=== PATIENT | female | born 1965 | race Caucasian/White ===

== ENCOUNTER → 2019-12-25 09:02 | Outpatient (CLI) | payer BC, SELFPAY ==
--- NOTE | 2019-12-25 09:07 | RAD_ITS ---
STUDY: X-RAY CHEST REASON FOR EXAM: Female, 54 years old. Cough, trouble breathing, some right side chest pain for several weeks TECHNIQUE: PA and lateral views of the chest. COMPARISON: Comparison is made with prior study May 22, 2014. FINDINGS: The lungs are clear and expanded. Scattered calcified granulomas. There is no demonstrated pleural abnormality. Normal size heart. Normal mediastinum and bria. Normal visualized pulmonary arteries. Normal visualized aortic arch and descending thoracic aorta. There are diffuse degenerative changes of the visualized thoracic spine. Normal visualized ribs, clavicles, and shoulders. There is no demonstrated abnormality of the visualized soft tissue structures of the upper abdomen. RAD/Chest PA and Lateral IMPRESSION: Normal x-ray examination of the chest. Electronically Signed: Jesus Manuel Pandey, at 9:24 EDT , Service support ,
== END ==
LOC: MTRAD 09:06
PROVIDERS: PCP Family Medicine; Referring Provider Family Medicine; Visit Provider Family Medicine
DX: R05 Cough (principal)
CPT/HCPCS: 71046

== ENCOUNTER → 2020-01-06 07:22 | Outpatient (CLI) | payer BC, SELFPAY ==
[2020-01-06 10:10] LABS: Cholesterol 244 mg/dL (200); High Density Lipoprotein 49 mg/dL; Triglycerides 132 mg/dL; Very Low Density Lipoprotein 26 mg/dL (5-40)
[2020-01-06 10:11] LABS: Vitamin D,25 Hydroxy 19.9 ng/mL
== END ==
PROVIDERS: Family Medicine; PCP Family Medicine; Referring Provider Family Medicine; Visit Provider Family Medicine
DX: E55.9 Vitamin D deficiency, unspecified (principal); K58.9 Irritable bowel syndrome, unspecified; E78.00 Pure hypercholesterolemia, unspecified
CPT/HCPCS: 36415; 80061; 82306

== ENCOUNTER → 2020-02-09 15:53 | Outpatient (CLI) | payer BC, SELFPAY ==
--- NOTE | 2020-02-09 15:58 | CT_ITS ---
STUDY: CT ABDOMEN AND PELVIS WITH CONTRAST REASON FOR EXAM: Female, 54 years old. CROHN''S, UNABLE TO COMPLETE COLONSCOPY, LEFT SIDE ABD PAIN, WEIGHT LOSS RADIATION DOSAGE (If Supplied By Facility): CTDIvol = ( 20.32 ) mGy, DLP = ( 2444.88 ) mGycm TECHNIQUE: Transaxial images were obtained from the dome of the diaphragm to the symphysis pubis without oral contrast. Oral and amp; IV Breeza and amp; 100mL Isovue-370 was administered. Sagittal and coronal images were reconstructed. Individualized dose optimization techniques were used for this CT. COMPARISON: None. FINDINGS: The visualized lung bases are unremarkable. The visualized portions of the heart are within normal limits. Normal liver. Normal gallbladder and extrahepatic biliary system. Normal spleen. Normal pancreas. Normal bilateral adrenal glands. Normal right kidney. Normal left kidney. Normal visualized stomach. Normal small intestine. Normal colon. Normal abdominal aorta. Normal inferior vena cava. Normal retroperitoneum. Normal urinary bladder. Normal abdominal wall. Normal osseous structures. CT/Abdomen/Pelvis WITH Contrast IMPRESSION: Normal enhanced CT of the abdomen and pelvis. Electronically Signed: Karen Dodd, at 4:16 EDT Tel , Service support ,
== END ==
PROVIDERS: PCP Family Medicine; Referring Provider Internal Medicine Gastroenterology; Visit Provider Internal Medicine Gastroenterology
DX: K50.90 Crohn's disease, unspecified, without complications (principal)
CPT/HCPCS: 74177; Q9967; A4216

== ENCOUNTER → 2020-03-12 15:33 | Outpatient (CLI) | payer BC, SELFPAY | PROVIDERS: PCP Family Medicine; Referring Provider Internal Medicine Gastroenterology; Visit Provider Internal Medicine Gastroenterology | DX: K50.10 Crohn's disease of large intestine without complications (principal) ==

== ENCOUNTER → 2020-04-20 08:05 | Outpatient (CLI) | payer BC, SELFPAY ==
[2020-04-20 11:10] LABS: Hepatitis B Surface Antigen Non-Reactive (Nonreactive)
[2020-04-20 11:10] LABS: ALB/GLOB Ratio 0.9 RATIO (0.9-2.4); AST(SGOT) 15 U/L (15-37); Alanine Aminotransfer ALT/SGPT 22 U/L (13-56); Albumin, Serum 3.5 g/dL (3.2-5.0); Alkaline Phosphatase 89 U/L (45-117); Anion Gap 6 (5-15); BUN 13 mg/dL (7-18); BUN/Creat Ratio 16.2 RATIO (10-20); Calcium,Total 9.2 mg/dL (8.5-10.1); Chloride 104 mmol/L (98-107); Cholesterol 241 mg/dL (200); EST Glomerular Filtration Rate 79 mL/min (>60); Est Glom Filt Rate - Afr Amer 95 mL/min (>60); Glucose 93 mg/dL (74-106); High Density Lipoprotein 58 mg/dL; Potassium 3.5 mmol/L (3.5-5.1); Protein, Total 7.5 g/dL (6.4-8.2); Sodium Level 139 mmol/L (136-145); Triglycerides 134 mg/dL; Very Low Density Lipoprotein 27 mg/dL (5-40)
[2020-04-23 03:07] LABS: QNTFERON TB Mitogen Value > 10.00 IU/mL (.); QNTFERON TB Nil Value 0.02 IU/mL (.); QNTFERON TB1+ Ag Value 0.03 IU/mL (.); QNTFERON TB2+ Ag Value 0.03 IU/mL (.)
[2020-04-23 15:42] LABS: QNTIFERON TB Positive Criteria Negative (Negative)
== END ==
PROVIDERS: PCP Family Medicine; Referring Provider Internal Medicine Gastroenterology; Visit Provider Internal Medicine Gastroenterology
DX: K50.10 Crohn's disease of large intestine without complications (principal)
CPT/HCPCS: 36415; 80053; 80061; 86140; 86480; 87340

== ENCOUNTER → 2020-05-31 09:28 | Outpatient (CLI) | payer BC, SELFPAY ==
[2020-05-31 12:49] LABS: Thyroid Stim Hormone (TSH) 1.47 uIU/mL (0.358-3.74)
== END ==
PROVIDERS: PCP Family Medicine; Visit Provider Family Medicine
DX: R00.2 Palpitations (principal)
CPT/HCPCS: 36415; 84443

== ENCOUNTER → 2020-10-18 16:22 | Outpatient (CLI) | payer BC, SELFPAY ==
[2020-10-18 18:26] LABS: Hematocrit 37.5 % (37-47); Hemoglobin 12.6 g/dL (12.0-15.0); Mean Corp Hgb Conc 33.6 g/dL (32-36); Mean Corpuscular Hgb 29.6 pg (27.0-32.0); Mean Corpuscular Volume 88.2 fL (81-99); Mean Platelet Vol. 10.3 fl (6.2-12.0); Platelet Count 392 K/mm3 (150-450); RBC Distribution Width CV 12.8 % (11.6-14.6); RBC Distribution Width SD 41.5 fl (35.1-43.9); Red Blood Count 4.25 M/mm3 (4.2-5.4)
[2020-10-18 18:48] LABS: CRP 4.92 mg/L (0.0-3.0)
== END ==
PROVIDERS: PCP Family Medicine; Referring Provider Internal Medicine Gastroenterology; Visit Provider Internal Medicine Gastroenterology
DX: K50.90 Crohn's disease, unspecified, without complications (principal)
CPT/HCPCS: 36415; 85027; 86140

== ENCOUNTER → 2020-10-29 08:12 | Outpatient (CLI) | payer BC, SELFPAY ==
--- NOTE | 2020-10-29 08:13 | RAD_ITS ---
STUDY: BARIUM ENEMA. REASON FOR EXAM: Female, 55 years old. CROHN''S FLUOROSCOPY TIME (if supplied): ( 65 seconds ) minutes/seconds. 15 images were obtained. TECHNIQUE: A cisco certified network professional view was obtained. Following this, barium was introduced through the rectum. The entire colon was opacified. COMPARISON: None. FINDINGS: There is no evidence of retrograde or antegrade obstruction to the flow of contrast. There is evidence of a focal area of stricture in the proximal transverse colon adjacent to the hepatic flexure. There is lack of haustral markings throughout the colon worse in the transverse colon. RAD/Barium Enema No Air Cont IMPRESSION: Focal area of the stricture in the proximal transverse colon just distal to the hepatic flexure. Lack of haustral markings. Electronically Signed: Jessu Manuel Pandey MD at 14:53 EDT , Service support ,
== END ==
LOC: RAD 08:12
PROVIDERS: PCP Family Medicine; Referring Provider Internal Medicine Gastroenterology; Visit Provider Internal Medicine Gastroenterology
DX: K50.90 Crohn's disease, unspecified, without complications (principal)
CPT/HCPCS: 74270

== ENCOUNTER 2020-10-29 16:18 | Outpatient (RCR) | payer BC, SELFPAY ==
[2020-10-29] MEDS: COVID-19 VACC, MRNA(PFIZER)/PF 30 MCG/0.3 ML SYRINGE IM (14:48)
[2020-11-19] MEDS: COVID-19 VACC, MRNA(PFIZER)/PF 30 MCG/0.3 ML SYRINGE IM (14:40)
== END 2020-10-29 23:59 ==
LOC: IMMUN 16:18
PROVIDERS: PCP Family Medicine; Visit Provider Family Medicine
DX: Z23 Encounter for immunization (principal)
CPT/HCPCS: 0001A; 0002A; 91300

== ENCOUNTER → 2021-04-15 08:00 | Outpatient (CLI) | payer BC, SELFPAY ==
[2021-04-15 10:23] LABS: Absolute Lymphocyte Count 2.27 X10^3/uL (0.83-4.51); Absolute Neutrophil Count 4.3 X10^3/uL (2.0-7.7); Basophil# 0.07 X10^3/uL; Basophil% 0.9 % (0-1); Eosinophil# 0.12 X10^3/uL; Eosinophils% 1.6 % (0-5); Hematocrit 37.9 % (37-47); Lymphocyte # 2.27 X10^3/ul (0.83-4.51); Lymphocyte % 30.3 % (19-41); Mean Corp Hgb Conc 34.3 g/dL (32-36); Mean Corpuscular Volume 87.5 fL (81-99); Mean Platelet Vol. 9.8 fl (6.2-12.0); Monocyte% 9.4 % (0-10); NRBC Flagged by Analyzer 0 % (0-5); Neutrophil # 4.29 X10^3/uL (2.7-7.7); Neutrophil % 57.4 % (47-70); Platelet Count 338 K/mm3 (150-450); RBC Distribution Width CV 12.6 % (11.6-14.6); RBC Distribution Width SD 40.4 fl (35.1-43.9); Red Blood Count 4.33 M/mm3 (4.2-5.4); White Blood Count 7.5 K/mm3 (4.4-11.0)
[2021-04-15 10:42] LABS: ALB/GLOB Ratio 0.9 RATIO (0.9-2.4); AST(SGOT) 17 U/L (15-37); Alanine Aminotransfer ALT/SGPT 34 U/L (13-56); Albumin, Serum 3.6 g/dL (3.2-5.0); Alkaline Phosphatase 105 U/L (45-117); Anion Gap 6 (5-15); BUN 13 mg/dL (7-18); BUN/Creat Ratio 18.4 RATIO (10-20); Calcium,Total 8.9 mg/dL (8.5-10.1); Chloride 105 mmol/L (98-107); Cholesterol 264 mg/dL (200); EST Glomerular Filtration Rate 91 mL/min (>60); Est Glom Filt Rate - Afr Amer 110 mL/min (>60); Glucose 97 mg/dL (74-106); High Density Lipoprotein 51 mg/dL; Potassium 3.8 mmol/L (3.5-5.1); Protein, Total 7.6 g/dL (6.4-8.2); Sodium Level 139 mmol/L (136-145); Triglycerides 154 mg/dL; Very Low Density Lipoprotein 31 mg/dL (5-40)
[2021-04-15 11:03] LABS: Vitamin B12 915 pg/mL (211-911); Vitamin D,25 Hydroxy 31.5 ng/mL
== END ==
PROVIDERS: PCP Family Medicine; Referring Provider Internal Medicine Gastroenterology; Visit Provider Internal Medicine Gastroenterology
DX: K50.90 Crohn's disease, unspecified, without complications (principal); E55.9 Vitamin D deficiency, unspecified; R53.83 Other fatigue; I10 Essential (primary) hypertension
CPT/HCPCS: 36415; 80053; 80061; 82306; 82607; 85025

== ENCOUNTER → 2021-04-19 18:42 | Outpatient (CLI) | payer BC, SELFPAY ==
[2021-04-21 20:08] LABS: Covid Inpatient test code BILL Performed (.)
== END ==
PROVIDERS: Visit Provider Family Medicine
DX: U07.1 COVID-19 (principal)
CPT/HCPCS: 87635; U0005; U0003

== ENCOUNTER 2021-10-07 17:39 | Outpatient (CLI) | payer BC, SELFPAY ==
--- NOTE | 2021-10-07 17:47 | CT_ITS ---
STUDY: CT Abdomen And Pelvis W/ Contrast Injection 10/07/2021 8:53 PM REASON FOR EXAM: Female, 56 years old. CROHN''S WITH SURGERY SCHEDULED FOR STRICTURE,ULCERATIVE COLITIS AND DYSPLASIA OF COLON HX:HTN,HLD, ENTEROGRAPHY TECHNIQUE: Transaxial images were obtained without oral contrast, and Oral and IV BREEZA NEUTRAL ; 100mL Isovue-370 intravenous contrast. Individualized dose optimization techniques were used for this CT. COMPARISON: 6 ct and BE Oct 29 2020 8:21am FINDINGS: The visualized lung bases are unremarkable. The visualized portions of the heart are within normal limits. Normal liver. Normal gallbladder and extrahepatic biliary system. Normal spleen. Normal pancreas. Normal bilateral adrenal glands. There are hypodensities in the right kidney. These are consistent for cysts. No follow up required. No acute findings of the left kidney. Normal visualized stomach. Normal small intestine. There is diffuse narrowing of the colon from the hepatic flexure to the rectosigmoid colon. This has an ahaustral appearance. The prior findings on the BE appear to have progressed. There is non-visualization of the appendix. There are calcifications of the abdominal aorta. This is consistent for atherosclerotic disease. There is no abdominal aortic aneurysm. Normal inferior vena cava. Subcentimeter mesenteric lymph nodes. Normal urinary bladder. There is atrophy of the uterus. There is an umbilical hernia containing fat. There are diffuse degenerative changes of the visualized lumbar spine. IMPRESSION: (NOT LISTED IN ORDER OF SIGNIFICANCE) There is diffuse narrowing of the colon from the hepatic flexure to the rectosigmoid colon. This has an ahaustral appearance. The prior findings on the BE appear to have progressed. Other findings as above. Electronically Signed: Anjum Loco MD at 21:02 EST , CT/Abdomen/Pelvis WITH Contrast
[2021-10-07 18:01] LABS: CREATININE FINGERSTICK 0.7 mg/dL (0.55-1.02); EGFR FINGERSTICK > 60.0000 mL/min (>60)
== END 2021-10-07 23:59 | disposition home or self-care (01) ==
PROVIDERS: Referring Provider Internal Medicine Gastroenterology; Visit Provider Internal Medicine Gastroenterology
DX: K50.90 Crohn's disease, unspecified, without complications (principal)
CPT/HCPCS: 74177; Q9967

== ENCOUNTER → 2022-01-02 | Outpatient (CLI) | payer BC, SELFPAY ==
--- NOTE | 2022-01-02 14:18 | BI_ITS ---
MAMMOGRAPHY - BILATERAL SCREENING REASON FOR EXAM: Female, 56 years old. Routine annual screening examination. PERTINENT HISTORY: Aunt with breast cancer. No personal history of breast cancer. TECHNIQUE: Digital bilateral breast carlos eduardo (3D mammographic acquisition) in the CC and MLO projections. 2-D mediolateral oblique (MLO) and craniocaudad (CC) views of both breasts were obtained. CAD: Full Field Digital Mammography with Computer Added Detection was performed. COMPARISON: Diagnostic breast mammogram from 05/16/2016, 05/25/2015. Right breast diagnostic mammogram from 11/25/2015. Bilateral screening mammogram from 04/27/2015. FINDINGS: Breast Composition: The breasts are heterogeneously dense, which may obscure small masses. There are stable benign-appearing oval lesions in the right upper outer breast. There are stable asymmetries in the right breast. No suspicious calcifications. No other significant abnormalities are identified. BI/SCRN MAMM (CAD)W/CARLOS EDUARDO BILAT IMPRESSION: Negative screening mammogram. Yearly followup mammogram recommended. (A) ASSESSMENT CATEGORY: BIRADS Category 2: Benign. A letter regarding these results will be sent to the patient by the facility within 30 days. Approximately 10% of breast cancers are not detected by mammography. A normal mammogram should not delay biopsy of a clinically suspicious abnormality. [id number] Electronically Signed: Chi Klein, at 16:58 EDT ,
== END | disposition home or self-care (01) ==
LOC: OPBI 14:15
PROVIDERS: Visit Provider Family Medicine
DX: Z12.31 Encounter for screening mammogram for malignant neoplasm of breast (principal); Z80.3 Family history of malignant neoplasm of breast
CPT/HCPCS: 77063; 77067

== ENCOUNTER → 2023-05-01 | Outpatient (CLI) | payer SELFPAY ==
[2023-05-01 10:19] LABS: Absolute Lymphocyte Count 2.57 X10^3/uL (0.83-4.51); Basophil# 0.06 X10^3/uL; Basophil% 0.6 % (0-1); Eosinophil# 0.14 X10^3/uL; Eosinophils% 1.5 % (0-5); Hematocrit 36.5 % (37-47); Lymphocyte # 2.57 X10^3/ul (0.83-4.51); Lymphocyte % 27.7 % (19-41); Mean Corp Hgb Conc 32.9 g/dL (32-36); Mean Corpuscular Hgb 29.7 pg (27.0-32.0); Mean Corpuscular Volume 90.3 fL (81-99); Monocyte# 0.52 X10^3/uL; Monocyte% 5.6 % (0-10); NRBC Flagged by Analyzer 0 % (0-5); Neutrophil # 5.95 X10^3/uL (2.7-7.7); Neutrophil % 64.1 % (47-70); Platelet Count 372 K/mm3 (150-450); RBC Distribution Width CV 13.2 % (11.6-14.6); RBC Distribution Width SD 43.8 fl (35.1-43.9); Red Blood Count 4.04 M/mm3 (4.2-5.4); White Blood Count 9.3 K/mm3 (4.4-11.0)
[2023-05-01 10:51] LABS: Vitamin D,25 Hydroxy 39.4 ng/mL
[2023-05-01 11:00] LABS: Microalbumin,Random Urine < 5.0 mg/L (NO RANGE EST.)
[2023-05-01 11:38] LABS: ALB/GLOB Ratio 0.9 RATIO (0.9-2.4); AST(SGOT) 27 U/L (15-37); Alanine Aminotransfer ALT/SGPT 45 U/L (13-56); Albumin, Serum 3.4 g/dL (3.2-5.0); Alkaline Phosphatase 115 U/L (45-117); Anion Gap 5 (5-15); BUN 16 mg/dL (7-18); Calcium,Total 8.8 mg/dL (8.5-10.1); Chloride 106 mmol/L (98-107); Cholesterol 165 mg/dL (200); EST Glomerular Filtration Rate 92 mL/min (>60); Est Glom Filt Rate - Afr Amer 111 mL/min (>60); Ferritin 43 ng/mL (8-252); Globulin 3.7 g/dL (2.2-4.2); Glucose 108 mg/dL (74-106); Hemoglobin A1c 5.9 % (3.8-5.6); High Density Lipoprotein 48 mg/dL; Potassium 3.9 mmol/L (3.5-5.1); Protein, Total 7.1 g/dL (6.4-8.2); Sodium Level 138 mmol/L (136-145); Triglycerides 120 mg/dL; Very Low Density Lipoprotein 24 mg/dL (5-40)
== END | disposition home or self-care (01) ==
PROVIDERS: PCP Family Medicine; Visit Provider Family Medicine
DX: E78.00 Pure hypercholesterolemia, unspecified (principal); E55.9 Vitamin D deficiency, unspecified; D50.9 Iron deficiency anemia, unspecified; I10 Essential (primary) hypertension
CPT/HCPCS: 36415; 80053; 80061; 82043; 82306; 82570; 82728; 83036; 84443; 85025

== ENCOUNTER → 2023-12-26 | Outpatient (CLI) | payer BC, SELFPAY ==
[2023-12-26 17:58] LABS: Absolute Lymphocyte Count 2.23 X10^3/uL (0.83-4.51); Absolute Neutrophil Count 8.1 X10^3/uL (2.0-7.7); Basophil# 0.07 X10^3/uL; Basophil% 0.6 % (0-1); Eosinophil# 0.11 X10^3/uL; Hematocrit 38.2 % (37-47); Hemoglobin 12.9 g/dL (12.0-15.0); Lymphocyte # 2.23 X10^3/ul (0.83-4.51); Lymphocyte % 19.8 % (19-41); Mean Corp Hgb Conc 33.8 g/dL (32-36); Mean Corpuscular Hgb 29.4 pg (27.0-32.0); Mean Platelet Vol. 9.3 fl (6.2-12.0); Monocyte# 0.75 X10^3/uL; Monocyte% 6.7 % (0-10); NRBC Flagged by Analyzer 0 % (0-5); Neutrophil # 8.07 X10^3/uL (2.7-7.7); Neutrophil % 71.6 % (47-70); Platelet Count 379 K/mm3 (150-450); RBC Distribution Width CV 12.9 % (11.6-14.6); RBC Distribution Width SD 41.1 fl (35.1-43.9); Red Blood Count 4.39 M/mm3 (4.2-5.4); White Blood Count 11.3 K/mm3 (4.4-11.0)
[2023-12-26 18:25] LABS: D-Dimer Quantitative (DVT/PE) < 0.27 FEU/ug/m (0.27-0.49)
[2023-12-26 18:54] LABS: ALB/GLOB Ratio 0.9 RATIO (0.9-2.4); AST(SGOT) 20 U/L (15-37); Alanine Aminotransfer ALT/SGPT 34 U/L (13-56); Albumin, Serum 3.6 g/dL (3.2-5.0); Alkaline Phosphatase 96 U/L (45-117); Anion Gap 6 (5-15); BUN 16 mg/dL (7-18); BUN/Creat Ratio 22.6 RATIO (10-20); Calcium,Total 9.5 mg/dL (8.5-10.1); Chloride 105 mmol/L (98-107); Creatinine, Serum 0.71 mg/dL (0.55-1.02); EST Glomerular Filtration Rate 90 mL/min (>60); Est Glom Filt Rate - Afr Amer 109 mL/min (>60); Globulin 4.1 g/dL (2.2-4.2); Glucose 115 mg/dL (74-106); Magnesium 2.4 mg/dL (1.6-2.6); Potassium 4.3 mmol/L (3.5-5.1); Protein, Total 7.7 g/dL (6.4-8.2); Sodium Level 139 mmol/L (136-145); Thyroid Stim Hormone (TSH) 3.15 uIU/mL (0.358-3.74)
== END | disposition home or self-care (01) ==
PROVIDERS: PCP Family Medicine; Referring Provider Nurse Practitioner Family; Visit Provider Nurse Practitioner Family
DX: R00.2 Palpitations (principal); R60.0 Localized edema
CPT/HCPCS: 36415; 80053; 83735; 84443; 85025; 85379

== ENCOUNTER → 2024-01-25 | Outpatient (CLI) | payer BC, SELFPAY ==
--- NOTE | 2024-01-25 17:18 | STRESSREP ---
Stress Test Report Exercise myocardial perfusion stress test. 58-year-old lady with a history of chest pain Stress protocol: Resting EKG demonstrates normal sinus rhythm with a rate of 82 bpm resting blood pressure is 176/80 mmHg. The patient exercised according to the regular [facility] protocol for a total duration of 5 minutes and 30 seconds attaining a maximum heart rate of 162 bpm which was 100% of maximum predicted heart rate; the maximum workload was 7 metabolic equivalents. At rest there were no ST or T wave changes noted to suggest ischemia and at peak exercise upsloping ST changes only were noted which did not meet the criteria for ischemia. No clinical angina was noted the test was terminated due to the target heart rate being achieved/fatigue. The peak blood pressure was 210/80 mmHg. Rate-pressure product was 32,000. Myocardial perfusion protocol. 14.6 mCi of technetium 99m sestamibi was injected at rest. The patient exercised according to regular [facility]row protocol for total duration of 5 minutes and 30 seconds and at peak exercise 44.5 mCi of technetium 99m sestamibi was injected stress images were obtained stress and rest images were reconstructed in comparing the short axis vertical long and horizontal long axis. Gated images were also obtained. Perfusion SPECT analysis: Review of the stress images demonstrate normal uptake of tracer noted in all areas of the myocardium. The resting images similarly demonstrate normal uptake of tracer noted in all areas of the myocardium. No areas of reversibility are noted to suggest ischemia no previous infarct was noted. Gated SPECT analysis: The gated ejection fraction is 76%. Conclusion: Normal exercise myocardial perfusion stress test at a moderate workload Preserved ejection fraction.
== END | disposition home or self-care (01) ==
LOC: CVS 06:38
PROVIDERS: PCP Family Medicine; Referring Provider Nurse Practitioner Family; Visit Provider Nurse Practitioner Family
DX: R07.9 Chest pain, unspecified (principal)
CPT/HCPCS: 78452; 93017; A9500

== ENCOUNTER → 2024-11-14 | Outpatient (CLI) | payer BC, SELFPAY ==
--- NOTE | 2024-11-14 17:12 | RAD_ITS ---
PROCEDURE: ANKLE MIN 3 VIEWS 11/14/2024 REASON FOR EXAM: RIGHT ANKLE PAIN TECHNIQUE: 3 views of the right ankle COMPARISON: None available FINDINGS: No fracture or dislocation. The joint spaces appear within limits. Soft tissue swelling about the ankle. Small enthesophyte formation Achilles side of the calcaneus. RAD/Ankle min 3 Views IMPRESSION: No fracture or dislocation. Soft tissue swelling about the ankle. Reading Location: [id number]
--- NOTE | 2024-11-14 17:12 | RAD_ITS ---
EXAM: Foot minimum three views CLINICAL HISTORY: Pain COMPARISON: None available TECHNIQUE: Three views left foot FINDINGS: No fracture or dislocation. Joint spaces appear within limits. No osseous lesion identified. RAD/Foot min 3 Views IMPRESSION: Study appears within limits. Reading Location: [id number]
== END | disposition home or self-care (01) ==
LOC: MTRAD 17:10
PROVIDERS: PCP Family Medicine; Referring Provider Family Medicine; Visit Provider Family Medicine
DX: M79.672 Pain in left foot (principal); M25.571 Pain in right ankle and joints of right foot
CPT/HCPCS: 73610; 73630

== ENCOUNTER 2024-11-19 11:34 | Outpatient (RCR) | payer BC, SELFPAY | END 2024-12-10 23:59 | LOC: NS 11:34 | PROVIDERS: PCP Family Medicine; Referring Provider Family Medicine; Visit Provider Family Medicine | DX: Z71.3 Dietary counseling and surveillance (principal); E66.9 Obesity, unspecified; Z68.41 Body mass index [BMI] 40.0-44.9, adult | CPT/HCPCS: 97802 ==

== ENCOUNTER → 2024-12-04 | Outpatient (CLI) | payer BC, SELFPAY ==
--- NOTE | 2024-12-04 16:04 | BD_ITS ---
PROCEDURE: DEXA BONE DENSITY STUDY 12/04/2024 REASON FOR EXAM: F, age 59 y/o . Postmenopausal. TECHNIQUE: DXA scan of sites with data reported below. REFERENCE LINKS: [facility] Adult Positions COMPARISON: 11/07/2016 FINDINGS: BMD and T-SCORES Lumbar spine: 0.850 g/cm2, T-score -1.5 Levels: L1 through L4 Change from prior: . Left femoral neck: 0.684 g/cm2, T-score -1.5 Femoral neck comparison data not recommended for monitoring change. Prior T-score Left total hip: 0.945 g/cm2, T-score 0.0 Change from prior: . Right femoral neck: 0.714 g/cm2, T-score -1.2 Femoral neck comparison data not recommended for monitoring change. Prior T-score Right total hip: 0.889 g/cm2, T-score -0.4 Change from prior: . Left 1/3 radius: g/cm2, T-score Change from prior: . Right 1/3 radius: g/cm2, T-score Change from prior: . The World Health Organization has defined the following categories based on bone density: Normal bone density: T-score equal to or greater than -1.0 Osteopenia: T-score between -1.0 and -2.5 Osteoporosis: T-score equal to or less than -2.5 FRAX (or Comparable) Fracture Risk Assessment: 10 Year Probability of Fracture: Major Osteoporotic Fracture: 19% Hip Fracture: 1.8% (Note: FRAX is not to be reported in setting of normal range bone density, osteoporosis on DEXA, known history of osteoporosis, prior osteoporotic hip or vertebral fracture, or for any patient undergoing pharmacological treatment for bone loss.) The National Osteoporosis Foundation (NOF) recommends pharmacological treatment for patients with a FRAX 10-year risk of 3% or higher for a hip fracture, or 20% or higher for a major osteoporotic fracture, to prevent osteoporosis and reduce fracture risk. The patient meet the pharmacological treatment recommendations for prevention of osteoporosis. BD/Dexa Bone Density Study IMPRESSION: OSTEOPENIA. Recommend follow-up as clinically warranted. Reading Location: [id number]
== END | disposition home or self-care (01) ==
LOC: OPBD 16:03
PROVIDERS: PCP Family Medicine; Referring Provider Family Medicine; Visit Provider Family Medicine
DX: M85.80 Other specified disorders of bone density and structure, unspecified site (principal)
CPT/HCPCS: 77080

== ENCOUNTER 2024-12-23 12:03 | Outpatient (RCR) | payer BC, SELFPAY | END 2025-01-10 23:59 | LOC: NS 12:03 | PROVIDERS: PCP Family Medicine; Referring Provider Family Medicine; Visit Provider Family Medicine | DX: Z71.3 Dietary counseling and surveillance (principal); E66.9 Obesity, unspecified; Z68.41 Body mass index [BMI] 40.0-44.9, adult; E78.00 Pure hypercholesterolemia, unspecified | CPT/HCPCS: 97803 ==

== ENCOUNTER 2025-01-26 11:35 | Outpatient (RCR) | payer BC, SELFPAY | END 2025-02-09 23:59 | LOC: NS 11:35 | PROVIDERS: PCP Family Medicine; Referring Provider Family Medicine; Visit Provider Family Medicine | DX: Z71.3 Dietary counseling and surveillance (principal); E78.00 Pure hypercholesterolemia, unspecified; E66.9 Obesity, unspecified; Z68.41 Body mass index [BMI] 40.0-44.9, adult | CPT/HCPCS: 97803 ==

== ENCOUNTER → 2025-01-27 | Outpatient (CLI) | payer BC, SELFPAY ==
--- NOTE | 2025-01-27 06:49 | MRI_ITS ---
PROCEDURE: LOWER EXT JOINT ONLY (ROUTINE) 01/27/2025 REASON FOR EXAM: OSTEOARTHRITIS PERONEAL TENDONITIS POSTERIOR TIBIAL TENDONITIS TECHNIQUE: LOWER EXT JOINT ONLY (ROUTINE) T1, T2, PD, stir, multiplanar and multisequence images were obtained without IV contrast administration. COMPARISON: COMPARISON : None FINDINGS: Study demonstrates normal articulation of the ankle joint. No acute fractures or dislocations. Normal marrow signal. The contours of the talar dome are normal .Intact Achilles tendon. Plantar aponeurosis is intact. The lateral, medial and central cords of the plantar fascia are intact. The peroneal tendons show increased fluid in the tendon sheath with the tendon tear or retraction, mild tenosynovitis. The flexor digitorum longus and flexor hallucis longus tendons are intact. There is mild increased fluid in the posterior tibial tendon sheath without tendon tear or retraction, mild tenosynovitis. The extensor tendons are intact. Extensor retinaculum is intact and normal in signal. The subtalar joint is intact. Signal in the sinus tarsi is normal. Transverse and cervical ligaments are intact. Lateral syndesmotic ankle ligaments including the anterior and posterior tibiofibular ligaments are intact. The anterior and posterior talofibular ligaments are intact. The medial ankle ligaments including the deltoid and spring ligaments are intact. There is no joint effusion. Subcutaneous edema is noted overlying the extensor compartment at the distal tibia, at the peroneal myotendinous junction, and overlying the Achilles myotendinous junction. MRI/Lower Ext Joint Only (Routine) IMPRESSION: There is mild increased fluid in the posterior tibial tendon sheath without ten don tear or retraction, mild tenosynovitis. The peroneal tendons show increased fluid in the tendon sheath with the tendon tear or retraction, mild tenosynovitis. Subcutaneous edema is noted overlying the extensor compartment at the distal ti dusty, at the peroneal myotendinous junction, and overlying the Achilles myotendinous junction. Reading Location: [facility]
--- OUTSIDE RECORDS SUMMARY | 2025-01-27 06:49 | XMS RPT_ITS | CCD ---
Author Organization [facility] Team Providers Care Banking Consultant Name Role Phone MATSHAWANDA (CNM) Unavailable Unavailable AYSE CERRATO Unavailable Unavail able JASON MURPHY Unavailable Unavailable GIBSONKIMBERLEY SHAH (COAL HIKER) Unavailable Unavailable GIBSONKIMBERLEY SHAH (COAL HIKER) Unavailable Unavailable KRYSTIAN SCHOFIELD Unavailable Unavailable KIMBERLEY GIBSON (COAL HIKER) Unavailable Unavailable DOMINIC BURTON DO Primary Care Physician Unknown, Referring Provider Unavailable Unav ailable Required, No Pcp Unavailable Unavailable Adiel Black Unavailable None, No PCP Unavailable Unavailable Unavailable Unavailable Unavailable Unavailable Nils, Dr. Sam De La Vega Admitting Unavailabl e Wray, Dr. Sam De La Vega Attending Unavailabl e Wray, Dr. Sam De La Vega Referring Unavailabl e Whetsel, Ms. Carlos Feliz Attending Unava ilable Nils, Dr. Sam De La Vega Referring Unavailabl e Rumpler, Ms. Danielle Us Attending Unavailab le Self, Referral Referring Unavailable Rumpler, Ms. Danielle Us Attending Unavailab le Rumpler, Ms. Danielle Us Referring Unavailab le Esperanza, Dr. Adiel Shane Attending Unavaila ble UNKNOWN, PCP Primary Care Unavailable Esperanza, Dr. Adiel Shane Admitting Unavaila ble Esperanza, Dr. Adiel Shane Attending Unavaila ble Esperanza, Dr. Adiel Shane Referring Unavaila ble Wray, Dr. Sam De La Vega Attending Unavailabl e Self, Referral Referring Unavailable Nils, Dr. Sam De La Vega Attending Unavailabl e Unavailable Primary Care Provider UnavailJordan Sullivan DO Primary Care Provider Unava ilJordan Segura DO Primary Care Provider JORDAN ESQUIVEL Primary Care Unavailable SAM WRAY Attending Unavailable JORDAN ESQUIVEL Primary Care Unavailable Lorna Juarez MD Primary Care Provider [phone] Ann SANDOVAL, Lorna Attending Provider Ann SANDOVAL, Lorna Referring Provider Ann, Chalon Primary Care Unavailable Ann, Chalon Attending Unavailable Ann, Chalon Referring Unavailable Ann, Chalon Primary Care Unavailable Ann, Chalon Attending Unavailable Ann, Chalon Referring Unavailable Ann, Chalon Primary Care Unavailable Ann, Chalon Attending Unavailable Ann, Chalon Referring Unavailable Ann, Chalon Primary Care Unavailable Ann, Chalon Attending Unavailable Ann, Chalon Referring Unavailable Ann, Chalon Primary Care Unavailable Ann, Chalon Attending Unavailable Ann, Chalon Referring Unavailable Allergies Allergy Classification Reported Allergen(s) Allergy Type Date of Onset Reaction(s) Facility (1 source) penicillin; Translations: [PENICILLIN G] Drug Allergy 1 [facility] Repository (4 sources) Erythromycin; Translations: [erythromycin] Drug Allergy 5 Hives, Unknown [facility] (2 sources) Metoprolol; Translations: [metoprolol] Drug Allergy Unknown [facility] (2 sources) Penicillin; Translations: [penicillin] Drug Allergy [facility] (3 sources) predniSONE; Translations: [prednisone] Drug Allergy 5 Anxiety [facility] (17 sources) Penicillins; Translations: [Penicillins] Allergy to substance 1 Hives, [facility] (1 source) ALLERGIES NOT ON FILE; Translations: [ALLERGIES NOT ON FILE] Propensity to adverse reactions (disorder) [facility] Repository Medications Current Medications Medication Drug Class(es) Dates Sig (Normalized) Sig (Original) albuterol MDI (90 mcg/inh) CFC free inhalation aerosol (1 source) Start: 06-24-2021 take 2 puff(s) by inhalation four times daily as needed for wheezing albuterol MDI (90 mcg/inh) CFC free inhalation aerosol 2 puff(s), Inhalation, QID, PRN as needed for wheezing, # 18 gram(s), 0 Refill(s) Start Date: 06/24/21 Status: Ordered amLODIPine 10 mg oral tablet (2 sources) Dihydropyridine Calcium Channel Pool Start: 01-06-2021 amLODIPine 10 mg oral tablet Dose : 10 mg = 1 tab(s), Oral, qDay, # 30 tab(s), 0 Refill(s) Start Date: 01/06/21 Status: Ordered amLODIPine Besyl ate 10 MG Oral Tablet Quantity: 0 Refills: 0 Ordered: 27-Sep-2021 DO Active atorvastatin 40 mg oral tablet (15 sources) HMG-CoA Reductase Inhibitor Start: 06-24-2021 atorvastatin 40 mg oral tablet Dose : 40 mg = 1 tab(s), Oral, Daily, 0 Refill(s) Start Date: 06/24/21 Status: Ordered Atorvastatin Adryan cium 40 MG Oral Tablet Quantity: 0 Refills: 0 Ordered: 27-Sep-2021 DO Active cetirizine hydrochloride 10 mg oral tablet (11 sources) Histamine-1 Receptor Antagonist Start: 09-08-2013 take 1 tablet by mouth once daily as needed Cetirizine Hcl (Zyrtec) 10 MG tablet Active 10 mg PO DAILY as needed for Allergies September 08, 2013 1:00am Zyrtec 10 MG TAB S Quantity: 0 Refills: 0 Ordered: 27-Sep-2021 DO Active cholecalciferol 0.025 mg oral capsule (15 sources) Vitamin D take 1 tablet by mouth once daily cholecalciferol (Vitamin D-3) 25 MCG (1000 UT) capsule Take 1 tablet by mouth once daily. Active Vitamin D3 25 MC G (1000 UT) Oral Capsule Quantity: 0 Refills: 0 Ordered: 27-Sep-2021 DO Active citalopram 40 mg oral tablet (5 sources) Serotonin Reuptake Inhibitor Start: 09-08-2013 take 1 tablet by mouth once daily Citalopram 40 MG tablet Active 40 mg PO DAILY September 08, 2013 1:00am Clobetasol (1 source) Corticosteroid Start: 01-06-2021 clobetasol 0.0 5% topical cream Apply 1 rolanda, Topical, BID, 0 Refill(s) Start Date: 01/06/21 Status: Ordered doxycycline hyclate 20 mg oral tablet (16 sources) Tetracycline-class Drug Start: 01-06-2021 doxycycline 20 mg oral tablet Dose : 20 mg = 1 tab(s), Oral, q12h, # 180 tab(s), 0 Refill(s) Start Date: 01/06/21 Status: Ordered Doxycycline Hycl ate 20 MG Oral Tablet Quantity: 0 Refills: 0 Ordered: 27-Sep-2021 DO Active Ivermectin (15 sources) Antiparasitic, Pediculicide Start: 06-24-2021 So olantra 1% topical cream Apply 1 rolanda, Topical, qDay, # 30 gram(s), 0 Refill(s), Cream, 90.9 Start Date: 06/24/21 Status: Ordered Soolantra 1 % Ex ternal Cream Daily in the morning Quantity: 0 Refills: 0 Ordered: 11-Apr-2022 DO Active Soolantra 1 % Ex ternal Cream Quantity: 0 Refills: 0 Ordered: 27-Sep-2021 DO Active losartan potassium 50 mg oral tablet (14 sources) Angiotensin 2 Receptor Pool take 1 tablet by mouth once daily losartan (Cozaar) 50 mg tablet Take 1 tablet (50 mg) by mouth once daily. Active Losartan Potassi um 50 MG Oral Tablet Quantity: 0 Refills: 0 Ordered: 07-Feb-2022 DO Active mesalamine 1.2 g oral delayed release tablet (1 source) Start: 01-06-2021 mesalamine 1.2 g oral delayed release tablet Dose : 2.4 gram(s) = 2 tab(s), Oral, qDay, # 112 tab(s), 0 Refill(s) Start Date: 01/06/21 Status: Ordered 24 hr metoprolol succinate 50 mg extended release oral tablet (1 source) beta-Adrenergic Pool take 1 tablet by mouth once daily metoprolol succinate XL (Toprol-XL) 50 mg 24 hr tablet Take 1 tablet (50 mg) by mouth once daily. Do not crush or chew. Active montelukast 10 mg oral tablet (16 sources) Leukotriene Receptor Antagonist Start: 01-06-2021 montelukast 10 mg oral tablet Dose : 10 mg = 1 tab(s), Oral, qDay, 0 Refill(s) Start Date: 01/06/21 Status: Ordered Montelukast Sodi um 10 MG Oral Tablet Quantity: 0 Refills: 0 Ordered: 27-Sep-2021 DO Active Multivitamin preparation (1 source) Start: 06-24-2021 take 1 tablet by mouth once daily Multivitamin Dose = 1 tab(s), Oral, Daily, 0 Refill(s) Start Date: 06/24/21 Status: Ordered rosuvastatin calcium 10 mg oral tablet (1 source) HMG-CoA Reductase Inhibitor Start: 07-08-2024 rosuvastatin (Crestor) 10 mg tablet 07/08/2024 Active 1 ml ustekinumab 90 mg/ml prefilled syringe (17 sources) Interleukin-12 Antagonist, Interleukin-23 Antagonist Start: 08-12-2024 Stelara injection Indications: Crohn's disease of small intestine with complication (Multi) INJECT 90 MG UNDER THE SKIN EVERY 8 WEEKS 1 mL 5 08/12/2024 Active Start: 05-03-2022 Stelara 130 MG /26ML Intravenous Solution INFUSE 520 MG Intravenous Quantity: 0 Refills: 0 Ordered: 03-May-2022 Sam Wray MD Start : 03-May-2022 Complete Start: 04-11-2022 End: 05-02-2022 Stelara 130 MG/26ML Intraven ous Solution On day O, Infuse 520 mg (4 vials) IV over one hour. patient's weight is 94 Kg. Quantity: 4 Refills: 0 Ordered: 11-Apr-2022 Sam Wray MD Start : 11-Apr-2022 End : 02-May-2022 Complete AIC PATIENT Start: 04-11-2022 Stelara 90 MG/ ML Subcutaneous Solution Prefilled Syringe Inject 90 mg SC every 8 weeks Quantity: 1 Refills: 5 Ordered: 20-Sep-2022 Sam Wray MD Start : 11-Apr-2022 Active Vitamin D3 (1 source) Start: 06-24-2021 Vitamin D3 Dos e : 1,000 unit(s) = 1 tab(s), Oral, Daily, 0 Refill(s) Start Date: 06/24/21 Status: Ordered Completed/Discontinued Medications Medication Drug Class(es) Dates Sig (Normalized) Sig (Original) acetaminophen 500 mg oral tablet (1 source) Start: 12-13-2021 Tylenol Extra Strength 500 MG Oral Tablet TAKE 1 TABLET Every 6 hours For two days prior to surgery. Take 2 tablets (1000mg) the morning of surgery. Quantity: 1 Refills: 0 Ordered: 13-Dec-2021 Adiel Black MD Start : 13-Dec-2021 Active 0.4 ml adalimumab 100 mg/ml auto-injector (7 sources) Tumor Necrosis Factor Pool Start: 10-23-2021 Humira Pen 40 MG/0.4ML Subcutaneous Pen-injector Kit Quantity: 2 Refills: 0 Ordered: 23-Oct-2021 DO Start : 23-Oct-2021 Complete Start: 01-06-2021 inject 1 dose by sub cutaneous injection every other week Humira Pen 40 mg/0.4 mL subcutaneous kit Dose : 40 mg = 0.4 mL, Subcutaneous, q2wk, Crohn's: 160 mg Day 1 or 80 mg daily Days 1 and 2, then 80 mg Day 15. Day 29 begin 40mg every other week., # 6 EA, 0 Refill(s) Start Date: 01/06/21 Status: Ordered [id number] 200 actuat albuterol 0.09 mg/actuat metered dose inhaler (14 sources) beta2-Adrenergic Agonist take 1-2 puff(s ) by mouth every four to six hours as needed Albuterol Sulfate HFA 108 (90 Base) MCG/ACT Inhalation Aerosol Solution INHALE 1 TO 2 PUFFS BY MOUTH EVERY 4 TO 6 HOURS NEEDED Quantity: 1 Refills: 3 Ordered: 11-Apr-2022 DO Active Albuterol Sulfat e (2.5 MG/3ML) 0.083% Inhalation Nebulization Solution Quantity: 0 Refills: 0 Ordered: 27-Sep-2021 DO Active Clobetasol Prop Emollient Base CREA (5 sources) Clobetasol Prop Emollient Base CREA Quantity: 0 Refills: 0 Ordered: 27-Sep-2021 DO Active 0.4 ml enoxaparin sodium 100 mg/ml prefilled syringe (4 sources) Low Molecular Weight Heparin Lovenox 40 MG/0.4ML Injection Solution Prefilled Syringe Quantity: 0 Refills: 0 Ordered: 07-Feb-2022 DO Active loperamide hydrochloride 2 mg oral capsule (1 source) Opioid Agonist Start: 022 take 1-2 capsules by mouth twice daily Loperamide HCl - 2 MG Oral Capsule TAKE 1-2 CAPSULES BY MOUTH TWICE DAILY Quantity: 120 Refills: 0 Ordered: 14-Apr-2022 DO Start : 11-Apr-2022 Complete mesalamine 1200 mg delayed release oral tablet (5 sources) Aminosalicylate Mesalamine 1.2 G M Oral Tablet Delayed Release Quantity: 0 Refills: 0 Ordered: 27-Sep-2021 DO Active One Daily Multivitamin Women TABS (14 sources) One Daily Multivitamin Women TABS Quantity: 0 Refills: 0 Ordered: 27-Sep-2021 DO Active NEGATED: Highlighted row has not occurred!No Current Medications (1 source) No Current Medications Problems Active Problems Problem Classification Problem Date Documented Da te Episodic/Chronic Abdominal pain (4 sources) Lower abdominal pain; Translations: [Abdominal pain, other specified site] Episodic Administrative/social admission (2 sources) Dietary counseling and surveillance; Translations: [Dietary counseling and surveillance] Onset: 01-11-2025 Episodic Allergic reactions (2 sources) Allergy status to penicillin; Translations: [Allergy to penicillin] Onset: 11-08-2022 11-17-2022 Episodic Anxiety disorders (2 sources) Anxiety disorder, unspecified; Translations: [Anxiety disorder] Onset: 11-08-2022 11-17-2022 Chronic Asthma (2 sources) Unspecified asthma, uncomplicated; Translations: [Uncomplicated asthma] Onset: 11-08-2022 11-17-2022 Chronic Disorders of lipid metabolism (12 sources) Hyperlipidemia; Translations: [Other and unspecified hyperlipidemia] Onset: 01-29-2022 11-17-2022 Chronic Esophageal disorders (5 sources) Gastro-esophageal reflux disease without esophagitis; Translations: [Gastroesophageal reflux disease without esophagitis] Onset: 11-08-2022 11-17-2022 Chronic Essential hypertension (11 sources) Hypertensive disorder; Translations: [Unspecified essential hypertension] Onset: 11-08-2022 11-17-2022 Chronic Menopausal disorders (1 source) Postmenopausal bleeding; Translations: [Postmenopausal bleeding] Onset: 07-16-2017 Chronic Noninfectious gastroenteritis (2 sources) Noninfective gastroenteritis and colitis, unspecified; Translations: [Noninfectious gastroenteritis] Onset: 11-08-2022 3 Episodic Osteoarthritis (1 source) Unspecified osteoarthritis, unspecified site; Translations: [Unspecified osteoarthritis, unspecified site] Onset: 12-09-2021 Chronic Other bone disease and musculoskeletal deformities (9 sources) Osteopenia; Translations: [Disorder of bone and cartilage, unspecified] Episodic Other bone disease and musculoskeletal deformities (1 source) Other specified disorders of bone density and structure, unspecified site; Translations: [Other specified disorders of bone density and structure, unspecified site] Onset: 12-09-2024 Episodic Other circulatory disease (5 sources) H/O: hypertension; Translations: [Personal history of other diseases of circulatory system] Episodic Other connective tissue disease (1 source) Pain in left foot; Translations: [Pain in left foot] Onset: 11-19-2024 Episodic Other gastrointestinal disorders (1 source) Intestinal bypass and anastomosis status; Translations: [Intestinal bypass and anastomosis status] Onset: 11-08-2022 Chronic Other inflammatory condition of skin (9 sources) Rosacea; Translations: [Rosacea] Chronic Other nervous system disorders (2 sources) Postoperative pain ; Translations: [Other acute postoperative pain] 01-24-2022 Episodic Other nutritional; endocrine; and metabolic disorders (2 sources) Obesity; Translations: [Obesity, unspecified] 01-24-2022 Chronic Other nutritional; endocrine; and metabolic disorders (1 source) Morbid (severe) obesity due to excess calories; Translations: [Morbid (severe) obesity due to excess calories] Onset: 01-29-2022 Chronic Other nutritional; endocrine; and metabolic disorders (1 source) Body mass index (BMI) 40.0-44.9, adult; Translations: [Body mass index [BMI] 40.0-44.9, adult] Onset: 01-29-2022 Chronic Other nutritional; endocrine; and metabolic disorders (1 source) Body mass index 30+ - obesity; Translations: [Obesity, unspecified] 09-30-2024 Chronic Other nutritional; endocrine; and metabolic disorders (2 sources) Obesity, unspecified; Translations: [Obesity, unspecified] Onset: 09-30-2024 Chronic Other nutritional; endocrine; and metabolic disorders (14 sources) H/O: diabetes mellitus; Translations: [Personal history of other endocrine, metabolic, and immunity disorders] Episodic Other nutritional; endocrine; and metabolic disorders (14 sources) H/O: metabolic disorder; Translations: [Personal history of other endocrine, metabolic, and immunity disorders] Episodic Other screening for suspected conditions (not mental disorders or infectious disease) (3 sources) Encounter for screening for malignant neoplasm of colon; Translations: [Patient encounter status] Onset: 11-08-2022 11-17-2022 Episodic Regional enteritis and ulcerative colitis (20 sources) Crohn's disease of colon; Translations: [Regional enteritis of large intestine] Onset: 01-23-2022 Chronic Residual codes; unclassified (1 source) Acquired absence of other specified parts of digestive tract; Translations: [Acquired absence of other specified parts of digestive tract] Onset: 11-08-2022 Episodic Residual codes; unclassified (1 source) Disorder of digestive tract; Translations: [Acquired absence of other specified parts of digestive tract] 11-17-2022 Episodic Unclassified (1 source) Unknown / UNK(Unknown) Onset: 07-24-2017 Unclassified (2 sources) CROHN'S COLITIS 12-19-2021 Comment on above: CROHN'S COLITIS Unclassified (1 source) Personal history of COVID-19; Translations: [Personal history of COVID-19] Onset: 12-09-2021 Past or Other Problems Problem Classification Problem Date Documented Da te Episodic/Chronic Cardiac dysrhythmias (1 source) Tachycardia, unspecified; Translations: [Tachycardia, unspecified] Onset: 12-09-2021 Episodic Deficiency and other anemia (1 source) Anemia, unspecified; Translations: [Anemia, unspecified] Onset: 01-29-2022 Episodic Other aftercare (1 source) Other national park ranger (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) 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 therapy; Translations: [Other fdc (current) drug therapy] Onset: 12-09-2021 Episodic Residual codes; unclassified (1 source) Family history of ischemic heart disease and other diseases of the circulatory system; Translations: [Family hx of ischem heart dis and oth dis of the circ sys] Onset: 01-29-2022 Episodic Screening and history of mental health and substance abuse codes (1 source) Personal history of nicotine dependence; Translations: [Personal history of nicotine dependence] Onset: 01-29-2022 Episodic Unclassified (1 source) Onset: 09-30-2024 09-30-2024 Results Test Name Value Interpretation Reference Range Facility Bone density reportOrdered B y: Yamilet Sloan on 12-04-2024 Study report Skeletal system DXA [facility] Imaging Services [address] [place] [address] Dexa Bone Density Study MR#: [id number] Acct: [id number] Name: ELDA ELLIS Rep #: [id number] : 1965 F 59 From: Luis M Sloan MD PCP: Dr. Lorna Juarez MD Status: REG CL I Study:Dexa Bone Density Study Date of Exam: 12/04/24 Exam# [id number] Ordering Dr: Tana Juarez MD PROCEDURE: DEXA BONE DENSITY STUDY 12/04/2024 REASON FOR EXAM: F, age 59 y/o . Postmenopausal. TECHNIQUE: DXA scan of sites with data reported below. REFERENCE LINKS: [facility] Adult Positions COMPARISON: 11/07/2016 FINDINGS: BMD and T-SCORES Lumbar spine: 0.850 g/cm2, T-score -1.5 Levels: L1 through L4 Change from prior: . Left femoral neck: 0.684 g/cm2, T-score -1.5 Femoral neck comparison data not recommended for monitoring change. Prior T-score Left total hip: 0.945 g/cm2, T-score 0.0 Change from prior: . Right femoral neck: 0.714 g/cm2, T-score -1.2 Femoral neck comparison data not recommended for monitoring change. Prior T-score Right total hip: 0.889 g/cm2, T-score -0.4 Change from prior: . Left 1/3 radius: g/cm2, T-score Change from prior: . Right 1/3 radius: g/cm2, T-score Change from prior: . The World Health Organization has defined the following categories based on bonedensity: Normal bone density: T-score equal to or greater than -1.0 Osteopenia: T-score between -1.0 and -2.5 Osteoporosis: T-score equal to or less than -2.5 FRAX (or Comparable) Fracture Risk Assessment: 10 Year Probability of Fracture: Major Osteoporotic Fracture: 19% Hip Fracture: 1.8% (Note: FRAX is not to be reported in setting of normal range bone density, osteoporosis on DEXA, known history of osteoporosis, prior osteoporotic hip or vertebral fracture, or for any patient undergoing pharmacological treatment for bone loss.) The National Osteoporosis Foundation (NOF) recommends pharmacological treatment for patients with a FRAX 10-year risk of 3% or higher for a hip fracture, or 20% or higher for a major osteoporotic fracture, to prevent osteoporosis and reduce fracture risk. The patient meet the pharmacological treatment recommendations for prevention of osteoporosis. BD/Dexa Bone Density Study IMPRESSION: OSTEOPENIA. Recommend follow-up as clinically warranted. Reading Location: [id number] CC: Dr. Lorna Juarez MD ~ Renewable Energy Technician: Signed [facility] Dexa Bone Density Studyon Dexa Bone Density Study [facility] Imaging Services [address] [place] [address] [id number] Dexa Bone Density Study MR#: [id number] Acct: [id number] Name: ELDA ELLIS Rep #: [id number] : 1965 F 59 From: Yamilet Sloan MD PCP: Dr. Lorna Juarez MD Status: REG CLI Study: Dexa Bone Density Study Date of Exam: 12/04/24 Exam# [id number] Ordering Dr: Lorna Juarez MD PROCEDURE: DEXA BONE DENSITY STUDY 12/04/2024 REASON FOR EXAM: F, age 59 y/o . Postmenopausal. TECHNIQUE: DXA scan of sites with data reported below. REFERENCE LINKS: [facility] Adult Positions COMPARISON: 11/07/2016 FINDINGS: BMD and T-SCORES Lumbar spine: 0.850 g/cm2, T-score -1.5 Levels: L1 through L4 Change from prior: . Left femoral neck: 0.684 g/cm2, T-score -1.5 Femoral neck comparison data not recommended for monitoring change. Prior T-score Left total hip: 0.945 g/cm2, T-score 0.0 Change from prior: . Right femoral neck: 0.714 g/cm2, T-score -1.2 Femoral neck comparison data not recommended for monitoring change. Prior T-score Right total hip: 0.889 g/cm2, T-score -0.4 Change from prior: . Left 1/3 radius: g/cm2, T-score Change from prior: . Right 1/3 radius: g/cm2, T-score Change from prior: . The World Health Organization has defined the following categories based on bone density: Normal bone density: T-score equal to or greater than -1.0 Osteopenia: T-score between -1.0 and -2.5 Osteoporosis: T-score equal to or less than -2.5 FRAX (or Comparable) Fracture Risk Assessment: 10 Year Probability of Fracture: Major Osteoporotic Fracture: 19% Hip Fracture: 1.8% (Note: FRAX is not to be reported in setting of normal range bone density, osteoporosis on DEXA, known history of osteoporosis, prior osteoporotic hip or vertebral fracture, or for any patient undergoing pharmacological treatment for bone loss.) The National Osteoporosis Foundation (NOF) recommends pharmacological treatment for patients with a FRAX 10-year risk of 3% or higher for a hip fracture, or 20% or higher for a major osteoporotic fracture, to prevent osteoporosis and reduce fracture risk. The patient meet the pharmacological treatment recommendations for prevention of osteoporosis. BD/Dexa Bone Density Study IMPRESSION: OSTEOPENIA. Recommend follow-up as clinically warranted. Reading Location: [id number] CC: Dr. Lorna Juarez MD Renewable Energy Technician: Signed Normal [facility] Ankle min 3 Viewson 11-15-19 Ankle min 3 Views [facility] Imaging Services [address] [place] [address] [id number] Ankle min 3 Views MR#: [id number] Acct: [id number] Name: ELDA ELLIS Rep #: [id number] : 1965 F 59 From: Shon Haas MD PCP: Dr. Lorna Juarez MD Status: REG CLI Study: Ankle min 3 Views Date of Exam: 11/14/24 Exam# [id number] Ordering Dr: Lorna Juarez MD PROCEDURE: ANKLE MIN 3 VIEWS 11/14/2024 REASON FOR EXAM: RIGHT ANKLE PAIN TECHNIQUE: 3 views of the right ankle COMPARISON: None available FINDINGS: No fracture or dislocation. The joint spaces appear within limits. Soft tissue swelling about the ankle. Small enthesophyte formation Achilles side of the calcaneus. RAD/Ankle min 3 Views IMPRESSION: No fracture or dislocation. Soft tissue swelling about the ankle. Reading Location: [facility] CC: Dr. Lorna Juarez MD Renewable Energy Technician: Signed Normal [facility] Foot min 3 Viewson 5 Foot min 3 Views [facility] Imaging Services [address] [place] [address] Foot min 3 Views MR#: [id number] Acct: [id number] Name: ELDA ELLIS Rep #: [id number] : 1965 F 59 From: Shon Haas MD PCP: Dr. Lorna Juarez MD Status: REG CLI Study: Foot min 3 Views Date of Exam: 11/14/24 Exam# [id number] Ordering Dr: Lorna Juarez MD EXAM: Foot minimum three views CLINICAL HISTORY: Pain COMPARISON: None available TECHNIQUE: Three views left foot FINDINGS: No fracture or dislocation. Joint spaces appear within limits. No osseous lesion identified. RAD/Foot min 3 Views IMPRESSION: Study appears within limits. Reading Location: [facility] CC: Dr. Lorna Juarez MD Renewable Energy Technician: Signed Normal [facility] C-REACTIVE PROTEINon 025 CRP [Mass/Vol] 8.3 mg/L High <8.0 [facility] Comment on above: Performed By: #### [id number] #### [facility] [address], [address] [place] [address] Flame Cutting Machine Operator Helper: Chidi Olivo MD #### [id number] #### [facility], [id number] [place] [address] [employer] Operator Helper: Kimberlyn Jin MD,PhD,DENIA #### [id number] #### [facility]/[place] [id number] [facility] [address] [place], [place] Fl[employer] Cutting [employer] Operator Helper: Clay Gaspar M.D.,PhD CALPROTECTIN, STOOLon 2024 CALPROTECTIN, STOOL 46 mcg/g Normal [facility] Comment on above: Result Comment: Refe rence Range: <50 Normal 50-120 Borderline >120 Elevated Calprotectin in Crohn's disease and ulcerative colitis can be five to several thousand times above the reference population (50 mcg/g or less). Levels are usually 50 mcg/g or less in healthy patients and with irritable bowel syndrome. Repeat testing in 4-6 weeks is suggested for borderline values. Performed By: #### 1 0256, 6399 #### [facility] [address], [address] [place], [place] [address] Fl[employer] Cutting Machine Operator Helper: Chidi Olivo MD #### [id number] #### [facility], [address] [place] [address] Fl[employer] Cutting Machine Operator Helper: Kimberlyn Jin MD,PhD,DENIA #### 22461 #### [facility]/[place] [id number] [facility] [place], [place] Fl[employer] Cutting Machine Operator Helper: Clay Gaspar M.D.,PhD CBC (INCLUDES DIFF/PLT)on Basophils (Bld) [#/Vol] 0.061 10*3/uL Normal 0-200 [facility] Comment on above: Performed By: #### 1 0256, 6399 #### [facility] [address], [address] [place] [address] [employer] Cutting [employer] Operator Helper: Chidi Olivo MD #### 23201 #### [facility], [address] [place] [address] Fl[employer] Cutting Machine Operator Helper: Kimberlyn Jin MD,PhD,DENIA #### 67387 #### [facility]/[address] [place], [place] Fl[employer] Cutting Machine Operator Helper: Clay Gaspar M.D.,PhD Basophils/100 WBC (Bld) 0.6 % Normal [facility] Comment on above: Performed By: #### 1 0256, 6399 #### [facility] of [place] [address], [address] [place] [address] Fl[employer] Cutting [employer] Operator Helper: Chidi Olivo MD #### [id number] #### [facility], [address] [place] [address] Fl[employer] Cutting Machine Operator Helper: Kimberlyn Jin MD,PhD,DENIA #### 03229 #### [facility]/[address] [place], [place] Fl[employer] Cutting Machine Operator Helper: Clay Gaspar M.D.,PhD Eosinophils (Bld) [#/Vol] 0.141 10*3/uL Normal 15-500 [facility] Comment on above: Performed By: #### 1 0256, 6399 #### [facility] of [place] [address] , [address] [place] [address] Fl[employer] Cutting [employer] Operator Helper: Chidi Olivo MD #### 55907 #### [facility], [address] [place] [address] Fl[employer] Cutting Machine Operator Helper: Kimberlyn Jin MD,PhD,DENIA #### 29561 #### [facility]/[address] [place], [place] Fl[employer] Cutting Machine Operator Helper: Clay Gaspar M.D.,PhD Eosinophils/100 WBC (Bld) 1.4 % Normal [facility] Comment on above: Performed By: #### 1 0256, 6399 #### [facility] of [facility] [address], [address] [place] [address] Fl[employer] Cutting Machine Operator Helper: Chidi Olivo MD #### [id number] #### [facility], [address] [place] [address] Flame Cutting Machine Operator Helper: Kimberlyn Jin MD,PhD,DENIA #### 95137 #### [facility]/[address] [place], [place] [employer] Cutting Machine Operator Helper: Clay Gaspar M.D.,PhD Erythrocyte distribution width (RBC) [Ratio] 12.9 % Normal 11.0-15.0 [facility] Comment on above: Performed By: #### 1 0256, 6399 #### [facility] [place] [address] [address] , [address] [place], [place] [id number] [employer] Operator Helper: Chdii Olivo MD #### 40981 #### [facility], [address] [place] [address] Flame Cutting Machine Operator Helper: Kimberlyn Jin MD,PhD,DENIA #### [id number] #### [facility] [address] [place] [address] Dr [place], [place] Fl[employer] Cutting Machine Operator Helper: Clay Gaspar M.D.,PhD Hematocrit (Bld) [Volume fraction] 39.3 % Normal 35.0-45.0 [facility] Comment on above: Performed By: #### 1 0256, 6399 #### [facility] [address], [address] [place], [place] [address] Fl[employer] Operator Helper: Chidi Olivo MD #### 43894 #### [facility], [address] [place] [address] Flame Cutting Machine Operator Helper: Kimberlyn Jin MD,PhD,DENIA #### 51788 #### [facility]/[place] [id number] [facility] [address] [place], [place] Fl[employer] Cutting Machine Operator Helper: Clay Gaspar M.D.,PhD Hemoglobin (Bld) [Mass/Vol] 13.0 g/dL Normal 11.7-15.5 [facility] Comment on above: Performed By: #### 1 0256, 6399 #### [facility] of [facility] [address], [address] [place] [address] Flame Cutting Machine Operator Helper: Chidi Olivo MD #### [id number] #### [facility], [address] [place] [phone] Fl[employer] Cutting [employer] Operator Helper: Kimberlyn Jin MD,PhD,DENIA #### 39908 #### [facility]/[address] [place], [place] Flame Cutting Machine Operator Helper: Clay Gaspar M.D.,PhD Lymphocytes (Bld) [#/Vol] 3.495 10*3/uL Normal 850-3900 [facility] Comment on above: Performed By: #### 1 0256, 6399 #### [facility] of [facility] [address], [address] [place] [address] Fl[employer] Cutting Machine Operator Helper: Chidi Olivo MD #### 46772 #### [facility], [address] [place], [place] Flame Cutting Machine Operator Helper: Kimberlyn Jin MD,PhD,DENIA #### 56670 #### [facility]/[address] [place], [place] Flame Cutting Machine Operator Helper: Clay Gaspar M.D.,PhD Lymphocytes/100 WBC (Bld) 34.6 % Normal [facility] Comment on above: Performed By: #### 1 0256, 6399 #### [facility] of [facility] [address], [address] [place] [address] Flame Cutting Machine Operator Helper: Chidi Olivo MD #### 39375 #### [facility] [address] [facility] [place] Flame Cutting Machine Operator Helper: Kimberlyn Jin MD,PhD,DENIA #### 77638 #### [facility] [address] [place], [place] Flame Cutting Machine Operator Helper: Clay Gaspar M.D.,PhD MCH (RBC) [Entitic mass] 29.8 pg Normal 27.0-33.0 [facility] Comment on above: Performed By: #### 1 0256, 6399 #### [facility] [address], [address] [place] [address] Flame Cutting Machine Operator Helper: Chidi Olivo MD #### 51238 #### [facility], [address] [place] [address] Flame Cutting Machine Operator Helper: Kimberlyn Jin MD,PhD,DENIA #### 51674 #### [facility] [address] [place] Flame Cutting Machine Operator Helper: Clay Gaspar M.D.,PhD MCHC (RBC) [Mass/Vol] 33.1 g/dL Normal 32.0-36.[address] [facility] [address] [facility] Comment on above: Result Comment: For adults, a slight decrease in the calculated MCHC value (in the range of 30 to 32 g/dL) is most likely not clinically significant; however, it should be interpreted with caution in correlation with other red cell parameters and the patient's clinical condition. Performed By: #### 1 0256, 6399 #### [facility] [address], [address] [place] [address] Fl[employer] Cutting Machine Operator Helper: Chidi Olivo MD #### 40770 #### [facility], [address] [place] [address] Fl[employer] Cutting Machine Operator Helper: Kimberlyn Jin MD,PhD,DENIA #### 69049 #### [facility] [address] [place] Fl[employer] Cutting Machine Operator Helper: Clay Gaspar M.D.,PhD MCV (RBC) [Entitic vol] 90.1 fL Normal 80.0-100.0 [facility] Comment on above: Performed By: #### 1 0256, 6399 #### [facility] of [place] [address] , [address] [place] [address] Flame Cutting Machine Operator Helper: Chidi Olivo MD #### 17234 #### [facility], [address] [place] [phone] Flame Cutting Machine Operator Helper: Kimberlyn Jin MD,PhD,DENIA #### 75570 #### [facility]/[address] [place], [place] Fl[employer] Cutting Machine Operator Helper: Clay Gaspar M.D.,PhD Monocytes (Bld) [#/Vol] 0.667 10*3/uL Normal 200-950 [facility] Comment on above: Performed By: #### 1 6, 6399 #### [facility] of [place] [address] , [address] [place] [address] Fl[employer] Cutting Machine Operator Helper: Chidi Olivo MD #### 07923 #### [facility], [facility] [place] [phone] Flame Cutting Machine Operator Helper: Kimberlyn Jin MD,PhD,DENIA #### 56381 #### [facility]/[address] [place], [place] Fl[employer] Cutting Machine Operator Helper: Clay Gaspar M.D.,PhD Monocytes/100 WBC (Bld) 6.6 % Normal [facility] Comment on above: Performed By: #### 1 0256, 6399 #### [facility] [place] [address] [address] , [address] [place] [address] Flame Cutting Machine Operator Helper: Chidi Olivo MD #### 45865 #### [facility], [address] [place], [place] Flame Cutting Machine Operator Helper: Kimberlyn Jin MD,PhD,DENIA #### 02402 #### [facility]/[address] [place], [place] Flame Cutting Machine Operator Helper: Clay Gaspar M.D.,PhD Neutrophils (Bld) [#/Vol] 5.737 10*3/uL Normal 9154-1223 [facility] Comment on above: Performed By: #### 1 0256, 6399 #### [facility] [place] [address] , [address] [place] [address] Fl[employer] Cutting Machine Operator Helper: Chidi Olivo MD #### 59383 #### [facility], [address] [place], [place] [phone] Flame Cutting Machine Operator Helper: Kimberlyn Jin MD,PhD,DENIA #### 71887 #### [facility] [place], [place] Flame Cutting Machine Operator Helper: Clay Gaspar M.D.,PhD Neutrophils/100 WBC (Bld) 56.8 % Normal [facility] Comment on above: Performed By: #### 1 0256, 6399 #### [facility] [address] , [address] [place] [address] Flame Cutting Machine Operator Helper: Chidi Olivo MD #### [id number] #### [facility], [address] [place], [place] Flame Cutting Machine Operator Helper: Kimberlyn Jin MD,PhD,DENIA #### 60890 #### [facility]/[address] [place], [place] Flame Cutting Machine Operator Helper: Clay Gaspar M.D.,PhD Platelet mean volume (Bld) [Entitic vol] 9.8 fL Normal 7.5-12.5 [facility] Comment on above: Performed By: #### 1 0256, 6399 #### [facility] [place] [address] [address] , [address] [place] [address] Fl[employer] Cutting Machine Operator Helper: Chidi Olivo MD #### 68246 #### [facility], [address] [place], [place] Fl[employer] Cutting Machine Operator Helper: Kimberlyn Jin MD,PhD,DENIA #### 19794 #### [facility]/[address] [place], [place] Fl[employer] Cutting Machine Operator Helper: Clay Gaspar M.D.,PhD Platelets (d) [#/Vol] 381 10*3/uL Normal 140-400 [facility] Comment on above: Performed By: #### 1 0256, 6399 #### [facility] of [address], [address] [place] [address] Fl[employer] Cutting [employer] Operator Helper: Chidi Olivo MD #### 74563 #### [facility], [address] [place], [place] Flame Cutting Machine Operator Helper: Kimberlyn Jin MD,PhD,DENIA #### 07146 #### [facility]/[address] [place], [place] Flame Cutting Machine Operator Helper: Clay Gaspar M.D.,PhD RBC (d) [#/Vol] 4.36 10*6/uL Normal 3.80-5.10 [facility] Comment on above: Performed By: #### 1 6, 6399 #### [facility] of [address] , [address] [place], [place] [address] Fl[employer] Cutting Machine Operator Helper: Chidi Olivo MD #### 01015 #### [facility], [address] [place], [place] Flame Cutting Machine Operator Helper: Kimberlyn Jin MD,PhD,DENIA #### 86704 #### [facility]/[place] [address] [facility] [address] [place], [place] Flame Cutting Machine Operator Helper: Clay Gaspar M.D.,PhD WBC (Bld) [#/Vol] 10.1 10*3/uL Normal 3.8-10.8 [facility] Comment on above: Performed By: #### 1 0256, 6399 #### [facility] of [facility] [address], [address] [place], [place] [address] Fl[employer] Operator Helper: Chidi Olivo MD #### 55958 #### [facility], [address] [place], [place] [address] Flame Cutting Machine Operator Helper: Kimberlyn Jin MD,PhD,DENIA #### 98771 #### [facility]/[address] [place], [place] Flame Cutting Machine Operator Helper: Clay Gaspar M.D.,PhD HEPATIC FUNCTION PANELon Albumin [Mass/Vol] 4.3 g/dL Normal 3.6-5.1 [facility] Comment on above: Performed By: #### 1 6, 6399 #### [facility] of [address] , [address] [place] [address] Fl[employer] Cutting Machine Operator Helper: Chidi Olivo MD #### 80910 #### [facility], [address] [place] [address] Flame Cutting Machine Operator Helper: Kimberlyn Jin MD,PhD,DENIA #### 16208 #### [facility]/[address] [place], [place] Flame Cutting Machine Operator Helper: Clay Gaspar M.D.,PhD Albumin/Globulin [Mass ratio] 1.6 {ratio} Normal 1.0-2.5 [facility] Comment on above: Performed By: #### 1 0256, 6399 #### [facility] of [place] [address] [address] , [address] [place] [address] Flame Cutting Machine Operator Helper: Chidi Olivo MD #### 99070 #### [facility], [address] [place] [phone] Flame Cutting Machine Operator Helper: Kimberlyn Jin MD,PhD,DENIA #### 61521 #### [facility]/[address] [place], [place] Flame Cutting Machine Operator Helper: Clay Gaspar M.D.,PhD ALP [Catalytic activity/Vol] 86 U/L Normal 37-153 [facility] Comment on above: Performed By: #### 1 0256, 6364 #### [facility] of [facility] [address] [facility], [address] [place] [phone] Flame Cutting Machine Operator Helper: Chidi Olivo MD #### 13924 #### [facility], [address] [place], [place] Flame Cutting Machine Operator Helper: Kimberlyn Jin MD,PhD,DENIA #### 70567 #### [facility] [address] [place] [address] [place], [place] Flame Cutting Machine Operator Helper: Clay Gaspar M.D.,PhD ALT [Catalytic activity/Vol] 26 U/L Normal 6-29 [facility] Comment on above: Performed By: #### 1 0256, 1807 #### [facility] of [facility] [address] [facility], [address] [place] [address] Flame Cutting Machine Operator Helper: Chidi Olivo MD #### 29539 #### [facility], [address] [place], [place] Flame Cutting Machine Operator Helper: Kimberlyn Jin MD,PhD,DENIA #### 62155 #### [facility] [address] [facility] [address] [place], [place] Flame Cutting Machine Operator Helper: Clay Gaspar M.D.,PhD AST [Catalytic activity/Vol] 21 U/L Normal 10-35 [facility] Comment on above: Performed By: #### 1 0256, 7547 #### [facility] [place] [address] [address] , [address] [place] [address] Flame Cutting Machine Operator Helper: Chidi Olivo MD #### 27236 #### [facility], [address] [place] [address] Flame Cutting Machine Operator Helper: Kimberlyn Jin MD,PhD,DENIA #### 02214 #### [facility]/[address] [place], [place] Flame Cutting Machine Operator Helper: Clay Gaspar M.D.,PhD Bilirubin [Mass/Vol] 0.4 mg/dL Normal 0.2-1.2 [facility] Comment on above: Performed By: #### 1 0256, 6399 #### [facility] [place] [address] [address] , [address] [place] [address] Flame Cutting Machine Operator Helper: Chidi Olivo MD #### 47787 #### [facility], [address] [place] [phone] Flame Cutting Machine Operator Helper: Kimberlyn Jin MD,PhD,DENIA #### 09714 #### [facility]/[address] [place], [place] Flame Cutting Machine Operator Helper: Clay Gaspar M.D.,PhD BILIRUBIN, INDIRECT 0.3 mg/dL (calc) Normal 0.2-1.2 [facility] Comment on above: Performed By: #### 1 0256, 6399 #### [facility] of [place] [address] [address] , [address] [place] [address] Flame Cutting Machine Operator Helper: Chidi Olivo MD #### 30796 #### [facility], [address] [place] [address] Flame Cutting Machine Operator Helper: Kimberlyn Jin MD,PhD,DENIA #### 77601 #### [facility]/[address] [place], [place] Flame Cutting Machine Operator Helper: Clay Gaspar M.D.,PhD Bilirubin.indirect [Mass/Vol] 0.1 mg/dL Normal < OR = 0.2 [facility] Comment on above: Performed By: #### 1 0256, 6399 #### [facility] of [place] [address] [address] , [address] [place] [address] Flame Cutting Machine Operator Helper: Chidi Olivo MD #### 94837 #### [facility], [address] [place] [address] Flame Cutting Machine Operator Helper: Kimberlyn Jin MD,PhD,DENIA #### 90277 #### [facility]/[address] [place], [place] Flame Cutting Machine Operator Helper: Clay Gaspar M.D.,PhD Globulin (S) [Mass/Vol] 2.7 g/dL Normal 1.9-3.7 [facility] Comment on above: Performed By: #### 1 0256, 6399 #### [facility] of [place] [address] [address] , [address] [place] [address] Flame Cutting Machine Operator Helper: Chidi Olivo MD #### 61849 #### [facility], [address] [place] [address] Flame Cutting Machine Operator Helper: Kimberlyn Jin MD,PhD,DENIA #### 92616 #### [facility]/[address] [place], [place] Flame Cutting Machine Operator Helper: Clay Gaspar M.D.,PhD Protein [Mass/Vol] 7.0 g/dL Normal 6.1-8.1 [facility] Comment on above: Performed By: #### 1 0256, 6399 #### [facility] of [place] [address] [address] , [address] [place] [address] Flame Cutting Machine Operator Helper: Chidi Olivo MD #### 23319 #### [facility], [address] [facility], [place] Flame Cutting Machine Operator Helper: Kimberlyn Jin MD,PhD,DENIA #### 27132 #### [facility]/[address] [place], [place] Flame Cutting Machine Operator Helper: Clay Gaspar M.D.,PhD T-SPOT(R).TBon 10-31-2024 NEGATIVE CONTROL Passed Normal [facility] Comment on above: Performed By: #### 1 0256, 6399 #### [facility] of [place] [address], [address] [place] [address] Flame Cutting Machine Operator Helper: Chidi Olivo MD #### 13730 #### [facility], [address] [place], [place] Fl[employer] Cutting Machine Operator Helper: Kimberlyn Jin MD,PhD,DENIA #### 36359 #### [facility]/[address] [place], [place] Flame Cutting Machine Operator Helper: Clay Gaspar M.D.,PhD PANEL A SPOT COUNT CORRECTED FOR NEG CONTROL 1 Normal [facility] Comment on above: Performed By: #### 1 0256, 6399 #### [facility] of [facility] [address], [address] [place] [address] Flame Cutting Machine Operator Helper: Chidi Olivo MD #### 76072 #### [facility], [address] [facility] [place] [employer] Cutting Machine Operator Helper: Kimberlyn Jin MD,PhD,DENIA #### 33311 #### [facility] [address] [place] [address] Dr [place], [place] [employer] Cutting Machine Operator Helper: Clay Gaspar M.D.,PhD PANEL B SPOT COUNT CORRECTED FOR NEG CONTROL 1 Normal [facility] Comment on above: Performed By: #### 1 0256, 6399 #### [facility] [address] , [address] [place] [address] Flame Cutting Machine Operator Helper: Chidi Olivo MD #### 44119 #### [facility], [address] [place] [address] Flame Cutting Machine Operator Helper: Kimberlyn Jin MD,PhD,DENIA #### 59816 #### [facility]/[place] [address] [facility] [address] [place], [place] [employer] Cutting Machine Operator Helper: Clay Gaspar M.D.,PhD POSITIVE CONTROL Passed Normal [facility] Comment on above: Result Comment: For additional information, please refer to [email or web address].waygum/faq/YMN815 (This link is being provided for informational/ educational purposes only.) Performed By: #### 1 0256, 6399 #### [facility] [place] [address], [address] [place] [address] Flame Cutting Machine Operator Helper: Chidi Olivo MD #### 89677 #### [facility], [address] [place] [address] Flame Cutting Machine Operator Helper: Kimberlyn Jin MD,PhD,DENIA #### 24900 #### [facility] [address] [facility] [address] [place], [place] [employer] Cutting Machine Operator Helper: Clay Gaspar M.D.,PhD T-SPOT.TB Negative Normal Negative [facility] Comment on above: Result Comment: A negative test result does not exclude the possibility of exposure to or infection with Mycobacterium tuberculosis (M. tuberculosis). Patients with recent exposure to TB infected individuals exhibiting a negative T-SPOT.TB result should be considered for retesting within 6 weeks or if other relevant clinical symptoms indicate. Results from T-SPOT.TB testing must be used in conjunction with each individual's epidemiological history, current medical status, and results of other diagnostic evaluations. The T-SPOT.TB test is qualitative and results are reported as positive, borderline, or negative, given that the test controls perform as expected. In line with the Centers for Disease Control and Prevention's 2010 recommendation to report quantitative measurements alongside the qualitative result, the laboratory provides spot counts for informational purposes only. The T-SPOT.TB test should not be interpreted as a quantitative test. Performed By: #### 1 0256, 6399 #### [facility] [address], [address] [place] [address] Fl[employer]ting [employer] Operator Helper: Chidi Olivo MD #### 03388 #### [facility], [address] [place] [address] Fl[employer] Cutting Machine Operator Helper: Kimberlyn Jin MD,PhD,DENIA #### 33202 #### [facility] [address] [facility] [place], [place] Flame Cutting Machine Operator Helper: Clay Gaspar M.D.,PhD C reactive proteinon 024 CRP [Mass/Vol] 0.66 mg/dL Normal <1.00 [facility] Comment on above: Performed By: #### 1 988-5 #### JALEESA CONNELL ([id number]) [facility] ([facility]) [address] [place] [address] CBC W Auto Differential pane l (Bld)on 12-05-2023 Basophils (Bld) [#/Vol] 0.06 x10*3/uL Normal 0.00-0.10 [facility] Comment on above: Performed By: #### 5 7021-8 #### JALEESA CONNELL ([id number]) [facility] ([facility]) [address] [place] [address] Basophils/100 WBC (Bld) 0.7 % Normal 0.0-2.0 [facility] Comment on above: Performed By: #### 5 7021-8 #### JALEESA CONNELL ([id number]) [facility] ([facility]) [address] [place] [address] Eosinophils (Bld) [#/Vol] 0.15 x10*3/uL Normal 0.00-0.70 [facility] Comment on above: Performed By: #### 5 7021-8 #### JALEESA CONNELL ([id number]) [facility] ([facility]) [address] [place] [address] Eosinophils/100 WBC (Bld) 1.8 % Normal 0.0-6.0 [facility] Comment on above: Performed By: #### 5 7021-8 #### JALEESA CONNELL ([id number]) [facility] ([facility]) [address] [place] [address] 10240 Erythrocyte distribution width (RBC) [Ratio] 13.2 % Normal 11.5-14.5 [facility] Comment on above: Performed By: #### 5 7021-8 #### JALEESA CONNELL ([id number]) [facility] ([facility]) [address] [place] [address] 57940 Hematocrit (Bld) [Volume fraction] 37.7 % Normal 36.0-46.0 [facility] Comment on above: Performed By: #### 5 7021-8 #### JALEESA CONNELL ([id number]) [facility] ([facility]) [address] [place] [address] 48618 Hemoglobin (Bld) [Mass/Vol] 12.5 g/dL Normal 12.0-16.0 [facility] Comment on above: Performed By: #### 5 7021-8 #### JALEESA CONNELL ([id number]) [facility] ([facility]) [address] [place] [address] 27139 Immature granulocytes (Bld) [#/Vol] 0.02 x10*3/uL Normal 0.00-0.70 [facility] Comment on above: Performed By: #### 5 7021-8 #### JALEESA CONNELL ([id number]) [facility] ([facility]) [address] [place] [address] 25064 Immature granulocytes/100 WBC (Bld) 0.2 % Normal 0.0-0.9 [facility] Comment on above: Result Comment: Karen ture Granulocyte Count (IG) includes promyelocytes, myelocytes and metamyelocytes but does not include bands. Percent differential counts (%) should be interpreted in the context of the absolute cell counts (cells/UL). Performed By: #### 5 7021-8 #### JALEESA CONNELL ([id number]) [facility] ([facility]) [address] [place] [address] 44301 Lymphocytes (Bld) [#/Vol] 2.41 x10*3/uL Normal 1.20-4.80 [facility] Comment on above: Performed By: #### 7021-8 #### JALEESA CONNELL ([id number]) [facility] ([facility]) [address] [place] [address] 73626 Lymphocytes/100 WBC (Bld) 28.9 % Normal 13.0-44.0 [facility] Comment on above: Performed By: #### 5 7021-8 #### JALEESA CONNELL ([id number]) [facility] ([facility]) [address] [place] [address] 69254 MCH (RBC) [Entitic mass] 29.4 pg Normal 26.0-34.0 [facility] Comment on above: Performed By: #### 5 7021-8 #### AJLEESA CONNELL ([id number]) [facility] ([facility]) [address] [place] [address] 11423 MCHC (RBC) [Mass/Vol] 33.2 g/dL Normal 32.0-36.0 [facility] Comment on above: Performed By: #### 5 7021-8 #### JALEESA CONNELL ([id number]) [facility] ([facility]) [address] [place] [address] 22109 MCV (RBC) [Entitic vol] 89 fL Normal 80-100 [facility] Comment on above: Performed By: #### 5 7021-8 #### JALEESA CONNELL ([id number]) [facility] ([facility]) [address] [place] [address] 85778 Monocytes (Bld) [#/Vol] 0.43 x10*3/uL Normal 0.10-1.00 [facility] Comment on above: Performed By: #### 5 7021-8 #### JALEESA CONNELL ([id number]) [facility] ([facility]) [address] [place] [address] 08639 Monocytes/100 WBC (Bld) 5.2 % Normal 2.0-10.0 [facility] Comment on above: Performed By: #### 5 7021-8 #### JALEESA CONNELL ([id number]) [facility] ([facility]) [address] [place] [address] 35912 Neutrophils (Bld) [#/Vol] 5.26 x10*3/uL Normal 1.20-7.70 [facility] Comment on above: Result Comment: Perc ent differential counts (%) should be interpreted in the context of the absolute cell counts (cells/uL). Performed By: #### 5 7021-8 #### JALEESA CONNELL ([id number]) [facility] ([facility]) [address] [place] [address] 53919 Neutrophils/100 WBC (Bld) 63.2 % Normal 40.0-80.0 [facility] Comment on above: Performed By: #### 5 7021-8 #### JALEESA CONNELL ([id number]) [facility] ([facility]) [address] [place] [address] 21766 Nucleated RBC/100 WBC (Bld) [Ratio] 0.0 /100 WBCs Normal 0.0-0.0 [facility] Comment on above: Performed By: #### 5 7021-8 #### JALEESA CONNELL ([id number]) [facility] ([facility]) [address] [place] [address] 12919 Platelets (Bld) [#/Vol] 381 x10*3/uL Normal 150-450 [facility] Comment on above: Performed By: #### 5 7021-8 #### JALEESA CONNELL ([id number]) [facility] ([facility]) [address] [place] [address] 83652 RBC (Bld) [#/Vol] 4.25 x10*6/uL Normal 4.00-5.20 [facility] Comment on above: Performed By: #### 5 7021-8 #### JALEESA CONNELL ([id number]) [facility] ([facility]) [address] [place] [address] 77248 WBC (Bld) [#/Vol] 8.3 x10*3/uL Normal 4.4-11.3 [facility] Comment on above: Performed By: #### 5 7021-8 #### JALEESA CONNELL ([id number]) [facility] ([facility]) [address] [place] [address] Cobalaminson 12-05-2023 Cobalamin (Vitamin B12) [Mass/Vol] 740 pg/mL Normal 211-911 [facility] Comment on above: Performed By: #### 2 132-9 #### JALEESA CONNELL ([id number]) [facility] ([facility]) [address] [place] [address] Hepatic function 2000 panelo n 12-05-2023 Albumin BCP dye [Mass/Vol] 4.0 g/dL Normal 3.4-5.0 [facility] Comment on above: Performed By: #### 2 4325-3 #### JALEESA CONNELL ([id number]) [facility] ([facility]) [address] [place] [address] ALP [Catalytic activity/Vol] 81 U/L Normal 33-110 [facility] Comment on above: Performed By: #### 2 4325-3 #### JALEESA CONNELL ([id number]) [facility] ([facility]) [address] [place] [address] 67564 ALT With P-5'-P [Catalytic activity/Vol] 25 U/L Normal 7-45 [facility] Comment on above: Result Comment: Arely ents treated with Sulfasalazine may generate falsely decreased results for ALT. Performed By: #### 2 4325-3 #### JALEESA CONNELL ([id number]) [facility] ([facility]) [address] [place] [address] 35150 AST With P-5'-P [Catalytic activity/Vol] 19 U/L Normal 9-39 [facility] Comment on above: Performed By: #### 2 4325-3 #### JALEESA CONNELL ([id number]) [facility] ([facility]) [address] [place] [address] 43588 Bilirubin [Mass/Vol] 0.5 mg/dL Normal 0.0-1.2 [facility] Comment on above: Performed By: #### 2 4325-3 #### JALEESA CONNELL ([id number]) [facility] ([facility]) [address] [place] [address] 86220 Bilirubin.direct [Mass/Vol] 0.1 mg/dL Normal 0.0-0.3 [facility] Comment on above: Performed By: #### 2 4325-3 #### JALEESA CONNELL ([id number]) [facility] ([facility]) [address] [place] [address] 92065 Protein [Mass/Vol] 6.5 g/dL Normal 6.4-8.2 [facility] Comment on above: Performed By: #### 2 4325-3 #### JALEESA CONNELL ([id number]) [facility] ([facility]) [address] [place], [place] [id number] M. tuberculosis stim IFN-g a nd spot count panel (Bld)on 12-05-2023 Gamma interferon negative control spot count (Bld) [#] Passed Normal [facility] Comment on above: Performed By: #### 7 4281-7 #### QUEST CHANTL ([id number]) [address] [place] M. tuberculosis stim IFN-g CFP10 Ag spot count (Bld) [#] 0 [facility] Comment on above: Performed By: #### 7 4281-7 #### QUEST CHANTL ([id number]) [address] [place] M. tuberculosis stim IFN-g ESAT-6 Ag spot count (Bld) [#] 0 [facility] Comment on above: Performed By: #### 7 4281-7 #### QUEST CHANTL ([id number]) [address] [place] M. tuberculosis stim IFN-g Ql (Bld) [Interp] Negative Normal Negative [facility] Comment on above: Result Comment: A negative test result does not exclude the possibility of exposure to or infection with Mycobacterium tuberculosis (M. tuberculosis). Patients with recent exposure to TB infected individuals exhibiting a negative T-SPOT.TB result should be considered for retesting within 6 weeks or if other relevant clinical symptoms indicate. Results from T-SPOT.TB testing must be used in conjunction with each individual's epidemiological history, current medical status, and results of other diagnostic evaluations. The T-SPOT.TB test is qualitative and results are reported as positive, borderline, or negative, given that the test controls perform as expected. In line with the Centers for Disease Control and Prevention's 2010 recommendation to report quantitative measurements alongside the qualitative result, the laboratory provides spot counts for informational purposes only. The T-SPOT.TB test should not be interpreted as a quantitative test. Performed By: #### 7 4281-7 #### [facility] SANJANATL ([id number]) [address] [place] Mitogen stimulated gamma interferon positive control spot count (Bld) [#] Passed Normal [facility] Comment on above: Result Comment: For additional information, please refer to http://education.[employer]/faq/GPX862 (This link is being provided for informational/ educational purposes only.) Performed By: #### 7 4281-7 #### [facility] CHANTL ([id number]) [address] Absolute lymphocyte countOrd ered By: Jordan Esquivel on 05-01-2023 Lymphocytes Auto (Unsp spec) [#/Vol] 2.57 10*3/uL 0.83-4.51 [facility] Basophil percentageOrdered B y: Jordan Esquivel on 05-01-2023 Basophils/100 WBC (Bld) 0.6 % 0-1 [facility] Bilirubin [Mass/Vol] 0.40 mg/dL 0.20-1.00 [facility] Comment on above: For patients on eltr ombopag therapy, use of Dimension [place] TBIL is not recommended. Chloride [Moles/Vol] 106 mmol/L 98-107 [facility] Cholesterol [Mass/Vol] 165 mg/dL <200 [facility] Comment on above: <200 mg/dL Desirable 200-240 mg/dL Borderline >240 mg/dL High Risk Eosinophils/100 WBC (Bld) 1.5 % 0-5 [facility] Glucose [Mass/Vol] 108 mg/dL 74-106 [facility] Comment on above: Fasting Glucose resu lt from 100 to 125 mg/dL suggests IMPAIRED HOMEOSTASIS per A.D.A. criteria. Neutrophils (Bld) [#/Vol] 6.0 10*3/uL 2.0-7.7 [facility] Neutrophils/100 WBC (Bld) 64.1 % 47-70 [facility] Potassium [Moles/Vol] 3.9 mmol/L 3.5-5.1 [facility] Protein [Mass/Vol] 7.1 g/dL 6.4-8.2 [facility] Sodium [Moles/Vol] 138 mmol/L 136-145 [facility] Triglyceride [Mass/Vol] 120 mg/dL <199 [facility] Comment on above: The drugs N-Acetylcy steine and Metamizole may falsely depress this assay.Serum Triglycerides Reference Interval Normal <150 mg/dL Borderline high 150 - 199 mg/dL High 200 - 499 mg/dL Very High > or = 500 mg/dL WBC (Bld) [#/Vol] 9.3 10*3/uL 4.4-11.0 [facility] Blood erythrocytes count (nu mber/volume)Ordered By: Jordan Esquivel on 05-01-2023 RBC (Bld) [#/Vol] 4.04 10*6/uL 4.2-5.4 [facility] Blood hemoglobin measurement (mass/volume)Ordered By: Jordan Esquivel on 05-01-2023 Hemoglobin (Bld) [Mass/Vol] 12.0 g/dL 12.0-15.0 [facility] Blood lymphocytes/100 leukoc ytesOrdered By: Jordan Esquivel on 05-01-2023 Lymphocytes/100 WBC (Bld) 27.7 % 19-41 [facility] Blood monocytes/100 leukocyt esOrdered By: Jordan Esquivel on 05-01-2023 Monocytes/100 WBC (Bld) 5.6 % 0-10 [facility] Blood platelet mean volumeOr dered By: Jordan Esquivel on 05-01-2023 Platelet mean volume (Bld) [Entitic vol] 10.0 fL 6.2-12.0 [facility] Determination of erythrocyte mean corpuscular volume (MCV)Ordered By: Jordan Esquivel on 05-01-2023 MCV (RBC) [Entitic vol] 90.3 fL 81-99 [facility] Hematocrit Auto (Bld) [Volum e fraction]Ordered By: Jordan Esquivel on 05-01-2023 Hematocrit (Bld) [Volume fraction] 36.5 % 37-47 [facility] Laboratory - Chemistry and C hemistry - challengeOrdered By: Jordan Esquivel on 05-01-2023 ALP [Catalytic activity/Vol] 115 U/L 45-117 [facility] ALT [Catalytic activity/Vol] 45 U/L 13-56 [facility] CO2 [Moles/Vol] 27.0 mmol/L 21.0-32.0 [facility] Globulin (S) [Mass/Vol] 3.7 g/dL 2.2-4.2 [facility] Urea nitrogen/Creatinine [Mass ratio] 23.0 mg/mg 10-20 [facility] Laboratory - Hematology and Cell countsOrdered By: Jordan Esquivel on 05-01-2023 Erythrocyte distribution width (RBC) [Entitic vol] 43.8 fL 35.1-43.9 [facility] Erythrocyte distribution width (RBC) [Ratio] 13.2 % 11.6-14.6 [facility] Immature granulocytes/100 WBC (Bld) 0.500 % 0.0-0.9 [facility] Comment on above: IG% - Immature Granu locytes (promyelocytes, myelocytes and metamyelocytes) > 1% indicates that a LEFT SHIFT is Present. MCH (RBC) [Entitic mass] 29.7 pg 27.0-32.0 [facility] Nucleated RBC/100 WBC (Bld) [Ratio] 0 % 0-5 [facility] MCHC Auto (RBC) [Mass/Vol]Or dered By: Jordan Esquivel on 05-01-2023 MCHC (RBC) [Mass/Vol] 32.9 g/dL 32-36 [facility] No Panel InformationOrdered By: Jordan Esquivel on 05-01-2023 Urine Microalbumin/Creatini ne Ratio TNP [facility] Comment on above: Test not performed Estimated GFR (MDRD) Amer 111 mL/min >60 [facility] Comment on above: GFR Calc Estimated GFR (MDRD) Non-Af Amer 92 mL/min >60 [facility] Comment on above: Non- GFR Calc Thyroid Stimulating Hormone (TSH) 2.40 uIU/mL 0.358-3.74 [facility] Vitamin D 25-Hydroxy 39.4 ng/mL [facility] Comment on above: Vitamin D 25(OH) Sta tus Range Deficiency <20 ng/mL (50nmol/L) Insufficiency 20 - 30 ng/mL (50 - 75 nmol/L) Sufficiency 30 - 100 ng/mL (75 - 250 nmol/L) Toxicity >100 ng/mL (>250 nmol/L) Platelets bldOrdered By: Yusra Esquivel on 05-01-2023 Platelets (Bld) [#/Vol] 372 10*3/uL 150-450 [facility] Serum or plasma albumin antione urement (mass/volume)Ordered By: Jordan Esquivel on 05-01-2023 Albumin [Mass/Vol] 3.4 g/dL 3.2-5.0 [facility] Serum or plasma albumin/glob ulin mass ratioOrdered By: Jordan Esquivel on 05-01-2023 Albumin/Globulin [Mass ratio] 0.9 {ratio} 0.9-2.4 [facility] Serum or plasma calcium antione urement (mass/volume)Ordered By: Jordan Esquivel on 05-01-2023 Calcium [Mass/Vol] 8.8 mg/dL 8.5-10.1 [facility] Serum or plasma cholesterol in HDL measurement (mass/volume)Ordered By: Jordan Esquivel on 05-01-2023 Cholesterol in HDL [Mass/Vol] 48 mg/dL >40 [facility] Comment on above: The drugs N-Acetylcy steine and Metamizole may falsely depress this assay. Reference Range HDL <40 mg/dL Low HDL Cholesterol HDL >or= 60 mg/dL High HDL Cholesterol Serum or plasma cholesterol in VLDL measurement (mass/volume)Ordered By: Jordan Esquivel on 05-01-2023 Cholesterol in VLDL [Mass/Vol] 24 mg/dL 5-40 [facility] Serum or plasma creatinine m easurement (mass/volume)Ordered By: Jordan Esquivel on 05-01-2023 Creatinine [Mass/Vol] 0.70 mg/dL 0.55-1.02 [facility] Comment on above: The validity of the calculated GFR & GFRAA in patients over 70 years has not been determined. Clinical correlation is essential. Serum or plasma ferritin jamil surement (mass/volume)Ordered By: Jordan Esquivel on 05-01-2023 Ferritin [Mass/Vol] 43 ng/mL 8-252 [facility] Serum or plasma low density lipoprotein (LDL) cholesterol measurement (mass/volume)Ordered By: Jordan Esquivel on 05-01-2023 Cholesterol in LDL [Mass/Vol] 93 mg/dL 0-130 [facility] Serum or plasma urea nitroge n measurement (mass/volume)Ordered By: Jordan Esquivel on 05-01-2023 Urea nitrogen [Mass/Vol] 16 mg/dL 7-18 [facility] Thin prep Papanicolaou smear with manual screeningOrdered By: Jordan Esquivel on 05-01-2023 Thin prep Papanicolaou smear with manual screening < 5.0 mg/L NO RANGE EST. [facility] Thin prep Papanicolaou smear with manual screening 27 U/L 15-37 [facility] Thin prep Papanicolaou smear with manual screening 5 5-15 [facility] Urine creatinine measurement (mass/volume)Ordered By: Jordan Esquivel on 05-01-2023 Creatinine (U) [Mass/Vol] 105.00 mg/dL NO RANGE EST. [facility] Whole blood hemoglobin A1c/t otal hemoglobin ratio (mass fraction)Ordered By: Jordan Esquivel on 05-01-2023 HbA1c (Bld) [Mass fraction] 5.9 % 3.8-5.6 [facility] Comment on above: Normal < 5.7 % Predi abetic 5.7 - 6.4 % Diabetic >or= 6.5 % Please note range changes. Flexible Sigmoidoscopyon Sam Wray MD - 02/01/2023 Patient Name: Elda Ellis Procedure Date: 11/08/2022 1:03 PM Date of : 1965 Admit Type: Outpatient Site: [place] Procedure Room 6 Ethnicity: Not or Race: White Attending MD: Sam Wray MD, [id number] Procedure: Flexible Sigmoidoscopy Indications: High risk colon cancer surveillance: Crohn's colitis with known dysplasia (previous visible dysplastic lesion removed completely). S/P surgery withTAc and IR anastomosis 01/2022. Providers: Sam Wray MD (Doctor), Jovanna Esquivel RN (Nurse), Joslyn Cruz Branch Office Manager (Nurse), Gerber Watkins, Branch Office Manager Referring: Jordan Esquivel MD Medicines: Midazolam 4 mg IV, Meperidine 100 mg IV Complications: No immediate complications. Procedure: Pre-Anesthesia Assessment: - Prior to the procedure, a History and Physical was performed, and patient medications and allergies were reviewed. The patient is competent. The risks and benefits of the procedure and the sedation options and risks were discussed with the patient. All questions were answered and informed consent was obtained. Patient identification and proposed procedure were verified by the physician and the nurse in the endoscopy suite. Mental Status Examination: alert and oriented. Airway Examination: Mallampati Class III (part of the uvula and soft palate visualized). Respiratory Examination: clear to auscultation. CV Examination: normal. Prophylactic Antibiotics: The patient does not require prophylactic antibiotics. Prior Anticoagulants: The patient has taken no anticoagulant or antiplatelet agents. ASA Grade Assessment: II - A patient with mild systemic disease. After reviewing the risks and benefits, the patient was deemed in satisfactory condition to undergo the procedure. The anesthesia plan was to use moderate sedation / analgesia (conscious sedation). Immediately prior to administration of medications, the patient was re-assessed for adequacy to receive sedatives. The heart rate, respiratory rate, oxygen saturations, blood pressure, adequacy of pulmonary ventilation, and response to care were monitored throughout the procedure. The physical status of the patient was re-assessed after the procedure. After obtaining informed consent, the endoscope was passed under direct vision. Throughout the procedure, the patient's blood pressure, pulse, and oxygen saturations were monitored continuously. The adult colonoscope was introduced through the anus and advanced to the ileo-rectal anastomosis. The flexible sigmoidoscopy was accomplished without difficulty. The patient tolerated the procedure well. The quality of the bowel preparation was good. Findings: The perianal and digital rectal examinations were normal. The examined ileum was normal. There was evidence of a prior end-to-side ileo-rectal anastomosis in the proximal rectum at 25 cm from the anus. This was patent and was characterized by healthy appearing mucosa. The anastomosis was widely patent and easily traversed. Very mild focal inflammation characterized by a few 1-2 mm erosions and mild patchy erythema was found focally just distal to the ileo-rectal anastomosis surrounded by otherwise normal mucosa. The rectum was spared. The inflammation was mild in severity. Biopsies were taken with a cold forceps for histology. The pathology specimen was placed into Bottle A. The exam was otherwise without abnormality. No additional abnormalities were found on retroflexion. Moderate Sedation: Moderate (conscious) sedation was administered by the nurse and supervised by the endoscopist. The following parameters were monitored: oxygen saturation, heart rate, blood pressure, and response to care. Total physician intraservice time was 12 minutes. Impression: - Patent end-to-side ileo-rectal anastomosis, characterized by healthy appearing mucosa. - Crohn's disease with colonic involvement. Inflammation was found in the colon. This was mild in severity. Biopsied. - The examination was otherwise normal. Estimated Blood Loss: Estimated blood loss was minimal. Recommendation: - The patient will be observed post-procedure, until all discharge criteria are met. - Patient has a contact number available for emergencies. The signs and symptoms of potential delayed complications were discussed with the patient. Return to normal activities tomorrow. Written discharge instructions were provided to the patient. - Resume previous diet. - Continue present medications. - Await pathology results. - Repeat flexible sigmoidoscopy in 2 years for surveillance. - Return to my office in 1 year. Procedure Code(s): --- Professional --- 96867, Sigmoidoscopy, flexible; with biopsy, single or multiple G0500, Moderate s (more content not included)... [facility] Work Phone: Flexible SigmoidoscopyOrdere d By: Sam Wray on 01-26-2023 [facility] Work Phone: SURGICAL PATHOLOGY RESULTSon 11-16-2022 Pathology Report Name NALINI ELLIS Pathologist: Samantha Broussard M.D. Date of Procedure: 11/08/2022 Date Received: 11/08/2022 Date Reported 11/16/2022 Submitting Physician: SAM WRAY MD Location: [place] Other External # FINAL DIAGNOSIS A. RECTUM COLD BIOPSY: -- CHRONIC INFLAMMATORY BOWEL DISEASE WITH PATCHY ACTIVITY. -- NEGATIVE FOR DYSPLASIA. NO VIRAL INCLUSIONS IDENTIFIED. Electronically Signed Out By Samantha Broussard M.D./[facility] By the signature on this report, the individual or group listed as making the Final Interpretation/Diagnosis certifies that they have reviewed this case. Diagnostic interpretation performed at [facility] [address] [place] [address] Clinical History: History of Crohn's disease with dysplasia. Eval for dysplasia, chronic inflammation Specimens Submitted As: A: RECTUM COLD BIOPSY Gross Description: Received in formalin, labeled with the patient's name and hospital number and A, rectum cold biopsy, are multiple fragments of schmid, soft tissue aggregating to 1.2 x 0.9 x 0.1 cm. The specimen is submitted in toto in two cassettes. AE aey/11/14/2022 [facility] Department of Pathology [address] [place] [address] Flexible Sigmoidoscopyon Flexible sigmoidoscopy PATIENTNAME Patient Name: Elda Ellis EXAMDATE Procedure Date: 11/08/2022 1:03 PM PATIENTID PATIENTACCOUNTNUM PATIENTDOB Date of : 1965 ADMITTYPE Admit Type: Outpatient PATIENTROOM Site: [place] Procedure Room 6 ETHNICITY Ethnicity: Not or RACE Race: White PROVDR Attending MD: Sam Wray MD, [id number] ENDOPROCEDURENAME Procedure: Flexible Sigmoidoscopy INDICATION Indications: High risk colon cancer surveillance: Crohn's colitis with known dysplasia (previous visible dysplastic lesion removed completely). S/P surgery withTAc and IR anastomosis 01/2022. PRIMARYPROVIDER Providers: Sam Wray MD (Doctor), Jovanna Esquivel RN (Nurse), Joslyn Cruz Branch Office Manager (Nurse), Gerber Watkins, Branch Office Manager EDREFPROVIDER Referring: Jordan Esquivel MD CURRENT_MEDS Medicines: Midazolam 4 mg IV, Meperidine 100 mg IV COMPLIC Complications: No immediate complications. ENDOPROCEDURETEXT Procedure: Pre-Anesthesia Assessment: - Prior to the procedure, a History and Physical was performed, and patient medications and allergies were reviewed. The patient is competent. The risks and benefits of the procedure and the sedation options and risks were discussed with the patient. All questions were answered and informed consent was obtained. Patient identification and proposed procedure were verified by the physician and the nurse in the endoscopy suite. Mental Status Examination: alert and oriented. Airway Examination: Mallampati Class III (part of the uvula and soft palate visualized). Respiratory Examination: clear to auscultation. CV Examination: normal. Prophylactic Antibiotics: The patient does not require prophylactic antibiotics. Prior Anticoagulants: The patient has taken no anticoagulant or antiplatelet agents. ASA Grade Assessment: II - A patient with mild systemic disease. After reviewing the risks and benefits, the patient was deemed in satisfactory condition to undergo the procedure. The anesthesia plan was to use moderate sedation / analgesia (conscious sedation). Immediately prior to administration of medications, the patient was re-assessed for adequacy to receive sedatives. The heart rate, respiratory rate, oxygen saturations, blood pressure, adequacy of pulmonary ventilation, and response to care were monitored throughout the procedure. The physical status of the patient was re-assessed after the procedure. After obtaining informed consent, the endoscope was passed under direct vision. Throughout the procedure, the patient's blood pressure, pulse, and oxygen saturations were monitored continuously. The adult colonoscope was introduced through the anus and advanced to the ileo-rectal anastomosis. The flexible sigmoidoscopy was accomplished without difficulty. The patient tolerated the procedure well. The quality of the bowel preparation was good. FINDING Findings: The perianal and digital rectal examinations were normal. The examined ileum was normal. There was evidence of a prior end-to-side ileo-rectal anastomosis in the proximal rectum at 25 cm from the anus. This was patent and was characterized by healthy appearing mucosa. The anastomosis was widely patent and easily traversed. Very mild focal inflammation characterized by a few 1-2 mm erosions and mild patchy erythema was found focally just distal to the ileo-rectal anastomosis surrounded by otherwise normal mucosa. The rectum was spared. The inflammation was mild in severity. Biopsies were taken with a cold forceps for histology. The pathology specimen was placed into Bottle A. The exam was otherwise without abnormality. No additional abnormalities were found on retroflexion. SEDATION Moderate Sedation: Moderate (conscious) sedation was administered by the nurse and supervised by the endoscopist. The following parameters were monitored: oxygen saturation, heart rate, blood pressure, and response to care. Total physician intraservice time was 12 minutes. IMPRESS Impression: - Patent end-to-side ileo-rectal anastomosis, characterized by healthy appearing mucosa. - Crohn's disease with colonic involvement. Inflammation was found in the colon. This was mild in severity. Biopsied. - The examination was otherwise normal. EBL Estimated Blood Loss: Estimated blood loss was minimal. ENDORECOMMENDATION Recommendation: - The patient will be observed post-procedure, until all discharge criteria are met. - Patient has a contact number available for emergencies. The signs and symptoms of potential delayed complications were discussed with the patient. Return to normal activities tomorrow. Written discharge instructions were provided to the patient. - Resume previous diet. - Continue present medications. - Await pathology results. - Repeat flexible sigmoidosco (more content not included)... Normal [facility] Radiology Study observation (narrative) [facility] Work Phone: No Panel Informationon 11-08 MG-Gastroent erology-Admi chase Harley [facility] Work Phone: [email or web address] =[email or web address] MG-Gastroent erology-Admi chase Harley [facility] Work Phone: Order Reconciliationon 11-08 Order Reconciliation Page 1 Discharge Reconciliation Document Reconciliation Type: Discharge requested on behalf of Sam Wray (Physician) done by Sam Wray) Discharge - Reconciliation: 08-Nov-2022 13:04 by: Sam Wray) Home Medications EnteredHOME MEDICATIONS AT DISCHARGE DateReconciliation Comment/ Additional Information atorvastatin 40 mg oral tablet 1 tab(s) oral once a day 09-Dec-2021 12:47 atorvastatin 40 mg oral tablet 1 tab(s) oral once a day 09-Dec-2021 12:47 atorvastatin 40 mg oral tablet is continued as atorvastatin 40 mg oral tablet cholecalciferol 25 mcg oral tablet 1 tab(s) oral once a day 09-Dec-2021 12:48 cholecalciferol 25 mcg oral tablet 1 tab(s) oral once a day 09-Dec-2021 12:48 cholecalciferol 25 mcg oral tablet is continued as cholecalciferol 25 mcg oral tablet doxycycline 20 mg oral tablet 1 tab(s) oral once a day 09-Dec-2021 12:47 doxycycline 20 mg oral tablet 1 tab(s) oral once a day 09-Dec-2021 12:47 doxycycline 20 mg oral tablet is continued as doxycycline 20 mg oral tablet losartan 50 mg oral tablet 1 tab(s) oral once a day 09-Dec-2021 12:48 losartan 50 mg oral tablet 1 tab(s) oral once a day 09-Dec-2021 12:48 losartan 50 mg oral tablet is continued as losartan 50 mg oral tablet montelukast 10 mg oral tablet 1 tab(s) oral once a day 09-Dec-2021 12:48 montelukast 10 mg oral tablet 1 tab(s) oral once a day 09-Dec-2021 12:48 montelukast 10 mg oral tablet is continued as montelukast 10 mg oral tablet multivitamin Multiple Vitamins oral tablet 1 tab(s) oral once a day 09-Dec-2021 12:48 multivitamin Multiple Vitamins oral tablet 1 tab(s) oral once a day 09-Dec-2021 12:48 multivitamin Multiple Vitamins oral tablet is continued as multivitamin Multiple Vitamins oral tablet Stelara 45 mg/0.5 mL subcutaneous solution subcutaneous every 8 weeks 08-Nov-2022 11:48 Stelara 45 mg/0.5 mL subcutaneous solution subcutaneous every 8 weeks 08-Nov-2022 11:48 Stelara 45 mg/0.5 mL subcutaneous solution is continued as Stelara 45 mg/0.5 mL subcutaneous solution All Active Home Medications at time of Discharge Reconciliation: 08-Nov-2022 13:04 atorvastatin 40 mg oral tablet 1 tab(s) oral once a day cholecalciferol 25 mcg oral tablet 1 tab(s) oral once a day doxycycline 20 mg oral tablet 1 tab(s) oral once a day losartan 50 mg oral tablet 1 tab(s) oral once a day montelukast 10 mg oral tablet 1 tab(s) oral once a day multivitamin Multiple Vitamins oral tablet 1 tab(s) oral once a day Stelara 45 mg/0.5 mL subcutaneous solution subcutaneous every 8 weeks Normal [facility] Surgical Pathology Depar tmenton 11-08-2022 [facility] Surgical Pathology Department Name ELDA ELLIS Pathologist: Samantha Broussard M.D. Date of Procedure: 11/08/2022 Date Received: 11/08/2022 Date Reported 11/16/2022 Submitting Physician: SAM WRAY MD Location: [facility] Other External # FINAL DIAGNOSIS A. RECTUM COLD BIOPSY: -- CHRONIC INFLAMMATORY BOWEL DISEASE WITH PATCHY ACTIVITY. -- NEGATIVE FOR DYSPLASIA. NO VIRAL INCLUSIONS IDENTIFIED. Electronically Signed Out By Samantha Broussard M.D./[facility] By the signature on this report, the individual or group listed as making the Final Interpretation/Diagnosis certifies that they have reviewed this case. Diagnostic interpretation performed at [facility] [address] [place] [address] Clinical History: History of Crohn's disease with dysplasia. Eval for dysplasia, chronic inflammation Specimens Submitted As: A: RECTUM COLD BIOPSY Gross Description: Received in formalin, labeled with the patient's name and hospital number and A, rectum cold biopsy, are multiple fragments of schmid, soft tissue aggregating to 1.2 x 0.9 x 0.1 cm. The specimen is submitted in toto in two cassettes. AE aey/11/14/2022 [facility] Department of Pathology [id number] [place] [id number] Normal [facility] Comment on above: Performed By: #### C BC #### [address] [place] [id number] C Reactive Protein, Serumon 09-29-2022 CRP [Mass/Vol] 0.72 mg/dL MG-Gastroe nt erology-Admi n Wearn B I Work Phone: Comment on above: REF VALUE< 1.00 C-REACTIVE PROTEINon 023 C-REACTIVE PROTEIN 0.72 mg/dL Normal [facility] Comment on above: Result Comment: REF VALUE < 1.00 Performed By: #### C OVSC #### [facility] [address] [place] [address] CBC AND DIFFERENTIALon 09-29 % AUTOMATED IMMATURE GRAN 0.2 % Normal 0.0 - 0.9 [facility] Comment on above: Result Comment: Karen ture Granulocyte Count (IG) includes promyelocytes, myelocytes and metamyelocytes but does not include bands. Percent differential counts (%) should be interpreted in the context of the absolute cell counts (cells/L). Performed By: #### C BCDF ####[address] [address] Basophils (Bld) [#/Vol] 0.06 10*3/uL Normal 0.00 - 0.10 [facility] Comment on above: Performed By: #### C BCDF ####[address] [address] Eosinophils (Bld) [#/Vol] 0.13 10*3/uL Normal 0.00 - 0.70 [facility] Comment on above: Performed By: #### C BCDF ####[address] [address] Eosinophils/100 WBC (Bld) 1.5 % Normal 0.0 - 6.0 [facility] Comment on above: Performed By: #### C BCDF ####[address] [address] Lymphocytes (Bld) [#/Vol] 2.80 10*3/uL Normal 1.20 - 4.80 [facility] Comment on above: Performed By: #### C BCDF ####[address] [address] Monocytes (Bld) [#/Vol] 0.46 10*3/uL Normal 0.10 - 1.00 [facility] Comment on above: Performed By: #### C BCDF ####[address] [address] Neutrophils (Bld) [#/Vol] 5.15 10*3/uL Normal 1.20 - 7.70 [facility] Comment on above: Result Comment: Perc ent differential counts (%) should be interpreted in the context of the absolute cell counts (cells/L). Performed By: #### C BCDF ####[address] [address] RBC 4.12 x10E12/L Normal 4.00 - 5.20 [facility] Comment on above: Performed By: #### C BCDF ####[address] [address] Complete Blood Count + Diffe esautialon 09-29-2022 Basophils/100 WBC (Bld) 0.7 % Normal 0.0 - 2.0 MG-Gastroent erology-Admi n Wearn B [facility] Work Phone: Comment on above: Performed By: #### C BCDF ####[address] [address] Erythrocyte distribution width (RBC) [Ratio] 13.3 % Normal 11.5 - 14.5 MG-Gastroent erology-Admi n Wearn B [facility] Work Phone: Comment on above: Reference Range: 11. 5 - 14.5 Performed By: #### C BCDF ####[address] [address] Hematocrit (Bld) [Volume fraction] 36.6 % Normal 36.0 - 46.0 MG-Gastroent erology-Admi n Wearn B [facility] Work Phone: Comment on above: Reference Range: 36. 0 - 46.0 Performed By: #### C BCDF ####[address] [address] Hemoglobin (Bld) [Mass/Vol] 12.0 g/dL Normal 12.0 - 16.0 MG-Gastroent erology-Admi n Wearn B [facility] Work Phone: [phone] Comment on above: Reference Range: 12. 0 - 16.0 Performed By: #### C BCDF ####[address] [address] Lymphocytes/100 WBC (Bld) 32.5 % Normal 13.0 - 44.0 MG-Gastroent erology-Admi n Wearn B [facility] Work Phone: [phone] Comment on above: Reference Range: 13. 0 - 44.0 Performed By: #### C BCDF ####[address] [address] MCHC (RBC) [Mass/Vol] 32.8 g/dL Normal 32.0 - 36.0 [facility] -Gastroent erology-Admi n Wearn B I Work Phone: [phone] Comment on above: Reference Range: 32. 0 - 36.0 Performed By: #### C BCDF ####[address] [address] MCV (RBC) [Entitic vol] 89 fL Normal 80 - 100 [facility]-Gastroent erology-Admi n Wearn B I Work Phone: [phone] Comment on above: Performed By: #### C BCDF ####[address] [address] Monocytes/100 WBC (Bld) 5.3 % Normal 2.0 - 10.0 MG-Gastroent erology-Admi n Wearn B [facility] Work Phone: [phone] Comment on above: Performed By: #### C BCDF ####[address] [address] Neutrophils/100 WBC (Bld) 59.8 % Normal 40.0 - 80.0 MG-Gastroent erology-Admi n Wearn B [facility] Work Phone: [phone] Comment on above: Reference Range: 40. 0 - 80.0 Performed By: #### C BCDF ####[address] [address] Platelets (Bld) [#/Vol] 381 10*3/uL Normal 150 - 450 [facility]-Gastroent erology-Admi n Wearn B [facility] Work Phone: [phone] Comment on above: Performed By: #### C BCDF ####[place] [id number] RBC (Bld) [#/Vol] 4.12 {x10E12/L} See Below MG -Gastroent erology-Admi n Wearn B I Work Phone: )[phone] Comment on above: Reference Range: 4.0 0 - 5.20 WBC (Bld) [#/Vol] 8.6 10*3/uL Normal 4.4 - 11.3 MG-Gas troent erology-Admi n Wearn B I Work Phone: )[phone] Comment on above: Performed By: #### C BCDF ####[place] [id number] Complete Blood Count + Differential 0.06 {x10E9/L} See Below MG-Gastroent erology-Admi n Wearn B I Work Phone: [phone] Comment on above: Reference Range: 0.0 0 - 0.10 Complete Blood Count + Differential 0.13 {x10E9/L} See Below MG-Gastroent erology-Admi n Wearn B I Work Phone: [phone] Comment on above: Reference Range: 0.0 0 - 0.70 Complete Blood Count + Differential 0.46 {x10E9/L} See Below MG-Gastroent erology-Admi n Wearn B I Work Phone: )[phone] Comment on above: Reference Range: 0.1 0 - 1.00 Complete Blood Count + Differential 2.80 {x10E9/L} See Below MG-Gastroent erology-Admi n Wearn B I Work Phone: [phone] Comment on above: Reference Range: 1.2 0 - 4.80 Complete Blood Count + Differential 5.15 {x10E9/L} See Below MG-Gastroent erology-Admi n Wearn B I Work Phone: Comment on above: Reference Range: 1.2 0 - 7.70 Percent differential counts (%) should be interpreted in the context of the absolute cell counts (cells/L). Complete Blood Count + Differential 1.5 % 0.0 - 6.0 MG-Gastroent erology-Admi n Wearn B I Work Phone: Complete Blood Count + Differential 0.2 % 0.0 - 0.9 MG-Gastroent erology-Admi n Wear[facility] B I Work Phone: Comment on above: Immature Granulocyte Count (IG) includes promyelocytes, myelocytes and metamyelocytes but does not include bands. Percent differential counts (%) should be interpreted in the context of the absolute cell counts (cells/L). HEPATIC FUNCTION PANELon Albumin [Mass/Vol] 4.0 g/dL Normal 3.4 - 5.0 [facility] Comment on above: Performed By: #### H EPFP #### [address] [address] ALP [Catalytic activity/Vol] 102 U/L Normal 33 - 110 [facility] Comment on above: Performed By: #### H EPFP #### [address] [address] ALT [Catalytic activity/Vol] 28 U/L Normal 7 - 45 [facility] Comment on above: Result Comment: Arely ents treated with Sulfasalazine may generate falsely decreased results for ALT. Performed By: #### H EPFP #### [address] [address] AST [Catalytic activity/Vol] 20 U/L Normal 9 - 39 [facility] Comment on above: Performed By: #### H EPFP #### [address] [address] Bilirubin [Mass/Vol] 0.5 mg/dL Normal 0.0 - 1.2 [facility] Comment on above: Performed By: #### H EPFP #### [place] [address] [place] [address] Bilirubin.indirect [Mass/Vol] 0.1 mg/dL Normal 0.0 - 0.3 [facility] Comment on above: Performed By: #### H EPFP #### [place] [address] [place] [address] Protein [Mass/Vol] 6.8 g/dL Normal 6.4 - 8.2 [facility] Comment on above: Performed By: #### H EPFP #### [address] [address] Hepatic Function Panelon Albumin BCP dye [Mass/Vol] 4.0 g/dL 3.4 - 5.0 MG-Gastroent erology-Admi n Wearn B I Work Phone: ALP [Catalytic activity/Vol] 102 U/L 33 - 110 MG-Gastroent erology-Admi n Wearn B I Work Phone: ALT With P-5'-P [Catalytic activity/Vol] 28 U/L 7 - 45 MG-Gastroent erology-Admi n Wearn B I Work Phone: Comment on above: Patients treated wit h Sulfasalazine may generate falsely decreased results for ALT. AST With P-5'-P [Catalytic activity/Vol] 20 U/L 9 - 39 MG-Gastroent erology-Admi n Wearn B I Work Phone: Bilirubin [Mass/Vol] 0.5 mg/dL 0.0 - 1.2 MG-G astroent erology-Admi n Wearn B I Work Phone: Bilirubin.direct [Mass/Vol] 0.1 mg/dL 0.0 - 0.3 MG-Gastroent erology-Admi n Wearn B I Work Phone: Protein [Mass/Vol] 6.8 g/dL 6.4 - 8.2 MG-Gas troent erology-Admi n Wearn B I Work Phone: VITAMIN B12on 09-29-2022 Cobalamin (Vitamin B12) [Mass/Vol] 726 pg/mL Normal 211 - 911 [facility] Comment on above: Performed By: #### V TB12 #### [facility] [address] [place] [address] Vitamin B12, Serumon 023 Cobalamin (Vitamin B12) [Mass/Vol] 726 pg/mL 211 - 911 MG-Gastroent erology-Admi chase Harley [facility] Work Phone: Established Visit (Gastroent erology)on 08-01-2022 Established Visit (Gastroenterology) Diagnoses/Problems Assessed Crohn's disease of colon with intestinal obstruction (555.1,560.9) (K50.112) Abdominal pain, lower (789.09) (R10.30) Orders Abdominal pain, lower Calprotectin, Fecal; Status:Active; Requested for:01Aug2022; Perform:Lab Services - Lab To Draw (Non-Blood Test); Due:30Oct2022;Ordered; For:Abdominal pain, lower; Ordered By:Sam Wray; Crohn's disease of colon with intestinal obstruction C Reactive Protein, Serum; Status:Active; Requested for:01Aug2022; Perform:Lab Services - Lab To Draw (Blood Test); Due:30Oct2022;Ordered; For:Crohn's disease of colon with intestinal obstruction; Ordered By:Sam Wray; Complete Blood Count + Differential; Status:Active; Requested for:01Aug2022; Perform:Lab Services - Lab To Draw (Blood Test); Due:30Oct2022;Ordered; For:Crohn's disease of colon with intestinal obstruction; Ordered By:Sam Wray; Flexible Sigmoidoscopy; Status:Hold For - Scheduling; Requested for:01Aug2022; Perform:[facility]; Order Comments:Schedule between October-January 2023 per patient preference; Due:30Oct2022;Ordered; For:Crohn's disease of colon with intestinal obstruction; Ordered By:Sam Wray; Patient competent to provide consent? : Yes-pt mentally competent to provide consent Sedation Type : Moderate (Routine) Hepatic Function Panel; Status:Active; Requested for:[id number]; Perform:Lab Services - Lab To Draw (Blood Test); Due:30Oct2022;Ordered; For:Crohn's disease of colon with intestinal obstruction; Ordered By:Sam Wray; Vitamin B12, Serum; Status:Active; Requested for:[id number]; Perform:Lab Services - Lab To Draw (Blood Test); Due:30Oct2022;Ordered; For:Crohn's disease of colon with intestinal obstruction; Ordered By:Sam Wray; Patient Discussion/Summary Thank you for meeting with me today for a virtual follow-up visit. I am pleased to hear that you are feeling well. As discussed, we will do some evaluation to make sure that your Crohn's disease remains under optimal control. As reviewed today at the virtual visit: Plan: 1) continue Stelara every 8 weeks 2) if you have a fever, flu, or other infection and are due to dose with Stelara, hold the medicine until feeling better and then resume dosing. If he have to hold the medicine more than 1 week, call the office for instructions 3) check labs 4) check stool fecal calprotectin 5) schedule flexible sigmoidoscopy at [facility] between October and January 2023 6) call the office with any worsened symptoms or other concerns 7) once you have your new insurance, please call my nurse, Patience Saez RN at [phone] with the insurance information so that we can get Stelara approved again. Provider Impressions #Crohn's disease-she had dysplasia at colonoscopy and is status post subtotal colectomy with ileorectal anastomosis in January 2022. She started Stelara as postoperative maintenance therapy, after failing Humira preoperatively. She is doing well with improved bowel habits and feeling well with good energy. We will go ahead and set her up for repeat endoscopic examination to assess disease at the anastomosis and to make sure that Stelara is working to keep disease from returning after surgery. Otherwise, we will not make any change to her management. We will call and check a stool fecal calprotectin and another complete blood count along with liver tests to make sure there is stay stable on Stelara therapy. Plan: 1) continue Stelara every 8 weeks 2) if you have a fever, flu, or other infection and are due to dose with Stelara, hold the medicine until feeling better and then resume dosing. If he have to hold the medicine more than 1 week, call the office for instructions 3) check labs 4) check stool fecal calprotectin 5) schedule flexible sigmoidoscopy at [facility] between October and January 2023 6) call the office with any worsened symptoms or other concerns 7) once you have your new insurance, please call my nurse, Patience Saez RN at [phone] with the insurance information so that we can get Stelara approved again. Chief Complaint An interactive audio and video telecommunication system which permits real time communications between the patient (at the originating site) and provider (at the distant site) was utilized to provide this telehealth service. Verbal consent was requested and obtained from ELDA ELLIS on this date, 08/01/2022 01:00 PM , for a telehealth visit. Virtual follow-up for Crohn's disease History of Present IllnessF/U for 57 y.o., woman with Crohn's Disease since 2019, with proximal transverse colon stricture with history of LGD on biopsy. Disease was only minimally symptomatic. Patient was treated with Humira every 2 weeks and mesalamine. Her disease was incidentally diagnosed during her first screening colonoscopy 2019. During that procedure, severe inflammation and colonic stricture at transverse colon (more content not included)... Normal [email or web address] Infusion Flowsheeton 05-03- 022 Infusion Flowsheet 135/78 MG-Amb ulator y Infusion [facility] 1600 DO Work Phone: Infusion Flowsheet 88 1 MG-Amb ulator y [facility] 1600 DO Work Phone: Infusion Flowsheet 16 1 MG-Amb ulator y Infusion [facility] 1600 DO Work Phone: Infusion Flowsheet 98.0 1 MG-Amb ulator y [facility] 1600 DO Work Phone: Infusion Flowsheet 99% MG-Amb ulator y [facility] 1600 DO Work Phone: Infusion Flowsheet STELERA 520MG MG- Ambulator y [facility] 1600 DO Work Phone: Infusion Flowsheet NS 250ML MG-Amb ulator y Infusion [facility] 1600 DO Work Phone: Infusion Flowsheet Infusion Stopped MG-Ambulator y Infusion [facility] 1600 DO Work Phone: Infusion Flowsheet 250ML/HR MG-Amb ulator y Infusion [facility] [facility] DO Work Phone: Infusion Flowsheet PATIENT TOLERATED WELL...30ML NS FLUSH STARTED MG-Ambulator [facility] Infusion [place] [address] DO Work Phone: Infusion Flowsheet LP [facility]-Amb ulator y Infusion [place] [address] DO Work Phone: Infusion Flowsheet STELERA 520MG MG- Ambulator y Infusion [place] [address] DO Work Phone: Infusion Flowsheet NS 250ML MG-Amb ulator y Infusion [place] [address] DO Work Phone: Infusion Flowsheet Infusion Started [facility]-Amb[facility] Infusion [place] [address] DO Work Phone: Infusion Flowsheet 250ML/HR MG-Amb ulator y Infusion [facility] 1600 DO Work Phone: Infusion Flowsheet PATIENT VOICED NO COMPLAINTS [facility]-Amb[facility] Infusion [place] [address] DO Work Phone: Infusion Flowsheet LP MG-Amb ulator y Infusion [place] [address] DO Work Phone: Nurse Visit (Infusion-Inject ion Services)on 05-03-2022 Nurse Visit (Infusion-Injection Services) Orders-Coll[facility] Manager Medications Administered: Stelara 130 MG/26ML Intravenous Solution Rx By: Sam Wray;For: Crohn's disease of colon with intestinal obstruction; Dose of 520 MG; Intravenous; FRANKY = N; Administered by: Nubia Bender R.N.: 05/03/2022 5:30:00 PM; Last Updated By: Elda Ann; 05/03/2022 7:03:41 PM MEDICATION SUPPLIED BY To[employer] LOT:[id number] EXP 10/2024 Reason For Visit PATIENT HERE FOR HER INDUCTION DOSE OF STELERA 520MG INFUSION Ordered by SAM WRAY MD. ELDA ELLIS accompanied by: . Patient is here for Infusion. Name of Medication: STELARA 520MG. Diagnosis Assessed Crohn's disease of colon with intestinal obstruction (555.1,560.9) (K50.112) Allergies Medication Penicillins Recorded By: Jennifer Salomon; 04/11/2022 11:17:43 AM Current Meds Medication NameInstruction Albuterol Sulfate HFA 108 (90 Base) MCG/ACT Inhalation Aerosol SolutionINHALE 1 TO 2 PUFFS BY MOUTH EVERY 4 TO 6 HOURS NEEDED Atorvastatin Calcium 40 MG Oral TabletTAKE 1 TABLET AT BEDTIME. Doxycycline Hyclate 20 MG Oral TabletTAKE 1 TABLET TWICE DAILY. Losartan Potassium 50 MG Oral TabletTAKE 1 TABLET DAILY. Montelukast Sodium 10 MG Oral TabletTAKE 1 TABLET AT BEDTIME. One Daily Multivitamin Women TABS Soolantra 1 % External CreamDaily in the morning Stelara 130 MG/26ML Intravenous SolutionOn day O, Infuse 520 mg (4 vials) IV over one hour. patient's weight is 94 Kg. Stelara 90 MG/ML Subcutaneous Solution Prefilled SyringeInject 90 mg SC every 8 weeks Vitamin D3 25 MCG (1000 UT) Oral Capsule1 tablet daily Vitals Vital Signs Recorded: 03May2022 06:50PMRecorded: [id number] 05:00PM Euosnr121 lb 8.86 oz BMI Htraqswqus15.41 kg/m2 BSA Calculated1.92 Drdejyxjshf92.6 F Heart Rate98 Unrconkjzxw82 Eoqjpkzp325 Pxvtlymdr14 O2 Tjxyepdrsf783, RA Pre-Procedure Checklist Pre-Procedure Checklist Allergies were reviewed: yes Medications were reviewed: yes Recent vaccinations: DENIES. Contraindications to Treatment: Recent illness: DENIES. Recent dental work: DENIES. Recent surgery: DENIES. Recent infections DENIES. Planned dental work: DENIES. Planned surgery: DENIES. : DENIES. PT ON DOXYCYCLINE 20MG BID . Pain Scale: On a scale of 0 to 10, the patient rates the pain at 0. Contraindications based on patients history? No contraindications based on patient's history Adult Risk Screening Initial Fall Risk Screening: ELDA has not fallen in the last 6 months. ELDA does not have a fear of falling. She does not need assistance with sitting, standing or walking. Does not need assistance walking in her home. She does not need assistance in an unfamiliar setting. The patient is not using an assistive device. Fall Risk Screening: patient is not considered a fall risk. Altered Mobility: none. Alteration in Mental Status: no. Relevant Medical History/Diagnosis: none. Altered Elimination: no. Medications That May Alter Equilibrium: none. Sensory Deficit: no. Unable or Unwilling to Follow Directions: no. Review of Systems Constitutional: no fever, no chills, behavior is appropriate and no poor appetite. HEENT: no vision problems, no itchy/burning eyes, no hearing problems, no sore throat, no throat discomfort, no difficulty swallowing, no hoarseness, no mouth sores and no eye pain. Cardiovascular: no chest pain, no palpitations, no irregular rhythm, no orthopnea and no edema in lower extremities. Respiratory: no shortness of breath, no cough, no labored breathing and no wheezing. Gastrointestinal: no abdominal pain, no nausea, no vomiting, no diarrhea, no constipation and no melena . PATIENT HAS LOOSE STOOLS DT CROHNS DX..MD AWARE. Genitourinary: no dysuria, no hematuria, no burning when voiding, no change in urinary frequency, no pelvic pain, no unexplained vaginal bleeding and no foul odor. Musculoskeletal: fatigue, but no pain, no joint swelling, no muscle weakness and no tenderness. Integumentary: no rashes, no skin lesions, no itching, no skin wound, no discoloration and wound. Neurological: no headaches, no numbness, no dizziness and no tingling. Infusion Readiness: There are no assessment concerns related to infusion. Infusion Procedure PT PROVIDED WITH WRITTEN (Scan•Jour PT EDUCATION SHEET) AND VERBAL EDUCATION REGARDING MEDICATION GIVEN. VERIFIED MEDICATION NAME WITH PATIENT AND DISCUSSED REASON FOR USE. BRIEFLY DISCUSSED HOW MEDICATION WORKS AND EDUCATED ON GOAL OF TREATMENT, FREQUENCY OF TREATMENT, ADVERSE RXN'S AND COMMON SIDE EFFECTS TO MONITOR FOR. INSTRUCTED PT TO ASSURE THAT ALL PROVIDERS INCLUDING DENTISTS ARE AWARE OF MEDICATION RECEIVED. DISCUSSED FLOW OF VISIT AND ORIENTED TO INFUSION CENTER. PT VERBALIZES UNDERSTANDING. CALL LIGHT PROVIDED AND PT AWARE TO ALERT STAFF OF ANY CONCERNS DURING TREATMENT ARE YOU BEING TREATED FOR AN INFECTION OR HAVE ANY OPEN CUTS? PT DENIES DO YOU GET A LOT OF INFECTIONS OR HAVE INFECTIONS THAT (more content not included)... Normal [email or web address] T-SPOT TBon 04-13-2022 NIL[NEG]CONTROL SPOT COUNT Passed Normal [facility] Comment on above: Performed By: #### C OVSC #### [facility] [address] [place] [address] PANEL A SPOT COUNT 0 Normal [facility] Comment on above: Performed By: #### C OVSC #### [facility] [address] [place] [address] PANEL B SPOT COUNT 0 Normal [facility] Comment on above: Performed By: #### C OVSC #### [facility] [address] [place] [id number] POS CONTROL SPOT COUNT Passed Normal [facility] Comment on above: Performed By: #### C OVSC #### [facility] [address] [place] [id number] T-SPOT.TB INTERP Negative Normal Normal Value: Negative [facility] Comment on above: Result Comment: A ne gative test result does not exclude the possibility of exposure to or infection with Mycobacterium tuberculosis (M. tuberculosis). Patients with recent exposure to TB infected individuals exhibiting a negative T-SPOT.TB result should be considered for retesting within 6 weeks or if other relevant clinical symptoms indicate. Results from T-SPOT.TB testing must be used in conjunction with each individual's epidemiological history, current medical status, and results of other diagnostic evaluations. The T-SPOT.TB test is qualitative and results are reported as positive, borderline or negative, given that the test controls perform as expected. In line with the Centers for Disease Control and Prevention's 2010 recommendation to report quantitative measurements alongside the qualitative result, the laboratory provides spot counts for informational purposes only. The T-SPOT.TB test should not be interpreted as a quantitative test. Performed By: #### C OVSC #### [facility] [address] [place] [id number] C Reactive Protein, Serumon 04-11-2022 CRP [Mass/Vol] 0.70 mg/dL MG-Gastroe nt erology-[place] [facility] 6 [facility] Work Phone: Comment on above: REF VALUE< 1.00 C-REACTIVE PROTEINon 022 C-REACTIVE PROTEIN 0.70 mg/dL Normal [facility] Comment on above: Result Comment: REF VALUE < 1.00 Performed By: #### C RP #### [facility] [address] [place] [address] CBCon 04-11-2022 Erythrocyte distribution width (RBC) [Ratio] 12.8 % Normal 11.5 - 14.5 [facility] Comment on above: Performed By: #### C BC #### [facility] [address] [place] [address] Hematocrit (Bld) [Volume fraction] 35.5 % Low 36.0 - 46.0 [facility] Comment on above: Performed By: #### C BC #### [facility] [address] [place] [address] Hemoglobin (Bld) [Mass/Vol] 12.5 g/dL Normal 12.0 - 16.0 [facility] Comment on above: Performed By: #### C BC #### [facility] [address] [place] [address] MCHC (RBC) [Mass/Vol] 35.2 g/dL Normal 32.0 - 36.0 [facility] Comment on above: Performed By: #### C BC #### [facility] [address] [place] [address] MCV (RBC) [Entitic vol] 88 fL Normal 80 - 100 [facility] Comment on above: Performed By: #### C BC #### [facility] [address] [place] [address] NUCLEATED RBC 0.0 /100 WBC Normal 0.0-0.0 [facility] Comment on above: Performed By: #### C BC #### [facility] [address] [place] [address] Platelets (Bld) [#/Vol] 456 10*3/uL High 150 - 450 [facility] Comment on above: Performed By: #### C BC #### [facility] [address] [place] [address] RBC 4.04 x10E12/L Normal 4.00 - 5.20 [facility] Comment on above: Performed By: #### C BC #### [facility] [address] [place], [place] WBC (Bld) [#/Vol] 10.2 10*3/uL Normal 4.4 - 11.3 [facility] Comment on above: Performed By: #### C BC #### [facility] [address] [place], [place] HEPATITIS B CORE AB-TOTALon 04-11-2022 HEP. B CORE AB-TOTAL Non-Reactive Normal NONREACTIVE [facility] Comment on above: Result Comment: Resu lts from patients taking biotin supplements or receiving high-dose biotin therapy should be interpreted with caution due to possible interference with this test. Providers may contact their local laboratory for further information. Performed By: #### C OVSC #### [facility] [address] [place], [place] HEPATITIS B SURF ABon 2021 HEP B SURF AB <3.1 Normal <10 [facility] Comment on above: Result Comment: INTE RPRETIVE CRITERIA: <10 mIU/mL....NONREACTIVE >=10 mIU/mL...REACTIVE . Biotin interference may cause falsely decreased results. Patients taking a Biotin dose of up to 5 mg/day should refrain from taking Biotin for 24 hours before sample collection. Providers may contact their local laboratory for further information. Performed By: #### C OVSC #### [facility] [address] [place], [place] HEPATITIS B SURFACE AGon HEP.B SURFACE AG Non-Reactive Normal NONREACTIVE [facility] Comment on above: Result Comment: Biot in interference may cause falsely decreased results. Patients taking a Biotin dose of up to 5 mg/day should refrain from taking Biotin for 24 hours before sample collection. Providers may contact their local laboratory for further information. Performed By: #### H BSAG #### [facility] [address] [place], [place] Lab Specimen Source Normal [facility] Comment on above: Performed By: #### H BSAG #### [facility] [address] [place], [place] Performed By: #### C OVSC #### [facility] [address] [place], [place] Performed By: #### C BC #### [facility] [address] [place] [address] HEPATITIS C ABon 04-11-2022 HEPATITIS C AB Non-Reactive Normal NONREACTIVE [facility] Comment on above: Result Comment: Resu lts from patients taking biotin supplements or receiving high-dose biotin therapy should be interpreted with caution due to possible interference with this test. Providers may contact their local laboratory for further information. Performed By: #### C BC #### [facility] [address] [place], [place] Hepatitis B Core Antibody, T otalon 04-11-2022 Hepatitis B Core Antibody, Total Non-Reactive See Below MG-Gastroent erology-[facility] 6 I Work Phone: Comment on above: SOURCE: Reference Ra nge: NONREACTIVE Results from patients taking biotin supplements or receiving high-dose biotin therapy should be interpreted with caution due to possible interference with this test. Providers may contact their local laboratory for further information. SOURCE: Reference Ra nge: NONREACTIVE Biotin interference may cause falsely decreased results. Patients taking a Biotin dose of up to 5 mg/day should refrain from taking Biotin for 24 hours before sample collection. Providers may contact their local laboratory for further information. Hepatitis B Surface Antibody on 04-11-2022 HBV surface Ag IA Ql <3.1 <10 MG-G astroent erology-[place] 6 [employer] Work Phone: Comment on above: SOURCE: INTERPRETIVE CRITERIA:<10 mIU/mL....NONREACTIVE >=10 mIU/mL...REACTIVE . Biotin interference may cause falsely decreased results. Patients taking a Biotin dose of up to 5 mg/day should refrain from taking Biotin for 24 hours before sample collection. Providers may contact their local laboratory for further information. Initial Visit (Gastroenterol ogy)on 04-11-2022 Initial Visit (Gastroenterology) Diagnoses/Problems Assessed Crohn's disease of colon with intestinal obstruction (555.1,560.9) (K50.112) Hypertension, unspecified type (401.9) (I10) Orders Crohn's disease of colon with intestinal obstruction Start: Stelara 130 MG/26ML Intravenous Solution; On day O, Infuse 520 mg (4 vials) IV over one hour. patient's weight is 94 Kg Rx By: Sam Wray; Dispense: 0 Days ; #:4 Milliliter; Refill: 0;For: Crohn's disease of colon with intestinal obstruction; FRANKY = N; Verified Transmission to [facility]; Msg to Pharmacy: [facility] PATIENT; Last Updated By: [employer]; 04/11/2022 12:12:53 PM C Reactive Protein, Serum; Status:In Progress - Specimen/Data Collected; Done: 11Apr2022 Perform:Lab Services - Lab To Draw (Blood Test); Due:10Jul2022;Ordered; For:Crohn's disease of colon with intestinal obstruction; Ordered By:Sam Wray; Start: Stelara 90 MG/ML Subcutaneous Solution Prefilled Syringe; Inject 90 mg SC every 8 weeks Rx By: Sam Wray; Dispense: 0 Days ; #:1 X Milliliter; Refill: 5;For: Crohn's disease of colon with intestinal obstruction; FRANKY = N; Verified Transmission to [facility]; Last Updated By: [employer]; 04/11/2022 12:12:59 PM Complete Blood Count; Status:In Progress - Specimen/Data Collected; Done: 11Apr2022 Perform:Lab Services - Lab To Draw (Blood Test); Due:10Jul2022;Ordered; For:Crohn's disease of colon with intestinal obstruction; Ordered By:Sam Wray; Hepatitis B Core Antibody, Total; Status:In Progress - Specimen/Data Collected; Done: 11Apr2022 Perform:Lab Services - Lab To Draw (Blood Test); Due:10Jul2022;Ordered; For:Crohn's disease of colon with intestinal obstruction; Ordered By:Sam Wray; Hepatitis B Surface Antibody; Status:In Progress - Specimen/Data Collected; Done: 11Apr2022 Perform:Lab Services - Lab To Draw (Blood Test); Due:10Jul2022;Ordered; For:Crohn's disease of colon with intestinal obstruction; Ordered By:Sam Wray; Hepatitis B Surface Antigen; Status:In Progress - Specimen/Data Collected; Done: 11Apr2022 Perform:Lab Services - Lab To Draw (Blood Test); Due:10Jul2022;Ordered; For:Crohn's disease of colon with intestinal obstruction; Ordered By:Sam Wray; Hepatitis C Antibody Test; Status:In Progress - Specimen/Data Collected; Done: 11Apr2022 Perform:Lab Services - Lab To Draw (Blood Test); Due:10Jul2022;Ordered; For:Crohn's disease of colon with intestinal obstruction; Ordered By:Sam Wray; T-SPOT. TB; Status:In Progress - Specimen/Data Collected; Done: 11Apr2022 Perform:Lab Services - Lab To Draw (Blood Test); Due:10Jul2022;Ordered; For:Crohn's disease of colon with intestinal obstruction; Ordered By:Sam Wray; SocHx: Former smoker Tobacco Use Screening; Status:Complete; Done: 11Apr2022 Perform:Not Applicable;Ordered; For:SocHx: Former smoker; Ordered By:Jennifer Salomon; Patient Discussion/Summary It was a pleasure to meet you today. As we discussed, I think that it is in your best interest to go on therapy for Crohn's disease to prevent disease recurrence at the site where your large and small intestine have been sewn together. As we discussed today, 1) slowly add fiber back to your diet 2) begin loperamide (Imodium) 1-2 tablets twice daily 3) we will get insurance approval for and then start Stelara for post-operative maintenance of Crohn's disease 4) follow-up in the office in 3 months and call if symptoms worsen Provider Impressions #Crohn's Disease-very unusual case and that she was relatively minimally symptomatic when she was found to have advanced Crohn's colitis and then subsequent dysplastic changes resulting in total abdominal colectomy with ileorectal anastomosis in January 2022. Humira was tried prior to surgery which was not well-tolerated and did not improve symptoms significantly. She has now recovered from surgery and is doing overall well with the exception of some loose stools and frequency. It is difficult to estimate her risk of significant recurrence, but since she has lost the majority of her colon, any disease recurrence would be difficult to manage and likely produce significant symptoms. Therefore, I recommend starting back on biologic therapy. Since she did not tolerate Humira well, we will start Stelara. For her loose stools, we will try some low-dose loperamide and have her eat increased fiber in her diet gradually. We will see her back in 3 months and plan for endoscopic reevaluation at about 9 to 12 months postoperatively. She knows to call with any worsening symptoms. Plan: 1) slowly add fiber back to your diet 2) begin loperamide (Imodium) 1-2 tablets twice daily 3) we will get insurance approval for and then start Stelara for post-operative maintenance of Crohn's disease 4) follow-up in the office in 3 months. 5) Patient instructed to call office if her symptoms worsen. Chief Complaint Crohn's s/p colon resection. Adult Risk ScreeningAdult Risk Screening_: There are no spirit (more content not included)... Normal [email or web address] - Hematology and Cell countson 04-11-2022 Erythrocyte distribution width (RBC) [Ratio] 12.8 % See Below MG-Gastroent erology-[facility]ol[facility] 6 [facility] Work Phone: Comment on above: Reference Range: 11. 5 - 14.5 Hematocrit (Bld) [Volume fraction] 35.5 % below low threshold See Below MG-Gastroent erology-Bol[facility] 6 [facility] Work Phone: Comment on above: Reference Range: 36. 0 - 46.0 Hemoglobin (Bld) [Mass/Vol] 12.5 g/dL See Below MG-Gastroent erology-[place] [facility] 6 [facility] Work Phone: Comment on above: Reference Range: 12. 0 - 16.0 MCHC (RBC) [Mass/Vol] 35.2 g/dL See Below MG- Gastroent erology-[place] ell 6 [facility] Work Phone: Comment on above: Reference Range: 32. 0 - 36.0 MCV (RBC) [Entitic vol] 88 fL 80 - 100 MG-Gastroent erology-[place] [facility] 6 [facility] Work Phone: Platelets (Bld) [#/Vol] 456 10*3/uL above high threshold 150 - 450 MG-Gastroent erology-[place] [facility] 6 [facility] Work Phone: [phone] RBC (Bld) [#/Vol] 4.04 {x10E12/L} See Below MG -Gastroent erology-Bol[facility] 6 I Work Phone: Comment on above: Reference Range: 4.0 0 - 5.20 WBC (Bld) [#/Vol] 10.2 10*3/uL 4.4 - 11.3 [facility] I Work Phone: No Panel Informationon 04-11 0.0 {/100_WBC} 0.0-0.0 [facility] I Work Phone: T-SPOT. TBon 04-11-2022 T-SPOT. TB Passed [facility] DO Work Phone: T-SPOT. TB 0 1 MG-Ambulator y Infusion [facility] 1600 DO Work Phone: T-SPOT. TB Negative See Below [facility] 1600 DO Work Phone: Comment on above: Reference Range: Nor mal Value: NegativeA negative test result does not exclude the possibility of exposure to or infection with Mycobacterium tuberculosis (M. tuberculosis). Patients with recent exposure to TB infected individuals exhibiting a negative T-SPOT.TB result should be considered for retesting within 6 weeks or if other relevant clinical symptoms indicate. Results from T-SPOT.TB testing must be used in conjunction with each individual's epidemiological history, current medical status, and results of other diagnostic evaluations. The T-SPOT.TB test is qualitative and results are reported as positive, borderline or negative, given that the test controls perform as expected. In line with the Centers for Disease Control and Prevention's 2010 recommendation to report quantitative measurements alongside the qualitative result, the laboratory provides spot counts for informational purposes only. The T-SPOT.TB test should not be interpreted as a quantitative test. Tobacco Screening.on 022 Adult depression screening assessment No MG-Gastroen t erology-[facility] 6 [facility] Work Phone: Fall risk assessment b) One or more fall s in the last year [facility]astroent erology-[facility] 6 [facility] Work Phone: Tobacco use status [facility] b) No MG-Gastroent erology-[facility] 6 [facility] Work Phone: Post Op (Colon and Rectal Soliz rgery)on 02-28-2022 Post Op (Colon and Rectal Surgery) Diagnoses/Problems Assessed Crohn's disease of colon with intestinal obstruction (555.1,560.9) (K50.112) Orders Crohn's disease of colon with intestinal obstruction Gastroenterology Referral Evaluation and Treatment Dr. Wray Evaluate AND Treat Status: Hold For - Scheduling Requested for: [id number] Provider Impressions History of Crohn's disease Status post exploratory laparotomy, abdominal colectomy, ileorectal anastomosis on 01/23/2022 Doing well postoperatively Plan: -Diet: OK to slowly advance diet. -Activity: Normal activities can be resumed -Follow-up with Dr. Black or ca PRN -Referral to Dr. Wray for Crohn's management and yearly flex sig. -All questions and concerns were answered. Encouraged to call with any question or concerns. Chief Complaint An interactive audio and video telecommunication system which permits real time communications between the patient (at the originating site) and provider (at the distant site) was utilized to provide this telehealth service. Verbal consent was requested and obtained from ELDA ELLIS on this date, 02/28/2022 10:30 AM , for a telehealth visit. POV History of Present Illness Elda Ellis is a 56F with Crohn's Disease and proximal transverse colon stricture with history of LGD on biopsy. CTE on 10/07/21 demonstrates diffuse narrowing from hepatic flexure to rectosigmoid colon. She underwent exploratory laparotomy, abdominal colectomy and MATEUS on 01/23/22. Overall, doing well. Back to work. She is having 5-6 BM's daily. Stools are semi-formed to oatmeal consistency. Her incision is healed. Denies any N/V, F/C. Review of Systems Constitutional: no fever and no chills. Cardiovascular: no chest pain. Respiratory: no shortness of breath. Gastrointestinal: as noted in HPI. Active Problems Problems Crohn's disease of colon with intestinal obstruction (555.1,560.9) (K50.112) Past Medical History Problems History of diabetes mellitus (V12.29) (Z86.39) History of high cholesterol (V12.29) (Z86.39) History of hypertension (V12.59) (Z86.79) Surgical History Problems History of Back surgery History of section History of prior surgery Family History Mother Family history of cerebrovascular accident (CVA) (V17.1) (Z82.3) Family history of diabetes mellitus (V18.0) (Z83.3) Family history of hypertension (V17.49) (Z82.49) Family history of malignant neoplasm of breast (V16.3) (Z80.3) Family history of malignant neoplasm of colon (V16.0) (Z80.0) Family history of Heart problem Father Family history of cerebrovascular accident (CVA) (V17.1) (Z82.3) Family history of diabetes mellitus (V18.0) (Z83.3) Family history of hypertension (V17.49) (Z82.49) Family history of malignant neoplasm of breast (V16.3) (Z80.3) Family history of malignant neoplasm of colon (V16.0) (Z80.0) Family history of Heart problem Social History Problems Non-smoker (V49.89) (Z78.9) Allergies Medication No Known Drug Allergies Recorded By: Alissa Littlejohn; 09/27/2021 1:12:54 PM Current Meds Medication NameInstruction Albuterol Sulfate (2.5 MG/3ML) 0.083% Inhalation Nebulization Solution Atorvastatin Calcium 40 MG Oral Tablet Clobetasol Prop Emollient Base CREA Doxycycline Hyclate 20 MG Oral Tablet Humira 40 MG/0.4ML Subcutaneous Prefilled Syringe Kit Losartan Potassium 50 MG Oral Tablet Lovenox 40 MG/0.4ML Injection Solution Prefilled Syringe Mesalamine 1.2 GM Oral Tablet Delayed Release Montelukast Sodium 10 MG Oral Tablet One Daily Multivitamin Women TABS Soolantra 1 % External Cream Vitamin D3 25 MCG (1000 UT) Oral Capsule Zyrtec 10 MG TABS Vitals Virtual visit Physical Exam Virtual visit Pt looks well Incision has healed Results/Data Surgical Pathology Final No Documents Attached Name ELDA ELLIS Pathologist: MARCELO SIMPSON MD Date of Procedure: 01/23/2022 Date Received: 01/23/2022 Date Reported 02/05/2022 Submitting Physician: ADIEL BLACK MD Location: [place] [id number] Other External # FINAL DIAGNOSIS A. ABDOMINAL COLON: -- TRANSVERSE COLON WITH MULTIFOCAL LOW-GRADE DYSPLASIA ARISING IN A BACKGROUND OF CHRONIC ACTIVE COLITIS, CONSISTENT WITH THE PATIENT'S KNOWN DIAGNOSIS OF CROHN'S DISEASE. -- ASCENDING COLON WITH FOCUS OF HIGH-GRADE DYSPLASIA ARISING IN A BACKGROUND OF SESSILE SERRATED CHANGE. -- ASSOCIATED EXTENSIVE SUBMUCOSAL FIBROSIS OF THE TRANSVERSE COLON, CONSISTENT WITH STRICTURE FORMATION. -- REMAINDER OF COLON WITH PATCHY CHRONIC ACTIVE COLITIS. -- TERMINAL ILEUM WITH NO SIGNIFICANT PATHOLOGIC FINDINGS. -- APPENDIX WITH FIBROUS OBLITERATION. -- NINE BENIGN REACTIVE LYMPH NODES. -- NO EVIDENCE OF GRANULOMATA. -- NO EVIDENCE OF INVASIVE CARCINOMA. B. TRANSVERSE MESO COLON: -- TWO BENIGN REACTIVE LYMPH NODES. -- FIBROADIPOSE TISSUE WITH NO SIGNIFICANT PATHOLOGIC FINDINGS. Electronically Signed Out By MARCELO SIMPSON MD/JASON (more content not included)... Normal [facility] Post Op (Colon and Rectal Soliz rgery)on 02-07-2022 Post Op (Colon and Rectal Surgery) Diagnoses/Problems Assessed Crohn's disease of colon with intestinal obstruction (555.1,560.9) (K50.112) Provider Impressions History of Crohn's disease Status post exploratory laparotomy, abdominal colectomy, ileorectal anastomosis on 01/23/2022 Doing well postoperatively Plan: Okay to shower. Activity as tolerated with the exception of lifting greater than 15 to 20 pounds for another 6 weeks. Continue soft diet Reviewed signs and symptoms of infection and she knows to call the office to report if she has any symptoms Follow-up with me in 2 to 3 weeks or sooner if any problems. Chief Complaint POV History of Present Illness Elda Ellis is a 56F with Crohn's Disease and proximal transverse colon stricture with history of LGD on biopsy. CTE on 10/07/21 demonstrates diffuse narrowing from hepatic flexure to rectosigmoid colon. She underwent exploratory laparotomy, abdominal colectomy and MATEUS on 01/23/22. Overall, doing well. She is moving her bowels about 4-6 times a day. Stool consistency is thickening up. She is eating and drinking. She denies any nausea/vomiting. She denies any fever/chills. She is still sore. She did start working at home. We will do Lovenox injections. Complaints of tenderness at the injection site. Review of Systems Constitutional: as noted in HPI. Cardiovascular: no chest pain. Respiratory: no shortness of breath and no cough. Gastrointestinal: as noted in HPI. Hematologic/Lymphatic: a tendency for easy bruising, but no swollen glands, no tendency for easy bleeding and no anemia. Active Problems Problems Crohn's disease of colon with intestinal obstruction (555.1,560.9) (K50.112) Past Medical History Problems History of diabetes mellitus (V12.29) (Z86.39) History of high cholesterol (V12.29) (Z86.39) History of hypertension (V12.59) (Z86.79) Surgical History Problems History of Back surgery History of section History of prior surgery Family History Mother Family history of cerebrovascular accident (CVA) (V17.1) (Z82.3) Family history of diabetes mellitus (V18.0) (Z83.3) Family history of hypertension (V17.49) (Z82.49) Family history of malignant neoplasm of breast (V16.3) (Z80.3) Family history of malignant neoplasm of colon (V16.0) (Z80.0) Family history of Heart problem Father Family history of cerebrovascular accident (CVA) (V17.1) (Z82.3) Family history of diabetes mellitus (V18.0) (Z83.3) Family history of hypertension (V17.49) (Z82.49) Family history of malignant neoplasm of breast (V16.3) (Z80.3) Family history of malignant neoplasm of colon (V16.0) (Z80.0) Family history of Heart problem Social History Problems Non-smoker (V49.89) (Z78.9) Allergies Medication No Known Drug Allergies Recorded By: Alissa Littlejohn; 09/27/2021 1:12:54 PM Current Meds Medication NameInstruction Albuterol Sulfate (2.5 MG/3ML) 0.083% Inhalation Nebulization Solution Atorvastatin Calcium 40 MG Oral Tablet Clobetasol Prop Emollient Base CREA Doxycycline Hyclate 20 MG Oral Tablet Humira 40 MG/0.4ML Subcutaneous Prefilled Syringe Kit Losartan Potassium 50 MG Oral Tablet Lovenox 40 MG/0.4ML Injection Solution Prefilled Syringe Mesalamine 1.2 GM Oral Tablet Delayed Release Montelukast Sodium 10 MG Oral Tablet One Daily Multivitamin Women TABS Soolantra 1 % External Cream Tylenol Extra Strength 500 MG Oral TabletTAKE 1 TABLET Every 6 hours For two days prior to surgery. Take 2 tablets (1000mg) the morning of surgery. Vitamin D3 25 MCG (1000 UT) Oral Capsule Zyrtec 10 MG TABS Vitals Vital Signs Recorded: 07Feb2022 02:26PM Heart [id number] [id number] Jopzcovwr93 Height5 ft 1 in Pmdwkm179 lb 2 oz BMI Uueggscrru25.14 kg/m2 BSA Calculated1.92 Physical Exam Constitutional - General appearance: In no acute distress, well appearing and well nourished. Pulmonary - Respiratory effort: Normal respiration. Abdomen and Pelvis - Abdomen: Non-tender, no abdominal masses, Assessment of incision: Clean, dry, and intact [place] removed in the usual fashion. Steri-Strips applied. LINDA drain was removed without difficulty. Results/Data Surgical Pathology Final No Documents Attached Name ELDA ELLIS. Pathologist: MARCELO SIMPSON MD Date of Procedure: 01/23/2022 Date Received: 01/23/2022 Date Reported 02/05/2022 Submitting Physician: ADIEL BLACK MD Location: [address] External # FINAL DIAGNOSIS A. ABDOMINAL COLON: -- TRANSVERSE COLON WITH MULTIFOCAL LOW-GRADE DYSPLASIA ARISING IN A BACKGROUND OF CHRONIC ACTIVE COLITIS, CONSISTENT WITH THE PATIENT'S KNOWN DIAGNOSIS OF CROHN'S DISEASE. -- ASCENDING COLON WITH FOCUS OF HIGH-GRADE DYSPLASIA ARISING IN A BACKGROUND OF SESSILE SERRATED CHANGE. -- ASSOCIATED EXTENSIVE SUBMUCOSAL FIBROSIS OF THE TRANSVERSE COLON, CONSISTENT WITH STRICTURE FORMATION. -- REMAINDER OF COLON WITH PATCHY CHRONIC ACTIVE COLITIS. -- TERMINA (more content not included)... Normal [facility] Daily Progress Note-Colorect al Surgeryon 01-29-2022 Daily Progress Note-Colorectal Surgery Service: Colorectal Surgery Subjective Data: ELDA ELLIS is a 56 year old Female who is Hospital Day # 7 and POD #6 for 1. Exploratory laparotomy;2. Abdominal colectomy;3. Ileorectal anastomosis;4. ;5. No acute events overnight. Overnight Events: Patient had an uneventful night. Additional Information: No issues overnight. +ROBF. Tolerating soft diet. Objective Data: Objective Information: T PRBPMAPSpO2 [id number]% Date/Time01/28 22:146/18 22:146/18 22:14618 22:146/18 22:146/18 22:14 Range(35.9C - 36.3C ) (77 - 91 ) (18 - 18 ) (115 - 146 )/ (57 - 78 ) (82 - 82 ) (95% - 98% ) Pain reported at 01/28 20:06: 6 = Moderate ---- Intake and Output ----- Mn/Dy/Year TimeIntakeOutputNet Jan 27, 2022 10:00 [id number] Jan 27, 2022 2:00 [id number] Jan 27, 2022 6:00 [id number] The Intake and Output Totals for the last 24 hours are: IntakeOutputNet [id number] Physical Exam Narrative: Physical Exam: General: NAD, Alert and oriented HEENT: normocephalic, EOMI, PERRLA, trachea in midline Chest: non labored breathing, b/l chest rise, saturating on RA CV: RR, no peripheral edema Abd: soft, appropriately tender, nondistended, non-peritonitic, incision c/d/, LINDA drain in place with serosang outpatient MSK/neuro: grossly intact Skin: intact Psych: normal mood and affect Radiology Results: Results: Conclusion: Sinus tachycardia Minimal voltage criteria for LVH, may be normal variant Cannot rule out Anterior infarct , age undetermined Abnormal ECG No previous ECGs available Confirmed by JAC BARRAGAN MD ([id number]) on 12/12/2021 9:34:43 AM Electrocardiogram 12 Lead [Dec 12 2021 9:34AM] Assessment and Plan: Daily Risk Screen: Does patient have an indwelling urinary catheteryes Plan for indwelling urinary catheter removal todayno The patient continues to require indwelling urinary catheterization for perioperative use for selected surgical procedures Code Status: Code StatusFull Code Assessment: Elda Ellis is a 56 year old female POD4 from exploratory laparotomy, abdominal colectomy, ileorectal anastomosis for transverse stricture. Patient doing well overall. Tolerating soft diet. Anticipate discharge Sunday. Plan: Neuro: # Post op Pain -PO pain meds Respiratory: #avoid post op atelectasis - incentive spirometer - Albuterol inhaler as needed- home med CV: no issues - Continue Atorvastatin - Hold losartan, IV hydral as needed for HTN GI: #ex lap; abdominal colectomy; iliorectal anastomosis - Soft diet - HLIV - Keep drain in place and monitor output : - Voiding w/o issues - Strict i&O MSK: - oob and walking Heme/Prophylaxis - SCDs, prophylaxis SQ lovenox Dispo: Plan for DC today Vladimir Hernandez MD PGY-1, General Surgery Colorectal Surgery [id number] Attestation: Note Completion: I am a: Resident/Fellow Attending AttestationI reviewed the resident/fellows documentation and discussed the patient with the resident/fellow. I agree with the resident/fellows medical decision making as documented in the note. Electronic Signatures: Vladimir Hernandez (Resident)) (Signed 29-Jan-2022 10:04) Authored: Service, Subjective Data, Objective Data, Assessment and Plan, Note Completion Adiel Black) (Signed 30-Jan-2022 16:26) Authored: Note Completion Co-Signer: Assessment and Plan, Note Completion Last Updated: 30-Jan-2022 16:26 by Adiel Black) [facility] Order Reconciliationon 01-29 Order Reconciliation Page 1 Discharge Reconciliation Document Reconciliation Type: Discharge requested on behalf of Vladimir Hernandez (Resident) done by Vladimir Hernandez (Resident)) Discharge - Partial Reconciliation: 29-Jan-2022 10:26 by: Vladimir Hernandez (Resident)) Discharge - Partial Reconciliation: 29-Jan-2022 10:29 by: Vladimir Hernandez (Resident)) Discharge - Reconciliation: 29-Jan-2022 10:33 by: Vladimir Hernandez (Resident)) Home Medications EnteredHOME MEDICATIONS AT DISCHARGE DateReconciliation Comment/ Additional Information albuterol 90 mcg/inh inhalation aerosol 1 puff(s) inhalation prn 09-Dec-2021 12:47 Discontinued; Discontinue from ORM albuterol 90 mcg/inh inhalation aerosol is not required atorvastatin 40 mg oral tablet 1 tab(s) oral once a day 09-Dec-2021 12:47 atorvastatin 40 mg oral tablet 1 tab(s) oral once a day 09-Dec-2021 12:47 atorvastatin 40 mg oral tablet is continued as atorvastatin 40 mg oral tablet cholecalciferol 25 mcg oral tablet 1 tab(s) oral once a day 09-Dec-2021 12:48 cholecalciferol 25 mcg oral tablet 1 tab(s) oral once a day 09-Dec-2021 12:48 cholecalciferol 25 mcg oral tablet is continued as cholecalciferol 25 mcg oral tablet doxycycline 20 mg oral tablet 1 tab(s) oral once a day 09-Dec-2021 12:47 doxycycline 20 mg oral tablet 1 tab(s) oral once a day 09-Dec-2021 12:47 doxycycline 20 mg oral tablet is continued as doxycycline 20 mg oral tablet Humira Pre-Filled Syringe 40 mg/0.4 mL subcutaneous kit 1 dose subcutaneous every 2 weeks 09-Dec-2021 13:42 Humira Pre-Filled Syringe 40 mg/0.4 mL subcutaneous kit 1 dose subcutaneous every 2 weeks 09-Dec-2021 13:42 Humira Pre-Filled Syringe 40 mg/0.4 mL subcutaneous kit is continued as Humira Pre-Filled Syringe 40 mg/0.4 mL subcutaneous kit losartan 50 mg oral tablet 1 tab(s) oral once a day 09-Dec-2021 12:48 losartan 50 mg oral tablet 1 tab(s) oral once a day 09-Dec-2021 12:48 losartan 50 mg oral tablet is continued as losartan 50 mg oral tablet mesalamine 1.2 g oral delayed release tablet 2 tab(s) oral once a day 09-Dec-2021 13:43 mesalamine 1.2 g oral delayed release tablet 2 tab(s) oral once a day 09-Dec-2021 13:43 mesalamine 1.2 g oral delayed release tablet is continued as mesalamine 1.2 g oral delayed release tablet montelukast 10 mg oral tablet 1 tab(s) oral once a day 09-Dec-2021 12:48 montelukast 10 mg oral tablet 1 tab(s) oral once a day 09-Dec-2021 12:48 montelukast 10 mg oral tablet is continued as montelukast 10 mg oral tablet multivitamin Multiple Vitamins oral tablet 1 tab(s) oral once a day 09-Dec-2021 12:48 multivitamin Multiple Vitamins oral tablet 1 tab(s) oral once a day 09-Dec-2021 12:48 multivitamin Multiple Vitamins oral tablet is continued as multivitamin Multiple Vitamins oral tablet ZyrTEC 10 mg oral tablet 1 tab(s) oral once a day 09-Dec-2021 12:48 Discontinued; Discontinue from ORM ZyrTEC 10 mg oral tablet is not required Current OrdersDateHOME MEDICATIONS AT DISCHARGE DateReconciliation Comment/ Additional Information Acetaminophen Tablet (TYLENOL)DOSE = 650 mg Oral Every 6 Hours 23-Jan-2022 19:07 Acetaminophen is not required Albuterol 2.5 mg/ 3 mL Nebulizer Soln (PROVENTIL)DOSE = 1.5 mL Inhalation Every 6 Hours via Nebulizer, PRN Shortness of Breath 23-Jan-2022 20:01 Albuterol 2.5 mg/ 3 mL Nebulizer Soln is not required Atorvastatin Tablet (LIPITOR)DOSE = 40 mg Oral Daily 23-Jan-2022 19:01 Atorvastatin is not required Enoxaparin SubCutaneous (LOVENOX)DOSE = 40 mg SubCutaneous Every 12 Hours 23-Jan-2022 19:07 Enoxaparin SubCutaneous is not required Gabapentin Capsule (NEURONTIN)DOSE = 300 mg Oral 3 Times a Day 23-Jan-2022 19:07 Gabapentin is not required Montelukast Tablet (SINGULAIR)DOSE = 10 mg Oral At Bedtime 23-Jan-2022 19:01 Montelukast is not required Naloxone Injectable (NARCAN)DOSE = 0.2 mg IntraVenous Push Once, PRN patient is unarousable, and respiratory rate lessClinician Notes: HOLD POSTMASTER RELIEF Infusion and notify H.O. immediately 23-Jan-2022 19:07 Naloxone Injectable is not required Ondansetron Injectable (ZOFRAN)DOSE = 4 mg IntraVenous Push Every 6 Hours, PRN Nausea 23-Jan-2022 19:07 Ondansetron Injectable is not required oxyCODONE Immediate Release Tablet (OXYIR, ROXICODONE)DOSE = 10 mg Oral Every 4 Hours, PRN Pain - Severe (7-10) 26-Jan-2022 07:01 oxyCODONE Immediate Release is not required oxyCODONE Immediate Release Tablet (OXYIR, ROXICODONE)DOSE = 5 mg Oral Every 4 Hours, PRN Pain - Mod (4-6) 26-Jan-2022 07:01 oxyCODONE Immediate Release is not required Pantoprazole Injectable (PROTONIX)DOSE = 40 mg IntraVenous Push Every 24 Hours 25-Jan-2022 08:02 Pantoprazole Injectable is not required Home Medications Added During Discharge Reconciliation Lovenox 40 mg/0.4 mL injectable solution 40 milligram(s) subcutaneously once a day All Active Home Medications at time of Discharge Reconciliation: 29-Jan-2022 10:33 atorvast (more content not included)... Normal [facility] Daily Progress Note-Colorect al Surgeryon 01-28-2022 Daily Progress Note-Colorectal Surgery Service: Colorectal Surgery Subjective Data: ELDA ELLIS is a 56 year old Female who is Hospital Day # 6 and POD #5 for 1. Exploratory laparotomy;2. Abdominal colectomy;3. Ileorectal anastomosis;4. ;5. Overnight Events: Patient had an uneventful night. Additional Information: No issues overnight. +ROBF. Tolerating soft diet. Objective Data: Objective Information: T PRBPMAPSpO2 [id number]/7295% Date/Time01/28 5:106 5:10618 5:10618 5:10618 5:10 Range(35.6C - 36.5C ) (63 - 92 ) (18 - 18 ) (109 - 139 )/ (57 - 76 ) (91% - 98% ) Pain reported at 01/28 0:23: sleeping ---- Intake and Output ----- Mn/Dy/[facility]Int[facility] Jan 28, 2022 6:00 [id number] Jan 27, 2022 10:00 [id number] Jan 27, 2022 2:00 [id number] The Intake and Output Totals for the last 24 hours are: IntakeOutun[facility] [place] hospitalsNet [id number] Physical Exam Narrative: Physical Exam: General: NAD, Alert and oriented HEENT: normocephalic, EOMI, PERRLA, trachea in midline Chest: non labored breathing, b/l chest rise, saturating on RA CV: RR, no peripheral edema Abd: soft, appropriately tender, nondistended, non-peritonitic, incision c/d/, LINDA drain in place with serosang outpatient MSK/neuro: grossly intact Skin: intact Psych: normal mood and affect Medication: Medications: Continuous Medications ------- 1. Dextrose 5% - NaCL 0.45% Infusion: 1000 mL IntraVenous Scheduled Medications ------- 1. Acetaminophen: 650 mg Oral Every 6 Hours 2. Atorvastatin: 40 mg Oral Daily 3. Enoxaparin SubCutaneous: 40 mg SubCutaneous Every 12 Hours 4. Gabapentin: 300 mg Oral 3 Times a Day 5. Montelukast: 10 mg Oral At Bedtime 6. Pantoprazole Injectable: 40 mg IntraVenous Push Every 24 Hours PRN Medications ------- 1. Albuterol 2.5 mg/ 3 mL Nebulizer Soln: 1.5 mL Inhalation Every 6 Hours 2. Naloxone Injectable: 0.2 mg IntraVenous Push Once 3. Ondansetron Injectable: 4 mg IntraVenous Push Every 6 Hours 4. oxyCODONE Immediate Release: 5 mg Oral Every 4 Hours 5. oxyCODONE Immediate Release: 10 mg Oral Every 4 Hours Assessment and Plan: Daily Risk Screen: Does patient have an indwelling urinary catheteryes Plan for indwelling urinary catheter removal todayno The patient continues to require indwelling urinary catheterization for perioperative use for selected surgical procedures Code Status: Code StatusFull Code Assessment: Elda Ellis is a 56 year old female POD4 from exploratory laparotomy, abdominal colectomy, ileorectal anastomosis for transverse stricture. Patient doing well overall. Tolerating soft diet. Anticipate discharge Sunday. Plan: Neuro: # Post op Pain -PO pain meds Respiratory: #avoid post op atelectasis - incentive spirometer - Albuterol inhaler as needed- home med CV: no issues - Continue Atorvastatin - Hold losartan, IV hydral as needed for HTN GI: #ex lap; abdominal colectomy; iliorectal anastomosis - Soft diet - HLIV - Keep drain in place and monitor output : - Voiding w/o issues - Strict i&O MSK: - oob and walking Heme/Prophylaxis - SCDs, prophylaxis SQ lovenox Dispo: RNF Seen and discussed with Dr. Esperanza Hernandez MD Colorectal Surgery [id number] Attestation: Note Completion: I am a: Resident/Fellow Attending AttestationI saw and evaluated the patient. I personally obtained the contreras and critical portions of the history and physical exam or was physically present for contreras and critical portions performed by the resident/fellow. I reviewed the resident/fellows documentation and discussed the patient with the resident/fellow. I agree with the resident/fellows medical decision making as documented in the note. I personally evaluated the Electronic Signatures: Adiel Black () (Signed 29-Jan-2022 07:13) Authored: Note Completion Co-Signer: Service, Subjective Data, Objective Data, Assessment and Plan, Note Completion Ethan Hernandez (Resident)) (Signed 28-Jan-2022 06:37) Authored: Service, Subjective Data, Objective Data, Assessment and Plan, Note Completion Last Updated: 29-Jan-2022 07:13 by Adiel Black) Normal [facility] Daily Progress Note-Colorect al Surgeryon 01-27-2022 Daily Progress Note-Colorectal Surgery This report has been cancelled. Normal [facility] Daily Progress Note-Colorectal Surgery Service: Colorectal Surgery Subjective Data: ELDA ELLIS is a 56 year old Female who is Hospital Day # 5 and POD #4 for 1. Exploratory laparotomy;2. Abdominal colectomy;3. Ileorectal anastomosis;4. ;5. Additional Information: No acute events overnight. Continues to have bowel function. Vitals stable. Tolerating PO. Objective Data: Objective Information: T PRBPMAPSpO2 [id number]/6997% Date/Time01/27 5:5301/27 5: 5: 5: 5:53 Range(35.8C - 36.5C ) (63 - 89 ) (18 - 18 ) (109 - 156 )/ (62 - 78 ) (93% - 99% ) Pain reported at 01/27 1:49: 7 = Severe ---- Intake and Output ----- Mn/Dy/[facility]IntakeR[facility] Jan 27, 2022 6:00 [id number] Jan 26, 2022 10:00 [id number] Jan 26, 2022 2:00 [id number] The Intake and Output Totals for the last 24 hours are: IntakeOutUNC Health Rex [id number] Physical Exam Narrative: Physical Exam: General: NAD, Alert and oriented HEENT: normocephalic, EOMI, PERRLA, trachea in midline Chest: non labored breathing, b/l chest rise, saturating on RA CV: RR, no peripheral edema Abd: soft, appropriately tender, nondistended, non-peritonitic, incision c/d/, LINDA drainage in place with serosang outpatient MSK/neuro: grossly intact Skin: intact Psych: normal mood and affect Medication: Medications: Continuous Medications ------- 1. Dextrose 5% - NaCL 0.45% Infusion: 1000 mL IntraVenous Scheduled Medications ------- 1. Acetaminophen: 650 mg Oral Every 6 Hours 2. Atorvastatin: 40 mg Oral Daily 3. Enoxaparin SubCutaneous: 40 mg SubCutaneous Every 12 Hours 4. Gabapentin: 300 mg Oral 3 Times a Day 5. Montelukast: 10 mg Oral At Bedtime 6. Pantoprazole Injectable: 40 mg IntraVenous Push Every 24 Hours 7. Potassium Chloride Extended Release: 40 mEq Oral Once PRN Medications ------- 1. Albuterol 2.5 mg/ 3 mL Nebulizer Soln: 1.5 mL Inhalation Every 6 Hours 2. Naloxone Injectable: 0.2 mg IntraVenous Push Once 3. Ondansetron Injectable: 4 mg IntraVenous Push Every 6 Hours 4. oxyCODONE Immediate Release: 5 mg Oral Every 4 Hours 5. oxyCODONE Immediate Release: 10 mg Oral Every 4 Hours Recent Lab Results: Results: I have reviewed these laboratory results: Complete Blood Count 26-Jan-2022 07:12:00 ResultValue White Blood Cell Count 11.6 H Nucleated Erythrocyte Count 0.0 Red Blood Cell Count 4.08 HGB 12.5 HCT 37.8 MCV 93 MCHC 33.1 PLT 343 RDW-CV 12.7 Renal Function Panel 26-Jan-2022 07:12:00 ResultValue Glucose, Serum 119 H NA 139 K 3.5 CL 104 Bicarbonate, Serum 29 Anion Gap, Serum 10 BUN 9 CREAT 0.59 GFR Female >90 Calcium, Serum 8.6 Phosphorus, Serum 1.6 L ALB 3.3 L Magnesium, Serum 26-Jan-2022 07:12:00 ResultValue Magnesium, Serum 2.02 Assessment and Plan: Daily Risk Screen: Does patient have an indwelling urinary catheteryes Plan for indwelling urinary catheter removal todayno The patient continues to require indwelling urinary catheterization for perioperative use for selected surgical procedures Code Status: Code StatusFull Code Assessment: Elda Ellis is a 56 year old female POD3 from exploratory laparotomy, abdominal colectomy, ileorectal anastomosis for transverse stricture. Patient doing well overall. Advance to full liquids today. Anticipate discharge Sunday. Plan: Neuro: # Post op Pain -PO pain meds Respiratory: #avoid post op atelectasis - incentive spirometer - Albuterol inhaler as needed- home med CV: no issues - Continue Atorvastatin - Hold losartan, IV hydral as needed for HTN GI: #ex lap; abdominal colectomy; iliorectal anastomosis - Full liquid diet - Drop fluid rate at 20cc/hr- KVO - Keep drain in place and monitor output : - Voiding w/o issues - Strict i&O MSK: - oob and walking Heme/Prophylaxis - SCDs, prophylaxis SQ lovenox Dispo: RNF Patient seen with fellow Dr. Saad Gonsalez and staffed with attending surgeon. Ethan Hernandez MD Colorectal Surgery [id number] Attestation: Note Completion: I am a: Resident/Fellow Attending AttestationI saw and evaluated the patient. I personally obtained the contreras and critical portions of the history and physical exam or was physically present for contreras and critical portions performed by the resident/fellow. I reviewed the resident/fellows documentation and discussed the patient with the resident/fellow. I agree with the resident/fellows medical decision making as documented in the note. I personally evaluated the patient [id number] Electronic Signatures: Adiel Black) (Signed 29-Jan-2022 07:02) Authored: Note Completion Co-Signer: Assessment and Plan, Note Completion Ethan Hernandez (Resident)) (Signed 27-Jan-2022 08:54) Authored: Service, Subjective Data, Objective Data, Assessment and Plan (more content not included)... Normal [facility] Discharge [id number] Discharge Profile2 Discharge Orders: Anticipated Discharge Date: Anticipated Discharge [id number] Problem List: Admitting Dx: Crohn's disease of colon: Catalog Name: Crohn's disease of large intestine without complications Additional Dx: Postoperative pain: Catalog Name: Other acute postprocedural pain Significant Events: Surgical Procedure: Clinical Events This Visit, 23-Jan-2022, 1. Exploratory laparotomy;2. Abdominal colectomy;3. Ileorectal anastomosis;4. ;5. Crohn's,: Past Medical History HTN, HLD, anxiety, OA: Past Medical History Hospital Providers: Provider RoleProvider Name Adiel Perez DNAR: Code Status at Discharge: Full Code Activity: activity as tolerated. May shower. May not drive while taking narcotics. No pushing, pulling, or lifting objects greater than 10 pounds for 4 week(s). Weight-bearing Instructions: full weight bearing. Diet: Diet Consistency/Texturesoft, soft diet x 4 weeks. Avoid raw fruits and vegetables for couple weeks and slowly advance into diet as tolerated. Appetitie will return slowly, eat smaller more frequent meals at first, push away from table once full. Encourage FluidsDrink plenty of a variety of fluids to prevent dehydration. Signs of dehydration are: dry mouth, dark yellow urine in small amounts, and dizziness with change in position or increased feeling of weakness/tiredness. Additive/Supplement 1: Supplement. ensure surgery 1 serving by mouth three times a day until gone. Wound Care 1: Wound Siteabdomen Wound Typesurgical incision Change Dressing2 times a day Cleanse Withsoap and water Cover Withno dressing, leave open to air Instructionsno lotions, creams, or tub soaks Other InstructionsYou have beto remaining in your incision. These will come out approximately 2 weeks from your surgery date. This incision may get wet, pat dry and cover as needed to protect your clothing, otherwise you may leave this incision open to air. Additional Orders: Additional Instructions Drink plenty of a variety of fluids to prevent dehydration. Signs of dehydration are: dry mouth, dark yellow urine in small amounts, and dizziness with change in position or increased feeling of weakness/tiredness. You may notice small amount of blood with first BM, this is not unusual and she disappear quickly. Your bowel function with be loose and frequent at first. This will become more normal over couple weeks. Consistency of stool will be more soft or oatmeal consistency For diarrhea stools incorporate foods from the BRAT diet. This is a bland diet that consists of foods low in fiber: bananas, rice, applesauce and toast are beto of the diet. You can also add tea, tapioca and yogurt if you would like. Be sure to drink plenty of fluids if you are having diarrhea, as you can become dehydrated quickly. Enoxaparin (Lovenox) is a blood thinner used to prevent or treat blood clots. Enoxaparin (Lovenox) is administered only by injection under the skin using a small needle and syringe. Injections can be given once or twice a day. You are taking enoxaparin (Lovenox) for __prevention of blood clots___. You will continue to take enoxaparin (Lovenox) for __28 days post-op__. It is important that you give the injections at the same time each day. It is important that you continue your enoxaparin until told to stop. If you forget an injection, contact your doctor for advice as to when you should give your next injection. Let everyone involved in your care, such as a dentist or other provider, know that you are taking enoxaparin (Lovenox). Side Effects: - Skin bruises, itching, and bleeding around the injection site, can occur. - If bleeding does occur, it may take a little longer than usual to stop. Let your doctor know if you develop a rash of dark red spots under the skin. Signs of bleeding that you should call your doctor: - Gums that bleed after brushing your teeth lasting more than 15 minutes. - A nose bleed that lasts for more than 15 minutes. - Bleeding from a cut that does not stop in 15 minutes. - Urine that looks red, or urine that is dark like coffee. - Stool (BMs) that are covered with blood, or are black. - Vomit that is bright red or vomit that looks like coffee. How to administer the injection: 1. Wash your hands with soap and water. Dry your hands. 2. Sit down or lie flat in a comfortable position. 3. Select an area on the right or left side of your stomach (at least 2 inches away from your belly button), the back of your upper arm or side of your upper thigh. 4. Clean the area with an alcohol swabs. Allow the area to dry. 5. Carefully pull off the needle cap from the syringe and discard cap. Leave the air bubble in the syringe. 6. Hold the syringe like a pencil in the hand you write with. 7. With your other hand, gently pinch around the cleansed area to make a fold in the sk (more content not included)... Normal [facility] CBCon 01-26-2022 Erythrocyte distribution width (RBC) [Ratio] 12.7 % Normal 11.5 - 14.5 [facility] Comment on above: Performed By: #### C BC ####[id number] [place] [address] Hematocrit (Bld) [Volume fraction] 37.8 % Normal 36.0 - 46.0 [facility] Comment on above: Performed By: #### C BC ####[id number] [place] [address] Hemoglobin (Bld) [Mass/Vol] 12.5 g/dL Normal 12.0 - 16.0 [facility] Comment on above: Performed By: #### C BC ####[id number] [place] [address] MCHC (RBC) [Mass/Vol] 33.1 g/dL Normal 32.0 - 36.0 [facility] Comment on above: Performed By: #### C BC ####[id number] [place] [address] MCV (RBC) [Entitic vol] 93 fL Normal 80 - 100 [facility] Comment on above: Performed By: #### C BC ####[id number] [place] [address] NUCLEATED RBC 0.0 /100 WBC Normal 0.0-0.0 [facility] Comment on above: Performed By: #### C BC ####[id number] [place] [address] Platelets (Bld) [#/Vol] 343 10*3/uL Normal 150 - 450 [facility] Comment on above: Performed By: #### C BC ####[id number] [place] [address] RBC 4.08 x10E12/L Normal 4.00 - 5.20 [facility] Comment on above: Performed By: #### C BC ####[id number] [place] [address] WBC (Bld) [#/Vol] 11.6 10*3/uL High 4.4 - 11.3 [facility] Comment on above: Performed By: #### C BC ####[id number] [place] [address] Daily Progress Note-Colorect al Surgeryon 01-26-2022 Daily Progress Note-Colorectal Surgery Service: Colorectal Surgery Subjective Data: ELDA ELLIS is a 56 year old Female who is Hospital Day # 4 and POD #3 for 1. Exploratory laparotomy;2. Abdominal colectomy;3. Ileorectal anastomosis;4. ;5. No acute events overnight. Patient feeling well this AM. Tolerable pain and No nausea or vomiting and tolerating clear liquid diet. Patient had 2 episodes of loose stools yesterday. Objective Data: Objective Information: T PRBPMAPSpO2 [id number]/6696% Date/Time01/26 6: 6: 6: 6: 6:50 Range(35.8C - 36.8C ) (83 - 117 ) (18 - 20 ) (142 - 168 )/ (66 - 87 ) (93% - 97% ) Pain reported at 01/26 5:43: 4 = Moderate ---- Intake and Output ----- Mn/Dy/Year TimeIntakeOutputNet Jan 26, 2022 6:00 [id number] Jan 25, 2022 10:00 [id number] Jan 25, 2022 2:00 [id number] The Intake and Output Totals for the last 24 hours are: IntakeOutputNet [id number] Physical Exam Narrative: Physical Exam: General: NAD, Alert and oriented HEENT: normocephalic, EOMI, PERRLA, trachea in midline Chest: non labored breathing, b/l chest rise, saturating on RA CV: RR, no peripheral edema Abd: soft, appropriately tender, nondistended, non-peritonitic, incision c/d/, LINDA drainage in place with serosang outpatient MSK/neuro: grossly intact Skin: intact Psych: normal mood and affect Medication: Medications: CENTRAL NERVOUS SYSTEM AGENTS: 1. Acetaminophen: 650 mg Oral Every 6 Hours 2. oxyCODONE Immediate Release: 5 mg Oral Every 4 Hours PRN 3. oxyCODONE Immediate Release: 10 mg Oral Every 4 Hours PRN 4. Gabapentin: 300 mg Oral 3 Times a Day 5. Ondansetron Injectable: 4 mg IntraVenous Push Every 6 Hours PRN COAGULATION MODIFIERS: 1. Enoxaparin SubCutaneous: 40 mg SubCutaneous Every 12 Hours GASTROINTESTINAL AGENTS: 1. Pantoprazole Injectable: 40 mg IntraVenous Push Every 24 Hours METABOLIC AGENTS: 1. Atorvastatin: 40 mg Oral Daily MISCELLANEOUS AGENTS: 1. Naloxone Injectable: 0.2 mg IntraVenous Push Once PRN 2. Ropivacaine 0.2%/ Ambit Pump 500 mL: 1000 mg Peripheral Nerve NUTRITIONAL PRODUCTS: 1. Dextrose 5% - NaCL 0.45% Infusion: 1000 mL IntraVenous RESPIRATORY AGENTS: 1. Albuterol 2.5 mg/ 3 mL Nebulizer Soln: 1.5 mL Inhalation Every 6 Hours PRN 2. Montelukast: 10 mg Oral At Bedtime Recent Lab Results: Results: I have reviewed these laboratory results: Basic Metabolic Panel 24-Jan-2022 08:40:00 ResultValue Glucose, Serum 127 H NA 138 K 4.3 CL 104 Bicarbonate, Serum 23 Anion Gap, Serum 15 BUN 11 CREAT 0.58 GFR Female >90 Calcium, Serum 8.6 Complete Blood Count 24-Jan-2022 08:40:00 ResultValue White Blood Cell Count 20.4 H Nucleated Erythrocyte Count 0.0 Red Blood Cell Count 3.83 L HGB 11.7 L HCT 36.2 MCV 95 MCHC 32.3 PLT 344 RDW-CV 12.9 Assessment and Plan: Daily Risk Screen: Does patient have an indwelling urinary catheteryes Plan for indwelling urinary catheter removal todayno The patient continues to require indwelling urinary catheterization for perioperative use for selected surgical procedures Code Status: Code StatusFull Code Assessment: Elda Ellis is a 56 year old female POD1 from exploratory laparotomy, abdominal colectomy, ileorectal anastomosis for transverse stricture. Patient doing well overall. Tolerating diet well. Plan: Neuro: # Post op Pain -PO pain meds Respiratory: #avoid post op atelectasis - incentive spiromiter - Albuterol inhaler as needed- home med CV: no issues - Continue Atorvastatin - Hold losartan, IV hydral as needed for HTN GI: #ex lap; abdominal colectomy; iliorectal anastomosis - Continue with clear liquid diet - Drop fluid rate at 20cc/hr- KVO - Keep drain in place and monitor output : - Voiding w/o issues - Strict i&O MSK: - oob and walking Heme/Prophylaxis - SCDs, prophylaxis SQ lovenox Dispo: RNF Patient seen with fellow Dr. Saad Gonsalez and staffed with attending surgeon. Vladimir Hernandez MD PGY-1, Surgery Resident Attestation: Note Completion: I am a: Resident/Fellow Attending AttestationI saw and evaluated the patient. I personally obtained the contreras and critical portions of the history and physical exam or was physically present for contreras and critical portions performed by the resident/fellow. I reviewed the resident/fellows documentation and discussed the patient with the resident/fellow. I agree with the resident/fellows medical decision making as documented in the note. I personally evaluated the patient [id number] Electronic Signatures: Vladimir Hernandez (Resident)) (Signed 26-Jan-2022 07:46) Authored: Service, Subjective Data, Objective Data, Assessment and Plan, Note Completion Adiel Black) (Signed 29-Jan-2022 06:54) Authored: Note Completion Co-Signer: Service, Subjective Data, O (more content not included)... Normal [facility] Laboratory - Hematology and Cell countson 01-26-2022 Erythrocyte distribution width (RBC) [Ratio] 12.7 % See Below UI-Bstmjtt-L olMembersuite Work Phone: Comment on above: Reference Range: 11. 5 - 14.5 Hematocrit (Bld) [Volume fraction] 37.8 % See Below LR-Ezzomzp-Q [facility] 2100 Work Phone: Comment on above: Reference Range: 36. 0 - 46.0 Hemoglobin (Bld) [Mass/Vol] 12.5 g/dL See Below KS-Njswiqg-X [facility] 2099 Work Phone: Comment on above: Reference Range: 12. 0 - 16.0 MCHC (RBC) [Mass/Vol] 33.1 g/dL See Below MG- Surgery-B [facility] 2100 Work Phone: Comment on above: Reference Range: 32. 0 - 36.0 MCV (RBC) [Entitic vol] 93 fL 80 - 100 VI-Ocvjihb-S [facility] 2099 Work Phone: [phone] Platelets (Bld) [#/Vol] 343 10*3/uL 150 - 450 AV-Zuhibba-E [facility] 2099 Work Phone: [phone] RBC (Bld) [#/Vol] 4.08 {x10E12/L} See Below MG -Surgery-B [facility] 2099 Work Phone: Comment on above: Reference Range: 4.0 0 - 5.20 WBC (Bld) [#/Vol] 11.6 10*3/uL above high threshold 4.4 - 11.3 AE-Obwzbzh-R [facility] 2099 Work Phone: MAGNESIUMon 01-26-2022 Magnesium [Mass/Vol] 2.02 mg/dL Normal 1.60 - 2.40 [facility] Comment on above: Performed By: #### M G #### [facility] [id number] [place] [address] Magnesium, Serumon 2 Magnesium [Mass/Vol] 2.02 mg/dL See Below MG-S urgery-B [place] 2099 Work Phone: Comment on above: Reference Range: 1.6 0 - 2.40 No Panel Informationon 01-26 0.0 {/100_WBC} 0.0-0.0 MG-Surgery -B olIdeabove 2100 Work Phone: RENAL FUNCTION PANELon 01-26 Albumin [Mass/Vol] 3.3 g/dL Low 3.4 - 5.0 [facility] Comment on above: Performed By: #### C OVSC #### [facility] [id number] [place] [address] Anion gap [Moles/Vol] 10 mmol/L Normal 10 - 20 [facility] Comment on above: Performed By: #### C OVSC #### [facility] [id number] [place] [address] Calcium [Mass/Vol] 8.6 mg/dL Normal 8.6 - 10.6 [facility] Comment on above: Performed By: #### C OVSC #### [facility] [id number] [place] [address] Chloride [Moles/Vol] 104 mmol/L Normal 98 - 107 [facility] Comment on above: Performed By: #### C OVSC #### [facility] [id number] [place] [address] Creatinine [Mass/Vol] 0.59 mg/dL Normal 0.50 - 1.05 [facility] Comment on above: Performed By: #### C OVSC #### [facility] [address] [place] [address] eGFR FEMALE >90 Normal >90 [facility] Comment on above: Result Comment: CALC ULATIONS OF ESTIMATED GFR ARE PERFORMED USING THE 2020 CKD-EPI STUDY REFIT EQUATION WITHOUT THE RACE VARIABLE FOR THE IDMS-TRACEABLE CREATININE METHODS. https://jasn.asnjournals.org/content//ASN.879409 5715 Performed By: #### C OVSC #### [facility] [id number] [place] [address] Glucose [Mass/Vol] 119 mg/dL High 74 - 99 [facility] Comment on above: Performed By: #### C OVSC #### [facility] [id number] [place] [address] HCO3 (Bld) [Moles/Vol] 29 mmol/L Normal 21 - 32 [facility] Comment on above: Performed By: #### C OVSC #### [facility] [address] [place] [address] Phosphate [Mass/Vol] 1.6 mg/dL Low 2.5 - 4.9 [facility] Comment on above: Result Comment: The performance characteristics of phosphorus testing in heparinized plasma have been validated by the individual laboratory site where testing is performed. Testing on heparinized plasma is not approved by the FDA; however, such approval is not necessary. Performed By: #### C OVSC #### [place] [address] [place] [address] Potassium [Moles/Vol] 3.5 mmol/L Normal 3.5 - 5.3 [facility] Comment on above: Performed By: #### C OVSC #### [facility] [address] [place] [address] Sodium [Moles/Vol] 139 mmol/L Normal 136 - 145 [facility] Comment on above: Performed By: #### C OVSC #### [facility] [address] [place] [address] Urea nitrogen [Mass/Vol] 9 mg/dL Normal 6 - 23 [facility] Comment on above: Performed By: #### C OVSC #### [facility] [address] [place] [address] Renal Function Panelon 01-26 Albumin BCP dye [Mass/Vol] 3.3 g/dL below low threshold 3.4 - 5.0 ZO-Wozqwdt-S [facility] 2100 Work Phone: Anion gap [Moles/Vol] 10 mmol/L 10 - 20 MG- Surgery-B olIdeabove 2100 Work Phone: Calcium [Mass/Vol] 8.6 mg/dL 8.6 - 10.6 MG-Lexy jennifer-B [facility] 2100 Work Phone: Chloride [Moles/Vol] 104 mmol/L 98 - 107 MG-S urgery-B [facility] 2100 Work Phone: CO2 [Moles/Vol] 29 mmol/L 21 - 32 MG-Surger y-B [facility] 2100 Work Phone: Creatinine [Mass/Vol] 0.59 mg/dL See Below MG- Surgery-B [facility] 2100 Work Phone: Comment on above: Reference Range: 0.5 0 - 1.05 Glucose [Mass/Vol] 119 mg/dL above high threshold 74 - 99 PX-Taiqogv-C [facility] 2100 Work Phone: Phosphate [Mass/Vol] 1.6 mg/dL below low threshold 2.5 - 4.9 BN-Dayyvwp-W [facility] 2100 Work Phone: Comment on above: The performance ten acteristics of phosphorus testing in heparinized plasma have been validated by the individual laboratory site where testing is performed. Testing on heparinized plasma is not approved by the FDA; however, such approval is not necessary. Potassium [Moles/Vol] 3.5 mmol/L 3.5 - 5.3 MG- Surgery-B [facility] 2100 Work Phone: Sodium [Moles/Vol] 139 mmol/L 136 - 145 MG-Lexy jennifer-B [facility] 2100 Work Phone: Urea nitrogen [Mass/Vol] 9 mg/dL 6 - 23 HU-Zblypqc-D ol[facility] 2100 Work Phone: Renal Function Panel >90 >90 MG-S urgery-B [facility] 2100 Work Phone: Comment on above: CALCULATIONS OF DYLON MATED GFR ARE PERFORMED USING THE 2020 CKD-EPI STUDY REFIT EQUATION WITHOUT THE RACE VARIABLE FOR THE IDMS-TRACEABLE CREATININE METHODS.https://jasn.asnjournals.org/content// N.3847030873 Daily Progress Note-Anesthes ia - Painon 01-25-2022 Daily Progress Note-Anesthesia - Pain Service: Anesthesia - Pain Subjective Data: ELDA ELLIS is a 56 year old Female who is Hospital Day # 3 and POD #2 for 1. Exploratory laparotomy;2. Abdominal colectomy;3. Ileorectal anastomosis;4. ;5. Additional Information: Postop Pain HPI - Palliative: relieved with IV analgesics and regional local anesthetics Provocative: movement Quality: burning and aching Radiation: none Severity: 5-710 Timing: constant 24-HOUR OPIOID CONSUMPTION: dilaudid POSTMASTER RELIEF 1.4mg other pain meds: gabapentin 300mg TID tylenol 650mg q6h Objective Data: Objective Information: T PRBPMAPSpO2 [id number]/8296% Date/Time01/25 10: 10: 10: 10: 10:58 Range(36C - 37.5C ) (74 - 184 ) (16 - 19 ) (151 - 171 )/ (70 - 82 ) (94% - 97% ) Highest temp of 37.5 C was recorded at 01/24 4:00 Pain reported at 01/25 9:13: 4 = Moderate ---- Intake and Output ----- Mn/Dy/Year [facility]Int[facility]OutUNC [facility] Jan 25, 2022 2:00 [id number] Jan 25, 2022 6:00 [id number] Jan 24, 2022 10:00 [id number] The Intake and Output Totals for the last 24 hours are: IntakeOutputNet [id number] Physical Exam Narrative: Physical Exam: Physical Exam: Constitutional: no distress, alert and cooperative Eyes: clear sclera Head/Neck: No apparent injury, trachea midline Respiratory/Thorax: Patent airways, thorax symmetric, breathing comfortably Cardiovascular: no pitting edema Gastrointestinal: Nondistended Musculoskeletal: ROM intact Extremities: no clubbing Neurological: alert, lamb x4 Psychological: Appropriate affect Medication: Medications: Continuous Medications ------- 1. Dextrose 5% - NaCL 0.45% Infusion: 1000 mL IntraVenous 2. HYDROmorphone POSTMASTER RELIEF 25 mg/ NaCL 0.9% 50 mL: 2.6 mg/hr IV POSTMASTER RELIEF 3. Ropivacaine 0.2%/ Ambit Pump 500 mL: 1000 mg Peripheral Nerve Scheduled Medications ------- 1. Acetaminophen: 650 mg Oral Every 6 Hours 2. Atorvastatin: 40 mg Oral Daily 3. Gabapentin: 300 mg Oral 3 Times a Day 4. Montelukast: 10 mg Oral At Bedtime 5. Pantoprazole Injectable: 40 mg IntraVenous Push Every 24 Hours PRN Medications ------- 1. Albuterol 2.5 mg/ 3 mL Nebulizer Soln: 1.5 mL Inhalation Every 6 Hours 2. Naloxone Injectable: 0.2 mg IntraVenous Push Once 3. Ondansetron Injectable: 4 mg IntraVenous Push Every 6 Hours Currently Suspended Medications ------- 1. Enoxaparin SubCutaneous: 40 mg SubCutaneous Every 12 Hours Recent Lab Results: Results: I have reviewed these laboratory results: Basic Metabolic Panel 24-Jan-2022 08:40:00 ResultValue Glucose, Serum 127 H NA 138 K 4.3 CL 104 Bicarbonate, Serum 23 Anion Gap, Serum 15 BUN 11 CREAT 0.58 GFR Female >90 Calcium, Serum 8.6 Complete Blood Count 24-Jan-2022 08:40:00 ResultValue White Blood Cell Count 20.4 H Nucleated Erythrocyte Count 0.0 Red Blood Cell Count 3.83 L HGB 11.7 L HCT 36.2 MCV 95 MCHC 32.3 PLT 344 RDW-CV 12.9 Assessment and Plan: Daily Risk Screen: Does patient have an indwelling urinary cathetern/a consulting service Does patient have a central linen/a consulting service Comorbidities: ComorbidityOther Code Status: Code StatusFull Code Assessment: ELDA ELLIS is a 56 year old Female who is s/p subtotal colectomy and ileorectal anastomosis with Dr. Black on 01/23. Acute Pain consulted for block for postoperative pain control. - b/l QL nerve blocks with catheters performed preoperatively on 01/23, patient tolerated the procedure well - Expect block to contribute to multimodal pain control - Additional pain medications per primary team - recommend adding toradol if ok per surgery team, robaxin, transition dilaudid POSTMASTER RELIEF to PO oxycodone - Do not place Lidoderm patches while catheters in place - Decreased ambit pump flow rate from 7cc/hr to 5cc/hr, bilaterally, on AM rounds 01/24 - Pain 5-7/10 on afternoon rounds 01/25/22 --> catheters removed - APS will sign off Acute Pain Pager [phone] Phone [phone] Attestation: Note Completion: I am a: Resident/Fellow Attending AttestationI saw and evaluated the patient. I personally obtained the contreras and critical portions of the history and physical exam or was physically present for contreras and critical portions performed by the resident/fellow. I reviewed the resident/fellows documentation and discussed the patient with the resident/fellow. I agree with the resident/fellows medical decision making as documented in the note. I personally evaluated the patient [id number] Electronic Signatures: Renetta Faria) (Signed 26-Jan-2022 06:58) Authored: Note Completion Co-Signer: Service, Subjective Data, Objective Data, Assessment and Plan, Note Completion Porter White (Resident)) (Signed 25-Jan-2022 14:11) Autho (more content not included)... Normal [facility] Daily Progress Note-Colorect al Surgeryon 01-25-2022 Daily Progress Note-Colorectal Surgery Service: Colorectal Surgery Subjective Data: ELDA ELLIS is a 56 year old Female who is Hospital Day # 3 and POD #2 for 1. Exploratory laparotomy;2. Abdominal colectomy;3. Ileorectal anastomosis;4. ;5. No acute events overnight. Slightly nauseous overnight but was able to tolerate the clear liquid diet. Patient feeling well this AM. Objective Data: Objective Information: T PRBPMAPSpO2 [id number]/7194% Date/Time01/25: 6: 6: 6: 6:19 Range(36C - 37.5C ) (74 - 184 ) (16 - 18 ) (151 - 171 )/ (70 - 79 ) (94% - 97% ) Highest temp of 37.5 C was recorded at 01/24 4:00 Pain reported at 01/25 5:13: 4 = Moderate ---- Intake and Output ----- Mn/Dy/Year TimeIntakeOutputNet Jan 25, 2022 6:00 [id number] Jan 24, 2022 10:00 [id number] Jan 24, 2022 2:00 [id number] The Intake and Output Totals for the last 24 hours are: IntakeOutuniversity [facility] hospitalsNet [id number] Physical Exam Narrative: Physical Exam: General: NAD, Alert and oriented HEENT: normocephalic, EOMI, PERRLA, trachea in midline Chest: non labored breathing, b/l chest rise, saturating on RA CV: RR, no peripheral edema Abd: soft, appropriately tender, nondistended, non-peritonitic, incision c/d/i , LINDA drainage in place with serosang output MSK/neuro: grossly intact Skin: intact Psych: normal mood and affect Medication: Medications: CENTRAL NERVOUS SYSTEM AGENTS: 1. Acetaminophen: 650 mg Oral Every 6 Hours 2. HYDROmorphone POSTMASTER RELIEF 25 mg/ NaCL 0.9% 50 mL: 2.6 mg/hr IV POSTMASTER RELIEF 3. Gabapentin: 300 mg Oral 3 Times a Day 4. Ondansetron Injectable: 4 mg IntraVenous Push Every 6 Hours PRN 5. Ondansetron Injectable: 4 mg IntraVenous Push Once GASTROINTESTINAL AGENTS: 1. Pantoprazole Injectable: 40 mg IntraVenous Push Every 24 Hours METABOLIC AGENTS: 1. Atorvastatin: 40 mg Oral Daily MISCELLANEOUS AGENTS: 1. Naloxone Injectable: 0.2 mg IntraVenous Push Once PRN 2. Ropivacaine 0.2%/ Ambit Pump 500 mL: 1000 mg Peripheral Nerve NUTRITIONAL PRODUCTS: 1. Dextrose 5% - NaCL 0.45% Infusion: 1000 mL IntraVenous RESPIRATORY AGENTS: 1. Albuterol 2.5 mg/ 3 mL Nebulizer Soln: 1.5 mL Inhalation Every 6 Hours PRN 2. Montelukast: 10 mg Oral At Bedtime Currently Suspended Medications ------- 1. Enoxaparin SubCutaneous: 40 mg SubCutaneous Every 12 Hours Recent Lab Results: Results: CBC: 01/24/2022 08:40 \ Hgb / \ 11.7 L / WBC Plt 20.4 H 344 / Hct \ / 36.2 \ RBC: 3.83 L MCV: 95 BMP: 01/24/2022 08:40 NA+ Cl- BUN / 138 104 11 / ------- Glucose -- 127 H K+ HCO3- Creat \ 4.3 23 0.58 \ Calcium : 8.6 Anion Gap : 15 I have reviewed these laboratory results: Basic Metabolic Panel 24-Jan-2022 08:40:00 ResultValue Glucose, Serum 127 H NA 138 K 4.3 CL 104 Bicarbonate, Serum 23 Anion Gap, Serum 15 BUN 11 CREAT 0.58 GFR Female >90 Calcium, Serum 8.6 Complete Blood Count 24-Jan-2022 08:40:00 ResultValue White Blood Cell Count 20.4 H Nucleated Erythrocyte Count 0.0 Red Blood Cell Count 3.83 L HGB 11.7 L HCT 36.2 MCV 95 MCHC 32.3 PLT 344 RDW-CV 12.9 Assessment and Plan: Daily Risk Screen: Does patient have an indwelling urinary catheteryes Plan for indwelling urinary catheter removal todayno The patient continues to require indwelling urinary catheterization for perioperative use for selected surgical procedures Code Status: Code StatusFull Code Assessment: Elda Ellis is a 56 year old female POD1 from exploratory laparotomy, abdominal colectomy, ileorectal anastomosis for transverse stricture. Patient continues to do well overall. Tolerating diet well. Plan: Neuro: # Post op Pain - Pain control with POSTMASTER RELIEF pump for now will reassess later if we can witch to PO pain meds Respiratory: #avoid post op atelectasis - incentive spiromiter - Restart Albuterol inhaler as needed- home med CV: - Continue Atorvastatin - BP control with IV meds as needed, continue holding on Losartan for now GI: #ex lap; abdominal colectomy; iliorectal anastomosis - Continue with clear liquid diet - Keep fluid rate at 40cc/hr - Continue trending electrolytes - Keep drain in place and monitor output : #Bolden - Remove bolden - Strict I& O recording MSK: - oob and walking Heme/Prophylaxis - SCDs, prophylaxis SQ lovenox Dispo: RNF Patient seen with fellow Dr. Saad Gonsalez and staffed with attending surgeon. Vladimir Hernandez MD PGY-1, Surgery Resident Attestation: Note Completion: I am a: Resident/Fellow Attending AttestationI reviewed the resident/fellows documentation and discussed the patient with the resident/fellow. I agree with the resident/fellows medical decision making as documented in the note. E (more content not included)... Normal [facility] BASIC METABOLIC PANELon 06- Anion gap [Moles/Vol] 15 mmol/L Normal 10 - 20 [facility] Comment on above: Performed By: #### C BC #### [place] [id number] [place] [address] Calcium [Mass/Vol] 8.6 mg/dL Normal 8.6 - 10.6 [facility] Comment on above: Performed By: #### C BC #### [facility] [id number] [place] [address] Chloride [Moles/Vol] 104 mmol/L Normal 98 - 107 [facility] Comment on above: Performed By: #### C BC #### [facility] [address] [place] [address] Creatinine [Mass/Vol] 0.58 mg/dL Normal 0.50 - 1.05 [facility] Comment on above: Performed By: #### C BC #### [facility] [address] [place] [address] eGFR FEMALE >90 Normal >90 [facility] Comment on above: Result Comment: CALC ULATIONS OF ESTIMATED GFR ARE PERFORMED USING THE 2020 CKD-EPI STUDY REFIT EQUATION WITHOUT THE RACE VARIABLE FOR THE IDMS-TRACEABLE CREATININE METHODS. https://jasn.asnjournals.org/content/early//ASN.344247 4071 Performed By: #### C BC #### [facility] [address] [place] [address] Glucose [Mass/Vol] 127 mg/dL High 74 - 99 [facility] Comment on above: Performed By: #### C BC #### [facility] [address] [place] [address] HCO3 (Bld) [Moles/Vol] 23 mmol/L Normal 21 - 32 [facility] Comment on above: Performed By: #### C BC #### [facility] [address] [place] [address] Potassium [Moles/Vol] 4.3 mmol/L Normal 3.5 - 5.3 [facility] Comment on above: Result Comment: MILD HEMOLYSIS DETECTED. The result may be falsely elevated due to hemolysis or other interferents. Clinical correlation is recommended. Repeat testing may be considered. Performed By: #### C BC #### [facility] [address] [place] [address] Sodium [Moles/Vol] 138 mmol/L Normal 136 - 145 [facility] Comment on above: Performed By: #### C BC #### [facility] [address] [place] [address] Urea nitrogen [Mass/Vol] 11 mg/dL Normal 6 - 23 [facility] Comment on above: Performed By: #### C BC #### [facility] [address] [place] [address] CBCon 01-24-2022 Erythrocyte distribution width (RBC) [Ratio] 12.9 % Normal 11.5 - 14.5 [facility] Comment on above: Performed By: #### C BC #### [facility] [address] [place] [address] Hematocrit (Bld) [Volume fraction] 36.2 % Normal 36.0 - 46.0 [facility] Comment on above: Performed By: #### C BC #### [facility] [address] [place] [address] Hemoglobin (Bld) [Mass/Vol] 11.7 g/dL Low 12.0 - 16.0 [facility] Comment on above: Performed By: #### C BC #### [facility] [address] [place] [address] MCHC (RBC) [Mass/Vol] 32.3 g/dL Normal 32.0 - 36.0 [facility] Comment on above: Performed By: #### C BC #### [facility] [address] [place] [address] MCV (RBC) [Entitic vol] 95 fL Normal 80 - 100 [facility] Comment on above: Performed By: #### C BC #### [facility] [address] [place] [address] NUCLEATED RBC 0.0 /100 WBC Normal 0.0-0.0 [facility] Comment on above: Performed By: #### C BC #### [facility] [address] [place] [address] Platelets (Bld) [#/Vol] 344 10*3/uL Normal 150 - 450 [facility] Comment on above: Performed By: #### C BC #### [facility] [address] [place] [address] RBC 3.83 x10E12/L Low 4.00 - 5.20 [facility] Comment on above: Performed By: #### C BC #### [facility] [address] [place] [address] WBC (Bld) [#/Vol] 20.4 10*3/uL High 4.4 - 11.3 [facility] Comment on above: Performed By: #### C BC #### [facility] [address] [place] [address] Clinical Event Note-postop dahiana squires 01-24-2022 Clinical Event Note-postop check Clinical Event: Clinical Event Note: Topicpostop check Details Elda Ellis is a 56 year old female POD0 from exploratory laparotomy, abdominal colectomy, ileorectal anastamosis. Patient recovered in PACU and was transferred to 8. Patient denies pain, nausea, vomiting, CP, SOB. Physical Exam: Constitutional: no acute distress, alert and oriented HEENT: EOMI, no scleral icterus, NCAT CV: regular rate Pulm: nonlabored breathing on room air Abd: soft, nondistended, appropriately tender to palpation. Incision clean, dry, intact. Closed with beto and covered with island dressing Extremities: warm and well perfused Psych: normal affect Plan: - admit as inpatient - passed trial of void - tylenol, gabapentin, ambit pumps, manager social for pain - CLD - LR at 50 Carolina Arriaza MD General Surgery PGY1 [facility] [id number] Objective Information T PRBPMAPSpO2 [id number]/6494% Date/Time01/23 20: 20: 20: 20: 20:44 Range(36.7C - 36.7C ) (54 - 54 ) (16 - 16 ) (112 - 112 )/ (64 - 64 ) (94% - 94% ) ---- Intake and Output ----- Mn/Dy/Year [facility]Int[facility]OutUNC [facility] Jan 23, 2022 10:00 [id number] Electronic Signatures: Carolina Arriaza ( (Resident)) (Signed 23-Jan-2022 22:51) Authored: Clinical Event Note Last Updated: 23-Jan-2022 22:51 by Carolina Arriaza ( (Resident)) Normal [facility] Daily Progress Note-Colorect al Surgeryon 01-24-2022 Daily Progress Note-Colorectal Surgery Service: Colorectal Surgery Subjective Data: ELDA ELLIS is a 56 year old Female who is Hospital Day # 2 and POD #1 for 1. Exploratory laparotomy;2. Abdominal colectomy;3. Ileorectal anastomosis;4. ;5. No acute events overnight. Patient feeling well this AM. Tolerable pain and well controlled on POSTMASTER RELIEF. No nausea or vomiting and tolerating clear liquid diet. Objective Data: Objective Information: T PRBPMAPSpO2 [id number]/7795% Date/Time01/24 8: 8: 8: 8: 8:00 Range(36.7C - 37.5C ) (54 - 102 ) (16 - 17 ) (112 - 171 )/ (64 - 79 ) (94% - 95% ) Highest temp of 37.5 C was recorded at 01/24 4:00 Pain reported at 01/23 18:15: 2 = Mild ---- Intake and Output ----- Mn/Dy/Year TimeIntakeOutputNet Jan 24, 2022 6:00 [id number] Jan 23, 2022 10:00 [id number] The Intake and Output Totals for the last 24 hours are: IntakeOutputNet [id number] Physical Exam Narrative: Physical Exam: General: NAD, Alert and oriented HEENT: normocephalic, EOMI, PERRLA, trachea in midline Chest: non labored breathing, b/l chest rise, saturating on RA CV: RR, no peripheral edema Abd: soft, appropriately tender, nondistended, non-peritonitic, incision c/d/i with slight strikethrough, LINDA drainage in place with serosang outpatient MSK/neuro: grossly intact Skin: intact Psych: normal mood and affect Medication: Medications: CENTRAL NERVOUS SYSTEM AGENTS: 1. Acetaminophen: 650 mg Oral Every 6 Hours 2. HYDROmorphone POSTMASTER RELIEF 25 mg/ NaCL 0.9% 50 mL: 2.6 mg/hr IV POSTMASTER RELIEF 3. Gabapentin: 300 mg Oral 3 Times a Day 4. Ondansetron Injectable: 4 mg IntraVenous Push Every 6 Hours PRN COAGULATION MODIFIERS: 1. Enoxaparin SubCutaneous: 40 mg SubCutaneous Every 12 Hours METABOLIC AGENTS: 1. Atorvastatin: 40 mg Oral Daily MISCELLANEOUS AGENTS: 1. Naloxone Injectable: 0.2 mg IntraVenous Push Once PRN 2. Ropivacaine 0.2%/ Ambit Pump 500 mL: 1000 mg Peripheral Nerve NUTRITIONAL PRODUCTS: 1. Dextrose 5% - NaCL 0.45% Infusion: 1000 mL IntraVenous RESPIRATORY AGENTS: 1. Albuterol 2.5 mg/ 3 mL Nebulizer Soln: 1.5 mL Inhalation Every 6 Hours PRN 2. Montelukast: 10 mg Oral At Bedtime Assessment and Plan: Daily Risk Screen: Does patient have an indwelling urinary catheteryes Plan for indwelling urinary catheter removal todayno The patient continues to require indwelling urinary catheterization for perioperative use for selected surgical procedures Admitting Dx: Crohn's disease of colon: Entered Date: 23-Jan-2022 19:03 Code Status: Code StatusFull Code Assessment: Elda Ellis is a 56 year old female POD1 from exploratory laparotomy, abdominal colectomy, ileorectal anastomosis for transverse stricture. Patient doing well overall. Tolerating diet well. Plan: Neuro: # Post op Pain - Pain control with POSTMASTER RELIEF pump for now will reassess later if we can witch to PO pain meds Respiratory: #avoid post op atelectasis - incentive spiromiter - Restart Albuterol inhaler as needed- home med CV: no issues - Continue Atorvastatin GI: #ex lap; abdominal colectomy; iliorectal anastomosis - Continue with clear liquid diet - Keep fluid rate at 40cc/hr - Continue trending electrolytes - Keep drain in place and monitor output : #Bolden - Maintain bolden catheter for accurate i&O MSK: - oob and walking Heme/Prophylaxis - SCDs, prophylaxis SQ lovenox Dispo: Transfer patient to [address] Patient seen with fellow Dr. Saad Gonsalez and staffed with attending surgeon. Vladimir Hernandez MD PGY-1, Surgery Resident Attestation: Note Completion: I am a: Resident/Fellow Attending AttestationI saw and evaluated the patient. I personally obtained the contreras and critical portions of the history and physical exam or was physically present for contreras and critical portions performed by the resident/fellow. I reviewed the resident/fellows documentation and discussed the patient with the resident/fellow. I agree with the resident/fellows medical decision making as documented in the note. I personally evaluated the patient [id number] Electronic Signatures: Vladimir Hernandez (Resident)) (Signed 24-Jan-2022 09:52) Authored: Service, Subjective Data, Objective Data, Assessment and Plan, Note Completion Adiel Black) (Signed 24-Jan-2022 10:08) Authored: Note Completion Co-Signer: Service, Subjective Data, Objective Data, Assessment and Plan, Note Completion Last Updated: 24-Jan-2022 10:08 by Adiel Black) Normal [facility] Laboratory - Chemistry and C hemistry - challengeon 01-24-2022 Anion gap [Moles/Vol] 15 mmol/L 10 - 20 MG- Surgery-B [facility] [address] Work Phone: Calcium [Mass/Vol] 8.6 mg/dL 8.6 - 10.6 MG-Lexy jennifer-B [facility] 2099 Work Phone: Chloride [Moles/Vol] 104 mmol/L 98 - 107 MG-S urgery-B [facility] 2099 Work Phone: CO2 [Moles/Vol] 23 mmol/L 21 - 32 MG-Surger y-B [facility] 2099 Work Phone: Creatinine [Mass/Vol] 0.58 mg/dL See Below MG- Surgery-B [facility] [address] Work Phone: Comment on above: Reference Range: 0.5 0 - 1.05 Glucose [Mass/Vol] 127 mg/dL above high threshold 74 - 99 ZE-Chegnek-Z [place] 20[address] Work Phone: Potassium [Moles/Vol] 4.3 mmol/L 3.5 - 5.3 MG- Surgery-B [place] [address] Work Phone: Comment on above: MILD HEMOLYSIS DETEC STACIA. The result may be falsely elevated due tohemolysis or other interferents. Clinical correlation is recommended.Repeat testing may be considered. Sodium [Moles/Vol] 138 mmol/L 136 - 145 MG-Lexy jennifer-B [place] [address] Work Phone: Urea nitrogen [Mass/Vol] 11 mg/dL 6 - 23 HX-Nlpqjld-H [place] 2099 Work Phone: [phone] Laboratory - Hematology and Cell countson 01-24-2022 Erythrocyte distribution width (RBC) [Ratio] 12.9 % See Below FK-Ogbdutg-K [place] [address] Work Phone: Comment on above: Reference Range: 11. 5 - 14.5 Hematocrit (Bld) [Volume fraction] 36.2 % See Below VK-Uxhxqtu-Y [place] 2099 Work Phone: Comment on above: Reference Range: 36. 0 - 46.0 Hemoglobin (Bld) [Mass/Vol] 11.7 g/dL below low threshold See Below ZC-Uohjuld-N [place] 2099 Work Phone: Comment on above: Reference Range: 12. 0 - 16.0 MCHC (RBC) [Mass/Vol] 32.3 g/dL See Below MG- Surgery-B [place] [address]99 Work Phone: Comment on above: Reference Range: 32. 0 - 36.0 MCV (RBC) [Entitic vol] 95 fL 80 - 100 GB-Fovfrmx-E [place] 2099 Work Phone: Platelets (Bld) [#/Vol] 344 10*3/uL 150 - 450 BC-Fcdrwlk-T [place] 2[address] Work Phone: RBC (Bld) [#/Vol] 3.83 {x10E12/L} below low threshold See Below DQ-Xsrmodg-T [place] 2[address] Work Phone: Comment on above: Reference Range: 4.0 0 - 5.20 WBC (Bld) [#/Vol] 20.4 10*3/uL above high threshold 4.4 - 11.3 AC-Msoxkhs-B [place] 2[address] Work Phone: No Panel Informationon 01-24 >90 >90 DG-Oeplnbo-E [place] [address] Work Phone: Comment on above: CALCULATIONS OF DYLON MATED GFR ARE PERFORMED USING THE 2020 CKD-EPI STUDY REFIT EQUATION WITHOUT THE RACE VARIABLE FOR THE IDMS-TRACEABLE CREATININE METHODS.https://jasn.asnjournals.org/content/early/ N.3661248377 0.0 {/100_WBC} 0.0-0.0 MG-Surgery -B [place] [address] Work Phone: Admission Risk Screen - Adul ton 01-23-2022 Admission Risk Screen - Adult Allergies: Allergies: penicillin: Unknown erythromycin: Unknown Toprol-XL: Unknown Intolerances: predniSONE: Anxiety Patient Verification: New W ID Band Applied in my Departmentyes Patient Identity Verified Bypatient ID Band FULL Name, include Middle, spelling matches patient's ID used for verificationyes ID Band Matches Patient ID used for Verficationyes ID Band MRN Matches EMR MRNyes Visitor Restriction: Coronavirus Visitor Restriction: Reasonable restrictions to in-person visitors will be observed due to current coronavirus pandemic. Travel History: COVID-19 Screening Completedno exposure or symptoms(1) Travel or Exposure Past 30 DaysNO travel to International locations in the past 30 days Ebola AlertFor Ebola-like Symptoms: Isolate Patient and Notify Provider/Supervisor Cellars For Contact: Notify Provider/Supervisor Cellars Advance Directive: Advance Directive/DNRno Advance Directive Information Givenpatient/family declined Candelario Fall Screen: History of falling (immediate or previous)yes (25) Secondary Diagnosisyes (15) Intravenous Therapy/ Heparin/Saline Lockyes (20) Gait/Transferringnormal/b edrest/wheelchair (0) Ambulatory Aidsnone/bedrest/nurse assist (0) Mental Statusoriented to own ability (0) Score: Low risk (<25). Moderate risk (25-44). High risk (>44).60 Candelario InterventionsHIGH INTERVENTIONS *Low and Moderate Interventions Plus: * supervised toileting at all times Family Violence Screen: Are you or have you been threatened or abused physically, emotionally, or sexually by anyoneno Do you feel UNSAFE going back to the place where you are livingno Clinical assessment: Are there any apparent signs of injuries/behaviors that could be related to abuse/neglectno Social Service Consult for abuse/neglect needed this visitno Functional Screen: Functional Screen: In the recent/past 2-4 weeks, patient or family have noticedno issues that require a speech/language consult at this time AM-PAC- Basic Mobility/Daily Activity: Patient baseline bedboundno Learning Assessment (Patient): Patient is Able to be Assessed for Learningyes Factors Influencing Readiness to Learnacuteness of illness Factors that Impact Ability to Learnacuteness of illness Devices/Methods Used to Communicatenone Learning Preferencesindividual instruction Cultural Considerationsnone Developmental Considerationsnone Pentecostalism Considerationsnone Learning Assessment (Other Learner): Other learner availableno Depression Screen: During the past month, have you often been bothered by feeling down, depressed or hopelessno During the past month, have you often had little interest or pleasure in doing thingsno Have you had any thoughts of harming anyone elseno [place] Suicide: Risk Screen Not Applicable/Able to Answerable to be screened In the Past Month: Have you wished you were or could go to sleep and not wake upno(1) In the Past Month: Have you had any actual thoughts of killing yourself no(1) Lifetime: Have you ever done, started to do, or prepared to do anything to end your lifeno(1) [place] Suicide Risknegative Adult Nutrition Screen: Have you recently lost weight without tryingno Have you been eating poorly because of a decreased appetiteno Malnutrition Screening Tool Score0 Malnutrition Screening Tool RiskMST = 0 or 1 Not at risk. Eating well with little or no weight loss Nutrition Consult needed this visitno Can Patient Participate in Room Serviceyes, with assistance Patient requires Paper Dishes/Plastic Utensilsyes (sends order) Pain Screen: Pain Scalenumerical 0-10 Pain Scale Educationteaching provided Current Pain Level7 = Severe Acceptable Pain Level0 = None Expression of Pain (nonverbal)diaphoresis, moaning, muscle tension Chronic Painno Spiritual Screen: Are there any cultural, spiritual, buddhism practices/values/needs that are important for us to knowno CAGE: Is this an injured patient at a Trauma Center ([facility] [place]/ [place]): no Vaccinations: Vaccination - Influenza Vaccination Screen: Is it flu season (between and November 10)No Vaccination - Pneumonia Vaccination Screen: Patient has received a previous pneumonia vaccine:yes Gadiel: Skin - Gadiel Scale: Gadiel: Sensory Perception (response to environment)(3) slightly limited Gadiel: Moisture (degree skin exposed to moisture)(3) occasionally moist Gadiel: Activity (ability to walk)(3) walks occasionally Gadiel: Mobility (amount/control of body movement)(3) slightly limited Gadiel: Nutrition (quality of food intake)(3) adequate Gadiel: Friction and Shear(2) potential problem Gadiel: Score17 Skin Intervention Orders (Nursing orders will be generated)elevate heels, up in chair < 1 hr intervals, turn side to side every 2 hrs, assess for therapeutic equipment, assess pres (more content not included)... Normal [facility] Consult-Anesthesia - Painon 01-23-2022 Consult-Anesthesia - Pain Service: Service: Anesthesia - Pain Consult: Consult requested by (Attending Name): Dr. Black Reason: Post-op pain control History of Present Illness: HPI: ELDA ELLIS is a 56 year old Female who presents for subtotal colectomy and ileorectal anastomosis with Dr. Black. Acute Pain consulted for block for postoperative pain control. Anticipated Postop Pain Issues - Palliative: typically relieved with IV analgesics and regional local anesthetics Provocative: typically with movement Quality: typically burning and aching Radiation: typically none Severity: typically severe 8-10/10 Timing: typically constant PMH: HTN HLD palpitations anxiety obesity Crohn's disease osteoarthritis PSH: colonscopy lumbar diskectomy FHx: CAD HTN DVT/PE DM SHx: Former smoker denies IDU, EtOH Allergies: PCN, erythromycin Review Family/Social History and ROS: Constitutional: NEGATIVE: Fever Eyes: NEGATIVE: Redness ENMT: NEGATIVE: Nasal Discharge Respiratory: NEGATIVE: Shortness of Breath Cardiac: NEGATIVE: Syncope Gastrointestinal: NEGATIVE: Vomiting Genitourinary: NEGATIVE: Flank Pain Musculoskeletal: NEGATIVE: Weakness Neurological: NEGATIVE: Confusion Psychiatric: NEGATIVE: Anxiety Skin: NEGATIVE: Rash Allergies: penicillin: Unknown erythromycin: Unknown Toprol-XL: Unknown Intolerances: predniSONE: Anxiety Objective: Physical Exam Narrative: Physical Exam: GEN: Alert and conversant; no acute distress HEENT: NCAT; moist mucus membranes EYES: Sclera anicteric, EOMI PULM: Symmetric chest rise, no increased work of breathing on room air, no respiratory distress CV: Regular rate ABD: Soft, non-tender, non-distended : voids spontaneously MSK: Moving all extremities spontaneously and to command EXTR: No joint swelling, no significant peripheral edema NEURO: A&O x 3, no focal neurologic deficits PSYCH: Appropriate mood and affect Assessment: ELDA ELLIS is a 56 year old Female who presents for subtotal colectomy and ileorectal anastomosis with Dr. Black. Acute Pain consulted for block for postoperative pain control. - b/l QL nerve blocks with catheters performed preoperatively on 01/24, patient tolerated the procedure well - Expect block to contribute to multimodal pain control - Additional pain medications per primary team - Do not place Lidoderm patches while catheters in place - Ambit pump flow rate at 7cc/hr, bilaterally - Will continue to follow Acute Pain Pager [phone] Phone [phone] Attestation: Note Completion: I am a: Resident/Fellow Attending AttestationI saw and evaluated the patient. I personally obtained the contreras and critical portions of the history and physical exam or was physically present for contreras and critical portions performed by the resident/fellow. I reviewed the resident/fellows documentation and discussed the patient with the resident/fellow. I agree with the resident/fellows medical decision making as documented in the note. I personally evaluated the patient [id number] Electronic Signatures: Renetta Faria) (Signed 24-Jan-2022 06:52) Authored: Note Completion Co-Signer: Service, History of Present Illness, Review Family/Social History and ROS, Allergies, Objective, Assessment/Recommendation s, Note Completion Jovana Cavanaugh (Resident)) (Signed 23-Jan-2022 12:57) Authored: Service, History of Present Illness, Review Family/Social History and ROS, Allergies, Objective, Assessment/Recommendation s, Note Completion Last Updated: 24-Jan-2022 06:52 by Renetta Faria) Normal [facility] Operative Reports - [facility] Oper[facility] - [facility] [place] PREOPERATIVE DIAGNOSIS: Crohn's colitis. POSTOPERATIVE DIAGNOSIS: Crohn's colitis. OPERATION/PROCEDURE: Exploratory laparotomy, total abdominal colectomy, ileorectal anastomosis. SURGEON: Adiel Black MD. FINAL TOUCH UP PAINTER(S): Dr. Lynsey Colbert and Danielle Odom, nurse practitioner. ANESTHESIA: General endotracheal. INDICATIONS: The patient is a 56-year-old female with a history of Crohn disease and a transverse colon stricture with a history of low-grade dysplasia on biopsy. The patient was brought to the operating room today for a total abdominal colectomy and ileorectal anastomosis. TECHNIQUE: The patient was brought to the operating room and was placed in the operating table in supine position. After induction of general endotracheal anesthesia, the legs were elevated into the modified lithotomy position using Yellofin stirrups. The skin of the abdomen was prepped and draped in usual sterile fashion. Surgical time-out was performed. The peritoneal cavity was then entered through a midline incision. The patient was obese and there was a large amount of intraabdominal and mesenteric fat which made the procedure difficult. The abdomen was carefully explored. The colon was involved with gross changes of Crohn disease. These were especially prominent in the transverse colon which was markedly thickened with significant fat wrapping. The stricture was palpable in the proximal half of the transverse colon. The transverse mesocolon was also quite fatty and was severely foreshortened. Crohn disease involving the ascending colon was less severe as was disease involving the splenic flexure and proximal descending colon. The small bowel was entirely normal. Attention was first turned to the ascending colon. Its lateral attachments were mobilized using electrocautery. Care was taken to identify the right ureter. The hepatic flexure was mobilized with cautery as well avoiding injury to the duodenum. Attention was then turned to the mobilization of the descending colon. Lateral attachments of the sigmoid colon and the descending colon were mobilized using electrocautery. Care was taken to identify and preserve the left ureter. The splenic flexure was completely taken down with cautery as well. The terminal ileum was then divided with the firing of the MEGAN 80 mm stapler approximately 10 cm proximal to the ileocecal valve. The mesenteric dissection was then performed. The ileocolic vessels, middle colic vessels, and the left colic vessels as well as the sigmoid branches were all sequentially divided and ligated. Each of these vessels was ligated near their origins. Dissection was then carried up through the mesentery of the distal sigmoid colon and the rectosigmoid junction was divided with the firing of the TA 60 stapler. This allowed the specimen to be removed and sent to pathology. Intestinal continuity was then restored by creating a [id number] functional end-to-end ileorectal anastomosis. This was done with the firing of the MEGAN 80 mm stapler. The open end of the bowel was closed with a firing of the TA 60 stapler and this staple line was then oversewn with a running 3-0 Vicryl stitch for hemostasis. The anastomosis was then air tested, and there was no obvious leak. A 10 mm Nando-Easley drain was placed in the presacral space behind the anastomosis and was brought out through a stab incision in the right lower quadrant. The abdomen was irrigated with saline solution, was aspirated dry. Inspection was made for hemostasis this was found be adequate. All sponge and instrument counts were confirmed as correct. The fascia and midline incision were closed with a running #1 looped PDS suture. The wound was irrigated. The skin was closed with beto. Sterile dressings were applied. The patient tolerated the above procedures and was taken to the recovery room in stable condition. ESTIMATED BLOOD LOSS: 200 mL. SPECIMEN: Abdominal colon. DRAINS: 10 mm Nando-Easley drain to the pelvis. COMPLICATIONS: None. Dr. Black was the operating surgeon, who performed the entire procedure as described above. Dr. Colbert and Danielle Odom, nurse practitioner, were the surgical assistants. Adiel Black MD EST EST DICTATION NUMBER: [id number] INTERNAL JOB NUMBER: [id number] CC: Adiel Black MD Electronic Signatures: Adiel Black) (Signed on 10-Feb-2022 12:48) Authored Unsigned, Draft (SYS GENERATED) (Entered on 04-Feb-2022 10:43) Entered Last Updated: 10-Feb-2022 12:48 by Adiel Black) Normal [facility] Order Reconciliationon 01-23 Order Reconciliation Page 1 Admission Reconciliation Document Reconciliation Type: Admission from OR requested on behalf of Paige Colbert (Resident) done by Paige Colbert ( (Resident)) Admission from OR - Reconciliation: 23-Jan-2022 19:01 by: Paige Colbert ( (Resident)) Home MedicationsEnteredLast Dose TakenReconciled with current Order Reconciliation Comment/ Additional Information albuterol 90 mcg/inh inhalation aerosol 1 puff(s) inhalation [id number] UNKNOWN UNKNOWN Albuterol 2.5 mg/ 3 mL Nebulizer Soln (PROVENTIL)DOSE = 1.5 mL Inhalation Every 6 Hours via Nebulizeralbuterol 90 mcg/inh inhalation aerosol continued as the inpatient order Albuterol 2.5 mg/ 3 mL Nebulizer Soln atorvastatin 40 mg oral tablet 1 tab(s) oral once a [id number] AM Atorvastatin Tablet (LIPITOR)DOSE = 40 mg Oral Dailyatorvastatin 40 mg oral tablet continued as the inpatient order Atorvastatin cholecalciferol 25 mcg oral tablet 1 tab(s) oral once a [id number]-Jan-2022 Reviewed and Held doxycycline 20 mg oral tablet 1 tab(s) oral once a [id number] AM Reviewed and Held Humira Pre-Filled Syringe 40 mg/0.4 mL subcutaneous kit 1 dose subcutaneous every 2 [id number] Reviewed and Held losartan 50 mg oral tablet 1 tab(s) oral once a [id number] AM Reviewed and Held mesalamine 1.2 g oral delayed release tablet 2 tab(s) oral once a day [id number] AM Reviewed and Held montelukast 10 mg oral tablet 1 tab(s) oral once a [id number] PM Montelukast Tablet (SINGULAIR)DOSE = 10 mg Oral At Bedtimemontelukast 10 mg oral tablet continued as the inpatient order Montelukast multivitamin Multiple Vitamins oral tablet 1 tab(s) oral once a [id number]-Jan-2022 AM Reviewed and Held ZyrTEC 10 mg oral tablet 1 tab(s) oral once a [id number] AM Reviewed and Held Additional Current Orders Heparin SubCutaneous DOSE = 5,000 unit(s) SubCutaneous OnceNotes from Pharmacy: Note Concentration Prior to Administration Ropivacaine 0.2%/ Ambit Pump 500 mL SolutionPeripheral Nerve FLOW RATE = 10 mL/hrMAX FLOW RATE = 14 mL/hrClinician Notes: Dispense premix bag for use with Ambit pump only. Normal [facility] Patient Profile - Adult v2on 01-23-2022 Patient Profile - Adult v2 Profile: Initial Info: How to be Addresseddeb(1) Spoken Language PreferredEnglish (1) Stated Reason for Admissionchrons Wants Family/Rep Notified of Admissionno Notify PCPnotify PCP Informed of Patient Visiting Rightsyes [place] Patient Belongingsnone Medications Brought to Hospitalno General Health: Blood Avoidance/Restrictionsnon e(1) Previous Transfusion Reactionno(1) Weight in kg97 kilogram(s) Weight in sbk944.8 pound(s) Weight Methodactual (measured) Scale Typestanding Height in cm154.7 centimeter(s) Height in feet5 feet Height in inches0.94 inch(es) Height Methodstated BMI (kg/m2)40.531 square meter RSP Based Care: How would you like to participate in your careI don't know What is the number one concern for you during this hospitalizationall this pain What is the most important thing we can do to support you during this hospitalizationnothing Is there anything we need to know to best care for youno Substance: Smoking Statusnever smoker Alcohol Usedenies Drug Usedenies Drug 2 Usedenies Health Mgmt: Symptoms/Conditions Managed at [place] Are You no (2) Barriers to Managing Healthnone Relationship/Environ: Resource/Environmental Concernsnone Primary Source of Support/Comfortspouse Lives Withspouse Living Arrangementshouse Services Anticipated at Transitionnone Anticipated Transition [place] Significant IndicatorsComplete Information Review: Allergies, Home Meds and Significant Events have been Reviewed and Verified with Patient/Familyyes ALLERGY, INTOLERANCE, ADVERSE EVENT: Allergies: penicillin: Drug, Unknown, Active erythromycin: Drug, Unknown, Active Toprol-XL: Drug, Unknown, Active Intolerances: predniSONE: Drug, Anxiety, Active Electronic Signatures: Sapphire Lawton (JOHNIE) (Signed 23-Jan-2022 19:01) Authored: Initial Info, General Health, [facility] Based Care, Substance, Health Mgmt, Relationship/Environ, Additional Information Last Updated: 23-Jan-2022 19:01 by Sapphire Lawton (JOHNIE) References: 1. Data Referenced From Patient Profile - Preop v3 23-Jan-2022 11:46 2. Data Referenced From History and Physical - Surgery > 30 days 23-Jan-2022 13:00 Normal [facility] Patient Profile - Preop v3on 01-23-2022 Patient Profile - Preop v3 Patient Profile - Preop: Initial Info: Patient DemographicsName: ELDA ELLIS Date: 1965 Address: [address] [place] [address] Primary Phone [phone] How to be Addresseddeb Spoken Language PreferredEnglish Stated Reason for Admissioncolectomy Primary Contact Name and Numberhusband Limitations on Visitors/Phone Callsnone Medications Brought to Hospitalno General Health: Patient or Family Member Reaction to Anesthesiano previous reaction Blood Avoidance/Restrictionsnon e Previous Transfusion Reactionno Health Mgmt: Symptoms/Conditions Managed at Homegastrointestinal; cardiovascular Cardiovascular Symptoms/Conditionshypert ension Gastrointestinal Symptoms/Conditions Commentcrohns Barriers to Managing Healthnone Relationship/Environ: Lives Withspouse Living Arrangementshouse Resource/Environmental Concernsnone Anticipated Transition [place] Services Anticipated at Transitionnone Tobacco Use: Tobacco Useno Pre-op Checklist: Procedure Typesubtotal colectomy NPOyes ID Band On Patientpatient ID (name), allergy Consent Signedpending H&P Completepending Anesthesia Assessment Completedpending COVID 19 Results in Last 7 daysyes HCG Urine TestN/A Chlorhexadine Bath Givencompleted at home, given night before surgery, completed morning of surgery Soap and Water Bath the Night Before Surgeryno Bowel Prepyes Surgical Site Infection Preventionyes Pain Scales and Managementyes Additional Information: Information Review: Allergies, Home Meds and Significant Events have been Reviewed and Verified with Patient/Familyyes Allergy, Intolerance, Adverse Event: Allergies: penicillin: Drug, Unknown, Active erythromycin: Drug, Unknown, Active Toprol-XL: Drug, Unknown, Active Intolerances: predniSONE: Drug, Anxiety, Active Significant Events: 23-Jan-2022 Crohn's,: Past Medical History, Active 23-Jan-2022 HTN, HLD, anxiety, OA: Past Medical History, Active Electronic Signatures: Lu Rosenberg (JOHNIE) (Signed 23-Jan-2022 12:13) Authored: Initial Info, General Health, Health Mgmt, Relationship/Environ, Tobacco Use, Pre-op Checklist, Additional Information Last Updated: 23-Jan-2022 12:13 by Lu Rosenberg (JOHNIE) Normal [facility] Surgical Pathology Depar tmenton 01-23-2022 [facility] Surgical Pathology Department Name ELDA ELLIS Pathologist: MARCELO SIMPSON MD Date of Procedure: 01/23/2022 Date Received: 01/23/2022 Date Reported 02/05/2022 Submitting Physician: ADIEL BLACK MD Location: [address] External # FINAL DIAGNOSIS A. ABDOMINAL COLON: -- TRANSVERSE COLON WITH MULTIFOCAL LOW-GRADE DYSPLASIA ARISING IN A BACKGROUND OF CHRONIC ACTIVE COLITIS, CONSISTENT WITH THE PATIENT'S KNOWN DIAGNOSIS OF CROHN'S DISEASE. -- ASCENDING COLON WITH FOCUS OF HIGH-GRADE DYSPLASIA ARISING IN A BACKGROUND OF SESSILE SERRATED CHANGE. -- ASSOCIATED EXTENSIVE SUBMUCOSAL FIBROSIS OF THE TRANSVERSE COLON, CONSISTENT WITH STRICTURE FORMATION. -- REMAINDER OF COLON WITH PATCHY CHRONIC ACTIVE COLITIS. -- TERMINAL ILEUM WITH NO SIGNIFICANT PATHOLOGIC FINDINGS. -- APPENDIX WITH FIBROUS OBLITERATION. -- NINE BENIGN REACTIVE LYMPH NODES. -- NO EVIDENCE OF GRANULOMATA. -- NO EVIDENCE OF INVASIVE CARCINOMA. B. TRANSVERSE MESO COLON: -- TWO BENIGN REACTIVE LYMPH NODES. -- FIBROADIPOSE TISSUE WITH NO SIGNIFICANT PATHOLOGIC FINDINGS. Electronically Signed Out By MARCELO SIMPSON MD/JASON By the signature on this report, the individual or group listed as making the Final Interpretation/Diagnosis certifies that they have reviewed this case. Diagnostic interpretation performed at [facility], [place] [address] [place] [address] [facility] [address] Clinical History: Physician Contact Number: [phone] Fixative (A): Fresh Fixative (B): Formalin Clinical Diagnosis History CROHNS COLITIS WITH STRICTURE AND DYSPLASIA Specimens Submitted As: A: ABDOMINAL COLON B: TRANSVERSE MESO COLON Gross Description: A: Received in formalin, labeled with the patient's name and hospital number and A. Abdominal colon, is an entire colon, except rectum and anus, and including the cecum and appendix, 117.5 cm in length. A 6.0 cm length of terminal ileum is attached. There is attached mesentery and fibrofatty tissue. The serosal surface is segmentally involved and appears thickened, pink-houston, with prominent vascularity. The bowel wall shows irregular thickening, up to 0.5 cm. The mucosal surface reveals areas of inflammatory polyps, friable mucosa and cobblestoning. The process is segmental. Area #1, with cobblestoning and erythema, 7.1 x 2.0 x 0.3 cm and is located 5.9 cm from distal resection margin, and 114.5 cm from the proximal resection margin. Area #2, which includes the area of the stricture, shows friable mucosa, cobblestoning, and inflammatory polyps, measures 41 x 4.0 x 0.3 cm and is located 73 cm from distal resection margin, and 2.8 cm from the proximal resection margin. Normal islands of mucosa can be distinguished among the ulcers. A stricture, measuring 5.1 x 5.0 cm, with mucosal tattoo, is present, 21 cm from the proximal margin. Within the stricture is a polypoid lesion, measuring 1.1 x 0.6 x 0.2 cm. The lymph nodes identified in the mesentery and fibrofatty tissue range in size from 0.5 cm to 0.8 cm and are not enlarged. The cut surface of the largest nodes appears grossly unremarkable. The attached appendix, 2.5 x 0.3 x 0.5 cm, has a pink-schmid, smooth serosal surface. Cut sections reveal a patent lumen. Photographs have been taken. Economic Research Assistant sections are submitted in 35 cassettes. SJD B: Received in formalin, labeled with the patient's name and hospital number and B. Transverse mesocolon, is a segment of yellow fibroadipose tissue measuring 11.5 x 5.8 x 2.1 cm. The surface is smooth and glistening. The specimen is predominantly yellow and fibrofatty. Serial cross sections reveal an unremarkable yellow fibrofatty cut surface. The lymph nodes identified in the fibrofatty tissue range in size from 0.3 cm to 0.4 cm. Economic Research Assistant sections are submitted in 4 cassettes. SJD Summary of Cassettes: Specimen Label Site A 1 proximal line of resection, terminal ileum, en-face 2-9 area of tattoo/stricture, submitted entirely 10 polypoid lesion, area of stricture 11 terminal ileum 12 ileocecal valve, area #2 13 appendix, submitted entirely 14 cecum, area #2 15-16 ascending colon, area #2 17 hepatic flexure with inflammatory polyp, area #2 18-20 transverse colon, area #2 21-22 transverse colon 23 splenic flexure 24-26 descending colon 27-29 sigmoid 30-31 sigmoid, area #1 32 sigmoid 33 distal line of resection, anus, en-face 34-35 lymph nodes B 1 prominent lymph nodes 2 fibrofatty tissue, signs sales representative sections mjr/01/24/2022 [facility] Department of Pathology [id number] [place] [address] Normal [facility] Comment on above: Performed By: #### C BC #### [facility] [id number] [place], [place] [address] [address] CORONAVIRUS 2019, SCREEN ASY MPTOMATICon 01-21-2022 SARS-CoV-2 (COVID-19) RNA BRYAN+probe Ql (Unsp spec) Not detected Normal Not Detected [facility] Comment on above: Result Comment: . This assay is designed to detect the N, ORF1ab and/or S genes of SARS-CoV-2 via nucleic acid amplification. A Negative (NOT DETECTED) result does not preclude 2019-nCoV infection since the adequacy of sample collection and/or low viral burden may result in presence of viral nucleic acids below the clinical sensitivity of this test method. Negative (NOT DETECTED) result should not be used as the sole basis for treatment or other patient management decisions. Rather negative results should be combined with clinical observations, patient history, and epidemiological information to make patient management decisions. Fact sheet for providers: https://www.fda.gov/media/431183/download Fact sheet for patients: https://www.fda.gov/media/376552/download This test has received FDA Emergency Use Authorization (EUA) and has been verified by [facility] ([facility]). This test is only authorized for the duration of time that circumstances exist to justify the authorization of the emergency use of in vitro diagnostic tests for the detection of SARS-CoV-2 virus and/or diagnosis of COVID-19 infection under section 564(b)(1) of the Act, 21 U.S.C. 360bbb-3(b)(1), unless the authorization is terminated or revoked sooner. [facility] is certified under CLIA-88 as qualified to perform high complexity testing. Testing is performed in the [facility] laboratories located at [address] [place] [address]. Sample received in media. If results are Not Detected and there is a high clinical concern for COVID-19, repeat testing should be considered. Performed By: #### C BC #### [facility] [id number] [place] [address]. [place] [address] Covid 19 Resultson 2 SARS-CoV-2 (COVID-19) RNA BRYAN+probe Ql (Unsp spec) NEGATIVE COVID-19 Test Coronaviruses are common world-wide and are the cause of many common colds. SARS-COV2 is a new coronavirus that began circulating worldwide in 2019 so we are calling it COVID-19. It has been estimated that four out of five patients with COVID-19 will recover at home without the need for medical attention. Symptoms of COVID-19 may include cough, fever, shortness of breath, loss of taste or smell and other flu-like symptoms including chills, sore muscles, sore throat, and headache. Severe illness is more common in older people and people with other health problems such as high blood pressure, obesity, and immune system problems. If the test is positive, you have COVID-19. You will be contacted by the ordering physicians office and instructed to remain on home isolation, in accordance with CDC guidelines. You may also be contacted by the [facility] to see if any of your close contacts may have been exposed to the virus and need to quarantine. If the test is negative, you likely do not have COVID-19 at this time, but you still may have a different illness that can spread to other people (like Influenza, or the Flu) and could still be at risk for getting COVID-19. We recommend that you stay away from other people to limit the spread of illness until your symptoms are improving and you are fever-free for 24 hours without the use of fever lowering medications such as acetaminophen or ibuprofen. No test is 100% accurate so if you are still concerned you may have COVID-19, talk to your doctor about the need to continue to stay away from others. Medicines Unless your provider told you not to use the following: Acetaminophen (Tylenol and others) is generally safe. Anti-inflammatory medications, such as Ibuprofen (Advil or Motrin) or Naproxen (Aleve) can also be used. Xgcm-lgx-hlhhvan cough and cold medicines can be used according to the instructions on the package. Some fzfr-vrm-qqnnwig medicines also contain acetaminophen. Make sure you are not taking more than your recommended dose. For those not hospitalized, there is no specific treatment available for this illness. Antibiotics do not treat Coronaviruses. Follow-Up Follow up with your doctor by scheduling a virtual visit or consider follow-up at one of our urgent care fever clinics. If you are having difficulty breathing, or are very weak and having difficulty standing, this is a medical emergency. Call 911 or have someone take you to the nearest emergency room immediately. If possible, wear a facemask. Additional guidance from the CDC for patients who tested POSITIVE for COVID-19 How to isolate: Isolate yourself in a specific room at home and limit your contact with others. Use a separate bathroom from other members of the household, when possible. Leave home only to get essential medical care. Do not go to work, school or public areas. Avoid using public transportation, ride-sharing, or taxis. Restrict contact with pets and other animals. If you must care for your pet or be around animals while you are sick, wash your hands before and after your interaction and wear a facemask. Make sure that shared spaces in the home have good airflow, such as by an air conditioner or an opened window, weather permitting. Personal Hygiene Procedures: Wear a face mask when in the same room as other people or pets. If a face mask interferes with your breathing, others should wear a mask when sharing space with you. Frequent hand-washing: wash your hands with soap and water for at least 20 seconds. If soap and water are not available, use alcohol-based hand manager family. Avoid touching your eyes, nose, and mouth with unwashed hands. Household Hygiene Procedures: Avoid sharing personal household items such as dishes, glassware, cups, eating utensils, towels or bedding with other people or pets in your home. After use, these items should be washed with soap and hot water. Disinfect all high-touch surfaces every day with antibacterial cleaning solutions such as Lysol wipes, bleach, cleansers, etc. High-touch surfaces include tabletops, doorknobs, bathroom fixtures, toilets, phones, keyboards, tablets and bedside tables. Immediately clean any surfaces that may have blood, poop or body fluids on them, using antibacterial cleaning solutions such as Lysol wipes, bleach, cleansers, etc. If clothing or bedding come into contact with blood, poop or body fluids, they should be washed immediately. Follow the directions on the laundry detergent and clothing labels but hot water is recommended when possible. Stopping home isolation precautions: If possible, consult your doctor before stopping home isolation precautions. According to the CDC, you can discontinue home isolation precautions when you have met both of these criteria: Your fever and respiratory symptoms have been gone for 24 timur (more content not included)... Normal [facility] CORONAVIRUS 2018, SCREEN ASY MPTOMATICon 01-20-2022 Lab Specimen Source Nasal, Nasopharyngeal Normal [facility] Comment on above: Performed By: #### C #### [facility] [address] [place] [address] CORONAVIRUS 2018, SCREEN ASY MPTOMATICon 12-17-2021 SARS-CoV-2 (COVID-19) RNA BRYAN+probe Ql (Unsp spec) Not detected Normal Not Detected [facility] Comment on above: Result Comment: . This assay is designed to detect the N, ORF1ab and/or S genes of SARS-CoV-2 via nucleic acid amplification. A Negative (NOT DETECTED) result does not preclude 2019-nCoV infection since the adequacy of sample collection and/or low viral burden may result in presence of viral nucleic acids below the clinical sensitivity of this test method. Negative (NOT DETECTED) result should not be used as the sole basis for treatment or other patient management decisions. Rather negative results should be combined with clinical observations, patient history, and epidemiological information to make patient management decisions. Fact sheet for providers: https://www.fda.gov/media/943535/download Fact sheet for patients: https://www.fda.gov/media/434583/download This test has received FDA Emergency Use Authorization (EUA) and has been verified by [facility] ([facility]). This test is only authorized for the duration of time that circumstances exist to justify the authorization of the emergency use of in vitro diagnostic tests for the detection of SARS-CoV-2 virus and/or diagnosis of COVID-19 infection under section 564(b)(1) of the Act, 21 U.S.C. 360bbb-3(b)(1), unless the authorization is terminated or revoked sooner. [facility] is certified under CLIA-88 as qualified to perform high complexity testing. Testing is performed in the [facility] laboratories located at [address] [place] [address]. Performed By: #### C OVSC #### [address] [place] [address] Covid 19 Resultson 2 SARS-CoV-2 (COVID-19) RNA BRYAN+probe Ql (Unsp spec) NEGATIVE COVID-19 Test Coronaviruses are common world-wide and are the cause of many common colds. SARS-COV2 is a new coronavirus that began circulating worldwide in 2019 so we are calling it COVID-19. It has been estimated that four out of five patients with COVID-19 will recover at home without the need for medical attention. Symptoms of COVID-19 may include cough, fever, shortness of breath, loss of taste or smell and other flu-like symptoms including chills, sore muscles, sore throat, and headache. Severe illness is more common in older people and people with other health problems such as high blood pressure, obesity, and immune system problems. If the test is positive, you have COVID-19. You will be contacted by the ordering physicians office and instructed to remain on home isolation, in accordance with CDC guidelines. You may also be contacted by the [facility] to see if any of your close contacts may have been exposed to the virus and need to quarantine. If the test is negative, you likely do not have COVID-19 at this time, but you still may have a different illness that can spread to other people (like Influenza, or the Flu) and could still be at risk for getting COVID-19. We recommend that you stay away from other people to limit the spread of illness until your symptoms are improving and you are fever-free for 24 hours without the use of fever lowering medications such as acetaminophen or ibuprofen. No test is 100% accurate so if you are still concerned you may have COVID-19, talk to your doctor about the need to continue to stay away from others. Medicines Unless your provider told you not to use the following: Acetaminophen (Tylenol and others) is generally safe. Anti-inflammatory medications, such as Ibuprofen (Advil or Motrin) or Naproxen (Aleve) can also be used. Pdgm-fdb-qutghnc cough and cold medicines can be used according to the instructions on the package. Some cxuk-ybe-hqeypfp medicines also contain acetaminophen. Make sure you are not taking more than your recommended dose. For those not hospitalized, there is no specific treatment available for this illness. Antibiotics do not treat Coronaviruses. Follow-Up Follow up with your doctor by scheduling a virtual visit or consider follow-up at one of our urgent care fever clinics. If you are having difficulty breathing, or are very weak and having difficulty standing, this is a medical emergency. Call 911 or have someone take you to the nearest emergency room immediately. If possible, wear a facemask. Additional guidance from the CDC for patients who tested POSITIVE for COVID-19 How to isolate: Isolate yourself in a specific room at home and limit your contact with others. Use a separate bathroom from other members of the household, when possible. Leave home only to get essential medical care. Do not go to work, school or public areas. Avoid using public transportation, ride-sharing, or taxis. Restrict contact with pets and other animals. If you must care for your pet or be around animals while you are sick, wash your hands before and after your interaction and wear a facemask. Make sure that shared spaces in the home have good airflow, such as by an air conditioner or an opened window, weather permitting. Personal Hygiene Procedures: Wear a face mask when in the same room as other people or pets. If a face mask interferes with your breathing, others should wear a mask when sharing space with you. Frequent hand-washing: wash your hands with soap and water for at least 20 seconds. If soap and water are not available, use alcohol-based hand manager family. Avoid touching your eyes, nose, and mouth with unwashed hands. Household Hygiene Procedures: Avoid sharing personal household items such as dishes, glassware, cups, eating utensils, towels or bedding with other people or pets in your home. After use, these items should be washed with soap and hot water. Disinfect all high-touch surfaces every day with antibacterial cleaning solutions such as Lysol wipes, bleach, cleansers, etc. High-touch surfaces include tabletops, doorknobs, bathroom fixtures, toilets, phones, keyboards, tablets and bedside tables. Immediately clean any surfaces that may have blood, poop or body fluids on them, using antibacterial cleaning solutions such as Lysol wipes, bleach, cleansers, etc. If clothing or bedding come into contact with blood, poop or body fluids, they should be washed immediately. Follow the directions on the laundry detergent and clothing labels but hot water is recommended when possible. Stopping home isolation precautions: If possible, consult your doctor before stopping home isolation precautions. According to the CDC, you can discontinue home isolation precautions when you have met both of these criteria: Your fever and respiratory symptoms have been gone for 24 timur (more content not included)... Normal [facility] CORONAVIRUS 2019, SCREEN ASY MPTOMATICon 12-16-2021 Lab Specimen Source Nasal, Nasopharyngeal Normal [facility] Comment on above: Performed By: #### C OVSC #### [facility] [address] [place] [address] BASIC METABOLIC PANELon - Anion gap [Moles/Vol] 14 mmol/L Normal 10 - 20 [facility] Comment on above: Performed By: #### C OVSC #### [facility] [address] [place] [address] Calcium [Mass/Vol] 10.1 mg/dL Normal 8.6 - 10.6 [facility] Comment on above: Performed By: #### C OVSC #### [place] [address] [place] [address] Chloride [Moles/Vol] 103 mmol/L Normal 98 - 107 [facility] Comment on above: Performed By: #### C OVSC #### [facility] [address] [place] [address] Creatinine [Mass/Vol] 0.68 mg/dL Normal 0.50 - 1.05 [facility] Comment on above: Performed By: #### C OVSC #### [facility] [address] [place] [address] eGFR FEMALE >90 Normal >90 [facility] Comment on above: Result Comment: CALC ULATIONS OF ESTIMATED GFR ARE PERFORMED USING THE 2020 CKD-EPI STUDY REFIT EQUATION WITHOUT THE RACE VARIABLE FOR THE IDMS-TRACEABLE CREATININE METHODS. https://jasn.asnjournals.org/content/early/ASN.733430 0064 Performed By: #### C OVSC #### [facility] [address] [place] [address] Glucose [Mass/Vol] 110 mg/dL High 74 - 99 [facility] Comment on above: Performed By: #### C OVSC #### [facility] [address] [place] [address] HCO3 (Bld) [Moles/Vol] 30 mmol/L Normal 21 - 32 [facility] Comment on above: Performed By: #### C OVSC #### [place] [address] [place] [address] Potassium [Moles/Vol] 5.1 mmol/L Normal 3.5 - 5.3 [facility] Comment on above: Performed By: #### C OVSC #### [facility] [address] [place] [address] Sodium [Moles/Vol] 142 mmol/L Normal 136 - 145 [facility] Comment on above: Performed By: #### C OVSC #### [facility] [address] [place] [address] Urea nitrogen [Mass/Vol] 14 mg/dL Normal 6 - 23 [facility] Comment on above: Performed By: #### C OVSC #### [facility] [address] [place] [address] CBCon 12-09-2021 Erythrocyte distribution width (RBC) [Ratio] 12.7 % Normal 11.5 - 14.5 [facility] Comment on above: Performed By: #### C OVSC #### [facility] [address] [place] [address] Hematocrit (Bld) [Volume fraction] 40.1 % Normal 36.0 - 46.0 [facility] Comment on above: Performed By: #### C OVSC #### [facility] [address] [place] [address] Hemoglobin (Bld) [Mass/Vol] 13.3 g/dL Normal 12.0 - 16.0 [facility] Comment on above: Performed By: #### C OVSC #### [facility] [address] [place] [address] MCHC (RBC) [Mass/Vol] 33.2 g/dL Normal 32.0 - 36.0 [facility] Comment on above: Performed By: #### C OVSC #### [facility] [address] [place] [address] MCV (RBC) [Entitic vol] 92 fL Normal 80 - 100 [facility] Comment on above: Performed By: #### C OVSC #### [facility] [address] [place] [address] NUCLEATED RBC 0.0 /100 WBC Normal 0.0-0.0 [facility] Comment on above: Performed By: #### C OVSC #### [facility] [address] [place] [address] Platelets (Bld) [#/Vol] 377 10*3/uL Normal 150 - 450 [facility] Comment on above: Performed By: #### C OVSC #### [facility] [address] [place] [address] RBC 4.34 x10E12/L Normal 4.00 - 5.20 [facility] Comment on above: Performed By: #### C OVSC #### [facility] [address] [place] [address] WBC (Bld) [#/Vol] 10.2 10*3/uL Normal 4.4 - 11.3 [facility] Comment on above: Performed By: #### C OVSC #### [facility] [address] [place] [id number] Electrocardiogram 12 Leadon 12-09-2021 Electrocardiogram 12 Lead Ventricular Rate 103 Atrial Rate 103 P-R Interval 126 QRS Duration 86 Q-T Interval 350 QTC Calculation(Bazett) 458 P Hopewell 22 R Hopewell 6 T Hopewell 0 QRS Count 17 Q Onset 214 P Onset 151 P Offset 197 T Offset 389 QTC Fredericia 419 Diagnosis Class Abnormal Diagnosis Sinus tachycardia Minimal voltage criteria for LVH, may be normal variant Cannot rule out Anterior infarct , age undetermined Abnormal ECG No previous ECGs available Confirmed by JAC BARRAGAN MD ([id number]) on 12/12/2021 9:34:43 AM Normal [facility] TYPE + SCREENon 12-09-2021 ABO TYPE A Normal [facility] Comment on above: Performed By: #### C BC #### [facility] [address] [place] [id number] RH TYPE Positive Normal [facility] Comment on above: Performed By: #### C BC #### [facility] [address] [place] [address] Established Visit (Colon and Rectal Surgery)on 11-08-2021 Established Visit (Colon and Rectal Surgery) Diagnoses/Problems Assessed Crohn's disease of colon with intestinal obstruction (555.1,560.9) (K50.112) Patient Discussion/Summary Discussed situation with patient, including results of recent CT scan. Will likely need STC and MATEUS vs. TPC and IPAA depending on outcome of pathology review here re: LGD We will tentatively plan for surgery in December. Chief Complaint An interactive audio and video telecommunication system which permits real time communications between the patient (at the originating site) and provider (at the distant site) was utilized to provide this telehealth service. History of Present Illness lEda Ellis is a 56F with Crohn's Disease and proximal transverse colon stricture with history of LGD on biopsy. CTE on 10/07/21 demonstrates diffuse narrowing from hepatic flexure to rectosigmoid colon. Pathology slides are en route from OSH. They will be reviewed re: diagnosis of LGD on arrival. Active Problems Problems Crohn's disease of colon with intestinal obstruction (555.1,560.9) (K50.112) Past Medical History Problems History of diabetes mellitus (V12.29) (Z86.39) History of high cholesterol (V12.29) (Z86.39) History of hypertension (V12.59) (Z86.79) Surgical History Problems History of Back surgery History of section History of prior surgery Family History Mother Family history of cerebrovascular accident (CVA) (V17.1) (Z82.3) Family history of diabetes mellitus (V18.0) (Z83.3) Family history of hypertension (V17.49) (Z82.49) Family history of malignant neoplasm of breast (V16.3) (Z80.3) Family history of malignant neoplasm of colon (V16.0) (Z80.0) Family history of Heart problem Father Family history of cerebrovascular accident (CVA) (V17.1) (Z82.3) Family history of diabetes mellitus (V18.0) (Z83.3) Family history of hypertension (V17.49) (Z82.49) Family history of malignant neoplasm of breast (V16.3) (Z80.3) Family history of malignant neoplasm of colon (V16.0) (Z80.0) Family history of Heart problem Social History Problems Non-smoker (V49.89) (Z78.9) Allergies Medication No Known Drug Allergies Recorded By: Alissa Littlejohn; 09/27/2021 1:12:54 PM Current Meds Medication NameInstruction Albuterol Sulfate (2.5 MG/3ML) 0.083% Inhalation Nebulization Solution amLODIPine Besylate 10 MG Oral Tablet Atorvastatin Calcium 40 MG Oral Tablet Clobetasol Prop Emollient Base CREA Doxycycline Hyclate 20 MG Oral Tablet Humira 40 MG/0.4ML Subcutaneous Prefilled Syringe Kit Mesalamine 1.2 GM Oral Tablet Delayed Release Montelukast Sodium 10 MG Oral Tablet One Daily Multivitamin Women TABS Soolantra 1 % External Cream Vitamin D3 25 MCG (1000 UT) Oral Capsule Zyrtec 10 MG TABS Signatures Electronically signed by : Adiel Black MD; Nov 08 2021 4:30PM EST (Author) Normal [facility] Basophil percentageon 2021 Creatinine [Mass/Vol] 0.7 mg/dL 0.55-1.02 [facility] Work Phone: No Panel Informationon 10-07 Bedside Estimated GFR (eGFR) > 60.0000 mL/min >60 [facility] Work Phone: Initial Visit (Colon and Rec abdoul Surgery)on 09-27-2021 Initial Visit (Colon and Rectal Surgery) Diagnoses/Problems Assessed Crohn's disease of colon with intestinal obstruction (555.1,560.9) (K50.112) Provider Impressions 56F with CD and proximal transverse colon stricture with history of LGD on biopsy First, we will obtain her outside slides for internal pathology review given the dysplasia as that would affect the proposed surgical intervention. We have also recommended a CTE to assess extent of disease as her right colon and TI have not yet been endoscopically evaluated. We discussed that this problem will ultimately require an operation. Given the currently available information, we discussed a segmental colectomy to remove the diseased segment including the stricture. We also discussed the possibility that all of the colon would need to be removed if the pathology review instead revealed high grade dysplasia, but that was the less likely of the two options. We will continue the information gathering phase of preoperative planning. We will schedule a virtual visit to review the information and decide on the operations we discussed. Lu Ledezma MD Colorectal Surgery Fellow History of Present Illness Elda Ellis is a 56F with history of Crohn's Disease with proximal transverse colon stricture. She was diagnosed 2 years ago on her first ever screening colonoscopy which showed inflammation and a stricture of the transverse colon. She has had 3-4 attempts at endoscopic dilation of the stricture. Underwent colonoscopy and dilation 01/07/21 with dilation and biopsy with LGD. Again underwent endoscopy and dilation with biopsy on 06/24/21with TVA. She has never had a complete evaluation beyond the stricture. Currently on Humira and Mesalamine. BE shows stricture in proximal transverse colon near hepatic flexure. She describes a history of abdominal pain and IBS like symptoms for 5-10 years. She continues to experience worsening of her abdominal pain which is located near the epigastrium, intermittent, constant, not related to meals. She usually has daily loose BMs since the stricture was diagnosed. She has never had blood in the stool. Denies nausea or vomiting but occasionally has bloating. She reports hemorrhoids as her only perianal disease. She has never had complications related to . Her only child was born via without complication. 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, Lives in [place] Current Meds Medication NameInstruction Albuterol Sulfate (2.5 MG/3ML) 0.083% Inhalation Nebulization Solution amLODIPine Besylate 10 MG Oral Tablet Atorvastatin Calcium 40 MG Oral Tablet Clobetasol Prop Emollient Base CREA Doxycycline Hyclate 20 MG Oral Tablet Humira 40 MG/0.4ML Subcutaneous Prefilled Syringe Kit Mesalamine 1.2 GM Oral Tablet Delayed Release Montelukast Sodium 10 MG Oral Tablet One Daily Multivitamin Women TABS Soolantra 1 % External Cream Vitamin D3 25 MCG (1000 UT) Oral Capsule Zyrtec 10 MG TABS Physical Exam Constitutional - General appearance: In no acute distress, well appearing and well nourished. Eyes Sclerae: Anicteric Neck - Exam: Appearance of the neck was normal. No neck masses observed. Pulmonary - Respiratory effort: Normal respiration. Cardiovascular - Auscultation of heart: Normal rate and rhythm, no murmurs. Abdomen and Pelvis - Digital Rectal Examination: Abnormal (external exam reveals right posterior external hemorrhoid, no signs of perianal CD) Abdomen: Non-tender, no abdominal masses. Attending Note I saw and evaluated the patient. I personally obtained the contreras and critical portions of the history and physical exam or was physically present for contreras and critical portions performed by the trainee. I reviewed the trainee's documentation and discussed the patient with the trainee. I agree with the trainee's medical decision making, as documented on the trainee's note. Signatures Electronically signed by : Adiel Black MD; Sep 27 2021 3:38PM EST (Author) Normal [facility] Tobacco Screening.on 022 Fall risk assessment a) No falls within the last year [id number] [facility] [address] Work Phone: Tobacco use status [facility] b) No [facility] [address] Work Phone: Final Surgical Pathology Rep [facility] 06-28-2021 Final Surgical Pathology Report . Pathology Reports Accession: Collected Date/Time: Received Date/Time: Pathologist: [id number] 06/24/2021 10:05 EST 06/27/2021 10:13 EST JAMIE OROZCO MD Final Surgical Pathology Report DIAGNOSIS: COLON STRICTURE, BIOPSY - TUBULOVILLOUS ADENOMA. Comment: If this is a biopsy of a larger mass sampling error can not be excluded. COMMENT: D# N/A CLINICAL INFORMATION: Procedure: COLONOSCOPY WITH DILATION AND BIOPSIES Preoperative diagnosis: HISTORY OF STRICTURE Postoperative diagnosis: SAME SPECIMEN: A COLONIC STRICTURE BIOPSY - R/O MALIGNANCY GROSS DESCRIPTION: A. Received in formalin, labeled with the patients name, Case #[id number], and colonic stricture BX are multiple schmid tissue fragments ranging from 0.1 to 0.3 cm. TS -1 Dictated by SHON LY MICROSCOPIC DESCRIPTION: Slides reviewed. Electronically Signed by Pathology Report verified by [facility] Electronically signed by JAMIE OROZCO Sign out Date: 06/28/2021 15:29 Performing Lab: [facility], [address] [place] [address] (MD) Final Surgical Pathology Rep [facility] 01-13-2021 Final Surgical Pathology Report . Pathology Reports Accession: Collected Date/Time: Received Date/Time: Pathologist: [id number] 01/07/2021 09:49 EDT 01/11/2021 10:23 EDT MD YAMILET REED Final Surgical Pathology Report DIAGNOSIS: A) PROXIMAL TRANSVERSE COLON, BIOPSY: FRAGMENTS OF COLONIC MUCOSA WITH LOW-GRADE DYSPLASIA. (SEE COMMENT) B) TRANSVERSE COLON, BIOPSY: MILD DIFFUSE ACTIVE COLITIS WITH FOCAL SURFACE EROSION AND REACTIVE HYPERPLASTIC CHANGES CONSISTENT WITH THE CLINICAL HISTORY OF CROHN'S. NEGATIVE FOR DYSPLASIA. Comment: The case was discussed with Dr. Fernandez, and the patient has a clinical history of Crohn's. Specimen A was biopsied from an area of marked stricture, with no distinct mucosal abnormality. The features in specimen A, in the context of the clinical history, are diagnostic of low-grade dysplasia. Recommend clinical pathologic correlation and follow-up as indicated. Case reviewed with Dr. Duvall. COMMENT: [facility] [id number] CLINICAL INFORMATION: Procedure: COLONOSCOPY WITH DILATION AND BIOPSY Preoperative diagnosis: COLON STRICTURE, TRANSVERSE Postoperative diagnosis: COLON STRICTURE, TRANSVERSE SPECIMEN: A PROXIMAL TRANSVERSE COLON STRICTURE B TRANSVERSE COLON BIOPSIES - R/O DYSPLASIA GROSS DESCRIPTION: A. Received in formalin, labeled with the patients name, Case #[id number], and proximal transverse colon stricture 3 schmid tissue fragments ranging from 0.1 to 0.2 cm. TS -1 B. Received in formalin labeled transverse colon biopsy rule out dysplasia are 5 schmid tissue fragments ranging from less than 0.1 to 0.2 cm. TS -1 Dictated by SHON LY MICROSCOPIC DESCRIPTION: Slides reviewed. Electronically Signed by Pathology Report verified by [facility] Electronically signed by YAMILET REED MD Sign out Date: 01/13/2021 14:41 Performing Lab: [facility], [address] [place] [address] (MD) Comment on above: Performed By: #### S PFR #### [place] [address] CNOVon 08-03-2017 CNOV Office Visit (WOOB) TIFFANYCATHIADRIÁN ([id number]) 1965 FDate Time Provider Mupfmbwosh81/22/17 4:15 PM KIMBERLEY GIBSON) WOOB During your visit today, we recorded the following information about you: Blood pressure Weight 124/60 98.1 kgKIMBERLEY GIBSON CNP 08/03/2017 5:09 PM Kassidy Ellis is a 52 year old female who presents today for an endometrialbiopsy for post menopausal bleeding. test: n/aUNIVERSAL PROTOCOL / SAFETY CHECKLISTProcedure to be performed: endometrial biopsySign in Communication: CompletedTime Out: Team Confirms the Correct Patient, Correct Procedure, Correct Siteand Site Marking, Correct Position (if applicable), Prep and Dry Time (ifapplicable). Time: 1632Affirmation of Time Out: YESSign Out Discussion: CompletedKIMBERLEY GIBSON CNPPROCEDURE:EXTERNAL GENITALIA: Normal in appearance without lesionsVAGINA: Normal in appearance without lesionsBIOPSY: Speculum placed into the vagina with excellent visualization of thecervix. Cervix cleaned with betadine. Anterior lip of cervix grasped withsingle toothed tenaculum. Uterus sounded to 5-6 cm. Pipelle inserted into theuterus without difficulty and endometrial biopsy obtained. Specimen labeled andsent to pathology. Hemostasis achieved.Procedure Summary: Patient tolerated procedure well.ASSESSMENT: post menopausal bleedingPLAN:Specimens labeled and sent to Pathology. Will notify patient of results in1-2 weeks. Post-procedure instructions reviewed and written material given tothe patient.Micha MAGANA LPN 08/03/2017 4:21 PM SignedYOUR RECOVERYAfter your biopsy you may have:? Vaginal bleeding (less than a normal menstrual period)? Mild crampingDo NOT put anything in the vagina for 1 week after your endometrial biopsy.This includes:? tampons? douches? and refraining from having sexual intercourseIf you have any discomfort, you may take an over the counter pain medication(motrin, advil, ibuprofen, tylenol, etc). If this does not relieve yourdiscomfort, contact the office.It is okay to wear a sanitary pad until the discharge and spotting stops.RISKSAlthough problems seldom occur with endometrial biopsies, there can be somecomplications. You may feel faint during and shortly after the procedure aswell as have some bleeding after the procedure. There is also a risk ofinfection after the procedure. These complications are rare and can be easilytreated.You should contact you doctor is you have any of the following:? Heavy bleeding (more than your normal period)? Bleeding with clots? Severe abdominal pain? Fever (more than 100.4F)? Foul smelling vaginal dischargeRESULTSWe will have the results of your biopsy in 1-2 weeks. If you do not hear theresults of your biopsy after 2 weeks, please contact the office for theresults.If you have any additional questions or concerns please do not hesitate tocontact the office.Referring Provider: SELF [200]Allergies As of Date: 08/03/2017 Noted Allergy ReactionPENICILLIN G 06/26/2011 4 - HivesDate Reviewed: 08/03/2017Reviewed by: Kimberley Gibson - Fully AssessedReason for Visit: Endometrial Biopsy [7998]Visit Diagnoses:Postmenopausal bleeding [N95.0] Thickened endometrium [R93.8]Order(s):ENDOMETRI AL BIOPSY [2263096] Order #: [id number] SURGICAL PATHOLOGY [[id number]] Order #: [id number] as of 08/03/2017 Sig: * IBUPROFEN 200 MG TABLET Take 1-2 tablets by mouth amandeep* IVERMECTIN TOPICAL Apply to affected area.Medication notes this encounter MISOPROSTOL 200 MCG TABLET >> Irene Ortega LPN 08/03/2017 4:21 PM >> IRENE ORTEGA LPN SunAug 03, 2017 4:21 PM Course of therapy completed PHENAZOPYRIDINE 100 MG TABLET >> Irene Ortega LPN 08/03/2017 4:21 PM >> IRENE ORTEGA LPN SunAug 03, 2017 4:21 PM No longer usingProblem List As Of Date 08/03/2017 Noted Resolved Abnormal glandular Papanicolaou smear of cervix*INVALID FOR*01/29/2015 Mucous polyp of cervix [N84.1] INVALID FOR*01/29/2015 Abdominal pain, right upper quadrant [R10.11] INVALID FOR*01/29/2015 PMB (postmenopausal bleeding) [N95.0] INVALID FOR* Other instructions from your clinician: YOUR RECOVERY After your biopsy you may have: ? Vaginal bleeding (less than a normal menstrual period) ? Mild cramping Do NOT put anything in the vagina for 1 week after your endometrial biopsy. This includes: ? tampons ? douches ? and refraining from having sexual intercourse If you have any discomfort, you may take an over the counter pain medication (motrin, advil, ibuprofen, tylenol, etc). If this does not relieve your discomfort, contact the office. It is okay to wear a sanitary pad until the discharge and spotting stops. RISKS Although problems seldom occur with endometrial biopsies, there can be some complications. You may feel faint during and shortly after the procedure as well as have some bleeding after the procedure. There is also a risk of infection after the procedure. These complications are rare and can be easily treated. You should contact you doctor is you have any of the following: ? Heavy bleeding (more than your normal period) ? Bleeding with clots ? Severe abdominal pain ? Fever (more than 100.4F) ? Foul smelling vaginal discharge RESULTS We will have the results of your biopsy in 1-2 weeks. If you do not hear the results of your biopsy after 2 weeks, please contact the office for the results. If you have any additional questions or concerns please do not hesitate to contact the office.Medications Discontinued During This Encounter miSOPROStol (CYTOTEC) 200 mcg tablet 4 ta* 0 07/17/2017 08/03/2017 Sig: Insert 2 tablets vaginally the night before the procedure and the morning on the procedure. Disc: Reason for discontinue is not on file. phenazopyridine (PYRIDIUM, GERIDIUM)* 6 ta* 0 07/09/2017 08/03/2017 Route: ORAL Sig: Take 1 tablet by mouth three times daily as needed. Disc: Reason for discontinue is not on file.Disposition: Return if symptoms worsen or fail to improve, for Will Follow Up Results By Phone Call.Follow-up and Disposition History RecordedEncounter Number: [id number] Status:Closed by KIMBERLEY GIBSON on 08/03/17 [facility] PROGRESSon 08-03-2017 PROGRESS HNO ID: [id number] thor: Kimberley (Ktaherin) Maeganervice: (none)Author Type: Nurse PractitionerType: Progress NotesFiled: 08/03/2017 5:09 PMNote Text:Elda Ellis is a 52 year old female who presents today for anendometrial biopsy for post menopausal bleeding. test: n/aUNIVERSAL PROTOCOL / SAFETY CHECKLISTProcedure to be performed: endometrial biopsySign in Communication: CompletedTime Out: Team Confirms the Correct Patient, Correct Procedure, CorrectSite and Site Marking, Correct Position (if applicable), Prep and Dry Time(if applicable). Time: 1632Affirmation of Time Out: YESSign Out Discussion: CompletedAMY KATHERIN GIBSONPROCEDURE:EXTERNAL GENITALIA: Normal in appearance without lesionsVAGINA: Normal in appearance without lesionsBIOPSY: Speculum placed into the vagina with excellent visualization ofthe cervix. Cervix cleaned with betadine. Anterior lip of cervix graspedwith single toothed tenaculum. Uterus sounded to 5-6 cm. Pipelle insertedinto the uterus without difficulty and endometrial biopsy obtained.Specimen labeled and sent to pathology. Hemostasis achieved.Procedure Summary: Patient tolerated procedure well.ASSESSMENT: post menopausal bleedingPLAN:Specimens labeled and sent to Pathology. Will notify patient of resultsin 1-2 weeks. Post-procedure instructions reviewed and written materialgiven to the patient.KIMBERLEY GIBSON CNP Normal [facility] SURGICAL PATHOLOGYon 017 SURGICAL PATHOLOGY [facility]: [id number] Physician: KIMBERLEY GIBSON CNP __FINAL DIAGNOSISEndometrial biopsy - Proliferative endometrium.- Benign endometrial polyp.AES/plj 08/08/2017 Devika Yee M.D.(Electronic Signature) __SPECIMEN SUBMITTEDA: ENDOMETRIAL, BIOPSY CLINICAL DATApostmenopausal bleedingGROSS DESCRIPTIONA. Received in formalin are multiple schmid, soft feathery segments of tissueaggregating to 2.6 x 1.5 x 0.2 cm. Totally submitted in one cassette.Gross examination performed at [facility], [address] [place] [address] 33754NDX 08/07/2017 8:16:59 PMPatient ID #: [id number] of Report: 08/08/2017Date of Procedure: 08/03/2017Date of Receipt: 12/26/2017Submitted by: KIMBERLEY GIBSON, CNPLocation: WOREFDiagnostic interpretation performed at [facility], [address] [address]. Normal [facility] Bact/Cand Vag Grm Ston 07-24 Bact/Cand Vag Grm St Smear Result - BACT ERIAL VAGINOSIS RESULT: Stain results indicate mixed morphotypes consistent with transition from normal vaginal zia. No Yeast observed Many Polymorphonuclear leukocytes Normal [facility] Comment on above: Performed By: #### B VCNSM ####[facility] [address] [place], [place] [phone] CNOVon 07-24-2017 CNOV Office Visit (WOOB) NALINI ELLIS ([id number]) 1965 [facility] Time Provider Rbwtkdtdhv89/12/17 11:30 AM KRYSTIAN SCHOFIELD During your visit today, we recorded the following information about you: Blood pressure Weight 122/72 98.4 kgKrystian Schofield MD 07/24/2017 2:35 PM Kassidy Ellis is a 52 year old, Obstetric History T1 L1 SAB0 TAB0 Ectopic0 Multiple0 Live Births0 Comment: Pt has 2 stepchildren No chief complaint on file. Patient's last menstrual period was 01/28/2015.Elda PRESENTS TO DAY FOR : burningHISTORY of PRESENT ILLNESS: Patient presents with burning. She denies it'smainly with urination. She states some vulvar ANDamp; vaginal. Denies vaginalitching. Patient denies any new soaps/lotions. She hasn't tried anything tomakes it better.PAST MEDICAL HISTORYDiagnosis Date- Abnormal glandular Papanicolaou smear of cervix Abn. Pap smear (cervix)- Heart murmur- Panic disorder- Symptomatic menopausal or female climacteric statesFAMILY HISTORYProblem Relation Age of Onset- Heart Mother- Hypertension Mother- Lipids Mother- Coronary Artery Disease Mother- Heart Father- Hypertension Father- Lipids Father- Heart Maternal Grandmother CHF- Hypertension Maternal Grandmother- Lipids Maternal Grandmother- Diabetes Paternal Grandmother- Heart Paternal Grandmother CHF- Breast Cancer Maternal Aunt Mastectomy- Hypertension SisterPAST SURGICAL HISTORYProcedure Laterality Date- DELIVERY ONLY , low transverse- COLPOSCOPY (VAGINOSCOPY) 07/23 Colposcopy- CRYO CAUTERY CERVIX- LOW BACK DISK SURGERY- ORAL SURGERY PROCEDUREMEDICATIONS:Curr ent Outpatient Prescriptions:miSOPROStol (CYTOTEC) 200 mcg tablet Insert 2 tablets vaginally the nightbefore the procedure and the morning on the procedure.phenazopyridine (PYRIDIUM, GERIDIUM) 100 mg tablet Take 1 tablet by mouth threetimes daily as needed.IVERMECTIN TOPICAL Apply to affected area.ibuprofen 200 mg ORAL tablet Take 1-2 tablets by mouth every 4 hours as needed.FOR PAIN.No current facility-administered medications for this visit.CALCIUM ANDamp; HERBAL SUPPLEMENTS: NoneALLERGIES:ALLERGIESAl lergen Reactions- Penicillin G HivesREVIEW OF SYSTEMS:GASTROINTESTINAL: NegativeGENERAL: NegativePHYSICAL EXAMINATION:BP 122/72 Wt 217 lb (98.4 kg) LMP 01/28/2015 BMI 39.69 kg/b6LKUKGCS APPEARANCE: Well appearing, alert, in no acute distress, well-hydrated,well nourished.CHEST: Normal inspiratory effortEXTREMITIES:Extremi ties normal and No edemaNEURO: Awake, alert and oriented x 3, Normal gait and No involuntary motions.GENITALIA: Normal external genitalia, Urethral meatus normal, normal vagina,normal cervix and perineum WNLIMPRESSION/PLAN:52yo female with vulvovaginal burning ANDamp; dysuriaCheck UA ANDamp; urine cultureSend vaginitis swab for yeast ANDamp; BVMeds ordered this visit:Office Visit on 07/24/17-UA DIP B/O-URINE CULTURE-BACT/MACY VAG GRAM STAINI have reviewed and updated past medical and surgical history, medications andallergies.Migdalia Doyle Provider: SELF [200]Allergies As of Date: 07/24/2017 Noted Allergy ReactionPENICILLIN G 06/26/2011 4 - HivesDate Reviewed: 07/24/2017Reviewed by: Krystian Schofield - Fully AssessedPrimary Visit Diagnosis:Dysuria [R30.0] Other Visit Diagnosis:Vaginal burning [N94.9]Order(s):UA DIP B/O [[id number]] Order #: [id number] URINE CULTURE [SQURCUL] Order #: [id number] BACT/MACY VAG GRAM STAIN [SQBVCNSM] Order #: [id number] FUTUREPrescriptions as of 07/24/2017 Sig: MISOPROSTOL 200 MCG TABLET Insert 2 tablets vaginally th* PHENAZOPYRIDINE 100 MG TABLET Take 1 tablet by mouth three * IVERMECTIN TOPICAL Apply to affected area. * IBUPROFEN 200 MG TABLET Take 1-2 tablets by mouth amandeep*Problem List As Of Date 07/24/2017 Noted Resolved Abnormal glandular Papanicolaou smear of cervix*INVALID FOR*01/29/2015 Mucous polyp of cervix [N84.1] INVALID FOR*01/29/2015 Abdominal pain, right upper quadrant [R10.11] INVALID FOR*01/29/2015 PMB (postmenopausal bleeding) [N95.0] INVALID FOR* Status:Closed by KRYSTIAN SCHOFIELD MD on 07/24/17 Normal [facility] PROGRESSon 07-24-2017 PROGRESS HNO ID: [id number] thor: Krystian Jacobson: (none)Author Type: PhysicianType: Progress NotesFiled: 07/24/2017 2:35 PMNote Text:Elda Ellis is a 52 year old, Obstetric History T1 L1 SAB0 TAB0 Ectopic0 Multiple0 Live Births0 Comment: Pt has 2 stepchildren No chief complaint on file. Patient's last menstrual period was 01/28/2015.Elda PRESENTS TO DAY FOR : burningHISTORY of PRESENT ILLNESS: Patient presents with burning. She deniesit's mainly with urination. She states some vulvar AND vaginal. Deniesvaginal itching. Patient denies any new soaps/lotions. She hasn't triedanything to makes it better.PAST MEDICAL HISTORYDiagnosis Date- Abnormal glandular Papanicolaou smear of cervix Abn. Pap smear (cervix)- Heart murmur- Panic disorder- Symptomatic menopausal or female climacteric statesFAMILY HISTORYProblem Relation Age of Onset- Heart Mother- Hypertension Mother- Lipids Mother- Coronary Artery Disease Mother- Heart Father- Hypertension Father- Lipids Father- Heart Maternal Grandmother CHF- Hypertension Maternal Grandmother- Lipids Maternal Grandmother- Diabetes Paternal Grandmother- Heart Paternal Grandmother CHF- Breast Cancer Maternal Aunt Mastectomy- Hypertension SisterPAST SURGICAL HISTORYProcedure Laterality Date- DELIVERY ONLY , low transverse- COLPOSCOPY (VAGINOSCOPY) 07/23 Colposcopy- CRYO CAUTERY CERVIX- LOW BACK DISK SURGERY- ORAL SURGERY PROCEDUREMEDICATIONS:Curr ent Outpatient Prescriptions:miSOPROStol (CYTOTEC) 200 mcg tablet Insert 2 tablets vaginally the nightbefore the procedure and the morning on the procedure.phenazopyridine (PYRIDIUM, GERIDIUM) 100 mg tablet Take 1 tablet by mouththree times daily as needed.IVERMECTIN TOPICAL Apply to affected area.ibuprofen 200 mg ORAL tablet Take 1-2 tablets by mouth every 4 hours asneeded. FOR PAIN.No current facility-administered medications for this visit.CALCIUM AND HERBAL SUPPLEMENTS: NoneALLERGIES:ALLERGIESAl lergen Reactions- Penicillin G HivesREVIEW OF SYSTEMS:GASTROINTESTINAL: NegativeGENERAL: NegativePHYSICAL EXAMINATION:BP 122/72 Wt 217 lb (98.4 kg) LMP 01/28/2015 BMI 39.69 kg/l2MRADFUX APPEARANCE: Well appearing, alert, in no acute distress,well-hydrated, well nourished.CHEST: Normal inspiratory effortEXTREMITIES:Extremi ties normal and No edemaNEURO: Awake, alert and oriented x 3, Normal gait and No involuntarymotions.GENITA INDIRA: Normal external genitalia, Urethral meatus normal, normalvagina, normal cervix and perineum WNLIMPRESSION/PLAN:52yo female with vulvovaginal burning AND dysuriaCheck UA AND urine cultureSend vaginitis swab for yeast AND BVMeds ordered this visit:Office Visit on 07/24/17-UA DIP B/O-URINE CULTURE-BACT/MACY VAG GRAM STAINI have reviewed and updated past medical and surgical history, medicationsand allergies.Krystian Schofield MD [facility] Urine Cultureon 07-24-2017 Urine culture, bacteria Sp. Request/Comment: - Specimen received in preservative Culture Result - No growth (<1,000 CFU/ml) [facility] Comment on above: Performed By: #### U RCUL ####[facility] [address] [place], [place] [phone] OBSOLETEon 07-16-2017 OBSOLETE Procedure (WOOB) NALINI ELLIS ([id number]) 1965 FDate Time Provider Rnmnggryxw24/4/17 11:00 AM JASON MURPHY During your visit today, we recorded the following information about you:Jason Murphy MD 07/16/2017 1:08 PM SignedA normal sized retroverted uterus with the measurements shown below.The endometrial echo is thick and measures 6 mm.The endometrial cavity has not been well visualized.The myometrium appears normal.The right ovary appears normal.The left ovary appears normal.There is no free fluid in the cul de sacIMPRESSION:Evaluation of the endometrium: Hysteroscopy and D and CReferring Provider: KIMBERLEY GIBSON ([facility]) [[id number]]Allergies As of Date: 07/16/2017 Noted Allergy ReactionPENICILLIN G 06/26/2011 4 - HivesDate Reviewed: 07/09/2017Reviewed by: Ghada Villalta Ma - Fully AssessedPrimary Visit Diagnosis:Postmenopausal bleeding [N95.0]Prescriptions as of 07/16/2017 Sig: PHENAZOPYRIDINE 100 MG TABLET Take 1 tablet by mouth three * IVERMECTIN TOPICAL Apply to affected area. * IBUPROFEN 200 MG TABLET Take 1-2 tablets by mouth amandeep*Problem List As Of Date 07/16/2017 Noted Resolved Abnormal glandular Papanicolaou smear of cervix*INVALID FOR*01/29/2015 Mucous polyp of cervix [N84.1] INVALID FOR*01/29/2015 Abdominal pain, right upper quadrant [R10.11] INVALID FOR*01/29/2015 PMB (postmenopausal bleeding) [N95.0] INVALID FOR* Status:Closed by JASON MURPHY MD on 07/16/17 Normal [facility] PROGRESSon 07-16-2017 PROGRESS HNO ID: [id number] thor: Jason Dukeservice: (none)Author Type: PhysicianType: Progress NotesFiled: 07/16/2017 1:08 PMNote Text:A normal sized retroverted uterus with the measurements shown below.The endometrial echo is thick and measures 6 mm.The endometrial cavity has not been well visualized.The myometrium appears normal.The right ovary appears normal.The left ovary appears normal.There is no free fluid in the cul de sacIMPRESSION:Evaluation of the endometrium: Hysteroscopy and D and C Normal [facility] TSHon 07-16-2017 Thyroid stimulating hormone (TSH) 3.220 uU/mL Normal 0.400-5.500 [facility] Comment on above: Performed By: #### T ####[facility] [address] [place], [place] [phone] CNOVon 07-09-2017 CNOV Office Visit (WOOB) NALINI ELLIS ([id number]) 1965 [facility] Time Provider Gwrplsbbgh56/27/17 9:30 AM AYSE CERRATO WOOB During your visit today, we recorded the following information about you: Blood pressure Weight 142/70 98.9 kgAyse Owen MD 07/09/2017 10:24 AM TravisElda Ellis is a 52 year old female who presents for urinary frequency forthe last day. Pt denies Dysuria, fever, pressure. Pt reports frequency withonly small amounts of urine at times. Pt denies other concerns today. Ptreports has never had UTI so is unsure of symptoms. Denies any major changes influid intake.PAST MEDICAL HISTORYDiagnosis Date- Abnormal glandular Papanicolaou smear of cervix Abn. Pap smear (cervix)- Heart murmur- Panic disorder- Symptomatic menopausal or female climacteric statesPAST SURGICAL HISTORYProcedure Laterality Date- DELIVERY ONLY , low transverse- COLPOSCOPY (VAGINOSCOPY) 07/23 Colposcopy- CRYO CAUTERY CERVIX- LOW BACK DISK SURGERY- ORAL SURGERY PROCEDUREFAMILY HISTORYProblem Relation Age of Onset- Heart Mother- Hypertension Mother- Lipids Mother- Coronary Artery Disease Mother- Heart Father- Hypertension Father- Lipids Father- Heart Maternal Grandmother CHF- Hypertension Maternal Grandmother- Lipids Maternal Grandmother- Diabetes Paternal Grandmother- Heart Paternal Grandmother CHF- Breast Cancer Maternal Aunt Mastectomy- Hypertension SisterSocial History Marital status: Spouse name: Jamie Years of education: Number of children: 3Occupational 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[employer]ocial History Main Topics Smoking status: Former Smoker Packs/day: 0.00 Years: 0.00 Smokeless status: Never Used Alcohol use: Yes Comment: Seldom Drug use: No Sexual activity: Yes Partners with: Male control/protection: Surgical Comment: has had a vasectomyCurrent Outpatient Prescriptions:phenazopyri dine (PYRIDIUM, GERIDIUM) 100 mg tablet Take 1 tablet by mouth threetimes daily as needed.IVERMECTIN TOPICAL Apply to affected area.ibuprofen 200 mg ORAL tablet Take 1-2 tablets by mouth every 4 hours as needed.FOR PAIN.No current facility-administered medications for this visit.Allergies As of Date: 07/09/2017Allergen Noted ReactionPENICILLIN G 06/26/2011 HivesFully Assessed 07/09/2017REVIEW OF SYSTEMSAbdomen: no painBladder:see HPI.Expanded ROS: GENERAL: No weight loss, malaise or feversAllergies and current medication updated:YesEXAM: BP 142/70 Wt 218 lb (98.9kg) LMP 01/28/2015GENERAL: pleasant, female in no apparent distressHEENT: Normocephalic and atraumaticNECK: full range of motionDERMATOLOGY: Normal and without lesionsNEURO: alert and oriented x3,exam grossly non-focalEXTREMITIES: normalASSESSMENT AND PLAN:Encounter Diagnosis ICD-10-CM1. Dysuria R30.0 UA DIP B/O URINE CULTURE2. Urine cultre sent3. Pyridium ordered4. Call if worsening symptomsMigdalia Vivar Provider: SELF [200]Allergies As of Date: 07/09/2017 Noted Allergy ReactionPENICILLIN G 06/26/2011 4 - HivesDate Reviewed: 07/09/2017Reviewed by: Ghada Villalta Ma - Fully AssessedReason for Visit: Dysuria [1085]Primary Visit Diagnosis:Urinary frequency [R35.0]Order(s):UA DIP B/O [[id number]] Order #: [id number] phenazopyridine (PYRIDIUM, GERIDIUM) 100 mg tabletTake 1 tablet by mouth three times daily as needed.Disp: 6 tabletRfl: 0 URINE CULTURE [SQURCUL] Order #: [id number] as of 07/09/2017 Sig: PHENAZOPYRIDINE 100 MG TABLET Take 1 tablet by mouth three * IVERMECTIN TOPICAL Apply to affected area. * IBUPROFEN 200 MG TABLET Take 1-2 tablets by mouth amandeep*Problem List As Of Date 07/09/2017 Noted Resolved Abnormal glandular Papanicolaou smear of cervix*INVALID FOR*01/29/2015 Mucous polyp of cervix [N84.1] INVALID FOR*01/29/2015 Abdominal pain, right upper quadrant [R10.11] INVALID FOR*01/29/2015 PMB (postmenopausal bleeding) [N95.0] INVALID FOR*Prescriptions ordered this encounter Disp Refills Start End PHENAZOPYRIDINE 100 MG TABLET 6 ta* 0 07/09/2017 Route: ORAL Sig: Take 1 tablet by mouth three times daily as needed. Status:Closed by AYSE LAY MD on 07/09/17 Normal [facility] PROGRESSon 07-09-2017 PROGRESS HNO ID: [id number] thor: Ayse LayService: (none)Author Type: PhysicianType: Progress NotesFiled: 07/09/2017 10:24 AMNote Text:Elda Ellis is a 52 year old female who presents for urinaryfrequency for the last day. Pt denies Dysuria, fever, pressure. Pt reportsfrequency with only small amounts of urine at times. Pt denies otherconcerns today. Pt reports has never had UTI so is unsure of symptoms.Denies any major changes in fluid intake.PAST MEDICAL HISTORYDiagnosis Date- Abnormal glandular Papanicolaou smear of cervix Abn. Pap smear (cervix)- Heart murmur- Panic disorder- Symptomatic menopausal or female climacteric statesPAST SURGICAL HISTORYProcedure Laterality Date- DELIVERY ONLY , low transverse- COLPOSCOPY (VAGINOSCOPY) 07/23 Colposcopy- CRYO CAUTERY CERVIX- LOW BACK DISK SURGERY- ORAL SURGERY PROCEDUREFAMILY HISTORYProblem Relation Age of Onset- Heart Mother- Hypertension Mother- Lipids Mother- Coronary Artery Disease Mother- Heart Father- Hypertension Father- Lipids Father- Heart Maternal Grandmother CHF- Hypertension Maternal Grandmother- Lipids Maternal Grandmother- Diabetes Paternal Grandmother- Heart Paternal Grandmother CHF- Breast Cancer Maternal Aunt Mastectomy- Hypertension SisterSocial History Marital status: Spouse name: Jamie Years of education: Number of children: 3Occupational 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 FOR PAIN.No current facility-administered medications for this visit.Allergies As of Date: 07/09/2017Allergen Noted ReactionPENICILLIN G 06/26/2011 HivesFully Assessed 07/09/2017REVIEW OF SYSTEMSAbdomen: no painBladder:see HPI.Expanded ROS: GENERAL: No weight loss, malaise or feversAllergies and current medication updated:YesEXAM: BP 142/70 Wt 218 lb (98.9kg) LMP 01/28/2015GENERAL: pleasant, female in no apparent distressHEENT: Normocephalic and atraumaticNECK: full range of motionDERMATOLOGY: Normal and without lesionsNEURO: alert and oriented x3,exam grossly non-focalEXTREMITIES: normalASSESSMENT AND PLAN:Encounter Diagnosis ICD-10-CM1. Dysuria R30.0 UA DIP B/O URINE CULTURE2. Urine cultre sent3. Pyridium ordered4. Call if worsening symptomsDeidre MD Lexie Normal [facility] Urine Cultureon 07-09-2017 Urine culture, bacteria Sp. Request/Comment: - Specimen received in preservativeCulture Result - >=100,000 CFU/ml Escherichia coli --> ABNORMAL ALERTORGANISM: Escherichia coliMETHOD: Minimum inhibitory concentration(Vitek)Antib iotic Interp FABIOLA StatusAmpicillin SUSCEPTIBLE <=2 FGentamicin SUSCEPTIBLE <=1 FTrimeth sulfameth SUSCEPTIBLE <=20 FCefazolin SUSCEPTIBLE <=4 FCLSI breakpoints for therapy of uncomplicated UTI's due to E.coli, K.pneumoniae, and P.mirabilis were applied and may be used to predict the activity of oral agents(cefaclor, cefdinir, cefpodoxime, cefprozil, cefuroxime, cephalexin, loracarbef).Ciprofloxacin SUSCEPTIBLE <=0.25 FNitrofurantoin SUSCEPTIBLE <=16 FCefepime SUSCEPTIBLE <=1 FPiperacillin/Tazobac SUSCEPTIBLE <=4 FAmpicillin Sulbact SUSCEPTIBLE <=2 FCeftriaxone SUSCEPTIBLE <=1 FMeropenem SUSCEPTIBLE <=0.25 FErtapenem SUSCEPTIBLE <=0.5 F Critically abnormal [facility] Comment on above: Performed By: #### U RCUL ####[facility] [address] [place], [place] [phone] CNOVon 07-04-2017 CNOV Office Visit (WOOB) NALINI ELLIS ([id number]) 1965 FDate Time Provider Mmvvsmiius60/22/17 10:45 AM KIMBERLEY GIBSON (KATHERIN) WOOB During your visit today, we recorded the following information about you: Blood pressure Weight 144/74 98.9 kgAMY KATHERIN GIBSON 07/04/2017 12:01 PM Hvyoxz20 year old who presents with complaints of spotting On Sunday andSunday. Spotting pinkish and brown.LMP: Patient's last menstrual period was 01/28/2015.- this bleeding was similarafter several years of no bleeding. Had a uterine ablation years ago.no menses - postmenopausalHeavy bleeding? NoIntermenstrual bleeding/spotting? NoDysmenorrhea? Possible slight crampingHistory of fibroids? NoHistory of endometrial polyps? NoSexually active: YesHistory of STDS: NonePatient concerns for STD exposure: No.Pain with intercourse: NoPostcoital bleeding: NoLast Pap: 2014 normal HPV: negativeHistory of abnormal pap: YesPAST MEDICAL HISTORYDiagnosis Date- Abnormal glandular Papanicolaou smear of cervix Abn. Pap smear (cervix)- Heart murmur- Panic disorder- Symptomatic menopausal or female climacteric statesPAST SURGICAL HISTORYProcedure Laterality Date- DELIVERY ONLY , low transverse- COLPOSCOPY (VAGINOSCOPY) 07/23 Colposcopy- CRYO CAUTERY CERVIX- LOW BACK DISK SURGERY- ORAL SURGERY PROCEDUREFAMILY HISTORYProblem Relation Age of Onset- Heart Mother- Heart Father- Hypertension Mother- Hypertension Father- Lipids Mother- Lipids Father- Coronary Artery Disease Mother- Diabetes Paternal Grandmother- Heart Maternal Grandmother CHF- Hypertension Maternal Grandmother- Lipids Maternal Grandmother- Breast Cancer Maternal Aunt Mastectomy- Hypertension Sister- Heart Paternal Grandmother CHFSOCIAL HISTORYSocial HistorySubstance Use Topics- Smoking status: Former Smoker- Smokeless tobacco: Never Used- Alcohol use Yes Comment: SeldomREVIEW OF SYSTEMSNo recent weight gain or weight loss.Abdomen: No abdominal pain, nausea, vomiting, diarrhea, or constipation. Nobloating, early satiety, indigestion, or increased flatulence.Bladder: No dysuria, gross hematuria, urinary frequency, urinary urgency, orincontinence.EXAM: BP 144/74 Wt 218 lb (98.9kg) LMP 01/28/2015GENERAL: pleasant, female in no apparent distressHEENT: Normocephalic, atraumatic, mucus membranes moist and no lesionsNECK: Supple, full range of motion, no adenopathy and thyroid normalCHEST: Normal inspiratory effortABDOMEN: Benign, soft, non-tender and no massesPELVIC: external genitalia normal, normal Bartholin's glands, urethra, Charlo'sglands, no vulvar lesions, no cervical lesions, good vaginal support,physiologic discharge present, normal appearing perineal body and perianalregion. Cervix friable. Unable to determine if bleeding coming through os orfrom possible cervical polyps - difficult to visualize adequately due to oozingof blood..BIMANUAL: uterus normal size, shape and consistency, no adnexal masses andnon-tenderNEURO: alert and oriented x3,exam grossly non-focalEXTREMITIES: normalLABWORKTSHDiagnosti c PapIMAGINGPelvic USASSESSMENT: postmenopausal bleeding. Unable to determine if bleeding uterineor from cervical polyp.PLAN:Pelvic ultrasoundLIGIA GIBSON CNPReferring Provider: SELF [200]Allergies As of Date: 07/04/2017 Noted Allergy ReactionPENICILLIN G 06/26/2011 4 - HivesDate Reviewed: 07/04/2017Reviewed by: Kimberley Gibson - Fully AssessedReason for Visit: Vaginal Bleeding [203]Primary Visit Diagnosis:Postmenopausal bleeding [N95.0]Order(s):PELVIC US WHI [[id number]] Order #: [id number]: 1 TSH BLD [SQTSH] Order #: [id number] FUTURE PAP FLUID CERVICAL DIAGNOSTIC [[id number]] Order #: [id number] as of 07/04/2017 Sig: IVERMECTIN TOPICAL Apply to affected area. * IBUPROFEN 200 MG TABLET Take 1-2 tablets by mouth amandeep*Medication notes this encounter NEXIUM ORAL >> Ghada Villalta Ma 07/04/2017 10:56 AM >> GHADA VILLALTA MA Jul 04, 2017 10:56 AM Not taking CITALOPRAM 20 MG TABLET >> Ghada Villalta Ma 07/04/2017 10:56 AM >> GHADA VILLALTA MA SunJul 04, 2017 10:56 AM Not taking CETIRIZINE 10 MG TABLET >> Ghada Villalta Ma 07/04/2017 10:56 AM >> GHADA VILLALTA MA SunJul 04, 2017 10:56 AM Not takingProblem List As Of Date 07/04/2017 Noted Resolved Abnormal glandular Papanicolaou smear of cervix*INVALID FOR*01/29/2015 Mucous polyp of cervix [N84.1] INVALID FOR*01/29/2015 Abdominal pain, right upper quadrant [R10.11] INVALID FOR*01/29/2015 PMB (postmenopausal bleeding) [N95.0] INVALID FOR*Medications Discontinued During This Encounter ESOMEPRAZOLE MAGNESIUM (NEXIUM ORAL) 07/04/2017 Class: Historical Med Route: ORAL Sig: Take by mouth. Disc: Reason for discontinue is not on file. citalopram 20 mg ORAL tablet 0 06/26/2011 07/04/2017 Class: Med Update Route: ORAL Sig: Take 1 tablet by mouth once daily. Disc: Reason for discontinue is not on file. cetirizine (ZYRTEC) 10 mg ORAL tablet 0 06/26/2011 07/04/2017 Class: Med Update Route: ORAL Sig: Take 1 tablet by mouth once daily. Disc: Reason for discontinue is not on file. Status:Closed by KIMBERLEY GIBSON on 07/04/17 Normal [facility] CYTOLOGYon 07-04-2017 CYTOLOGY ADDITIONAL PROCEDURES PRESENT [facility]: [id number] Physician: KIMBERLEY GIBSON, LEMUEL SHATTUCK HOSPITALSPECIMEN SUBMITTEDA: CERVICAL, DIAGNOSTIC, FLUID FINAL DIAGNOSISA. CERVICAL, DIAGNOSTIC, FLUIDSatisfactory for interpretation.Limited cellularity.Excess blood.Negative for intraepithelial lesion or malignancy.This specimen has been analyzed by the ThinPrep Imaging System, WayConnected imaging and review system, which assists the laboratory inevaluating cells on ThinPrep Pap tests. Following automated imaging,selected loaiza from every slide are reviewed by a embroidery specialist.Neville Nazario M.D. (Electronic Signature) ADDITION AL PROCEDURE(S)HUMAN PAPILLOMA VIRUS Date Ordered: 07/06/2017 Date Reported: 07/09/2017 Procedure Results and InterpretationNegative for HPV DNA high risk type 16 by PCR.Negative for HPV DNA high risk type 18 by PCR.Negative for HPV DNA high risk types: 31,33,35,39,45,51,52,56,5 8,59,66,68by PCR.This test was developed and its performance characteristics determined [facility] ([facility]).It has not been cleared or approved by the FDA. [facility] is regulated underCLIA as qualified to perform high-complexity testing. This test is used forclinical purposes. It should not be regarded as investigational or forresearch.CLINICAL DATA POST MENOPAUSALABNORMAL BLEEDING - DESCRIBE, HPV Testing: Yes, automatic HPV patients [id number] of Last Menstrual Period:01/28/2015Menstrua l History:Post-MenopausalAB NORMAL BLEEDINGSTAINSA: CERVICAL, DIAGNOSTIC, FLUID THIN PREP GYNPatient ID #: [id number] of Report: 07/12/2017Date of Procedure: 07/04/2017Date of Receipt: 07/06/2017Submitted by: KIMBERLEY GIBSON CNPLocation: WOREFDiagnostic interpretation performed at [facility], [address],[facility] [address].The Pap Smear is a screening test for cervical cancer. False negativeresults occur with all screening tests, emphasizing the need forrescreening at recommended intervals, and clinical correlation. Normal [facility] HPV w/Genotypeon 07-04-2017 HPV HighRisk Other Negative for HPV DNA high risk types: 31,33,35,39,45,51,52,56,5 8,59,66,68 by PCR. Normal [facility] Comment on above: Result Comment: This test was developed and its performance characteristics determined by [facility]'s [facility] [place] ([facility]).It has not been cleared or approved by the FDA. [facility] is regulated under CLIA as qualified to perform high-complexity testing. This test is used for clinical purposes. It should not be regarded as investigational or for research. Performed By: #### H PVHRR ####[facility] [address] [place] [address] [phone] HPV HighRisk Type 16 Negative Normal [facility] Comment on above: Performed By: #### H PVHRR ####[place] [id number] [place], [place] [phone] HPV HighRisk Type 18 Negative Normal [facility] Comment on above: Performed By: #### H PVHRR ####[address] [phone] PROGRESSon 07-04-2017 PROGRESS HNO ID: [id number] thor: Kimberley (Latha Issaervice: (none)Author Type: Nurse PractitionerType: Progress NotesFiled: 07/04/2017 12:01 PMNote Text:52 year old who presents with complaints of spotting On Sundayand Sunday. Spotting pinkish and brown.LMP: Patient's last menstrual period was 01/28/2015.- this bleeding wassimilar after several years of no bleeding. Had a uterine ablation yearsago.no menses - postmenopausalHeavy bleeding? NoIntermenstrual bleeding/spotting? NoDysmenorrhea? Possible slight crampingHistory of fibroids? NoHistory of endometrial polyps? NoSexually active: YesHistory of STDS: NonePatient concerns for STD exposure: No.Pain with intercourse: NoPostcoital bleeding: NoLast Pap: 2015 normal HPV: negativeHistory of abnormal pap: YesPAST MEDICAL HISTORYDiagnosis Date- Abnormal glandular Papanicolaou smear of cervix Abn. Pap smear (cervix)- Heart murmur- Panic disorder- Symptomatic menopausal or female climacteric statesPAST SURGICAL HISTORYProcedure Laterality Date- DELIVERY ONLY , low transverse- COLPOSCOPY (VAGINOSCOPY) 07/23 Colposcopy- CRYO CAUTERY CERVIX- LOW BACK DISK SURGERY- ORAL SURGERY PROCEDUREFAMILY HISTORYProblem Relation Age of Onset- Heart Mother- Heart Father- Hypertension Mother- Hypertension Father- Lipids Mother- Lipids Father- Coronary Artery Disease Mother- Diabetes Paternal Grandmother- Heart Maternal Grandmother CHF- Hypertension Maternal Grandmother- Lipids Maternal Grandmother- Breast Cancer Maternal Aunt Mastectomy- Hypertension Sister- Heart Paternal Grandmother CHFSOCIAL HISTORYSocial HistorySubstance Use Topics- Smoking status: Former Smoker- Smokeless tobacco: Never Used- Alcohol use Yes Comment: SeldomREVIEW OF SYSTEMSNo recent weight gain or weight loss.Abdomen: No abdominal pain, nausea, vomiting, diarrhea, or constipation.No bloating, early satiety, indigestion, or increased flatulence.Bladder: No dysuria, gross hematuria, urinary frequency, urinary urgency,or incontinence.EXAM: BP 144/74 Wt 218 lb (98.9kg) LMP 01/28/2015GENERAL: pleasant, female in no apparent distressHEENT: Normocephalic, atraumatic, mucus membranes moist and no lesionsNECK: Supple, full range of motion, no adenopathy and thyroid normalCHEST: Normal inspiratory effortABDOMEN: Benign, soft, non-tender and no massesPELVIC: external genitalia normal, normal Bartholin's glands, urethra,Charlo's glands, no vulvar lesions, no cervical lesions, good vaginalsupport, physiologic discharge present, normal appearing perineal body andperianal region. Cervix friable. Unable to determine if bleeding comingthrough os or from possible cervical polyps - difficult to visualizeadequately due to oozing of blood..BIMANUAL: uterus normal size, shape and consistency, no adnexal masses andnon-tenderNEURO: alert and oriented x3,exam grossly non-focalEXTREMITIES: normalLABWORKTSHDiagnosti c PapIMAGINGPelvic USASSESSMENT: postmenopausal bleeding. Unable to determine if bleedinguterine or from cervical polyp.PLAN:Pelvic ultrasoundTSNIRU GIBSON CNP Normal [facility] Vital Signs Date Time Vital Sign Value Performing Clinician Facility 12-23-2024 12:08-0400 Body height 154.94 cm Lorna Juarez MD Work Phone: [facility] 12-23-2024 12:08-0400 Body weight 107.68 kg Lorna Juarez MD Work Phone: [facility] 11-19-2024 11:30-0400 Body height 154.94 cm Lorna Juarez MD Work Phone: [facility] 11-19-2024 11:30-0400 Body weight 110.13 kg Lorna Juarez MD Work Phone: [facility] 09-30-2024 09:43-0500 Body mass index (BMI) [Ratio] 45.33 kg/m2 Sam Wray MD Work Phone: [facility] 09-30-2024 09:43-0500 Body temperature 97.59 [degF] Sam Wray MD Work Phone: [facility] 09-30-2024 09:43-0500 Body weight 108.82 kg Sam Wray MD Work Phone: [facility] 09-30-2024 09:43-0500 Diastolic blood pressure 76 mm[Hg] Sam Wray MD Work Phone: [facility] 09-30-2024 09:43-0500 Heart rate 79 /min Sam Wray MD Work Phone: [facility] 09-30-2024 09:43-0500 SaO2% (BldA) [Mass fraction] 95 % Sam Wray MD Work Phone: [facility] Comment on above: ra 09-30-2024 09:43-0500 Systolic blood pressure 146 mm[Hg] Sam Wray MD Work Phone: [facility] 05-03-2022 18:50-0400 Body mass index (BMI) [Ratio] 39.41 kg/m2 No PCP None [facility] [place] [address] DO Work Phone: 05-03-2022 18:50-0400 Body surface area Derived from formula 1.92 m2 No PCP None [facility] [place] [address] DO Work Phone: 05-03-2022 18:50-0400 Body weight 94.6 kg No PCP None [facility] [place] [address] DO Work Phone: 05-03-2022 17:00-0400 Body temperature 97.6 [degF] No PCP None [facility] [address] DO Work Phone: 05-03-2022 17:00-0400 Diastolic blood pressure 81 mm[Hg] No PCP None [facility] [address] DO Work Phone: 05-03-2022 17:00-0400 Heart rate 98 /min No PCP None [facility] [address] DO Work Phone: 05-03-2022 17:00-0400 Respiratory rate 16 /min No PCP None [facility] [address] DO Work Phone: 05-03-2022 17:00-0400 SaO2% (BldA) [Mass fraction] 100 % No PCP None [facility] 1600 DO Work Phone: 05-03-2022 17:00-0400 Systolic blood pressure 163 mm[Hg] No PCP None [facility] [address] DO Work Phone: 04-11-2022 10:59-0400 Body height 154.94 cm No PCP None [facility] [facility] Work Phone: 04-11-2022 10:59-0400 Body mass index (BMI) [Ratio] 39.19 kg/m2 No PCP None [facility] [facility] Work Phone: 04-11-2022 10:59-0400 Body surface area Derived from formula 1.92 m2 No PCP None [facility] [facility] Work Phone: 04-11-2022 10:59-0400 Body temperature 98.1 [degF] No PCP None [facility] [facility] Work Phone: 04-11-2022 10:59-0400 Body weight 94.08 kg No PCP None [facility] [facility] Work Phone: 04-11-2022 10:59-0400 Diastolic blood pressure 77 mm[Hg] No PCP None [facility] Work Phone: 04-11-2022 10:59-0400 Heart rate 88 /min No PCP None [facility] [facility] Work Phone: 04-11-2022 10:59-0400 Respiratory rate 20 /min No PCP None [facility] [facility] Work Phone: 04-11-2022 10:59-0400 SaO2% (BldA) [Mass fraction] 98 % No PCP None [facility] [facility] Work Phone: 04-11-2022 10:59-0400 Systolic blood pressure 168 mm[Hg] No PCP None [facility] Work Phone: 04-11-2022 10:59-0400 1 1 No PCP None [facility] [facility] Work Phone: Comment on above: [facility] 02-07-2022 14:26-0400 Body height 154.94 cm No PCP None ZY-[facility] [address] Work Phone: 02-07-2022 14:26-0400 Body mass index (BMI) [Ratio] 39.14 kg/m2 No PCP None UL-Tezjijr-Lqtbnoc 2099 Work Phone: 02-07-2022 14:26-0400 Body surface area Derived from formula 1.92 m2 No PCP None NM-Fgpzoex-Xuxpllx 2099 Work Phone: 02-07-2022 14:26-0400 Body weight 93.95 kg No PCP None TS-Wqfretb-Sdzgz ll 2099 Work Phone: 02-07-2022 14:26-0400 Diastolic blood pressure 74 mm[Hg] No PCP None XP-Rcvgdxd-Fzvzgxv 2099 Work Phone: 02-07-2022 14:26-0400 Heart rate 111 /min No PCP None QI-Ozyjait-Evsam ll 2099 Work Phone: 02-07-2022 14:26-0400 Systolic blood pressure 133 mm[Hg] No PCP None KY-Zoupqln-Ggoyojq [address]99 Work Phone: 01-29-2022 15:57-0400 Body temperature 98.42 [degF] No Pcp Required [facility] 01-29-2022 15:57-0400 Diastolic blood pressure 84 mm[Hg] No Pcp Required [facility] 01-29-2022 15:57-0400 Heart rate 97 /min No Pcp Required [facility] 01-29-2022 15:57-0400 Respiratory rate 18 /min No Pcp Required [facility] 01-29-2022 15:57-0400 SaO2% (BldA) [Mass fraction] 97 % No Pcp Required [facility] 01-29-2022 15:57-0400 Systolic blood pressure 142 mm[Hg] No Pcp Required [facility] 09-27-2021 13:01-0500 Body temperature 97.8 [degF] Referring Provider Unknown [facility] [address] Work Phone: 09-27-2021 13:01-0500 Body weight 99.97 kg Referring Provider Unknown SA[facility]iccjc[facility] [address] [facility] Work Phone: 09-27-2021 13:01-0500 Diastolic blood pressure 81 mm[Hg] Referring Provider Unknown HX[facility]slksex[facility]ggjojtMount[facility] [address] [facility] Work Phone: 09-27-2021 13:01-0500 Heart rate 111 /min Referring Provider Unknown NV[facility]Avxzbvv[facility]FdvodztMount[facility] [address] [facility] Work Phone: 09-27-2021 13:01-0500 Systolic blood pressure 162 mm[Hg] Referring Provider Unknown TM-Rdoiebq-QdjbuwaMountrail [facility] [address] Work Phone: 09-27-2021 13:01-0500 0 1 Referring Provider Unknown DR-Zllqfmf-KgdwryeMountrail [facility] [address] [facility] Work Phone: Comment on above: [facility] 06-24-2021 10:45-0500 Diastolic blood pressure 80 mm[Hg] DR DENISE FERNANDEZ MD [facility] 06-24-2021 10:45-0500 Heart rate 90 /min DR DENISE FERNANDEZ MD [facility] 06-24-2021 10:45-0500 Respiratory rate 12 /min DR DENISE FERNANDEZ MD [facility] 06-24-2021 10:45-0500 Systolic blood pressure 158 mm[Hg] DR DENISE FERNANDEZ MD [facility] 06-24-2021 10:35-0500 Body temperature 97.7 [degF] DR DENISE FERNANDEZ MD [facility] 06-24-2021 10:35-0500 Diastolic blood pressure 78 mm[Hg] DR DENISE FERNANDEZ MD [facility] 06-24-2021 10:35-0500 Heart rate 88 /min DR DENISE FERNANDEZ MD [facility] 06-24-2021 10:35-0500 Respiratory rate 12 /min DR DENISE FERNANDEZ MD [facility] 06-24-2021 10:35-0500 Systolic blood pressure 153 mm[Hg] DR DENISE FERNANDEZ MD [facility] 06-24-2021 10:27-0500 Diastolic Blood Pressure NBP [address] DENISE FERNANDEZ MD [facility] 06-24-2021 10:27-0500 Heart rate 90 /min DR DENISE FERNANDEZ MD [facility] 06-24-2021 10:27-0500 Respiratory rate 15 /min DR DENISE FERNANDEZ MD [facility] 06-24-2021 10:27-0500 Systolic Blood Pressure NBP [address] DENISE FERNANDEZ MD [facility] 06-24-2021 10:21-0500 Diastolic Blood Pressure NBP [address] DENISE FERNANDEZ MD [facility] 06-24-2021 10:21-0500 Heart rate 96 /min DR DENISE FERNANDEZ MD [facility] 06-24-2021 10:21-0500 Systolic Blood Pressure NBP [address] DENISE FERNANDEZ MD [facility] 06-24-2021 10:16-0500 Body temperature 97.7 [degF] DR DENISE FERNANDEZ MD [facility] 06-24-2021 10:16-0500 Diastolic Blood Pressure NBP [address] DENISE FERNANDEZ MD [facility] 06-24-2021 10:16-0500 Systolic Blood Pressure NBP [address] DENISE FERNANDEZ MD [facility] 06-24-2021 08:26-0500 Body height [address] DENISE FERNANDEZ MD [facility] 06-24-2021 08:26-0500 Body temperature 99.14 [degF] DR DENISE FERNANDEZ MD [facility] 06-24-2021 08:26-0500 Body weight 93.[address] DENISE FERNANDEZ MD [facility] 06-24-2021 08:26-0500 Body weight 38.79 kg/m2 DR DENISE FERNANDEZ MD [facility] 06-24-2021 08:26-0500 diastolic 71 mm[Hg] DR DENISE FERNANDEZ MD [facility] 06-24-2021 08:26-0500 Heart rate 135 /min DR DENISE FERNANDEZ MD [facility] 06-24-2021 08:26-0500 systolic 164 mm[Hg] DR DENISE FERNANDEZ MD [facility] Encounters Encounter Date Encounter Type Care Provider Facility Start: 01-26-2025 ambulatory [facility] Facility:[facility] Start: 12-23-2024 End: 01-10-[address] Lorna Juarez MD -Nutritional Servic es Work Phone: Start: 12-23-2024 End: 01-10-2025 ambulatory Lorna Juarez MD Work Phone: [facility] Work Phone: Start: 12-04-2024 End: 12-04-2024 ambulatory Lorna Juarez MD Work Phone: [facility] Work Phone: Start: 12-04-2024 End: 12-04-[address] Lorna Juarez MD -Outpatient Bone Densitometry Work Phone: Start: 12-04-2024 End: 12-04-2024 [facility] Facility:[facility] Start: 11-19-2024 End: 12-10-[address] Lorna Juarez MD -Nutritional Servic es Work Phone: Start: 11-19-[address] Lorna Juarez MD -Nutritional Services Work Phone: Start: 11-19-2024 End: 12-10-2024 ambulatory Lorna Juarez Facility:[facility] Start: 11-14-2024 End: 11-14-2024 ambulatory Lorna Juarez MD Work Phone: [facility] Work Phone: Start: 11-14-2024 End: 11-14-[address] Lorna Juarez MD -Radiology, [place] Work Phone: Start: 11-14-2024 End: 11-14-2024 ambulatory Lorna Juarez Facility:[facility] Start: 09-30-2024 End: 09-30-2024 Office outpatient visit 25 minutes Sam Wray MD Work Phone: [facility] Comment on above: Crohn's disease of s mall intestine with complication (Multi) (Primary Dx); Gastroesophageal reflux disease, unspecified whether esophagitis present; Obesity (BMI 30-39.9) Start: 09-30-2024 End: 09-30-2024 ambulatory SAM WRAY [facility] Start: 12-05-2023 End: 12-05-2023 ambulatory JORDAN ESQUIVEL [facility] Start: 07-24-2023 End: 07-24-2023 Office outpatient visit 25 minutes aSm Wray MD Work Phone: [facility] Comment on above: Crohn's disease of s mall intestine with complication (CMS/HCC) (Primary Dx) Start: 05-01-2023 End: 05-01-[address] [facility] Work Phone: Start: 05-01-2023 End: 05-01-[address] [facility] Start: 11-17-2022 Chart Update No PCP None [facility]-Gastroe nterology-[facility] Work Phone: Start: 11-08-2022 End: 03-29-[address] Sam Wray Facility:[facility] Start: 11-08-2022 End: 11-08-2022 Subsequent hospital visit by physician Sam Wray MD Work Phone: [facility] Comment on above: Crohn's disease of l arge intestine with intestinal obstruction (CMS/HCC); Encounter for screening for malignant neoplasm of colon; Crohn's disease, unspecified, without complications (CMS/HCC); Noninfective gastroenteritis and colitis, unspecified; Essential (primary) hypertension; Pure hypercholesterolemia, unspecified; Gastro-esophageal reflux disease without esophagitis; Unspecified asthma, uncomplicated; Anxiety disorder, unspecified; Intestinal bypass and anastomosis status; Acquired absence of other specified parts of digestive tract; Allergy status to penicillin Start: 10-03-2022 Chart Update No PCP None [facility]ast[facility]ology-[facility] Work Phone: Start: 09-20-2022 AUDIT No PCP None [facility]ology-[facility] Work Phone: Start: 08-01-2022 Office outpatient vi sit 25 minutes No PCP None LU-Bkaktcreslxakzsm-Gi lwell 6 [facility] Work Phone: Start: 08-01-[address] Sam Wray Facility:[facility] Start: 06-14-2022 AUDIT No PCP None [facility] Work Phone: Start: 06-13-2022 AUDIT No PCP None [facility]-Gastroe nterology-Ad min [facility] Work Phone: Start: 05-03-2022 ambulatory Ms. Carlos Easley Facility: Start: 05-03-2022 Patient encounter procedure No PCP None [facility] [place] 1600 DO Work Phone: Start: 04-11-[address] Sam Wray Facility:[facility] Start: 04-11-2022 Current tobacco non- user cad cap copd pv dm No PCP None EA-Lqlzebkwjcvxxnhg-Wl lwell 6 [facility] Work Phone: Start: 02-28-2022 ambulatory Ms. Danielle Odom Facility:[id number] Start: 02-28-2022 Postop follow up vis it related to original px No PCP None CF-Wkovcts-Ousewxe 2100 Work Phone: Start: 02-07-2022 Postop follow up vis it related to original px No PCP None TP-Rjhqqnb-Dajbjcq 2100 Work Phone: Start: 02-07-2022 ambulatory Ms. Danielle Odom Facility:[id number] Start: 01-23-2022 End: 01-29-2022 Evaluation and management of inpatient Adiel Black Deborah 5 Rm [id number] Start: 01-02-2022 End: 01-02-[address] [facility] Start: 12-09-[address] Adiel Black Facility:[facility] Start: 12-09-2021 Encounter for blood typing Dr. Adiel Black [facility] Start: 12-09-2021 Encounter for preprocedural cardiovascular examination Dr. Adiel Black [facility] Start: 12-09-2021 Encounter for preprocedural laboratory examination Dr. Adiel Black [facility] Start: 10-07-2021 End: 10-07-[address] [facility]-Cat Scan, [facility] Start: 09-27-2021 Office consultation new/estab patient 80 min Referring Provider Unknown [facility] [address] [facility] Work Phone: Start: 06-24-2021 End: 06-24-[address] DENISE FERNANDEZ MD [facility] Start: 08-03-2017 End: 08-03-2017 Ambulatory KIMBERLEY GIBSON [facility] Start: 07-24-2017 End: 07-25-2017 Ambulatory KRYSTIAN SCHOFIELD [facility] Start: 07-16-2017 End: 07-17-2017 Ambulatory JASON MURPHY [facility] Start: 07-09-2017 End: 07-10-2017 Ambulatory AYSE LAY [facility] Start: 07-04-2017 End: 07-04-2017 Ambulatory SHAWANDA (CNM) MAT [facility] Procedures Date Procedure Procedure Detail Performing Clinician Start: 12-04-2024 Dual energy X-ray absorptiometry Lorna Juarez MD Work Phone: Start: 11-14-2024 X-ray of ankle, thre e or more views Lorna Juarez MD Work Phone: Start: 11-14-2024 X-ray of foot, three or more views Lorna Juarez MD Work Phone: Start: 12-05-2023 C-reactive protein DANIELLE ESQUIVEL Start: 12-05-2023 CBC W Auto Different ial panel - Blood JORDAN ESQUIVEL Start: 12-05-2023 Cyanocobalamin vitam in b-12 JORDAN CHÁVEZNGER Start: 12-05-2023 Hepatic function 200 0 panel - Serum or Plasma JORDAN CHÁVEZNGER Start: 12-05-2023 T-SPOT TB JORDAN ALVAREZ Start: 11-08-2022 SURGICAL PATHOLOGY RESULTS Sam Wray MD Work Phone: Start: 11-08-2022 Sigmoidoscopy flx dx w/collj spec br/wa if pfrmd Jordan Cháveznger DO Start: 11-08-2022 Flexible sigmoidoscopy No PCP None Start: 01-02-2022 Screening mammography Start: 12-09-[address] González Wray Comment on above: Performed By: #### C BC #### [facility] [address] [place] [address] Start: 10-07-2021 Computed tomography of abdomen and pelvis with contrast Start: 06-24-[address] DENISE FERNANDEZ MD Comment on above: multiple Start: 06-24-[address] DENISE FERNANDEZ MD Start: 01-07-[address] DENISE FERNANDEZ MD Comment on above: with ballon dilation transver colon section DR DENISE FERNANDEZ MD section Referring P pari Unknown Colonoscopy No PCP None Excision of lumbar intervertebral disc DR DENISE FERNANDEZ MD History of gastrointestinal tract bypass Intestinal bypass and anastomosis status Sam Wray MD Work Phone: History of prior surgery Ref erring Provider Unknown Partial resection of colon N o PCP None Procedure on back Referring Provider Unknown Plan of Treatment Date Care Activity Detail Author Start: 06-24-2031 Screening for malign ant neoplasm of colon [facility] Start: 04-24-2029 DTaP/Tdap/Td Vaccine s (2 - Td or Tdap) DTaP/Tdap/Td Vaccines (2 - Td or Tdap) [facility] Start: 11-09-2027 Screening for malign ant neoplasm of colon [facility] Start: 12-04-2024 Cyanocobalamin vitam in b-12 Vitamin B-12 [facility] Start: 09-30-2024 End: 09-30-2025 C reactive protein [Mass/volume] in Serum or Plasma C-Reactive Protein Lab Routine Crohn's disease of small intestine with complication (Multi) Expected: 09/30/2024 (Approximate), Expires: 09/30/2025 [facility] Work Phone: Comment on above: Expected: 09/30/2024 (Approximate), Expires: 09/30/2025 Start: 09-30-2024 End: 09-30-2025 Calprotectin [Mass/mass] in Stool Calprotectin, Fecal Lab Routine Crohn's disease of small intestine with complication (Multi) Expected: 09/30/2024 (Approximate), Expires: 09/30/2025 [facility] Work Phone: Comment on above: Expected: 09/30/2024 (Approximate), Expires: 09/30/2025 Start: 09-30-2024 End: 09-30-2025 CBC W Auto Differential panel - Blood CBC and Auto Differential Lab Routine Crohn's disease of small intestine with complication (Multi) Expected: 09/30/2024 (Approximate), Expires: 09/30/2025 [facility] Service Area Work Phone: Comment on above: Expected: 09/30/2024 (Approximate), Expires: 09/30/2025 Start: 09-30-2024 End: 03-30-2026 Flexible sigmoidoscopy study Flexible Sigmoidoscopy Endoscopy Routine Crohn's disease of small intestine with complication (Multi) Expected: 09/30/2024, Expires: 03/30/2026 [facility] Work Phone: Comment on above: Expected: 09/30/2024 , Expires: 03/30/2026 Start: 09-30-2024 End: 09-30-2025 Hepatic function 2000 panel - Serum or Plasma Hepatic Function Panel Lab Routine Crohn's disease of small intestine with complication (Multi) Expected: 09/30/2024 (Approximate), Expires: 09/30/2025 [facility] Work Phone: Comment on above: Expected: 09/30/2024 (Approximate), Expires: 09/30/2025 Start: 09-30-2024 End: 09-30-2025 Mycobacterium tuberculosis stimulated gamma interferon and spot count panel - Blood T-Spot TB Lab Routine Crohn's disease of small intestine with complication (Multi) Expected: 09/30/2024 (Approximate), Expires: 09/30/2025 [facility] Work Phone: Comment on above: Expected: 09/30/2024 (Approximate), Expires: 09/30/2025 Start: 2024 RSV High Risk: (Elde rly (60+) or Population) (1 - Risk 60-74 years 1-dose series) RSV High Risk: (Elderly (60+) or Population) (1 - Risk 60-74 years 1-dose series) [facility] Start: 04-13-2024 COVID-19 Vaccine ( season) COVID-19 Vaccine ( season) [facility] Start: 04-13-2024 Influenza vaccination Influenza Vacc ine (#1) [facility] Start: 09-29-2023 Cyanocobalamin vitam in b-12 Vitamin B-12 [facility] Start: 07-24-2023 End: 07-24-2024 C reactive protein [Mass/volume] in Serum or Plasma C-Reactive Protein Lab Routine Crohn's disease of small intestine with complication (CMS/HCC) Expected: 07/24/2023 (Approximate), Expires: 07/24/2024 [facility] Service Area Work Phone: Comment on above: Expected: 07/24/2023 (Approximate), Expires: 07/24/2024 Start: 07-24-2023 End: 07-24-2024 CBC W Auto Differential panel - Blood CBC and Auto Differential Lab Routine Crohn's disease of small intestine with complication (CMS/HCC) Expected: 07/24/2023 (Approximate), Expires: 07/24/2024 [facility] Work Phone: Comment on above: Expected: 07/24/2023 (Approximate), Expires: 07/24/2024 Start: 07-24-2023 End: 07-24-2024 Cobalamin (Vitamin B12) [Mass/volume] in Serum or Plasma Vitamin B12 Lab Routine Crohn's disease of small intestine with complication (CMS/HCC) Expected: 07/24/2023 (Approximate), Expires: 07/24/2024 [facility] Work Phone: Comment on above: Expected: 07/24/2023 (Approximate), Expires: 07/24/2024 Start: 07-24-2023 End: 07-24-2024 Hepatic function 2000 panel - Serum or Plasma Hepatic Function Panel Lab Routine Crohn's disease of small intestine with complication (CMS/HCC) Expected: 07/24/2023 (Approximate), Expires: 07/24/2024 [facility] Work Phone: Comment on above: Expected: 07/24/2023 (Approximate), Expires: 07/24/2024 Start: 07-24-2023 End: 07-24-2024 Mycobacterium tuberculosis stimulated gamma interferon and spot count panel - Blood T-Spot TB Lab Routine Crohn's disease of small intestine with complication (CMS/HCC) Expected: 07/24/2023 (Approximate), Expires: 07/24/2024 [facility] Work Phone: Comment on above: Expected: 07/24/2023 (Approximate), Expires: 07/24/2024 Start: 07-24-2023 End: 07-24-2023 Patient encounter procedure 07/24/2023 10:20 AM EST Office Visit [facility] [address] [facility] [address] [place] [id number] [place] [address] Department [place] [address] [facility] Start: 04-13-2023 Influenza vaccination Influenza Vacc ine (#1) [facility] Start: 11-08-2022 SIGMO, Provider: Sam Wray, Status: Pen, Time: 1:00 PM SIGMO, Provider: Sam Wray, Status: Pen, Time: 1:00 PM MG-Gastroenterology- Admin [facility] Work Phone: Start: 04-11-2022 NPV, Provider: Sam Wray, Status: Pen, Time: 10:40 AM NPV, Provider: Sam Wray, Status: Pen, Time: 10:40 AM [facility] Work Phone: Start: 02-28-2022 VIRFUVEDWARD, Provider : Danielle Odom, Status: Pen, Time: 10:30 AM VIRFUVEDWARD, Provider: Danielle Odom, Status: Pen, Time: 10:30 AM QC-Dhkisyn-Xdgmqtz 2100 Work Phone: Start: 01-23-2022 End: 01-24-2023 [facility] Comment on above: HOLD POSTMASTER RELIEF Infusion an d notify H.O. immediately Start: 09-21-2021 COVID-19 Vaccine (4 - Pfizer series) COVID-19 Vaccine (4 - Pfizer series) [facility] Start: 04-26-2021 Pneumococcal vaccination Pneum ococcal Vaccine (2 of 2 - PCV) [facility] Start: 2014 Zoster Vaccines (1 of 2) Zoste r Vaccines (1 of 2) [facility] Start: 2004 Screening for malign ant neoplasm of breast Mammogram [facility] Start: 1986 DTaP/Tdap/Td Vaccine s (1 - Tdap) DTaP/Tdap/Td Vaccines (1 - Tdap) [facility] Start: 1985 Screening for malign ant neoplasm of cervix [facility] Start: 1982 Diabetes mellitus screening Diabetes Screening [facility] Start: 1965 MMR Vaccines (1 of 1 - Standard series) MMR Vaccines (1 of 1 - Standard series) [facility] Start: 1964 COVID-19 Vaccine (#1) COVID-19 Vacci ne (#1) [facility] Start: 1964 Hepatitis B Vaccines (1 of 3 - 3-dose series) Hepatitis B Vaccines (1 of 3 - 3-dose series) [facility] Start: 1964 HIV screening HIV Screening [facility] Start: 1964 Lipid panel Lipid Panel [facility] Start: 1964 Screening for malign ant neoplasm of colon [facility] Start: 1964 Screening for osteoporosis Bone Density Scan [facility] Start: 1964 TB Test TB Test [facility] Start: 1964 Vitamin D25-[place] Vitamin D25-[facility] Start: 1964 Yearly Adult Physical Yearly Adult P hysical [facility] Immunizations Immunization Date Immunization Notes Care Provider Dwain atwood 07-27-2021 Pfizer-BioNTech COVI D-19 Vacc 30 MCG/0.3ML Intramuscular Suspension Referring Provider Unknown [facility] [address] [facility] Work Phone: 06-22-2021 influenza, injectabl e, quadrivalent, preservative free Referring Provider Unknown [facility] [address] [facility] Work Phone: 06-22-2021 influenza virus vacc ine, unspecified formulation Sam Wray MD Work Phone: [facility] Work Phone: 11-19-2020 Pfizer-BioNTech COVI D-19 Vacc 30 MCG/0.3ML Intramuscular Suspension Referring Provider Unknown [facility] 10-29-2020 Pfizer-BioNTech COVI D-19 Vacc 30 MCG/0.3ML Intramuscular Suspension Referring Provider Unknown [facility] 05-31-2020 influenza, seasonal, injectable Referring Provider Unknown [facility] [address] [facility] Work Phone: 04-26-2020 pneumococcal polysaccharide vaccine, 23 valent Referring Provider Unknown [facility] [address] [facility] Work Phone: 04-24-2019 tetanus toxoid, redu cecily diphtheria toxoid, and acellular pertussis vaccine, adsorbed Referring Provider Unknown [facility] [address] [facility] Work Phone: 05-22-2018 influenza, injectabl e, quadrivalent, preservative free Referring Provider Unknown [facility] [address] [facility] Work Phone: 08-22-2017 Influenza, injectabl e, [place] Canine Kidney, preservative free, quadrivalent Referring Provider Unknown [facility] [address] [facility] Work Phone: Payers Date Payer Category Payer Self-pay [id number] 2022 [employer] [place] [employer] [facility] [id number] 2022 Unknown 2016 Unknown [id number] 2016 Unknown [id number] 1964 Unknown [id number] 9.2.356 1964 Unknown [id number] [id number] 9.2.356 1964 Unknown [id number] [id number] 9.2.356 1964 Unknown [id number] [id number] 9.2.356 1964 Unknown [id number] [id number] 9.2.356 1964 Unknown [id number] [id number] 9.2.356 1964 Unknown [id number] [id number] 9.2.356 1964 Unknown [id number] [id number] 9.2.356 1964 Unknown [id number] [id number] 9.2.1245 1964 Unknown [id number] [id number] 9.2.1245 Unknown [id number] [id number] 9.2.462 Unknown [id number] [id number] 9.2.462 Unknown [id number] [id number] 9.2.462 Unknown [id number] [id number] 9.2.462 Unknown [id number] [id number] 9.2.462 Social History Date Type Detail Facility Start: 06-24-2021 Ex-smoker (finding) [facility] Start: 1965 Sex Assigned At Female A [facility] Non-smoker Non-smoker [facility] [address] [facility] Work Phone: Start: 09-08-2013 Tobacco smoking stat us NHIS Unknown if ever smoked [facility] Start: 05-23-2023 Gender identity Identifies as female gender (finding) [facility] Work Phone: Sexual orientation Not on file [facility] Work Phone: Start: 07-14-2023 End: 09-30-2024 Exposure to SARS-CoV-2 (event) Not sure [facility] Start: 09-08-2013 End: 09-30-2024 Tobacco smoking status NHIS Never smoked tobacco [facility] Work Phone: Start: 09-30-2024 Tobacco use and exposure Smoke less tobacco non-user [facility] Work Phone: Start: 09-30-2024 Alcoholic beverage intake Lifetime non-drinker (finding) [facility] Work Phone: Start: 11-19-2024 End: 12-09-2024 Sex Female (finding) [facility] Functional Status Date Assessment Result Facility Functional observable [facility] Mental Status Date Assessment Result Facility 01-27-2022 Cognitive functi ons [id number] [facility] Clinical Notes 09-27-2019 to 11-15-2024 Sam Wray MD - 09/30/2024 10:00 AM ESTPatient InstructionsJeharpreet Wray MD - 07/24/2023 1:40 PM ESTPatient Instructions Note Date & Type Note Facility 11-15-2024 Radiology Diagnostic study note [facility] Imaging Services [address] [place] [address] Ankle min 3 Views MR#: [id number] Acct: [id number] Name: ELDA ELLIS Rep #: [id number] : 1965 F 59 From: Keshawn Haas MD PCP: Dr. Lorna Juarez MD Status: REG CL I Study:Ankle min 3 Views Date of Exam: Exam# [id number] Ordering Dr: Tana Juarez MD PROCEDURE: ANKLE MIN 3 VIEWS 11/14/2024 REASON FOR EXAM: RIGHT ANKLE PAIN TECHNIQUE: 3 views of the right ankle COMPARISON: None available FINDINGS: No fracture or dislocation. The joint spaces appear within limits. Soft tissueswelling about the ankle. Small enthesophyte formation Achilles side of the calcaneus. RAD/Ankle min 3 Views IMPRESSION: No fracture or dislocation. Soft tissue swelling about the ankle. Reading Location: [facility] CC: Dr. Lorna Juarez MD ~ Renewable Energy Technician: Signed [facility] 11-15-2024 Radiology Diagnostic study note [facility] Imaging Services [address] [place] [address] Foot min 3 Views MR#: [id number] Acct: [id number] Name: ELDA ELLIS Rep #: [id number] : 1965 F 59 From: Keshawn Haas MD PCP: Dr. Lorna Juarez MD Status: REG CL I Study:Foot min 3 Views Date of Exam: 12/05 Exam# [id number] Ordering Dr: Tana Juarez MD EXAM: Foot minimum three views CLINICAL HISTORY: Pain COMPARISON: None available TECHNIQUE: Three views left foot FINDINGS: No fracture or dislocation. Joint spaces appear within limits. No osseous lesion identified. RAD/Foot min 3 Views IMPRESSION: Study appears within limits. Reading Location: [facility] CC: Dr. Lorna Juarez MD ~ Renewable Energy Technician: Signed [facility] 09-30-2024 History of Present illness Narrative REASON FOR VISIT: Crohn's disease HPI: Elda Ellis is a 59 y.o. female who presents for follow-up. Last seen virtually 07/2023. Crohn's Disease since 2019, with proximal transverse colon stricture with history of LGD on biopsy. Disease was only minimally symptomatic. Patient was treated with Humira every 2 weeks and mesalamine. Her disease was incidentally diagnosed during her first screening colonoscopy 2019. During that procedure, found severe inflammation and colonic stricture at transverse colon. 12/2020 subsequent colonoscopy with dilation and biopsy with LGD. Again underwent endoscopy and colonic balloon dilation with biopsy on 06/24/21 with TVA. She never had a complete evaluation beyond the stricture. CTE on 10/07/21 demonstrated diffuse narrowing from hepatic flexure to rectosigmoid colon. She underwent exploratory laparotomy, abdominal colectomy and MATEUS on 01/23/22. Path showed multifocal low-grade dysplasia in a background of chronic active colitis in the transverse colon. In the ascending colon there was a focus of high-grade dysplasia in a background of sessile serrated changes. Seen for post-op discussion 03/2022. She never did well on Humira and didn't seem to tolerate well. Decision made to initiate Stelara (04/2022) for post-op maintenance. When first seen, stools were 8 times daily; loperamide added. With time did better with stools down to 4 daily. 10/2022 flex sig showed inactive rectal disease. Otherwise was normal. Path with patchy chronic inflammation in rectum Seen virtually 07/2023 and reported that she had an upper respiratory infection in June 2023. She was treated with antibiotics. She did not have labs or x-rays. This improved, but, unfortunately her became ill with COVID and patient also became COVID-positive. Otherwise was doing well . Tolerating Stelara without difficulty. Her bowel movements were 3-4 daily. Rare urgency and rare fecal soiling. In follow-up today, overall doing OK. She has gained a lot of weight, weight is up 31 lbs since surgery. She feels like she has a lot of inflammation with discomfort in knees and ankles. Some ankle swelling. Reports a lot of stress personally and at work. Wants to get weight off. Plans to meet with air duct mechanic in [place]. Bms depend on what eats. Stools 3-5 daily. Some urgency. Stool usually soft to mushy. No nocturnal stools; first thing in AM. Goes after dinner and then again between 4-5 AM when she is getting up. Very rare accidents; unable to always know if gas or if something will come out. Happens 2-3 times a year. Does not take loperamide. She has also never tried a fiber supplement. Trying to add more fiber to diet. Sometimes recognized food in the stool. No issues with Stelara. REVIEW OF SYSTEMS Mild occasional nausea; no emesis. Some heartburn, usually daily. Uses Tums frequently. Some LUQ gas pains. Past Medical History: Diagnosis Date Essential (primary) hypertension 04/11/2022 Hypertension, unspecified type Personal history of other endocrine, nutritional and metabolic disease History of high cholesterol Personal history of other endocrine, nutritional and metabolic disease History of diabetes mellitus Past Surgical History: Procedure Laterality Date OTHER SURGICAL HISTORY 09/27/2021 section OTHER SURGICAL HISTORY 09/27/2021 Back surgery OTHER SURGICAL HISTORY 09/27/2021 History of prior surgery OTHER SURGICAL HISTORY 04/11/2022 Colonoscopy OTHER SURGICAL HISTORY 04/11/2022 Appendectomy OTHER SURGICAL HISTORY 04/11/2022 Colectomy subtotal Current Outpatient Medications Medication Sig Dispense Refill Stelara injection INJECT 90 MG UNDER THE SKIN EVERY 8 WEEKS 1 mL 5 No current facility-administered medications for this visit. PHYSICAL EXAM: BP 146/76 Pulse 79 Temp 36.4 C (97.6 F) Wt 109 kg (239 lb 14.4 oz) SpO2 95% Comment: ra BMI 45.33 kg/m Vital signs reviewed. Obese in NAD. Patient alert and oriented in no acute distress Anicteric No cervical adenopathy Cardiac exam regular rate and rhythm S1-S2 without murmurs gallops or rubs Lungs clear to auscultation bilaterally Abdomen soft and nontender without organomegaly or mass. No rebound or guarding. Bowel sounds present Extremities without edema Neurologically grossly intact Lab Results Component Value Date WBC 8.3 12/05/2023 HGB 12.5 12/05/2023 HCT 37.7 12/05/2023 MCV 89 12/05/2023 PLT 381 12/05/2023 Lab Results Component Value Date ALT 25 12/05/2023 AST 19 12/05/2023 ALKPHOS 81 12/05/2023 BILITOT 0.5 12/05/2023 ASSESSMENT #Crohn's disease-I suspect that her Crohn's disease is under good control. We will go ahead and check a stool fecal calprotectin and plan for endoscopic surveillance given her history of dysplasia at surgery. Will continue Stelara therapy. Labs are due for monitoring. Since stool frequency and looseness is an issue, I have recommended starting a fiber supplement and also adding loperamide 1 to 2 tablets 2-3 times daily as needed. # Heartburn/GERD-this is likely related to her increased weight gain. We will start famotidine 40 mg twice daily # Weight gain-she is frustrated with her weight gain. She is planning to meet with a dietitian locally in [place] for advice at dropping weight. I told her that if she is unable to manage with just dietary adjustment, we could refer to bariatric surgery for evaluation, or, she could speak with her primary physician regarding a GLP-1 agonist. PLAN 1) check labs 2) check stool studies 3) continue Stelara every 8 weeks 4) try adding a fiber supplement, such as Metamucil, Benefiber, Citrucel or similar psyllium fiber supplement starting at 1 teaspoon daily in 8 ounces of water for 1 week, then increasing by 1 teaspoon every week until taking 3 teaspoons daily as tolerated 5) also try adding loperamide (Imodium) 1 to 2 tablets 2-3 times daily as needed to decrease stool frequency. If you become constipated, you need to decrease the amount of loperamide that you are taking 6) schedule flexible sigmoidoscopy for the [facility] sometime over the summer. One of our schedulers, Yasmeen Benz, will contact you to set up this appointment. If you have any questions you can reach her at [phone]. 7) I support your plan to speak with a air duct mechanic/dietitian regarding dietary changes to help with weight reduction 8) if you try dietary adjustment and it is not helpful, you could discuss starting on a GLP-1 agonist (like Ozempic or Wegovy) with your primary care physician 9) as long as symptoms are stable, follow-up in the office in 1 year documented in this encounter [facility] Work Phone: 09-30-2024 Instructions Sam Wray MD - 09/30/2024 10:00 AM EST As we discussed today, I think that your Crohn's disease is likely under adequate control on Stelara therapy. Your bowel habits likely related to the change in anatomy from your surgery. We will do some evaluation to make sure that there is no precancerous changes (dysplasia) or inflammation. As reviewed today: PLAN 1) check labs 2) check stool studies 3) continue Stelara every 8 weeks 4) try adding a fiber supplement, such as Metamucil, Benefiber, Citrucel or similar psyllium fiber supplement starting at 1 teaspoon daily in 8 ounces of water for 1 week, then increasing by 1 teaspoon every week until taking 3 teaspoons daily as tolerated 5) also try adding loperamide (Imodium) 1 to 2 tablets 2-3 times daily as needed to decrease stool frequency. If you become constipated, you need to decrease the amount of loperamide that you are taking 6) schedule flexible sigmoidoscopy for the [facility] sometime over the summer. One of our schedulers, Yasmeen Benz, will contact you to set up this appointment. If you have any questions you can reach her at [phone]. 7) I support your plan to speak with a air duct mechanic/dietitian regarding dietary changes to help with weight reduction 8) if you try dietary adjustment and it is not helpful, you could discuss starting on a GLP-1 agonist (like Ozempic or Wegovy) with your primary care physician 9) as long as symptoms are stable, follow-up in the office in 1 year documented in this encounter [facility] Work Phone: 07-24-2023 History of Present illness Narrative REASON FOR VISIT: F/U for Crohn's disease HPI: Elda Ellis is a 58 y.o. female who presents for follow-up of Crohn's Disease since 2019, with proximal transverse colon stricture with history of LGD on biopsy. Disease was only minimally symptomatic. Patient was treated with Humira every 2 weeks and mesalamine. Her disease was incidentally diagnosed during her first screening colonoscopy 2019. During that procedure, severe inflammation and colonic stricture at transverse colon. 12/2020 subsequent colonoscopy with dilation and biopsy with LGD. Again underwent endoscopy and colonic balloon dilation with biopsy on 06/24/21 with TVA. She never had a complete evaluation beyond the stricture. CTE on 10/07/21 demonstrated diffuse narrowing from hepatic flexure to rectosigmoid colon. She underwent exploratory laparotomy, abdominal colectomy and MATEUS on 01/23/22. Seen for post-op discussion 03/2022. She never did well on Humira and didn't seem to tolerate well. Decision made to initiate Stelara (04/2022) for post-op maintenance. When first seen, stools were 8 times daily; loperamide added. With time did better with stools down to 4 daily. 10/2022 flex sig showed inactive rectal disease. Otherwise was normal. In follow-up today, patient reports that she had an upper respiratory infection in June 2023. She was treated with antibiotics. She did not have labs or x-rays. This improved, but, unfortunately her became ill with COVID and now she is also COVID-positive. She is due to dose with her Stelara on 07/29/2024. Overall, besides the upper respiratory infection and the COVID she has been doing well. She has tolerated Stelara without difficulty. Her bowel movements are 3-4 daily. The stool is soft. Is looser if she eats fatty food. She has no constipation. Her bowel habits vary a bit in form based on what she eats. She is slowly adding fruits and vegetables to her diet. She does have some urgency and has had a rare episode of incontinence. She is tolerating Stelara without difficulty. There are no side effects associated with this. She does, however, notes some ankle and foot tenderness. REVIEW OF SYSTEMS Complete review of systems otherwise negative per complaint Past Medical History: Diagnosis Date Essential (primary) hypertension 04/11/2022 Hypertension, unspecified type Personal history of other endocrine, nutritional and metabolic disease History of high cholesterol Personal history of other endocrine, nutritional and metabolic disease History of diabetes mellitus Past Surgical History: Procedure Laterality Date OTHER SURGICAL HISTORY 09/27/2021 section OTHER SURGICAL HISTORY 09/27/2021 Back surgery OTHER SURGICAL HISTORY 09/27/2021 History of prior surgery OTHER SURGICAL HISTORY 04/11/2022 Colonoscopy OTHER SURGICAL HISTORY 04/11/2022 Appendectomy OTHER SURGICAL HISTORY 04/11/2022 Colectomy subtotal No current outpatient medications on file. No current facility-administered medications for this visit. PHYSICAL EXAM: There were no vitals taken for this visit. Lab Results Component Value Date WBC 8.6 09/29/2022 HGB 12.0 09/29/2022 HCT 36.6 09/29/2022 MCV 89 09/29/2022 PLT 381 09/29/2022 Lab Results Component Value Date ALT 28 09/29/2022 AST 20 09/29/2022 ALKPHOS 102 09/29/2022 BILITOT 0.5 09/29/2022 ASSESSMENT #Crohn's disease-diagnosed in 2019 with colonic stricture and low-grade dysplasia. She is status post abdominal colectomy with ileorectal anastomosis in 06/2021. Postoperatively we started Stelara which she has been tolerating without difficulty. Bowel habits have gradually improved. Flexible sigmoidoscopy in October 2022 showed no disease activity. She now has COVID and is due to dose with Stelara in several days. She was instructed to hold her Stelara until at least 08/05/2023. If she is feeling well at that time she can then go ahead and dose. We did review risk associated with Stelara therapy including but not limited to the risk of infection and lymphoma. She knows to hold her Stelara if she is feeling ill at the time that she is due to dose. She is due for some laboratory monitoring in the early part of 2023 which will be ordered. Otherwise, as long as she is doing well she can follow-up sometime between 9 and 12 months. I do not think she needs another sigmoidoscopy until 2025 unless she has worsening symptoms suggesting disease activity. PLAN 1) hold Stelara until at least 08/05/2023. If at that time you are feeling well, you can dose with your Stelara. However, if you are not feeling well at that time you should continue to hold Stelara and call the office for instructions 2) once you resume Stelara dosing, continue every 8 weeks 3) check labs in September 2023 as ordered today; you can do this at any [facility] laboratory such as the 1 in [place] 4) as long as symptoms are stable and you are feeling okay, follow-up in the office between April and July 2024 5) call the office with any worsening symptoms, questions, or concerns documented in this encounter [facility] Work Phone: 07-24-2023 Instructions Sam Wray MD - 07/24/2023 1:40 PM EST Thank you for speaking with me today for a virtual telehealth visit. I am glad that, overall, you are tolerating Stelara and your Crohn's disease seems under control. I hope that you recover from your current COVID infection without difficulty. As a reminder, if you are ill, you should not dose with your Stelara but you should hold the medication until feeling better and then resume dosing once improved. If you have any questions about this call the office. As we reviewed today: Plan: PLAN 1) hold Stelara until at least 08/05/2023. If at that time you are feeling well, you can dose with your Stelara. However, if you are not feeling well at that time you should continue to hold Stelara and call the office for instructions 2) once you resume Stelara dosing, continue every 8 weeks 3) check labs in September 2023 as ordered today; you can do this at any [facility] laboratory such as the 1 in [place] 4) as long as symptoms are stable and you are feeling okay, follow-up in the office between April and July 2024 5) call the office with any worsening symptoms, questions, or concerns documented in this encounter [facility] Work Phone: 01-26-2023 Note Patient Name: Gayle Ellis Procedure Date: 11/08/2022 1:03 PM Date of : 1965 Admit Type: Outpatient Site: [place] Procedure Room 6 Ethnicity: Not or Race: White Attending MD: Sam Wray MD, [id number] Procedure: Flexible Sigmoidoscopy Indications: High risk colon cancer surveillance: Crohn's colitis with known dysplasia (previous visible dysplastic lesion removed completely). S/P surgery withTAc and IR anastomosis 01/2022. Providers: Sam Wray MD (Doctor), Jovanna Esquivel RN (Nurse), Joslyn Cruz Branch Office Manager (Nurse), Gerber Watkins, Branch Office Manager Referring: Jordan Esquivel MD Medicines: Midazolam 4 mg IV, Meperidine 100 mg IV Complications: No immediate complications. Procedure: Pre-Anesthesia Assessment: - Prior to the procedure, a History and Physical was performed, and patient medications and allergies were reviewed. The patient is competent. The risks and benefits of the procedure and the sedation options and risks were discussed with the patient. All questions were answered and informed consent was obtained. Patient identification and proposed procedure were verified by the physician and the nurse in the endoscopy suite. Mental Status Examination: alert and oriented. Airway Examination: Mallampati Class III (part of the uvula and soft palate visualized). Respiratory Examination: clear to auscultation. CV Examination: normal. Prophylactic Antibiotics: The patient does not require prophylactic antibiotics. Prior Anticoagulants: The patient has taken no anticoagulant or antiplatelet agents. ASA Grade Assessment: II - A patient with mild systemic disease. After reviewing the risks and benefits, the patient was deemed in satisfactory condition to undergo the procedure. The anesthesia plan was to use moderate sedation / analgesia (conscious sedation). Immediately prior to administration of medications, the patient was re-assessed for adequacy to receive sedatives. The heart rate, respiratory rate, oxygen saturations, blood pressure, adequacy of pulmonary ventilation, and response to care were monitored throughout the procedure. The physical status of the patient was re-assessed after the procedure. After obtaining informed consent, the endoscope was passed under direct vision. Throughout the procedure, the patient's blood pressure, pulse, and oxygen saturations were monitored continuously. The adult colonoscope was introduced through the anus and advanced to the ileo-rectal anastomosis. The flexible sigmoidoscopy was accomplished without difficulty. The patient tolerated the procedure well. The quality of the bowel preparation was good. Findings: The perianal and digital rectal examinations were normal. The examined ileum was normal. There was evidence of a prior end-to-side ileo-rectal anastomosis in the proximal rectum at 25 cm from the anus. This was patent and was characterized by healthy appearing mucosa. The anastomosis was widely patent and easily traversed. Very mild focal inflammation characterized by a few 1-2 mm erosions and mild patchy erythema was found focally just distal to the ileo-rectal anastomosis surrounded by otherwise normal mucosa. The rectum was spared. The inflammation was mild in severity. Biopsies were taken with a cold forceps for histology. The pathology specimen was placed into Bottle A. The exam was otherwise without abnormality. No additional abnormalities were found on retroflexion. Moderate Sedation: Moderate (conscious) sedation was administered by the nurse and supervised by the endoscopist. The following parameters were monitored: oxygen saturation, heart rate, blood pressure, and response to care. Total physician intraservice time was 12 minutes. Impression: - Patent (more content not included)... PROVATION - 08-01-2022 Chief complaint Narrative - Reported An interactive audio and video telecommunication system which permits real time communications between the patient (at the originating site) and provider (at the distant site) was utilized to provide this telehealth service.Verbal consent was requested and obtained from ELDA ELLIS on this date, 08/01/2022 01:00 PM , for a telehealth visit.Virtual follow-up for Crohn's disease [id number] ll 6 [facility] Work Phone: 02-28-2022 Chief complaint Narrative - Reported An interactive audio and video telecommunication system which permits real time communications between the patient (at the originating site) and provider (at the distant site) was utilized to provide this telehealth service.Verbal consent was requested and obtained from ELDA ELLIS on this date, 02/28/2022 10:30 AM , for a telehealth visit.[id number] Work Phone: 02-28-2022 Chief complaint Narrative - Reported An interactive audio and video telecommunication system which permits real time communications between the patient (at the originating site) and provider (at the distant site) was utilized to provide this telehealth service.Verbal consent was requested and obtained from ELDA ELLIS on this date, 02/28/2022 10:30 AM , for a telehealth visit.[facility] Work Phone: 02-28-2022 Chief complaint Narrative - Reported An interactive audio and video telecommunication system which permits real time communications between the patient (at the originating site) and provider (at the distant site) was utilized to provide this telehealth service.Verbal consent was requested and obtained from ELDA ELLIS on this date, 02/28/2022 10:30 AM , for a telehealth visit.[facility] Work Phone: 01-29-2022 Note Send Summary: Discharge Summary Providers: Provider RoleProvider Name ReferringAdiel Black PrimaryRequired, No Pcp Adiel Perez Note Recipients: Adiel Black MD Required, No PcpMD Discharge: Summary: Admission Date: .23-Jan-2022 11:22:00 Discharge Date: 29-Jan-2022 Attending Physician at Discharge: Adiel Black Admission Reason: Chrons colitis Final Discharge Diagnoses: Crohn's disease of colon Procedures: Date: 23-Jan-2022 16:44:00 Procedure Name: 1. Exploratory laparotomy 2. Abdominal colectomy 3. Ileorectal anastomosis 4. 5. Condition at Discharge: Satisfactory Disposition at Discharge: .Home Physical Exam: General: NAD, Alert and oriented HEENT: normocephalic, EOMI, PERRLA, trachea in midline Chest: non labored breathing, b/l chest rise, saturating on RA CV: RR, b/l UE/LE pulses, no peripheral edema Abd: soft, nontender, nondistended, non-peritonitic MSK/neuro: grossly intact Skin: intact Psych: normal mood and affect Hospital Course: Elda Ellis is a 56 year old female post op day 6 from exploratory laparotomy, abdominal colectomy, ileorectal anastomosis for transverse stricture. Patient doing well overall. Tolerating soft diet. Anticipate discharge Today on lovenox Discharge Information: and Continuing Care: Lab Results - Pending: Surgical Pathology Drawn at 23-Jan-2022 16:40:00 Radiology Results - Pending: None Discharge Instructions: Activity: activity as tolerated. May shower.. May not drive while taking narcotics. No pushing, pulling, or lifting objects greater than 10 pounds for 4 week(s). Weight-bearing Instructions: full weight bearing. Nutrition/Diet: Diet Consistency/Texture: soft, soft diet x 4 weeks. Avoid raw fruits and vegetables for couple weeks and slowly advance into diet as tolerated. Appetitie will return slowly, eat smaller more frequent meals at first, push away from table once full. Encourage Fluids: Drink plenty of a variety of fluids to prevent dehydration. Signs of dehydration are: dry mouth, dark yellow urine in small amounts, and dizziness with change in position or increased feeling of weakness/tiredness. Additive/Supplement: Supplements: ensure surgery 1 serving by mouth three times a day until gone Wound Care: Wound Site: abdomen Wound Type: surgical incision Change Dressin times a day Cleanse With: soap and water Cover With: no dressing, leave open to air Instructions: no lotions, creams, or tub soaks Other Instructions: You have beto remaining in your incision. These will come out approximately 2 weeks from your surgery date. This incision may get wet, pat dry and cover as needed to protect your clothing, otherwise you may leave this incision open to air. Additional Orders: Additional Instructions: Drink plenty of a variety of fluids to prevent dehydration. Signs of dehydration are: dry mouth, dark yellow urine in small amounts, and dizziness with change in position or increased feeling of weakness/tiredness. You may notice small amount of blood with first BM, this is not unusual and she disappear quickly. Your bowel function with be loose and frequent at first. This will become more normal over couple weeks. Consistency of stool will be more soft or oatmeal consistency For diarrhea stools incorporate foods from the BRAT diet. This is a bland diet that consists of foods low in fiber: bananas, rice, applesauce and toast are beto of the diet. You can also add tea, tapioca and yogurt if you would like. Be sure to drink plenty of fluids if you are having diarrhea, as you can become dehydrated quickly. Enoxaparin (Lovenox) is a blood thinner used to prevent or treat blood clots. Enoxaparin (Lovenox) is administered only by injection under the skin using a small needle and syringe. Injections can be given once or twice a day. You are taking enoxaparin (Lovenox) for __prevention of blood clots___. You will continue to take enoxaparin (Lovenox) for __28 days post-op__. It is important that you give the injections at the same time each day. It is important that you continue your enoxaparin until told to stop. If you forget an injection, contact your doctor for advice as to when you should give your next injection. Let everyone involved in your care, such as a dentist or other provider, know that you are taking enoxaparin (Lovenox). Side Effects: - Skin bruises, itching, and bleeding around the injection site, can occur. - If bleeding does occur, it may take a little longer than usual to stop. Let your doctor know if you develop a rash of dark red spots under the skin. Signs of bleeding that you should call your doctor: - Gums that bleed after brushing your teeth lasting more than 15 minutes. - A nose bleed that lasts for more than 15 minutes. - Bleeding from a cut that does not stop in 15 minutes. - Urine that lo (more content not included)... [facility] 01-23-2022 Note History of Present I llness: /Lactating: Are You no Are You Currently Breastfeedingno History Present Illness: Reason for surgery: Crohns colitis HPI: Crohns colitis with stricture, here for subtotal colectomy and MATEUS Allergies: Allergies: penicillin: Unknown erythromycin: Unknown Toprol-XL: Unknown Intolerances: predniSONE: Anxiety Home Medication Review: Home Medications Reviewed: yes Impression/Procedure: Impression and Planned Procedure: subtotal MATEUS ERAS (Enhanced Recovery After Surgery): ERAS Patient: yes CPM/PAT Utilization: no Immunonutrition Recovery Drink Utilization: no Carbohydrate Supplement Drink Utilization: no Physical Exam by System: Respiratory/Thorax: Non labored Cardiovascular: REgular rate Consent: COVID-19 Consent: COVID-19 Risk ConsentSurgeon has reviewed contreras risks related to the risk of geraldine COVID-19 and if they contract COVID-19 what the risks are. Attestation: Note Completion: I am a: Resident/Fellow Attending AttestationI saw and evaluated the patient. I personally obtained the contreras and critical portions of the history and physical exam or was physically present for contreras and critical portions performed by the resident/fellow. I reviewed the resident/fellows documentation and discussed the patient with the resident/fellow. I agree with the resident/fellows medical decision making as documented in the note. I personally evaluated the patient [id number] Electronic Signatures: Paige Colbert (Resident)) (Signed 23-Jan-2022 13:01) Authored: History of Present Illness, Allergies, Home Medication Review, Impression/Procedure, ERAS, Physical Exam, Consent, Note Completion Adiel Black) (Signed 24-Jan-2022 10:07) Authored: Note Completion Co-Signer: History of Present Illness, Allergies, Home Medication Review, Impression/Procedure, ERAS, Physical Exam, Consent, Note Completion Last Updated: 24-Jan-2022 10:07 by Adiel Black) [facility] 10-07-2021 History of Present illness Narrative Elda Ellis is a 56F with Crohn's Disease and proximal transverse colon stricture with history of LGD on biopsy. CTE on 10/07/21 demonstrates diffuse narrowing from hepatic flexure to rectosigmoid colon. She underwent exploratory laparotomy, abdominal colectomy and MATEUS on 01/23/22.Overall, doing well. She is moving her bowels about 4-6 times a day. Stool consistency is thickening up. She is eating and drinking. She denies any nausea/vomiting. She denies any fever/chills. She is still sore. She did start working at home. We will do Lovenox injections. Complaints of tenderness at the injection site. [id number] Work Phone: 10-07-2021 History of Present illness Narrative Elda Ellis is a 56F with Crohn's Disease and proximal transverse colon stricture with history of LGD on biopsy. CTE on 10/07/21 demonstrates diffuse narrowing from hepatic flexure to rectosigmoid colon. She underwent exploratory laparotomy, abdominal colectomy and MATEUS on 01/23/22.Overall, doing well. Back to work. She is having 5-6 BM's daily. Stools are semi-formed to oatmeal consistency. Her incision is healed. Denies any N/V, F/C. [id number] Work Phone: 10-07-2021 History of Present illness Narrative Elda Ellis is a 56F with Crohn's Disease and proximal transverse colon stricture with history of LGD on biopsy. CTE on 10/07/21 demonstrates diffuse narrowing from hepatic flexure to rectosigmoid colon. She underwent exploratory laparotomy, abdominal colectomy and MATEUS on 01/23/22.Overall, doing well. Back to work. She is having 5-6 BM's daily. Stools are semi-formed to oatmeal consistency. Her incision is healed. Denies any N/V, F/C. [facility] Work Phone: 10-07-2021 History of Present illness Narrative Elda Ellis is a 56F with Crohn's Disease and proximal transverse colon stricture with history of LGD on biopsy. CTE on 10/07/21 demonstrates diffuse narrowing from hepatic flexure to rectosigmoid colon. She underwent exploratory laparotomy, abdominal colectomy and MATEUS on 01/23/22.Overall, doing well. Back to work. She is having 5-6 BM's daily. Stools are semi-formed to oatmeal consistency. Her incision is healed. Denies any N/V, F/C. [facility] Work Phone: 06-24-2021 Evaluation + Plan note Extrac stacia from: Title:Clinical Document Author:DENISE FERNANDEZ Date:06/24/21 [place] ADMISSION HISTORY A [place] PHYSICIAL CHIEF COMPLAINT: HISTORY OF PRESENT ILLNESS: REVIEW OF SYSTEMS: ACTIVE PROBLEMS: (9) Abdominal pain ([id number]) Arthritis ([id number]) Asthma ([id number]) COVID-19 ([id number]) Crohn disease ([id number]) IBS (irritable bowel syndrome) (44629014) Obesity with body mass index (BMI) of 35.0 to 39.9 without comorbidity ([id number]) Psoriasis ([id number]) Ulcerative colitis ([id number]) MEDICATIONS: Active Inpt Meds: None Active PRN Meds: None One Time Meds: None Active IV Meds: Lactated Ringers Infusion 1,000 mL (LR 1,000 mL) Start: 06/24/21 8:14:00 EST, Rate: 50 mL/hr ALLERGIES: (4) erythromycin penicillin predniSONE Toprol-XL FAMILY HISTORY: SOCIAL HISTORY: PHYSICAL EXAM: VITALS: [id number](kg) 06/24 08:[id number]/12 93.2 24 Hr Tmax: 37.3 at 06/24 08:26 36 Hr Tmax: 37.3 at 06/24 08:26 Vital Signs are the last 5 in the past 48 hours. Weights display the last 5 within 7 days. Initial Wt: 06/24 93.2 kg 205 lb Current Wt: 06/24 93.2 kg 205 lb GENERAL: HEENT: CARDIOVASCULAR: RESPIRATORY: ABDOMEN: EXREMETIES: NEUROLOGICAL: PSYCHIATRIC: LABS: No 36hr Lab Data DIAGNOSTICS: IMPRESSION: PLAN: History and Physical Update I have examined the patient; reviewed the H&P and there are no changes to the H&P unless noted below. History and Physical Update I have examined the patient; reviewed the H&P and there are no changes to the H&P unless noted below. [facility] 11-12-2021 Hospital Discharge instructions Patient Education 06/24/2021 10:33:00 Colonoscopy, Adult, Care After Colonoscopy, Adult, Care After This sheet gives you information about how to care for yourself after your procedure. Your health care provider may also give you more specific instructions. If you have problems or questions, contact your health care provider. What can I expect after the procedure? After the procedure, it is common to have: A small amount of blood in your stool for 24 hours after the procedure. Some gas. Mild abdominal cramping or bloating. Follow these instructions at home: General instructions For the first 24 hours after the procedure: ?Do not drive or use machinery. ?Do not sign important documents. ?Do not drink alcohol. ?Do your regular daily activities at a slower pace than normal. ?Eat soft, tons-pv-sglups foods. Take wbmp-emi-eiuvrel or prescription medicines only as told by your health care provider. Relieving cramping and bloating Try walking around when you have cramps or feel bloated. Apply heat to your abdomen as told by your health care provider. Use a heat source that your healthcare provider recommends, such as a moist heat pack or a heating pad. ?Place a towel between your skin and the heat source. ?Leave the heat on for 20 30 minutes. ?Remove the heat if your skin turns bright red. This is especially important if you are unable to feel pain, heat, or cold. You may have a greater risk of getting burned. Eating and drinking Drink enough fluid to keep your urine pale yellow. Resume your normal diet as instructed by your health care provider. Avoid heavy or fried foods thatare hard to digest. Avoid drinking alcohol for as long as instructed by your health care provider. Contact a health care provider if: You have blood in your stool 2 3 days after the procedure. Get help right away if: You have more than a small spotting of blood in your stool. You pass large blood clots in your stool. Your abdomen is swollen. You have nausea or vomiting. You have a fever. You have increasing abdominal pain that is not relieved with medicine. Summary After the procedure, it is common to have a small amount of blood in your stool. You may also have mild abdominal cramping and bloating. For the first 24 hours after the procedure, do not drive or use machinery, sign important documents, or drink alcohol. Contact your health care provider if you have a lot of blood in your stool, nausea or vomiting, a fever, or increased abdominal pain. This information is not intended to replace advice given to you by your health care provider. Make sure you discuss any questions you have with your health care provider. Document Released: 03/13/2005 Document Revised: 05/22/2018 Document Reviewed: 10/10/2016 [employer] Patient Education 2019 [email or web address]. Follow Up Care 04/28/2021 10:06:47 With:DENISE FERNANDEZ Address: [address] [address]- [phone] Business (1) When: only if needed Comments:Dr. Fernandez's office will call you with the results of your biopsy. [facility] 02-15-2020 History of Present illness Narrative* Elda Ellis is a 56F with history of Crohn's Disease with proximal transverse colon stricture.She was diagnosed 2 years ago on her first ever screening colonoscopy which showed inflammation miguelina stricture of the transverse colon. She has had 3-4 attempts at endoscopic dilation of the stricture. Underwent colonoscopy and dilation 01/07/21 with dilation and biopsy with LGD. Again underwent endoscopy and dilation with biopsy on 06/24/21with TVA. She has never had a complete evaluation beyondthe stricture. Currently on Humira and Mesalamine. BE shows stricture in proximal transverse colon near hepatic flexure. * She describes a history of abdominal pain and IBS like symptoms for 5-10 years. She continues to experience worsening of her abdominal pain which is located near the epigastrium, intermittent, constant, not related to meals. She usually has daily loose BMs since the stricture was diagnosed. She has never had blood in the stool. Denies nausea or vomiting but occasionally has bloating. * She reports hemorrhoids as her only perianal disease. She has never had complications related to . Her only child was born via without complication. 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 Work Phone: Evaluation note* Respiratory/Thorax: Non laboredCardiovascular: REgular rate [facility]* Diagnosis Crohn's disease of large intestine with intestinal obstruction (CMS/HCC) Encounter for screening for malignant neoplasm of colon Crohn's disease, unspecified, without complications (CMS/HCC) Noninfective gastroenteritis and colitis, unspecified Essential (primary) hypertension Unspecified essential hypertension Pure hypercholesterolemia, unspecified Gastro-esophageal reflux disease without esophagitis Unspecified asthma, uncomplicated Anxiety disorder, unspecified Intestinal bypass and anastomosis status Acquired absence of other specified parts of digestive tract Allergy status to penicillin documented in this encounter [facility] Work Phone: Evaluation note* Diagnosis Crohn's disease of small intestine with complication (CMS/HCC)- Primary documented in this encounter [facility] Work Phone: Evaluation note* Diagnosis Crohn's disease of small intestine with complication (Multi)- Primary Gastroesophageal reflux disease, unspecified whether esophagitis present Obesity (BMI 30-39.9) documented in this encounter [facility] Work Phone: History of Present illness Narrative* Pre-Procedure Checklist * Allergies were reviewed: yes * Medications were reviewed: yes * Recent vaccinations: DENIES. * Contraindications to Treatment: * Recent illness: DENIES. * Recent dental work: DENIES. * Recent surgery: DENIES. * Recent infections DENIES. * Planned dental work: DENIES. * Planned surgery: DENIES. * : DENIES. * PT ON DOXYCYCLINE 20MG BID . * Pain Scale: On a scale of 0 to 10, the patient rates the pain at 0. * Contraindications based on patients history? No contraindications based on patient's history -[facility] [address] Work Phone: History of Present illness Narrative* F/U for 57 y.o., woman with Crohn's Disease since 2019, with proximal transverse colon stricture with history of LGD on biopsy. Disease was only minimally symptomatic. Patient was treated with Humiraevery 2 weeks and mesalamine. Her disease was incidentally diagnosed during her first screening colonoscopy 2019. During that procedure, severe inflammation and colonic stricture at transverse colon. * Since diagnosis, patient underwent subsequent colonoscopy 01/07/21 with dilation and biopsy with LGD. Again underwent endoscopy and colonic balloon dilation with biopsy on 06/24/21 with TVA. She neverhad a complete evaluation beyond the stricture. * CTE on 10/07/21 demonstrated diffuse narrowing from hepatic flexure to rectosigmoid colon. She underwent exploratory laparotomy, abdominal colectomy and MATEUS on 01/23/22. * Seen for post-op discussion 03/2022. She never did well on Humira and didn't seem to tolerate well. Decision made to initiate Stelara for post-op maintenance. When first seen, stools were 8 times daily; loperamide added. * In virtual follow-up today, she is overall feeling better than when she was initially seen back in April. Bowel movements have decreased from approximately 8 daily to about 4 daily. She has 2-3 stools in the morning and 1-2 later in the day. Some nights she may have a nocturnal stool if she eats late. Stool form varies. The stool is never solid or hard, but it is softly formed. She is not constipated. On occasion she might have a watery stool. She does not have significant urgency. She willhave an occasional episode of lower abdominal cramping discomfort that improves with bowel movement. She has no incontinence. * Her energy is improved. She is eating well. Weight is stable. She denies any oral ulcers, acute joint inflammation, rash, or eye inflammation. She does have some chronic joint discomfort in the neck and in both knees. * She is tolerating Stelara without difficulty. She had her induction dose in late April and 1 maintenance dose. Her next maintenance dose is due 08/23/2021. [facility] Work Phone: Hospital course Narrative No data available for this section [facility] Hospital Discharge instructions* Activity:activity as tolerated. May shower. May not drive while taking narcotics. No pushing, pulling, or lifting objects greater than 10 pounds for 4 week(s). Weight- bearing Instructions: full weight bearing. * Wound Care 1:Wound Site: abdomenWound Type: surgical incisionChange Dressin times, a dayCleanseWith: soap and waterCover With: no dressing, leave open to airInstructions: no lotions, creams, or tub soaksOther Instructions: You have beto remaining in your incision. These will come out approximately 2 weeks from your surgery date. This incision may get wet, pat dry and cover as needed to protect your clothing, otherwise you may leave this incision open to air. * Additional Orders:Additional Instructions: Drink plenty of a variety of fluids to prevent dehydration. Signs of dehydration are: dry mouth, dark yellow urine in small amounts, and dizziness with change in position or increased feeling of weakness/tiredness.You may notice small amount of blood with first BM, this is not unusual and she disappear quickly. Your bowel function with be loose and frequent at first. This will become more normal over couple weeks. Consistency of stool will be more softor oatmeal consistencyFor diarrhea stools incorporate foods from the BRAT diet. This is a bland diet that consists of foods low in fiber: bananas, rice, applesauce and toast are beto of the diet. You can also add tea, tapioca and yogurt if you would like. Be sure to drink plenty of fluids if youare having diarrhea, as you can become dehydrated quickly.Enoxaparin (Lovenox ) is a blood thinner used to prevent or treat blood clots.Enoxaparin (Lovenox ) is administered only by injection under the skin using a small needle and syringe. Injections can be given once or twice a day.You are takingenoxaparin (Lovenox ) for __prevention of blood clots___. You will continue to take enoxaparin (Lovenox) for __28 days post-op__. It is important that you give the injections at the same time each day.It is important that you continue your enoxaparin until told to stop.If you forget an injection, contact your doctor for advice as to when you should give your next injection. Let everyone involved in your care, such as a dentist or other provider, know that you are taking enoxaparin (Lovenox ).Side Effects: - Skin bruises, itching, and bleeding around the injection site, can occur.- If bleedingdoes occur, it may take a little longer than usual to stop. Let your doctor know if you develop a rash of dark red spots under the skin.Signs of bleeding that you should call your doctor: - Gums that bleed after brushing your teeth lasting more than 15 minutes.- A nose bleed that lasts for more than 15 minutes.- Bleeding from a cut that does not stop in 15 minutes.- Urine that looks red, or urinethat is dark like coffee.- Stool (BMs) that are covered with blood, or are black.- Vomit that is bright red or vomit that looks like coffee.How to administer the injection:1. Wash your hands with soap and water. Dry your hands.2. Sit down or lie flat in a comfortable position.3. Select an area on the right or left side of your stomach (at least 2 inches away from your belly button), the back of your upper arm or side of your upper thigh.4. Clean the area with an alcohol swabs. Allow the area todry.5. Carefully pull off the needle cap from the syringe and discard cap. Leave the air bubble in the syringe. 6. Hold the syringe like a pencil in the hand you write with.7. With your other hand, gently pinch around the cleansed area to make a fold in the skin. Continue to hold the skin fold throughout the injection.8. Press the needle straight down and all the way into the skin fold.9. Press down on the plunger as far as it will go with your finger until the syringe is empty.10. Remove the needle by pulling it straight out.11. DO NOT rub the injection site.12. Point the needle down and away from yourself and others. Push down on the plunger to release the safety shield.13. Drop the used syringe into a thick plastic disposable container. * Call Provider If:Fever of 100.4 F (38 C) or higher. Chills. Vomiting (throwing up) and not able to eat or drink for 12 hours. Any new concerning symptoms. Call the office for signs of infection, suchas, sustained elevated temperature greater than 100 degrees, increased abdominal pain, increased redness or swelling, tenderness to touch, or drainage along incision. Also call the office for persistent nausea or vomiting. If you become nauseated, stop eating and drink clear liquids only. Once nausea goes away, advance your diet slowly as tolerated. If nausea persists, call the office or come to this ER.If you have questions or concerns, call your doctor s office at: [phone] option #2. This phone number is answered 05/03. If it is after hours, and you need to speak to a physician, the service will answer and page the physician covering, who will return your call. * Follow Up Appointment 1:Physician/Dept/Service: Danielle Odom, Nurse Practitioner for Dr Black .Location: [facility] [id number] [place] [address], [facility], [facility] [address]Phone Number: [phone] option #2Comments: follow up after hospital discharge [facility] for referral (narrative)No reason for referral information availableWPaulding County Hospital Work Phone: Summary Purpose Family History No Family History Records FoundUnknown Family Member Name Dates Details Family history of malignant neoplasm of colon: Mother, Father(V16.0, Z80.0) Status:Active Family history of malignant neoplasm of breast: Mother, Father(V16.3, Z80.3) Status:Active Family history of cerebrovas cular accident (CVA): Mother, Father(V17.1, Z82.3) Status:Active Family history of diabetes m ellitus: Mother, Father(V18.0, Z83.3) Status:Active Family history of hypertensi on: Mother, Father(V17.49, Z82.49) Status:Active Heart problem: Mother, Fathe r Status:Active Unknown Family Member Name Dates Details Family history of malignant neoplasm of colon: Mother, Father(V16.0, Z80.0) Status:Active Family history of malignant neoplasm of breast: Mother, Father(V16.3, Z80.3) Status:Active Family history of cerebrovas cular accident (CVA): Mother, Father(V17.1, Z82.3) Status:Active Family history of diabetes m ellitus: Mother, Father(V18.0, Z83.3) Status:Active Family history of hypertensi on: Mother, Father(V17.49, Z82.49) Status:Active Heart problem: Mother, Fathe r Status:Active Unknown Family Member Name Dates Details Family history of malignant neoplasm of colon: Mother, Father(V16.0, Z80.0) Status:Active Family history of malignant neoplasm of breast: Mother, Father(V16.3, Z80.3) Status:Active Family history of cerebrovas cular accident (CVA): Mother, Father(V17.1, Z82.3) Status:Active Family history of diabetes m ellitus: Mother, Father(V18.0, Z83.3) Status:Active Family history of hypertensi on: Mother, Father(V17.49, Z82.49) Status:Active Heart problem: Mother, Fathe r Status:Active Unknown Family Member Name Dates Details Family history of malignant neoplasm of colon: Mother, Father(V16.0, Z80.0) Status:Active Family history of malignant neoplasm of breast: Mother, Father(V16.3, Z80.3) Status:Active Family history of cerebrovas cular accident (CVA): Mother, Father(V17.1, Z82.3) Status:Active Family history of diabetes m ellitus: Mother, Father(V18.0, Z83.3) Status:Active Family history of hypertensi on: Mother, Father(V17.49, Z82.49) Status:Active Heart problem: Mother, Fathe r Status:Active Unknown Family Member Name Dates Details Family history of hypertensi on: Mother, Father(V17.49, Z82.49) Status:Active Heart problem: Mother, Fathe r Status:Active Family history of malignant neoplasm of colon: Paternal Aunt(V16.0, Z80.0) Status:Active Family history of malignant neoplasm of breast: Maternal Aunt(V16.3, Z80.3) Status:Active Denies Family history of cer ebrovascular accident (CVA): Mother, Father(V17.1, Z82.3) Status: Family history of diabetes m ellitus: Mother, Paternal Grandmother(V18.0, Z83.3) Status:Active Family history of alcoholism : Paternal Uncle(V17.0, Z81.1) Status:Active Parkinson's disease, Lewy tirso dy: Father Status:Active Parkinson's disease dementia : Father Status:Active Unknown Family Member Name Dates Details Family history of hypertensi on: Mother, Father(V17.49, Z82.49) Status:Active Heart problem: Mother, Fathe r Status:Active Family history of malignant neoplasm of colon: Paternal Aunt(V16.0, Z80.0) Status:Active Family history of malignant neoplasm of breast: Maternal Aunt(V16.3, Z80.3) Status:Active Denies Family history of cer ebrovascular accident (CVA): Mother, Father(V17.1, Z82.3) Status: Family history of diabetes m ellitus: Mother, Paternal Grandmother(V18.0, Z83.3) Status:Active Family history of alcoholism : Paternal Uncle(V17.0, Z81.1) Status:Active Parkinson's disease, Lewy tirso dy: Father Status:Active Parkinson's disease dementia : Father Status:Active Unknown Family Member Name Dates Details Family history of hypertensi on: Mother, Father(V17.49, Z82.49) Status:Active Heart problem: Mother, Fathe r Status:Active Family history of malignant neoplasm of colon: Paternal Aunt(V16.0, Z80.0) Status:Active Family history of malignant neoplasm of breast: Maternal Aunt(V16.3, Z80.3) Status:Active Denies Family history of cer ebrovascular accident (CVA): Mother, Father(V17.1, Z82.3) Status: Family history of diabetes m ellitus: Mother, Paternal Grandmother(V18.0, Z83.3) Status:Active Family history of alcoholism : Paternal Uncle(V17.0, Z81.1) Status:Active Parkinson's disease, Lewy tirso dy: Father Status:Active Parkinson's disease dementia : Father Status:Active Unknown Family Member Name Dates Details Family history of hypertensi on: Mother, Father(V17.49, Z82.49) Status:Active Heart problem: Mother, Fathe r Status:Active Family history of malignant neoplasm of colon: Paternal Aunt(V16.0, Z80.0) Status:Active Family history of malignant neoplasm of breast: Maternal Aunt(V16.3, Z80.3) Status:Active Denies Family history of cer ebrovascular accident (CVA): Mother, Father(V17.1, Z82.3) Status: Family history of diabetes m ellitus: Mother, Paternal Grandmother(V18.0, Z83.3) Status:Active Family history of alcoholism : Paternal Uncle(V17.0, Z81.1) Status:Active Parkinson's disease, Lewy tirso dy: Father Status:Active Parkinson's disease dementia : Father Status:Active Unknown Family Member Name Dates Details Family history of hypertensi on: Mother, Father(V17.49, Z82.49) Status:Active Heart problem: Mother, Fathe r Status:Active Family history of malignant neoplasm of colon: Paternal Aunt(V16.0, Z80.0) Status:Active Family history of malignant neoplasm of breast: Maternal Aunt(V16.3, Z80.3) Status:Active Denies Family history of cer ebrovascular accident (CVA): Mother, Father(V17.1, Z82.3) Status: Family history of diabetes m ellitus: Mother, Paternal Grandmother(V18.0, Z83.3) Status:Active Family history of alcoholism : Paternal Uncle(V17.0, Z81.1) Status:Active Parkinson's disease, Lewy tirso dy: Father Status:Active Parkinson's disease dementia : Father Status:Active Unknown Family Member Name Dates Details Family history of hypertensi on: Mother, Father(V17.49, Z82.49) Status:Active Heart problem: Mother, Fathe r Status:Active Family history of malignant neoplasm of breast: Maternal Aunt(V16.3, Z80.3) Status:Active Denies Family history of cer ebrovascular accident (CVA): Mother, Father(V17.1, Z82.3) Status: Family history of malignant neoplasm of colon: Paternal Aunt(V16.0, Z80.0) Status:Active Family history of diabetes m ellitus: Mother, Paternal Grandmother(V18.0, Z83.3) Status:Active Family history of alcoholism : Paternal Uncle(V17.0, Z81.1) Status:Active Parkinson's disease, Lewy tirso dy: Father Status:Active Parkinson's disease dementia : Father Status:Active Unknown Family Member Name Dates Details Family history of hypertensi on: Mother, Father(V17.49, Z82.49) Status:Active Heart problem: Mother, Fathe r Status:Active Family history of malignant neoplasm of colon: Paternal Aunt(V16.0, Z80.0) Status:Active Family history of malignant neoplasm of breast: Maternal Aunt(V16.3, Z80.3) Status:Active Denies Family history of cer ebrovascular accident (CVA): Mother, Father(V17.1, Z82.3) Status: Family history of diabetes m ellitus: Mother, Paternal Grandmother(V18.0, Z83.3) Status:Active Family history of alcoholism : Paternal Uncle(V17.0, Z81.1) Status:Active Parkinson's disease, Lewy tirso dy: Father Status:Active Parkinson's disease dementia : Father Status:Active Unknown Family Member Name Dates Details Family history of hypertensi on: Mother, Father(V17.49, Z82.49) Status:Active Heart problem: Mother, Fathe r Status:Active Family history of malignant neoplasm of colon: Paternal Aunt(V16.0, Z80.0) Status:Active Family history of malignant neoplasm of breast: Maternal Aunt(V16.3, Z80.3) Status:Active Denies Family history of cer ebrovascular accident (CVA): Mother, Father(V17.1, Z82.3) Status: Family history of diabetes m ellitus: Mother, Paternal Grandmother(V18.0, Z83.3) Status:Active Family history of alcoholism : Paternal Uncle(V17.0, Z81.1) Status:Active Parkinson's disease, Lewy tirso dy: Father Status:Active Parkinson's disease dementia : Father Status:Active Unknown Family Member Name Dates Details Family history of hypertensi on: Mother, Father(V17.49, Z82.49) Status:Active Heart problem: Mother, Fathe r Status:Active Family history of malignant neoplasm of colon: Paternal Aunt(V16.0, Z80.0) Status:Active Family history of malignant neoplasm of breast: Maternal Aunt(V16.3, Z80.3) Status:Active Denies Family history of cer ebrovascular accident (CVA): Mother, Father(V17.1, Z82.3) Status: Family history of diabetes m ellitus: Mother, Paternal Grandmother(V18.0, Z83.3) Status:Active Family history of alcoholism : Paternal Uncle(V17.0, Z81.1) Status:Active Parkinson's disease, Lewy tirso dy: Father Status:Active Parkinson's disease dementia : Father Status:Active Advance Directives No Advanced Directives Records FoundNo Advanced Directives Records FoundNo Advanced Directives Records FoundNo Advanced Directives Records FoundNo Advanced Directives Records FoundNo Advanced Directives Records FoundNo Advanced Directives Records Found Chief Complaint and Reason for Visit Chief Complaint CROHN'S DISEASE SCREENING Chief Complaint Admit Date EORDER- FOOT AND ANKLE November 14, 2024 5 :08pm WW November 19, 2024 11:3 4am Chief Complaint Admit Date EORDER- FOOT AND ANKLE November 14, 2024 5 :08pm WW November 19, 2024 11:3 4am OSTEOPENIA December 04, 2024 3:2 7pm Chief Complaint Admit Date EORDER- FOOT AND ANKLE November 14, 2024 5 :08pm WW November 19, 2024 11:3 4am OSTEOPENIA December 04, 2024 3:2 7pm WW December 23, 2024 12:03 pm Chief Complaint POV Additional Source Comments INFORMATION SOURCE (unrecogn ized section and content) DATE CREATED AUTHOR 02/05/2018 [facility] DATE CREATED AUTHOR AUTHOR'S ORGANIZ ATION 07/06/2021 [facility] ([place]) DATE CREATED AUTHOR AUTHOR'S ORGANIZ ATION 08/05/2022 [employer] DATE CREATED AUTHOR AUTHOR'S ORGANIZ ATION 11/18/[address] [facility] DATE CREATED AUTHOR AUTHOR'S ORGANIZ ATION 10/23/2024 [facility] DATE CREATED AUTHOR AUTHOR'S ORGANIZ ATION 11/01/2024 [facility] DATE CREATED AUTHOR AUTHOR'S ORGANIZ ATION 01/24/2025 [facility] Goals (unrecognized section and content) Goals may be documented in a n alternate section <item> Privacy Markings (unrecogniz ed section and content) Section Author: Mery Negrete PROHIBITION ON REDISCLOSURE OF CONFIDENTIAL INFORMATION This notice accompanies a disclosure of information concerning a client made to you with the consent of such client. Reason for Visit (unrecogniz ed section and content) Reason Comments Other [employer] py - [employer] instructions Reason Comments fuv Care Teams (unrecognized sec tion and content) Team Status: Active Member Role Status Dates Dr. 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 Consultant Relationship Specialty Start Date End Date Jordan Esquivel DO PCP - General Family Medicine 05/21/23 Team Status: Active Member Role Status Isabela Juarez MD Primary Care Provider Active Team Status: Inactive Member Role Status Isabela Juarez MD Primary Care Provider Active St art: November 14, 2024 End: November 14, 2024 Lorna Juarez MD Attending Provider Active Start : November 14, 2024 End: November 14, 2024 Lorna Juarez MD Referring Provider Active Start : November 14, 2024 End: November 14, 2024 Team Status: Active Member Role Status Isabela Juarez MD Primary Care Provider Active St art: November 19, 2024 Lorna Juarez MD Attending Provider Active Start : November 19, 2024 Lorna Juarez MD Referring Provider Active Start : November 19, 2024 Team Status: Inactive Member Role Status Isabela Juarez MD Primary Care Provider Active St art: December 04, 2024 End: December 04, 2024 Lorna Juarez MD Attending Provider Active Start : December 04, 2024 End: December 04, 2024 Lorna Juarez MD Referring Provider Active Start : December 04, 2024 End: December 04, 2024 Team Status: Inactive Member Role Status Isabela Juarez MD Primary Care Provider Active St art: November 19, 2024 End: December 10, 2024 Lorna Juarez MD Attending Provider Active Start : November 19, 2024 End: December 10, 2024 Lorna Juarez MD Referring Provider Active Start : November 19, 2024 End: December 10, 2024 Team Status: Inactive Member Role Status Isabela Juarez MD Primary Care Provider Active St art: December 23, 2024 End: January 10, 2025 Lorna Juarez MD Attending Provider Active Start : December 23, 2024 End: January 10, 2025 Lorna Juarez MD Referring Provider Active Start : December 23, 2024 End: January 10, 2025 FOR RECORDS PERTAINING TO PATIENTS WHO ARE OR HAVE BEEN ENROLLED IN A CHEMICAL DEPENDENCY/SUBSTANCEABUSE PROGRAM, SOME INFORMATION MAY BE OMITTED. This clinical summary was aggregated from multiple sources. Caution should be exercised in using it in the provision of clinical care. This summary normalizes information from multiple sources, and as a consequence, information in this document may materially change the coding, format and clinical context of patient data. In addition, data may be omitted in some cases. CLINICAL DECISIONS SHOULD BE BASED ON THE PRIMARY CLINICAL RECORDS. [facility] [employer] [facility]. provides no warranty or guarantee of the accuracy or completeness of information in this document.
--- NOTE | 2025-01-27 06:51 | MRI_ITS ---
PROCEDURE: LOWER EXT JOINT ONLY (ROUTINE) 01/27/2025 REASON FOR EXAM: OSTEOARTHRITIS PERONEAL TENDONITIS, POSTERIOR TIBIAL TENDONITIS TECHNIQUE: LOWER EXT JOINT ONLY (ROUTINE) T1, T2, PD, multiplanar and multisequence images were obtained without IV contrast administration. COMPARISON: COMPARISON : None FINDINGS: Study demonstrates normal articulation of the ankle joint. No acute fractures or dislocations. Normal marrow signal. The contours of the talar dome are normal. There is mild distal Achilles tendinopathy without tear. There is trace amount of fluid in the pre Achilles bursa, with bursitis. There is with fluid signal in the pre Achilles soft tissues which extends to the region of the peroneal myotendinous junction. Plantar aponeurosis is intact. The lateral, medial and central cords of the plantar fascia are intact. Evaluation of the peroneal tendons demonstrates no evidence of tendinosis or dislocation. The flexor digitorum longus and flexor hallucis longus tendons are intact. There is mild increased fluid in the posterior tibial tendon sheath without tendon tear or retraction, mild tenosynovitis. The extensor tendons are intact. Extensor retinaculum is intact and normal in signal. There is a 1.5 x 1.7 x 1.0 cm ganglion extending from the sinus tarsi and lateral root of the inferior extensor retinaculum. The subtalar joint is intact. Signal in the sinus tarsi is normal. Transverse and cervical ligaments are intact. Lateral syndesmotic ankle ligaments including the anterior and posterior tibiofibular ligaments are intact. The anterior and posterior talofibular ligaments are intact. The medial ankle ligaments including the deltoid and spring ligaments are intact. There is no joint effusion. MRI/Lower Ext Joint Only (Routine) IMPRESSION: There is trace amount of fluid in the pre Achilles bursa, with bursitis. There is with fluid signal in the pre Achilles soft tissues which extends to th e region of the peroneal myotendinous junction. There is mild increased fluid in the posterior tibial tendon sheath without ten don tear or retraction, mild tenosynovitis. There is a 1.5 x 1.7 x 1.0 cm ganglion extending from the sinus tarsi and later al root of the inferior extensor retinaculum. Reading Location: [facility]
== END | disposition home or self-care (01) ==
LOC: OPMRI 06:46
PROVIDERS: PCP Family Medicine; Referring Provider Podiatrist; Visit Provider Podiatrist
DX: M76.829 Posterior tibial tendinitis, unspecified leg (principal); M19.071 Primary osteoarthritis, right ankle and foot; M19.072 Primary osteoarthritis, left ankle and foot
CPT/HCPCS: 73721

== ENCOUNTER 2025-03-26 11:51 | Outpatient (RCR) | payer BC, SELFPAY | END 2025-04-12 23:59 | LOC: NS 11:51 | PROVIDERS: PCP Family Medicine; Referring Provider Family Medicine; Visit Provider Family Medicine | DX: Z71.3 Dietary counseling and surveillance (principal); E66.9 Obesity, unspecified; Z68.41 Body mass index [BMI] 40.0-44.9, adult; E78.00 Pure hypercholesterolemia, unspecified | CPT/HCPCS: 97803 ==

== ENCOUNTER → 2025-05-19 | Outpatient (CLI) | payer BC, SELFPAY ==
--- NOTE | 2025-05-19 15:02 | VDLE_ITS ---
Reason For Study Reason For Study: PAIN RIGHT LEFT CFV is compressible, spontaneous, phasic, competent CFV is compressible, spontaneous, phasic, competent, and demonstrates normal augmentation. and demonstrates normal augmentation. FV is compressible, spontaneous, phasic, competent FV is compressible, spontaneous, phasic, competent and demonstrates normal augmentation. and demonstrates normal augmentation. POP V is compressible, spontaneous, phasic, competent POP V is compressible, spontaneous, phasic, competent and demonstrates normal augmentation. and demonstrates normal augmentation. T/P Trunk is compressible. T/P Trunk is compressible. PTV is compressible. PTV is compressible. RT PerV is compressible. LT PerV is compressible. SFJ is competent and measures 0.84 cm. SFJ is competent and measures 0.88 cm. GSV proximal thigh measures 0.62 x 0.50 cm. GSV proximal thigh measures 0.65 x 0.53 cm. GSV at knee measures 0.41 x 0.34 cm. GSV at knee measures 0.49 x 0.46 cm. GSV is competent throughout. GSV is competent throughout. SSV at junction is competent and measures 0.29 x 0.28 SSV mid calf is competent and measures 0.27 x 0.26 cm. cm. Procedure This is a venous duplex using B-mode, color flow and spectral Doppler. Exam performed in department. VL/Venous Duplex US - Raul Extrem Interpretation Summary Deep veins of the lower extremities are bilaterally patent and compressible seg mentally. There is no evidence of deep vein thrombosis on either side. Valvular competence appears intact within the p roximal deep venous systems bilaterally. The great saphenous veins appear bilaterally patent and compressible segmentall y. Sapheno-femoral junctions are bilaterally competent . Valvular competence appears to be intact segmentally wi thin the great saphenous veins bilaterally. Small saphenous veins are patent and competent bilaterally. Ordering Physician: Billy Atkins Referring Physician: Lorna Juarez Performed By: Roselia Issa, RDCS, RVT
== END | disposition home or self-care (01) ==
LOC: CVS 15:00
PROVIDERS: PCP Family Medicine; Referring Provider Podiatrist; Visit Provider Podiatrist
DX: M79.661 Pain in right lower leg (principal); M79.662 Pain in left lower leg
CPT/HCPCS: 93970